=== PATIENT | female | born 1970 | race Caucasian/White ===

== ENCOUNTER 2017-04-24 17:43 | Emergency (ER) | payer OTHER ==
[2017-04-24 17:44] VITALS: BMI 15.3
[2017-04-24 17:51] VITALS: PULSE 88
[2017-04-24] MEDS ORDERED: Sodium Chloride 0.9% 1,000 ML IV ONE (19:17)
--- NOTE | 2017-04-24 19:28 | C.PDOC ---
History Of Present Illness 46 year old female with a Hx of drug abuse who presents to the ER with a complaint of back pain for the last 2 days that has worsened today. Denies dysuria, hematuria, fever, or chills. Chief Complaint (Nursing): Back Pain History Per: Patient History/Exam Limitations: no limitations Onset/Duration Of Symptoms: Days Current Symptoms Are (Timing): Still Present Quality Of Discomfort: Unable To Describe Previous Symptoms: Back Pain, Chronic Pain Associated Symptoms: None Recent travel outside of the [place]: No Past Medical History Reviewed: Historical Data, Nursing Documentation, Vital Signs Vital Signs: Last Vital Signs Temp 99.9 F H 04/24/17 17:50 Pulse 88 04/24/17 17:50 Resp 20 04/24/17 17:50 BP 102/58 L 04/24/17 17:50 Pulse Ox 97 04/24/17 19:34 - Medical History PMH: Asthma, COPD (ASTHMA), HTN - [facility] Procedures CHANGE OTHER DEVICE ON CHEST WALL (02/26/16) CHANGE OTHER DEVICE ON NECK (02/26/16) DRAINAGE OF CHEST WALL WITH DRAINAGE DEVICE, OPEN APPROACH (02/26/16) DRAINAGE OF NECK SKIN WITH DRAINAGE DEVICE, EMERGENCY VEHICLE DRIVER APPROACH (02/26/16) DRAINAGE OF NECK WITH DRAINAGE DEVICE, OPEN APPROACH (02/26/16) DRAINAGE OF RIGHT FINGER PHALANGEAL JOINT, OPEN APPROACH (01/31/16) DRAINAGE OF RIGHT HAND TENDON, OPEN APPROACH (01/31/16) EXCISION OF ANT NECK SUBCU/FASCIA, OPEN APPROACH (02/26/16) EXCISION OF CHEST SUBCU/FASCIA, OPEN APPROACH (02/26/16) INSERTION OF INFUSION DEV INTO SUP VENA CAVA, PERC APPROACH (02/26/16) SKIN & SUBQ INCISION NEC (09/09/14) Family History: States: Unknown Family Hx - Social History Hx Tobacco Use: Yes Hx Alcohol Use: No Hx Substance Use: Yes (Heroin) - Immunization History Hx Tetanus Toxoid Vaccination: Yes Hx Influenza Vaccination: No Hx Pneumococcal Vaccination: No Review Of Systems Constitutional: Negative for: Fever, Chills Genitourinary: Negative for: Dysuria, Incontinence, Hematuria Musculoskeletal: Positive for: Back Pain Neurological: Negative for: Weakness, Numbness Physical Exam - Physical Exam Appears: Non-toxic, Other (Mild Distress) Skin: Normal Color, Warm, Dry Head: Atraumatic, Normacephalic Oral Mucosa: Moist Neck: Normal, Supple Chest: Symmetrical, No Tenderness Cardiovascular: Rhythm Regular, No Murmur Respiratory: Normal Breath Sounds, No Rales, No Rhonchi, No Wheezing Gastrointestinal/Abdominal: Soft, No Tenderness Back: Paraspinal Tenderness (Lumbar) Neurological/Psych: Oriented x3, Normal Speech, Normal Cognition ED Course And Treatment - Laboratory Results Result Diagrams: 04/24/17 19:47 04/24/17 19:47 O2 Sat by Pulse Oximetry: 97 (Room air) Pulse Ox Interpretation: Normal Progress Note: Lumbar spine CT, blood work, and urinalysis ordered. Toradol and IV fluids administered. Disposition Counseled Patient/Family Regarding: Diagnosis - Disposition Referrals: [facility] [Outside] Disposition: HOME/ ROUTINE Disposition Time: 20:59 Condition: STABLE Prescriptions: Ciprofloxacin [Cipro] 1 tab PO BID #14 tab Naproxen [Naprosyn Tab] 375 mg PO TIDPC #20 tab Instructions: Chronic Back Pain (ED), Arthralgia (ED), Urinary Tract Infection in Women (DC) Forms: [employer] ([place]) - POA Present On Arrival: None - Clinical Impression Clinical Impression: Back pain, Arthritis, Urinary tract infection - Scribe Statement The provider has reviewed the documentation as recorded by the Scribeverardo Bonilla All medical record entries made by the Scribe were at my direction and personally dictated by me. I have reviewed the chart and agree that the record accurately reflects my personal performance of the history, physical exam, medical decision making, and the department course for this patient. I have also personally directed, reviewed, and agree with the discharge instructions and disposition.
[2017-04-24 19:56] LABS: BASO % 0.5 % (0.0-2.0); EOS # 0.1 K/uL (0.0-0.7); EOS % 0.9 % (0.0-4.0); LYMPH # 1.3 K/uL (1.0-4.3); LYMPH % 16.7 % (20.0-40.0); MEAN CELL VOLUME 82.4 fL (81.0-99.0); MEAN CORPUSCULAR HEMOGLOBIN 27.9 pg (27.0-31.0); MEAN CORPUSCULAR HGB CONC 33.9 g/dL (33.0-37.0); MEAN PLATELET VOLUME 7.3 fL (7.2-11.7); MONO # 0.9 K/uL (0.0-0.8); MONO % 11.6 % (0.0-10.0); RED CELL DISTRIBUTION WIDTH 14.2 % (11.5-14.5); WHITE BLOOD COUNT 7.6 K/uL (4.8-10.8)
[2017-04-24] MEDS ORDERED: Sodium Chloride 0.9% 1,000 ML ONE (19:58)
[2017-04-24 20:01] LABS: CHLORIDE 97 mmol/L (98-107)
[2017-04-24 20:02] LABS: POTASSIUM 3.7 mmol/L (3.6-5.2); SODIUM 136 mmol/L (132-148)
[2017-04-24 20:04] LABS: AST/SGOT 27 U/L (14-36); BILIRUBIN,TOTAL 0.6 mg/dL (0.2-1.3); CARBON DIOXIDE 26 mmol/L (22-30); GFR AFRICAN-AMERICAN > 60
[2017-04-24 20:05] LABS: ALB/GLOB RATIO 0.8 (1.0-2.1); ALCOHOL SERUM < 10 mg/dl (0-10); ALKALINE PHOSPHATASE 128 U/L (38-126); ALT/SGPT 21 U/L (9-52); BLOOD UREA NITROGEN 17 mg/dL (7-17); CALCIUM 9.3 mg/dl (8.6-10.4); GLUCOSE,RANDOM 116 mg/dL (65-105); RBC URINE 5 /hpf (0-3); TOTAL PROTEIN 7.4 g/dL (6.3-8.3); URINE BACTERIA MANY (<OCC); URINE BILIRUBIN NEGATIVE (NEGATIVE); URINE BLOOD 2+ (NEGATIVE); URINE COLOR Yellow (YELLOW); URINE GLUCOSE (UA) NORMAL (Normal); URINE KETONE NEGATIVE (NEGATIVE); URINE LEUKOCYTE ESTERASE TRACE Leu/uL (Negative); URINE PROTEIN NEGATIVE (NEGATIVE); WBC URINE 4 /hpf (0-5)
--- NOTE | 2017-04-24 20:31 | CT ---
EXAM: CT Lumbar Spine Without Intravenous Contrast EXAM DATE/TIME: Exam ordered 04/24/2017 7:19 PM CLINICAL HISTORY: 46 years old, female; Pain; Low back pain; Additional info: Back pain/ drug abuser TECHNIQUE: Axial computed tomography images of the lumbar spine without intravenous contrast. All CT scans at this facility use one or more dose reduction techniques, viz.: automated exposure control; ma/kV adjustment per patient size (including targeted exams where dose is matched to indication; i.e. head); or iterative reconstruction technique. Coronal and sagittal reformatted images were created and reviewed. COMPARISON: No relevant prior studies available. FINDINGS: Vertebrae: Unremarkable. No acute fracture. Discs/spinal canal/neural foramina: Mild degenerative changes are noted within the facet joints from L4-S1. No acute findings. No spinal canal stenosis. Soft tissues: Unremarkable. IMPRESSION: 1. No acute findings. 2. Very mild degenerative changes of the facet joints of the lower lumbar spine.
[2017-04-24 21:34] VITALS: BP 105/72; RESP 16; TEMP 99.4; O2SAT 95
== END 2017-04-24 21:33 | disposition home or self-care (01) ==
LOC: C.ER 17:43
DX: N39.0 Urinary tract infection, site not specified (principal); B96.89 Other specified bacterial agents as the cause of diseases classified elsewhere; M46.96 Unspecified inflammatory spondylopathy, lumbar region
CPT/HCPCS: 72131; 80053; 81001; 85025; 87086; 96361; 96374; 99283; G0480; J1885; J7040

== ENCOUNTER 2017-10-07 12:03 | Inpatient (IN) | payer OTHER ==
[2017-10-07 12:07] VITALS: BMI 15.3
[2017-10-07] MEDS ORDERED: Sodium Chloride 0.9% 1,000 ML IV ONE ×2 (13:31→15:51)
[2017-10-07] MEDS ORDERED: Sodium Chloride 0.9% 1,000 ML ONE ×2 (13:44→15:56)
--- NOTE | 2017-10-07 13:47 | RAD ---
HISTORY: abd pain COMPARISON: Chest x-ray performed 03/02/16 TECHNIQUE: Chest, one view. FINDINGS: LUNGS: Ill-defined 9 mm right upper lobe opacity and 8 mm lateral left upper lobe nodular density, possibly related to artifact from confluence of shadows; nodules are not excluded. Please note that chest x-ray has limited sensitivity for the detection of pulmonary masses. PLEURA: No significant pleural effusion identified. No definite pneumothorax . CARDIOVASCULAR: Heart size appears within normal limits. OSSEOUS STRUCTURES: Degenerative changes of the spine. VISUALIZED UPPER ABDOMEN: Unremarkable. OTHER FINDINGS: None. IMPRESSION: Ill-defined 9 mm right upper lobe opacity and 8 mm lateral left upper lobe nodular density, possibly related to artifact from confluence of shadows; nodules are not excluded. Suggest follow-up CT of the chest for confirmation.
--- NOTE | 2017-10-07 14:03 | C.PDOC ---
History Of Present Illness 47-year-old female, PMHx includes CVA and Asthma, presents to the emergency department with complaints of Heroin withdrawal. Patient notes abdominal pain, that is associated with nausea/vomiting, diarrhea, and generalized weakness. Patient notes last used was two days ago, she uses three bags daily "for a long time." Patient notes that she uses crack/cocaine and cigarettes (10 daily) but no alcohol use. All other Hx limited because patient is a poor historian. Time Seen by Provider: 10/07/17 13:09 Chief Complaint (Nursing): Abdominal Pain History Per: Patient Onset/Duration Of Symptoms: Days Current Symptoms Are (Timing): Still Present Severity: Moderate Past Medical History Reviewed: Historical Data, Nursing Documentation, Vital Signs Vital Signs: Last Vital Signs Temp 98.7 F 10/07/17 17:43 Pulse 63 10/07/17 17:43 Resp 18 10/07/17 17:43 BP 120/74 10/07/17 17:43 Pulse Ox 97 10/07/17 17:43 - Medical History PMH: Asthma, COPD (ASTHMA), HTN - [facility] Procedures CHANGE OTHER DEVICE ON CHEST WALL (02/26/16) CHANGE OTHER DEVICE ON NECK (02/26/16) DRAINAGE OF CHEST WALL WITH DRAINAGE DEVICE, OPEN APPROACH (02/26/16) DRAINAGE OF NECK SKIN WITH DRAINAGE DEVICE, AERIAL APPLICATOR PILOT APPROACH (02/26/16) DRAINAGE OF NECK WITH DRAINAGE DEVICE, OPEN APPROACH (02/26/16) DRAINAGE OF RIGHT FINGER PHALANGEAL JOINT, OPEN APPROACH (01/31/16) DRAINAGE OF RIGHT HAND TENDON, OPEN APPROACH (01/31/16) EXCISION OF ANT NECK SUBCU/FASCIA, OPEN APPROACH (02/26/16) EXCISION OF CHEST SUBCU/FASCIA, OPEN APPROACH (02/26/16) INSERTION OF INFUSION DEV INTO SUP VENA CAVA, PERC APPROACH (02/26/16) SKIN & SUBQ INCISION NEC (09/09/14) Family History: States: [place] (Father) - Social History Hx Tobacco Use: Yes Hx Alcohol Use: No Hx Substance Use: Yes (Heroin) - Immunization History Hx Tetanus Toxoid Vaccination: Yes Hx Influenza Vaccination: No Hx Pneumococcal Vaccination: No Review Of Systems Constitutional: Negative for: Fever, Chills Cardiovascular: Negative for: Chest Pain Respiratory: Negative for: Shortness of Breath Gastrointestinal: Positive for: Nausea, Vomiting, Abdominal Pain, Diarrhea Musculoskeletal: Negative for: Back Pain Neurological: Positive for: Weakness. Negative for: Headache, Dizziness Physical Exam - Physical Exam Appears: Non-toxic, No Acute Distress, Other (uncomfortable) Skin: Warm, Dry, No Rash Head: Atraumatic, Normacephalic Eye(s): bilateral: Other (dilated) Nose: Normal Oral Mucosa: Moist Lips: Normal Appearing Neck: Normal ROM Gastrointestinal/Abdominal: Bowel Sounds, Soft, Tenderness (diffuse), No Guarding, No Rebound Extremity: Normal ROM Neurological/Psych: Oriented x3, Normal Speech ED Course And Treatment - Laboratory Results Result Diagrams: 10/07/17 14:25 10/07/17 14:25 Lab Interpretation: No Acute Changes (Evidence of moderate dehydration with elevated Hgb and BUN) O2 Sat by Pulse Oximetry: 99 (RA) Pulse Ox Interpretation: Normal - Radiology CXR: Viewed By Mo CXR Interpretation: Yes: Other (Possible upper lobe nodules. No infiltrate) - CT Scan/US CT Chest Other Rad Studies (CT/US): Read By Radiologist, Radiology Report Reviewed CT/US Interpretation: Accession No. : [id number]. Patient Name / ID : LESLIE KUHN / [id number]. Exam Date : 10/07/2017 14:30:32 ( Approved ). Study Comment : Sex / Age : F / 47Y. Creator : Yaima Waters MD. Dictator : Yaima Waters MD. Software Quality Engineer : Log Roller : Yaima Waters MD. Approver2 : Report Date : 10/07/2017 15:05:41. My Comment : . CT chest without IV contrast. Indication: Upper lobe pulmonary nodules. Technique: Contiguous axial images were obtained through the chest without intravenous contrast enhancement. Sagittal and coronal reconstructions were generated and reviewed. This CT exam was performed using 1 or more of the following dose reduction techniques: Automated exposure control, adjustment of the MAA and/or kV according to patient size, and/or use of iterative reconstruction technique. . Radiation dose (DLP): 147.49 MGy-cm. Comparison : Chest x-ray performed 10/07/17. Findings: Visualized portions of the inferior thyroid gland demonstrates 7 mm hypodense left lower pole nodule. The unenhanced mediastinal and hilar vascular structures appear grossly unremarkable. The heart appears within normal limits of size. No focal consolidation. No pleural effusion. No pneumothorax. No suspicious pulmonary nodules measuring greater than 5 mm. Limited visualization of the noncontrast upper abdomen appears grossly unremarkable. Osseous structures appear somewhat diffusely sclerotic; correlate for underlying metabolic disorder. Impression: No discrete pulmonary nodule or mass identified. Findings on chest x-ray performed the same day presumably due to confluence of shadows. 7 mm hypodense left lower pole thyroid nodule. This may be assessed with outpatient thyroid ultrasound if indicated. Osseous structures appear somewhat diffusely sclerotic ; correlate for underlying metabolic disorder. Findings discussed with Dr. Matt on 10/07/17 at 3:02 p.m. Progress Note: CT Chest, Bloodwork, chest X-Ray, HCG/UA ordered and reviewed. Patient treated with Catapres, IVFs, Tylenol and Zofran. Patient was seen by crisis and accepted for a detox bed. Disposition - Disposition Disposition: HOSPITALIZED Disposition Time: 19:23 Condition: FAIR - POA Present On Arrival: None - Clinical Impression Clinical Impression: Opiate dependence - Scribe Statement The provider has reviewed the documentation as recorded by the Scribe (Hayes Haddad) All medical record entries made by the Scribe were at my direction and personally dictated by me. I have reviewed the chart and agree that the record accurately reflects my personal performance of the history, physical exam, medical decision making, and the department course for this patient. I have also personally directed, reviewed, and agree with the discharge instructions and disposition.
[2017-10-07 14:31] LABS: BASO % 0.2 % (0.0-2.0); EOS % 0.1 % (0.0-4.0); LYMPH # 1.3 K/uL (1.0-4.3); LYMPH % 12.7 % (20.0-40.0); MEAN CELL VOLUME 82.2 fL (81.0-99.0); MEAN CORPUSCULAR HEMOGLOBIN 29.3 pg (27.0-31.0); MEAN CORPUSCULAR HGB CONC 35.6 g/dL (33.0-37.0); MEAN PLATELET VOLUME 7.8 fL (7.2-11.7); MONO # 0.7 K/uL (0.0-0.8); MONO % 6.5 % (0.0-10.0); NEUT # 8.3 K/uL (1.8-7.0); NEUT % 80.5 % (50.0-75.0); NRBC % 0.2 % (0.0-2.0); RBC 6.02 Mil/uL (3.80-5.20); RED CELL DISTRIBUTION WIDTH 14.8 % (11.5-14.5); WHITE BLOOD COUNT 10.3 K/uL (4.8-10.8)
[2017-10-07 14:40] LABS: HEMOGLOBIN 17.6 g/dL (11.0-16.0)
[2017-10-07 14:45] LABS: ALBUMIN 4.6 g/dL (3.5-5.0); ALT/SGPT 31 U/L (9-52); AST/SGOT 24 U/L (14-36); BLOOD UREA NITROGEN 24 mg/dL (7-17); CALCIUM 9.8 mg/dl (8.6-10.4); GFR AFRICAN-AMERICAN > 60; GFR NON-AFRICAN AMERICAN > 60; LIPASE 50 U/L (23-300)
--- NOTE | 2017-10-07 15:07 | CT ---
CT chest without IV contrast Indication: Upper lobe pulmonary nodules Technique: Contiguous axial images were obtained through the chest without intravenous contrast enhancement. Sagittal and coronal reconstructions were generated and reviewed. This CT exam was performed using 1 or more of the following dose reduction techniques: Automated exposure control, adjustment of the MAA and/or kV according to patient size, and/or use of iterative reconstruction technique. Radiation dose (DLP): 147.49 MGy-cm. Comparison: Chest x-ray performed 10/07/17 Findings: Visualized portions of the inferior thyroid gland demonstrates 7 mm hypodense left lower pole nodule. The unenhanced mediastinal and hilar vascular structures appear grossly unremarkable. The heart appears within normal limits of size. No focal consolidation. No pleural effusion. No pneumothorax. No suspicious pulmonary nodules measuring greater than 5 mm. Limited visualization of the noncontrast upper abdomen appears grossly unremarkable. Osseous structures appear somewhat diffusely sclerotic; correlate for underlying metabolic disorder. Impression: No discrete pulmonary nodule or mass identified. Findings on chest x-ray performed the same day presumably due to confluence of shadows. 7 mm hypodense left lower pole thyroid nodule. This may be assessed with outpatient thyroid ultrasound if indicated. Osseous structures appear somewhat diffusely sclerotic; correlate for underlying metabolic disorder. Findings discussed with Dr. Matt on 10/07/17 at 3:02 p.m.
[2017-10-07 16:17] LABS: HCG,QUALITATIVE URINE NEGATIVE (NEGATIVE)
[2017-10-07 16:23] LABS: SQUAMOUS EPITHIAL 4 /hpf (0-5)
[2017-10-07 16:27] LABS: URINE BILIRUBIN NEGATIVE (NEGATIVE); URINE BLOOD NEGATIVE (NEGATIVE); URINE CLARITY CLEAR (Clear); URINE COLOR YELLOW (YELLOW); URINE GLUCOSE (UA) NEGATIVE (Normal); URINE LEUKOCYTE ESTERASE NEGATIVE Leu/uL (Negative); URINE NITRATE NEGATIVE (NEGATIVE); URINE PROTEIN 30 mg/dL (NEGATIVE); URINE UROBILINOGEN 0.2 mg/dL (0.2-1.0)
[2017-10-07 16:28] LABS: BARBITURATES, UR NEGATIVE (NEGATIVE); BENZODIAZEPINES, UR NEGATIVE (NEGATIVE); PHENCYCLIDINE, UR NEGATIVE (NEGATIVE)
[2017-10-07 16:57] LABS: OPIATES, UR POSITIVE (NEGATIVE)
[2017-10-07] MEDS ORDERED: Albuterol-Ipratrop 3 mg / 0.5 (3 ml) UD ONE (18:39)
[2017-10-07] MEDS ORDERED: Aluminum Hydroxide/Magnesium Hydroxide Susp (30 mL) PO PRN (18:46)
[2017-10-07] MEDS ORDERED: Acetaminophen 160 mg/5 ml elixir (120 ml) ONE (19:32)
--- NOTE | 2017-10-07 20:06 | PCM.BM ---
<Loreto Vargas - Last Filed: 10/07/17 20:04> Treatment Plan Problems - Problems identified on initial assessmt Opiates dependence Date Initiated: 10/07/17 Time Initiated: 20:30 Assessment reference: NA Status: Active Treatment assets and liabiliti Patient Assests: cooperative, ADL independent, negotiates basic needs - Milieu Protocol Maintain good personal hygiene: daily Encourage regular showers, daily Remind patient to perform daily oral care, daily Assist patient to perform ADL's Maintain personal safety: every shift Educate patient to report safety concerns to staff, every shift Monitor environment for contraband/sharps Medication safety: Monitor for expected outcome, potential side effects: every shift, Assess barriers to learning: every shift, Assess readiness for medication education: every shift <Mayur Blanchard - Last Filed: 10/10/17 11:15> - Diagnosis (1) Opiate dependence Status: Acute Interventions: 10/10/17 11:15 * Assess 7x/week regarding severity of withdrawal * Educate regarding risks, benefits, side effects and alternatives of medications * Use Motivational Interviewing for abstinence * Use CBT for relapse prevention * Medication management for withdrawal symptoms * Encourage medication assisted treatment *
[2017-10-08] MEDS ORDERED: guaiFENesin 100 mg/5 ml Syrup UD PO ONE (03:59)
[2017-10-08] MEDS: Albuterol HFA 90 mcg/actuation (8 g) INH PRN (05:17)
[2017-10-08] MEDS: Albuterol-Ipratrop 3 mg / 0.5 (3 ml) UD INH PRN ×3 (06:33→21:14)
--- NOTE | 2017-10-08 14:23 | PCM.PSYCH ---
Initial Psychiatric Evaluation - Initial Psychiatric Evaluation Type of Admission: Voluntary Legal Status: Capacity Chief Complaint (in patient's own words): "I'm withdrawing from heroin." History of Present Illness and Precipitating Events: The pt is seen, chart reviewed and case discussed. Pt is a 47 y.o. 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 Pt states she shoots 6 bags of heroin per day. She has used heroin for approximately 22 years, started at 25 yo. Last use was 2 days ago. Her longest period of sobriety was 5 years, achieved via suboxone. Pt smokes 1 ppd cigarettes. Pt states she shoots cocaine every day and smokes marijuana every day. Denies use of xanax, PCP or alcohol. Pt states she has not had alcohol in 11 years. Pt states she has attended rehab twice before. Pt has never attended detox before, stating she Jaelyn always done it by myself. Past psych history: Denies. Pt denies suicidal ideation, denies hearing voices, denies feeling depressed. Family psych history: Denies PMHx: Hep C, asthma, CVA- left leg weakness, mild Current Medications: Active Medications Generic Name Dose Route Start Last Admin Trade Name Freq PRN Reason Stop Dose Admin Al Hydrox/Mg Hydrox/Simethicone 30 ml 10/07/17 18:46 Maalox 30 Ml PO TID PRN Indigestion / Heartburn Albuterol 1 puff 10/08/17 04:24 10/08/17 05:17 Ventolin Hfa 90 Mcg/Actuation (8 G) INH 1 puff RQ4 PRN Administration Shortness of Breath Albuterol/Ipratropium 3 ml 10/08/17 06:15 10/08/17 13:34 Duoneb 3 Mg/0.5 Mg (3 Ml) Ud INH 3 ml RQ6 PRN Administration Shortness of Breath Clonidine HCl 0.1 mg 10/07/17 18:46 Catapres PO Q8 PRN COWS Score More or Equal to 5 Hydroxyzine HCl 25 mg 10/07/17 18:47 Atarax PO Q6 PRN Agitation Loperamide HCl 2 mg 10/07/17 18:46 Imodium PO Q8 PRN Diarrhea Methadone HCl 15 mg 10/08/17 10:00 10/08/17 10:17 Methadone PO 10/13/17 09:59 15 mg Q24H SELENA Administration Taper Ondansetron HCl 4 mg 10/07/17 18:46 10/07/17 23:27 Zofran Tab PO 4 mg Q8 PRN Administration Nausea/Vomiting Pneumococcal Polyvalent Vaccine 0.5 ml 10/10/17 10:00 Pneumovax 23 Vaccine IM 10/10/17 10:01 .ONCE ONE Pseudoephedrine HCl 60 mg 10/07/17 18:46 Sudafed Tab PO QID PRN Nasal/Sinus Congestion Trazodone HCl 50 mg 10/07/17 22:00 10/07/17 21:55 Desyrel PO 50 mg HS SELENA Administration Past Psychiatric History - Past Psychiatric History Previous Treatment History: None Pertinent Medical Hx (Current Medical&Sleep Prob, Allergies): Allergies Allergy/AdvReac Type Severity Reaction Status Date / Time No Known Allergies Allergy Verified 10/07/17 12:20 No Known Home Med 10/07/17 Review of Systems - Neurological Neurological: Focal Weakness (Left leg weakness 2/2 hx of CVA) - Psychiatric Psychiatric: Abnormal Sleep Pattern, Anxiety. absent: Homicidal Ideation, Suicidal Ideation Mental Status Examination - Personal Presentation Personal Presentation: Looks older than stated age - Affect Affect: Constricted - Motor Activity Motor Activity: Calm - Reliability in Providing Information Reliability in Providing Information: Fair - Speech Speech: Organized - Mood Mood: Anxious - Cognitive Functions Orientation: Person, Place, Situation, Time Sensorium: Drowsy Judgement: Intact, as evidence by: Insight regarding need for hospitalization Memory: Recent intact, as evidence by: Ability to recall events of the day - Limitations Limitations: Other (Homeless, unemployed) DSM 5 DX - DSM 5 DSM 5 Diagnosis: Opioid withdrawal Opioid use d/o- severe Cocaine use d/o- moderate Cannabis use d/o - mild Tobacco use d/o - mild - Recommended/Plan of Treatment Treatment Recommendations and Plan of Treatment: Opioid detox Gabapentin for augmentation As needed medications All risks, benefits and alternatives of the meds discussed, and the pt agreed and understood. Attend groups and activities Supportive therapy and psychoeducation [place] for abstinence CBT for relapse prevention Encourage MAT Refer to rehab or IOP, and self-help groups. She also plans to go to [place] Smoking cessation with [place] Nicotine patch 34 min Projected ELOS: 4-5 days - Smoking Cessation Smoking Cessation Initiated: Yes
[2017-10-08] MEDS: guaiFENesin 100 mg/5 ml Syrup UD PO PRN (20:12)
[2017-10-08] MEDS ORDERED: Albuterol 0.083% Inhal Sol (2.5 mg/3 mL) UD ONE (21:16)
[2017-10-09] MEDS: guaiFENesin 100 mg/5 ml Syrup UD PO PRN ×3 (05:56→21:38)
[2017-10-09] MEDS: Albuterol HFA 90 mcg/actuation (8 g) INH PRN ×2 (12:24→19:07)
--- NOTE | 2017-10-09 14:57 | PCM.PYCHPN ---
Psychiatric Progress Note - Psychiatric Progress Note Patient seen today, length of contact: 17 min Patient Chief Complaint: "I'm not well" Problems Identified/Issues Discussed: The pt is seen, chart reviewed, case discussed with staff. The pt is compliant with medications and reports no side-effects. Symptoms are improving but needs more time to stabilize. Still has wdw sxs. Looks disorganized. After care discussed, support and psychoeducation given. Medication Change: Yes (detox changes daily) Medical Record Reviewed: Yes Mental Status Examination - Cognitive Function Orientation: Person, Place, Situation, Time Memory: Impaired Attention: Poor Concentration: Poor Association: WNL Fund of Knowledge: Poor - Mood Mood: Anxious - Affect Affect: Constricted - Speech Speech: Appropriate - Formal Thought Process Formal Thought Process: No Impairment - Suicidal Ideation Suicidal Ideation: No - Homicidal Ideation Homicidal Ideation: No Goal/Treatment Plan - Goal/Treatment Plan Need for Continued Stay: Discharge may exacerbated symptoms, Severe functional impairment Progress Toward Problem(s) and Goals/Treatment Plan: Opioid detox Gabapentin for augmentation As needed medications All risks, benefits and alternatives of the meds discussed, and the pt agreed and understood. Attend groups and activities Supportive therapy and psychoeducation [place] for abstinence CBT for relapse prevention Encourage MAT Refer to rehab or IOP, and self-help groups. She also plans to go to [place] Smoking cessation with [place] Nicotine patch
[2017-10-10] MEDS: Albuterol HFA 90 mcg/actuation (8 g) INH PRN (02:43)
[2017-10-10] MEDS: guaiFENesin 100 mg/5 ml Syrup UD PO PRN ×3 (03:18→15:58)
--- NOTE | 2017-10-10 09:26 | PCM.PYCHPN ---
Psychiatric Progress Note - Psychiatric Progress Note Patient seen today, length of contact: 15 min Medication Change: Yes Medical Record Reviewed: Yes Mental Status Examination - Cognitive Function Orientation: Person, Place, Situation, Time Memory: Intact Attention: WNL Concentration: Poor Association: WNL Fund of Knowledge: Poor - Mood Mood: Anxious - Affect Affect: Constricted - Speech Speech: Soft - Formal Thought Process Formal Thought Process: No Impairment - Suicidal Ideation Suicidal Ideation: No - Homicidal Ideation Homicidal Ideation: No Goal/Treatment Plan - Goal/Treatment Plan Need for Continued Stay: Discharge may exacerbated symptoms Progress Toward Problem(s) and Goals/Treatment Plan: Opioid withdrawal Opioid use d/o- severe Cocaine use d/o- moderate Cannabis use d/o - mild Tobacco use d/o - mild Opioid detox Gabapentin for augmentation As needed medications All risks, benefits and alternatives of the meds discussed, and the pt agreed and understood. Attend groups and activities Supportive therapy and psychoeducation [place] for abstinence CBT for relapse prevention Encourage MAT Refer to rehab or IOP, and self-help groups. She also plans to go to [place] Smoking cessation with [place] Nicotine patch - Smoking Cessation Smoking Cessation Initiated: No
[2017-10-10] MEDS ORDERED: Influenza Vaccine 60 mcg/0.5 mL SYR (4YR UP) IM ONE (10:00)
[2017-10-10] MEDS ORDERED: Pneumococcal 23-Valent Vaccine IM ONE (10:00)
[2017-10-11] MEDS: guaiFENesin 100 mg/5 ml Syrup UD PO PRN ×2 (01:46→09:34)
[2017-10-11 06:15] VITALS: RESP 18
[2017-10-11 10:25] VITALS: BP 130/80; PULSE 71; TEMP 97.7; O2SAT 97
--- NOTE | 2017-10-11 12:39 | PCM.PYCHDC ---
Mental Status Examination - Mental Status Examination Orientation: Person, Place, Situation, Time Memory: Intact Mood: Neutral Affect: Constricted Speech: Soft Attention: WNL Concentration: WNL Association: WNL Fund of Knowledge: WNL Formal Thought Process: No Impairment Description of patient's judgement and insight: good, fair Psychotic Thoughts and Behaviors: denies any AVH Suicidal Ideation: No Current Homicidal Ideation?: No Discharge Summary - Discharge Note Reason for Hospitalization: Pt is a 47 y.o. 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 Pt states she shoots 6 bags of heroin per day. She has used heroin for approximately 22 years, started at 25 yo. Last use was 2 days ago. Her longest period of sobriety was 5 years, achieved via suboxone. Pt smokes 1 ppd cigarettes. Pt states she shoots cocaine every day and smokes marijuana every day. Denies use of xanax, PCP or alcohol. Pt states she has not had alcohol in 11 years. Pt states she has attended rehab twice before. Pt has never attended detox before, stating she Jaelyn always done it by myself. Past psych history: Denies. Pt denies suicidal ideation, denies hearing voices, denies feeling depressed. Consultations:: List each consultation separately and include: 1. Reason for request. 2. Findings. 3. Follow-up Summary of Hospital Course include:: 1. Description of specific treatment plan utilized for patients during their course of treatmen. 2. Summarize the time- course for resolution of acute symptoms and/or regressed behaviors. 3. Describe issues identified and worked on during hospitalization. 4. Describe medication utilized. 5. Describe medical problems identified and treated. 6. Reassessment of suicide risk - Final Diagnosis (DSM 5) Condition upon Discharge: FAIR DSM 5: Opioid withdrawal Opioid use d/o- severe Cocaine use d/o- moderate Cannabis use d/o - mild Tobacco use d/o - mild Disposition: HOME/ ROUTINE Follow-up Treatment Plan: Opioid withdrawal Opioid use d/o- severe Cocaine use d/o- moderate Cannabis use d/o - mild Tobacco use d/o - mild Opioid detox Gabapentin for augmentation As needed medications All risks, benefits and alternatives of the meds discussed, and the pt agreed and understood. Attend groups and activities Supportive therapy and psychoeducation [place] for abstinence CBT for relapse prevention Encourage MAT Refer to rehab or IOP, and self-help groups. [facility] Smoking cessation with [place] Nicotine patch Prescriptions/Medication Reconciliation: Albuterol HFA [Ventolin HFA 90 mcg/actuation (8 g)] 1 puff INH RQ4 PRN #1 inhaler PRN Reason: Shortness Of Breath traZODone [Desyrel] 50 mg PO HS #30 tab - Smoking Cessation Smoking Cessation Medication prescribed: No - Antipsychotic Medications Pt discharged on 2 or more routine antipsychotic medications: No
== END 2017-10-11 13:06 | disposition home or self-care (01) | DRG 744 ==
LOC: C.ER 12:03 → C.7D 19:21
PROVIDERS: ADMIT Psychiatry & Neurology Psychiatry; ATTEND Psychiatry & Neurology Psychiatry
PROC: HZ2ZZZZ Detoxification Services for Substance Abuse Treatment (ICD-10-PCS; principal; 2017-10-07)
PROC: HZ59ZZZ Individual Psychotherapy for Substance Abuse Treatment, Supportive (ICD-10-PCS; 2017-10-07)
PROC: HZ46ZZZ Group Counseling for Substance Abuse Treatment, Psychoeducation (ICD-10-PCS; 2017-10-07)
DX: F11.23 Opioid dependence with withdrawal (principal); F14.90 Cocaine use, unspecified, uncomplicated; F12.90 Cannabis use, unspecified, uncomplicated; F17.210 Nicotine dependence, cigarettes, uncomplicated; J44.9 Chronic obstructive pulmonary disease, unspecified; B18.2 Chronic viral hepatitis C; I10 Essential (primary) hypertension; J45.909 Unspecified asthma, uncomplicated; Z86.73 Personal history of transient ischemic attack (TIA), and cerebral infarction without residual deficits

== ENCOUNTER 2018-11-04 13:55 | Inpatient (IN) | payer MEDICAID, OTHER ==
[2018-11-04 13:58] VITALS: BMI 18.6
[2018-11-04 15:36] LABS: BASO % 0.4 % (0.0-2.0); EOS % 0.2 % (0.0-4.0); HEMOGLOBIN 8.1 g/dL (11.0-16.0); LYMPH # 0.8 K/uL (1.0-4.3); LYMPH % 18.3 % (20.0-40.0); MEAN CORPUSCULAR HEMOGLOBIN 24.9 pg (27.0-31.0); MEAN CORPUSCULAR HGB CONC 32.7 g/dL (33.0-37.0); MONO # 0.3 K/uL (0.0-0.8); MONO % 6.6 % (0.0-10.0); NEUT # 3.3 K/uL (1.8-7.0); NEUT % 74.5 % (50.0-75.0); NRBC % 0.1 % (0.0-2.0); RBC 3.24 Mil/uL (3.80-5.20); RED CELL DISTRIBUTION WIDTH 18.9 % (11.5-14.5); WHITE BLOOD COUNT 4.4 K/uL (4.8-10.8)
[2018-11-04 15:38] LABS: MEAN CELL VOLUME 76.1 fL (81.0-99.0)
[2018-11-04 15:49] LABS: BLOOD UREA NITROGEN 13 mg/dL (7-17); CALCIUM 8.6 mg/dl (8.6-10.4); GFR NON-AFRICAN AMERICAN > 60
--- NOTE | 2018-11-04 15:54 | C.PDOC ---
History Of Present Illness 48 year old female with history of IVDA presents to ED with complaint of pain and swelling to the distal left lateral calf for one week. Patient denies any injuries to the area and states she has not injected herself with anything to that area. denies fever. Time Seen by Provider: 11/04/18 15:09 Chief Complaint (Nursing): Lower Extremity Problem/Injury History Per: Patient History/Exam Limitations: no limitations Onset/Duration Of Symptoms: Days (7) Current Symptoms Are (Timing): Still Present Additional History Per: Patient Past Medical History Reviewed: Historical Data, Nursing Documentation, Vital Signs Vital Signs: Last Vital Signs Temp 98.4 F 11/04/18 13:58 Pulse 78 11/04/18 13:58 Resp 18 11/04/18 13:58 BP 122/78 11/04/18 13:58 Pulse Ox 95 11/04/18 13:58 - Medical History PMH: Asthma, COPD (ASTHMA), HTN Denies: Diabetes, Hepatitis, HIV, Chronic Kidney Disease, Seizures, Sexually Transmitted Disease Surgical History: No Surg Hx - [facility] Procedures CHANGE OTHER DEVICE ON CHEST WALL (02/26/16) CHANGE OTHER DEVICE ON NECK (02/26/16) DETOXIFICATION SERVICES FOR SUBSTANCE ABUSE TREATMENT (10/07/17) DRAINAGE OF CHEST WALL WITH DRAINAGE DEVICE, OPEN APPROACH (02/26/16) DRAINAGE OF NECK SKIN WITH DRAINAGE DEVICE, BRANCH OR DEPARTMENT CHIEF LIBRARIAN APPROACH (02/26/16) DRAINAGE OF NECK WITH DRAINAGE DEVICE, OPEN APPROACH (02/26/16) DRAINAGE OF RIGHT FINGER PHALANGEAL JOINT, OPEN APPROACH (01/31/16) DRAINAGE OF RIGHT HAND TENDON, OPEN APPROACH (01/31/16) EXCISION OF ANT NECK SUBCU/FASCIA, OPEN APPROACH (02/26/16) EXCISION OF CHEST SUBCU/FASCIA, OPEN APPROACH (02/26/16) GROUP INVENTORY CHECKER FOR SUBSTANCE ABUSE TREATMENT, PSYCHOEDUCATION (10/07/17) INDIV PSYCHOTHERAPY FOR SUBSTANCE ABUSE TREATMENT, SUPPORT (10/07/17) INSERTION OF INFUSION DEV INTO SUP VENA CAVA, PERC APPROACH (02/26/16) INSPECTION OF LOWER MUSCLE, PERCUTANEOUS APPROACH (06/28/18) RESECTION OF APPENDIX, PERCUTANEOUS ENDOSCOPIC APPROACH (06/28/18) SKIN & SUBQ INCISION NEC (09/09/14) ULTRASONOGRAPHY OF HEART WITH AORTA, TRANSESOPHAGEAL (06/28/18) Family History: States: Unknown Family Hx, [place] (Father) - Social History Hx Tobacco Use: Yes Hx Alcohol Use: No (pt denies) Hx Substance Use: Yes - Immunization History Hx Tetanus Toxoid Vaccination: No Hx Influenza Vaccination: No Hx Pneumococcal Vaccination: Yes Review Of Systems Constitutional: Negative for: Fever, Chills, Weakness Musculoskeletal: Positive for: Leg Pain (pain and swelling to the distal left lateral calf) Neurological: Negative for: Weakness, Numbness, Dizziness Physical Exam - Physical Exam Appears: Well, No Acute Distress, Other (uncomfortable) Skin: Warm, Dry, Other (area of erythema left lateral calf) Head: Atraumatic, Normacephalic Neck: Normal ROM, Supple Chest: Symmetrical, No Deformity Cardiovascular: Rhythm Regular Respiratory: No Accessory Muscle Use Gastrointestinal/Abdominal: Soft, No Tenderness Extremity: Tenderness (distal left lateral calf), Swelling (swelling to lower extremity on the distal left lateral calf, 6-7cm by 3 cm area that is erythematous and firm. ) Neurological/Psych: Oriented x3, Normal Speech, Normal Cognition ED Course And Treatment - Laboratory Results Result Diagrams: 11/08/18 06:47 11/08/18 06:47 Lab Results: Total Bilirubin 0.6 mg/dL (0.2-1.3) 11/04/18 15:33 O2 Sat by Pulse Oximetry: 95 (RA) Medical Decision Making Medical Decision Making: Impression: redness and swelling to the distal left lateral calf Plan: Labs ordered with UA and drug screen. Left Tibia fibula X-ray. Disposition Discussed With Dr.: George Sloan Doctor Will See Patient In The: Hospital - Disposition Disposition: HOSPITALIZED Disposition Time: 16:41 Condition: GOOD - Clinical Impression Clinical Impression: Cellulitis of left lower leg, Anemia - PA / KINDERGARTEN ASSISTANT / Resident Statement MD/DO has reviewed & agrees with the documentation as recorded. (Steph Jones) - Scribe Statement The provider has reviewed the documentation as recorded by the Scribe (Steph Jones) All medical record entries made by the Scribe were at my direction and personal ly dictated by me. I have reviewed the chart and agree that the record accurately reflects my personal performance of the history, physical exam, medical decision making, and the department course for this patient. I have also personally directed, reviewed, and agree with the discharge instructions and disposition.
[2018-11-04 15:58] LABS: ALB/GLOB RATIO 0.7 (1.0-2.1); ALBUMIN 3.6 g/dL (3.5-5.0); ALT/SGPT < 6 U/L (9-52); AST/SGOT 26 U/L (14-36)
[2018-11-04 16:09] LABS: SQUAMOUS EPITHIAL 1 /hpf (0-5); URINE BACTERIA RARE (<OCC); URINE BILIRUBIN NEGATIVE (NEGATIVE); URINE BLOOD 3+ (NEGATIVE); URINE CLARITY Clear (Clear); URINE COLOR Yellow (YELLOW); URINE GLUCOSE (UA) NORMAL (Normal); URINE LEUKOCYTE ESTERASE NEG Leu/uL (Negative); URINE PROTEIN 1+ mg/dL (NEGATIVE); URINE UROBILINOGEN NORMAL mg/dL (0.2-1.0)
[2018-11-04 16:32] LABS: BARBITURATES, UR NEGATIVE (NEGATIVE); BENZODIAZEPINES, UR NEGATIVE (NEGATIVE); PHENCYCLIDINE, UR NEGATIVE (NEGATIVE)
[2018-11-04] MEDS ORDERED: Clindamycin 600mg/50ml D5W 600 MG/50 ML VIAL IVPB STA (16:45)
[2018-11-04] MEDS ORDERED: Clindamycin 600mg/50ml D5W 600 MG/50 ML VIAL IVPB SCH ×2 (16:45)
[2018-11-04 16:46] LABS: OPIATES, UR POSITIVE (NEGATIVE)
[2018-11-04] MEDS ORDERED: Clindamycin 600mg/50ml NS 600 MG/50 ML BAG IVPB ONE (16:50)
--- NOTE | 2018-11-04 17:41 | CP.PCM.HP ---
<Larry Chavez - Last Filed: 11/04/18 19:52> History of Present Illness - History of Present Illness History of Present Illness: PGY1 Medicine H and P for Dr. De Paz Patient is a 48 year old homeless female with past medical history of asthma, stroke, IV heroin abuse, coming to the ED for worsening left lower extremity pain, swelling and redness. Pt had tactile fever with chill yesterday. Pt admits to scratching the area, but denies injecting in the leg. Pt also endorses chest pain with sob that has worsened for the past few days. She states that she can only walk a few blocks before she gets short of breath. She endorses lying on the ground for extended periods of time, as well as injecting heroin into the right hand only (last used yesterday). Denies abdominal pain, n/v/d, hem atochezia, melena, hemoptysis, any bruising or bleeding, falls, head trauma, syncope. Endorses chronic fatigue. Pt has had multiple abscesses and bouts of cellulitis in the past. Medical records reviewed: PMH: Asthma, CVA, IV drug abuse, previously treated for withdrawal, MSSA bacteremia, iopsoas abscess on 06/2018 PSH: unspecified surgery in right leg, chest wall abscess exploration and debridement, appendectomy 06/2018 Medications: ibuprofen, asthma pump FHx: [place] (father) SHx: Smoking history, heroin (6 bags every day), marijuana daily use. Patient is homeless. D allergies: NKDA Present on Admission - Present on Admission Any Indicators Present on Admission: No Review of Systems - Review of Systems All systems: reviewed and no additional remarkable complaints except (as per HPI) Past Patient History - Infectious Disease Hx of Infectious Diseases: None - Past Medical History & Family History Past Medical History?: Yes - Past Social History Smoking Status: Former Smoker - CARDIAC Hx Hypertension: Yes - PULMONARY Hx Asthma: Yes Hx Chronic Obstructive Pulmonary Disease (COPD): Yes (ASTHMA) - NEUROLOGICAL Hx Seizures: No - HEENT Hx HEENT Problems: No - RENAL Hx Chronic Kidney Disease: No - ENDOCRINE/METABOLIC Hx Endocrine Disorders: No - HEMATOLOGICAL/ONCOLOGICAL Hx Human Immunodeficiency Virus (HIV): No - INTEGUMENTARY Hx Dermatological Problems: No - MUSCULOSKELETAL/RHEUMATOLOGICAL Hx Musculoskeletal Disorders: Yes Hx Back Pain: Yes Hx Falls: Yes - GASTROINTESTINAL Hx Gastrointestinal Disorders: No - GENITOURINARY/GYNECOLOGICAL Hx Sexually Transmitted Disorders: No - PSYCHIATRIC Hx Substance Use: Yes - SURGICAL HISTORY Hx Surgeries: Yes Other/Comment: LEFT CHEST I&D - ANESTHESIA Hx Anesthesia: Yes Hx Anesthesia Reactions: No Hx Malignant Hyperthermia: No Meds Allergies/Adverse Reactions: Allergies Allergy/AdvReac Type Severity Reaction Status Date / Time No Known Allergies Allergy Verified 11/04/18 13:58 Physical Exam - Constitutional Appears: Non-toxic, No Acute Distress, Older Than Stated Age, Cachectic, Chronically Ill - Head Exam Head Exam: ATRAUMATIC, NORMAL INSPECTION - Eye Exam Eye Exam: EOMI, Normal appearance, PERRL - ENT Exam ENT Exam: Mucous Membranes Dry - Respiratory Exam Respiratory Exam: Rhonchi, Wheezes. absent: Rales, Respiratory Distress, Stridor - Cardiovascular Exam Cardiovascular Exam: REGULAR RHYTHM, +S1, +S2. absent: Tachycardia Additional comments: (+) s3 - GI/Abdominal Exam GI & Abdominal Exam: Normal Bowel Sounds, Soft. absent: Distended, Firm, Guarding, Rigid, Tenderness - Extremities Exam Extremities exam: Positive for: pedal edema (2+ pitting from the mid hui down to the foot), pedal pulses present (2+ bilateral DP/PT, radials). Negative for: calf tenderness, normal inspection (4 cm by 4 cm area of erythema, swelling, warmth and tenderness to the left lateral lower hui) - Neurological Exam Neurological exam: Alert, Oriented x3 - Psychiatric Exam Psychiatric exam: Normal Affect, Normal Mood - Skin Skin Exam: Dry, Normal Color, Warm Results - Vital Signs Recent Vital Signs: Last Vital Signs Temp 98.9 F 11/04/18 16:55 Pulse 71 11/04/18 16:55 Resp 16 11/04/18 16:55 BP 162/78 H 11/04/18 16:55 Pulse Ox 100 11/04/18 16:55 - Labs Result Diagrams: 11/04/18 15:33 11/04/18 15:33 Labs: Laboratory Results - last 24 hr 11/04/18 11/04/18 11/04/18 15:33 15:33 15:54 WBC 4.4 L RBC 3.24 L Hgb 8.1 L Hct 24.7 L MCV 76.1 L D MCH 24.9 L MCHC 32.7 L RDW 18.9 H Plt Count 302 MPV 8.0 Neut % (Auto) 74.5 Lymph % (Auto) 18.3 L [place] % (Auto) 6.6 Eos % (Auto) 0.2 Baso % (Auto) 0.4 Neut # (Auto) 3.3 Lymph # (Auto) 0.8 L [place] # (Auto) 0.3 Eos # (Auto) 0.0 Baso # (Auto) 0.0 Sodium 136 Potassium 5.2 Chloride 104 Carbon Dioxide 25 Anion Gap 12 BUN 13 Creatinine 0.5 L Est GFR ( Amer) > 60 Est GFR (Non-Af Amer) > 60 Random Glucose 107 H Calcium 8.6 Total Bilirubin 0.6 AST 26 ALT < 6 L D Alkaline Phosphatase 77 Total Protein 8.8 H Albumin 3.6 Globulin 5.2 H Albumin/Globulin Ratio 0.7 L Urine Color Urine Clarity Urine pH Ur Specific [place] Urine Protein Urine Glucose (UA) Urine Ketones Urine Blood Urine Nitrate Urine Bilirubin Urine Urobilinogen Ur Leukocyte Esterase Urine WBC (Auto) Urine RBC (Auto) Ur Squamous Epith Cells Urine Bacteria Urine Opiates Screen Positive H Urine Methadone Screen Negative Ur Barbiturates Screen Negative Ur Phencyclidine Scrn Negative Ur Amphetamines Screen Negative U Benzodiazepines Scrn Negative U Oth Cocaine Metabols Positive H U Cannabinoids Screen Positive H 11/04/18 15:54 WBC RBC Hgb Hct MCV MCH MCHC RDW Plt Count MPV Neut % (Auto) Lymph % (Auto) [place] % (Auto) Eos % (Auto) Baso % (Auto) Neut # (Auto) Lymph # (Auto) [place] # (Auto) Eos # (Auto) Baso # (Auto) Sodium Potassium Chloride Carbon Dioxide Anion Gap BUN Creatinine Est GFR ( Amer) Est GFR (Non-Af Amer) Random Glucose Calcium Total Bilirubin AST ALT Alkaline Phosphatase Total Protein Albumin Globulin Albumin/Globulin Ratio Urine Color Yellow Urine Clarity Clear Urine pH 7.0 Ur Specific [place] 1.009 Urine Protein 1+ H Urine Glucose (UA) Normal Urine Ketones Negative Urine Blood 3+ H Urine Nitrate Negative Urine Bilirubin Negative Urine Urobilinogen Normal Ur Leukocyte Esterase Neg Urine WBC (Auto) 5 Urine RBC (Auto) 27 H Ur Squamous Epith Cells 1 Urine Bacteria Rare Urine Opiates Screen Urine Methadone Screen Ur Barbiturates Screen Ur Phencyclidine Scrn Ur Amphetamines Screen U Benzodiazepines Scrn U Oth Cocaine Metabols U Cannabinoids Screen Assessment & Plan - Assessment and Plan (Free Text) Assessment: Patient is a 48 year old homeless female with past medical history of asthma, stroke, IV heroin abuse, untreated hepatitis c, coming to the ED for worsening left lower extremity pain, swelling and redness. Endorses chest pain and sob as well. Plan: Chest pain UDS positive for cocaine AVOID betablockers Troponin x1 is negative, will trend q6h with EKG DDimer is over 5250 Chest CTA ordered STAT will f/u with results F/u echocardiogram Dyspnea Hx of asthma R/o PE as above O2 via NC PRN CXR shows no evidence of pneumothorax, effusion, pulmonary vascular congestion or infiltrate; f/u official reading Duonebs q6h Mucinex 600 mg PO BID In light of lung auscultation and tactile fevers, pt will be started on Zosyn 2.25 g IVPB q8h as well for now Blood cultures Sputum cultures Left lower extremity cellulitis Left tib/fib xr does not show gross fracture or periosteal elevation; f/u official reading Received Clindamycin 600 mg IVP x1 in the ED Will start Vancomycin 1g IVPB q12 F/u venous doppler study Polysubstance abuse Hx of IVDA Detox, Dr. Art, consulted. Recs appreciated UDS is positive for opiates, cocaine, cannabinoid AVOID betablockers Hx of Untreated Hepatitis C F/u HIV, hepatic panel Hx of microcytic anemia H/H is 8.1/24.7 on admission Hgb normal ranges from 8-10 F/u Iron, TIBC, Ferritin, reticulocyte count No indication for transfusion at this time PPX: GI: No indication at this time VTE: Heparin 5000u q12h HHD PT/OT Dispo: admit to telemetry for chest pain, dyspnea, cocaine use <Lynda De Paz V - Last Filed: 11/08/18 13:51> Results - Vital Signs Recent Vital Signs: Last Vital Signs Temp 97.8 F 11/08/18 09:03 Pulse 441 H 11/08/18 09:03 Resp 20 11/08/18 09:03 BP 132/69 11/08/18 09:03 Pulse Ox 99 11/08/18 09:03 - Labs Result Diagrams: 11/08/18 06:47 11/08/18 06:47 Labs: Laboratory Results - last 24 hr 11/07/18 11/07/18 11/08/18 08:12 13:56 06:47 WBC 4.1 L RBC 3.27 L Hgb 8.1 L Hct 25.1 L MCV 77.0 L MCH 24.8 L MCHC 32.3 L RDW 18.7 H Plt Count 369 MPV 6.5 L Neut % (Auto) 54.0 Lymph % (Auto) 34.9 [place] % (Auto) 10.2 H Eos % (Auto) 0.5 Baso % (Auto) 0.4 Neut # (Auto) 2.2 Lymph # (Auto) 1.4 [place] # (Auto) 0.4 Eos # (Auto) 0.0 Baso # (Auto) 0.0 PT INR APTT Sodium Potassium Chloride Carbon Dioxide Anion Gap BUN Creatinine Est GFR ( Amer) Est GFR (Non-Af Amer) Random Glucose Calcium Phosphorus Magnesium Total Bilirubin AST ALT Alkaline Phosphatase Total Protein Albumin Globulin Albumin/Globulin Ratio Procalcitonin 0.67 H Random Vancomycin Blood Type A NEGATIVE Antibody Screen Negative 11/08/18 11/08/18 11/08/18 06:47 06:47 11:21 WBC RBC Hgb Hct MCV MCH MCHC RDW Plt Count MPV Neut % (Auto) Lymph % (Auto) [place] % (Auto) Eos % (Auto) Baso % (Auto) Neut # (Auto) Lymph # (Auto) [place] # (Auto) Eos # (Auto) Baso # (Auto) PT 12.0 INR 1.1 APTT 31 D Sodium 136 Potassium 3.8 Chloride 106 Carbon Dioxide 24 Anion Gap 9 L BUN 20 H Creatinine 0.7 Est GFR ( Amer) > 60 Est GFR (Non-Af Amer) > 60 Random Glucose 100 Calcium 9.0 Phosphorus 3.9 Magnesium 1.8 Total Bilirubin 0.2 AST 20 ALT < 6 L D Alkaline Phosphatase 78 Total Protein 7.6 Albumin 3.2 L Globulin 4.4 H Albumin/Globulin Ratio 0.7 L Procalcitonin Random Vancomycin 21.7 Blood Type Antibody Screen Attending/Attestation - Attestation I have personally seen and examined this patient.: Yes I have fully participated in the care of the patient.: Yes I have reviewed all pertinent clinical information: Yes Notes (Text): This is a late computer entry. Patient seen and examined case discussed with medical records specialist This is a 48-year-old female history of hepatitis C heroin on dependence and heroin withdrawal comes in for left lower extremity/cellulitis possible abscess. Patient reports chest pain with coinciding cocaine use we have put in a change in order to telemetry. Admitting orders discussed with resident at time of admission.
[2018-11-04 19:26] LABS: INR 1.1; PROTHROMBIN TIME 11.8 SECONDS (9.7-12.2)
[2018-11-04 19:33] LABS: D DIMER > 5250 ng/mlDDU (0-243)
[2018-11-04 19:37] LABS: CK-MB 0.58 ng/mL (0.0-3.38)
[2018-11-04] MEDS: guaiFENesin 600 mg ER Tab PO SCH (20:18)
[2018-11-04] MEDS: Piperacill/Tazo 2.25gm in Dex 2.25 GM/50 ML BAG IVPB SCH (20:46)
[2018-11-04] MEDS ORDERED: Heparin25000 units/250ml 1/2NS 25,000 UNITS/250 ML BAG IV PRN ×2 (21:05→23:15)
[2018-11-04] MEDS: Albuterol-Ipratrop 3 mg / 0.5 (3 ml) UD INH SCH (21:14)
[2018-11-05] MEDS: Albuterol-Ipratrop 3 mg / 0.5 (3 ml) UD INH SCH ×3 (02:00→19:38)
[2018-11-05] MEDS: Piperacill/Tazo 2.25gm in Dex 2.25 GM/50 ML BAG IVPB SCH ×3 (03:55→20:47)
--- NOTE | 2018-11-05 08:06 | RAD ---
Date of service: 11/04/2018 HISTORY: shortness of breathe, pleuritic chest pain COMPARISON: 07/01/2018. FINDINGS: LUNGS: The lungs are well inflated and clear. PLEURA: No pleural effusions or pneumothorax. CARDIOVASCULAR: The heart is normal in size. No aortic atherosclerotic calcifications present. OSSEOUS STRUCTURES: Within normal limits for the patient's age. VISUALIZED UPPER ABDOMEN: Normal. OTHER FINDINGS: None. IMPRESSION: No active pulmonary disease.
--- NOTE | 2018-11-05 08:18 | CP.PCM.PN ---
<Zaki Downey - Last Filed: 11/05/18 19:31> Subjective - Date & Time of Evaluation Date of Evaluation: 11/05/18 Time of Evaluation: 08:18 - Subjective Subjective: PGY-1 Medicine Progress Note for Dr. De Paz Patient seen and examined at bedside this AM, in acute distress from apparent substance withdrawal. Patient complains of nausea,headaches, states she had 6 episodes of NBNB vomiting. Also has tenderness to LLE at site of swelling. No fevers/chills, chest pain, palpitations, acute sob. 12 pt ROS reviewed and otherwise negative. Objective - Vital Signs/Intake and Output Vital Signs (last 24 hours): Temp Pulse Resp BP Pulse Ox 98 F 71 20 195/91 H 99 11/04/18 22:08 11/05/18 06:00 11/04/18 22:08 11/05/18 06:00 11/04/18 22:08 - Medications Medications: Current Medications Acetaminophen (Tylenol 325mg Tab) 650 mg PO Q6 PRN PRN Reason: fever/pain Last Admin: 11/05/18 03:55 Dose: 650 mg Albuterol/Ipratropium (Duoneb 3 Mg/0.5 Mg (3 Ml) Ud) 3 ml INH RQ6 LYNNETTE Last Admin: 11/05/18 07:56 Dose: Not Given Guaifenesin (Mucinex La) 600 mg PO BID LYNNETTE Last Admin: 11/04/18 20:18 Dose: 600 mg Heparin Sodium (Porcine) (Heparin) 5,000 units SC Q12 LYNNETTE Vancomycin HCl 1,000 mg/ (Sodium Chloride) 250 mls @ 166.6 mls/hr IVPB Q12H LYNNETTE; Protocol Last Admin: 11/04/18 22:47 Dose: 166.6 mls/hr Sodium Chloride (Sodium Chloride 0.9%) 1,000 mls @ 75 mls/hr IV .[id number] LYNNETTE Piperacillin Sod/Tazobactam Sod (Zosyn 2.25 Gm Iv Premix) 2.25 gm in 50 mls @ 100 mls/hr IVPB Q8H LYNNETTE; Protocol Last Admin: 11/05/18 03:55 Dose: 100 mls/hr Heparin Sodium/Sodium Chloride (Heparin 88801 Units/250ml 1/2 Normal Saline) 25,000 units in 250 mls @ 9.389 mls/hr IV .Q24H PRN; Protocol PRN Reason: PROTOCOL Last Admin: 11/05/18 00:52 Dose: 18 units/kg/hr, 9.389 mls/hr - Labs Labs: 11/04/18 15:33 11/04/18 15:33 PT 11.8 SECONDS (9.7-12.2) 11/04/18 19:12 INR 1.1 11/04/18 19:12 APTT 33 SECONDS (21-34) 11/04/18 23:45 - Constitutional Appears: Non-toxic, Older Than Stated Age, Cachectic, Chronically Ill - Head Exam Head Exam: ATRAUMATIC, NORMAL INSPECTION, NORMOCEPHALIC - Eye Exam Eye Exam: EOMI, Normal appearance, PERRL Pupil Exam: NORMAL ACCOMODATION - ENT Exam ENT Exam: Mucous Membranes Moist, Normal Exam - Neck Exam Neck Exam: Full ROM, Normal Inspection - Respiratory Exam Respiratory Exam: Clear to Ausculation Bilateral, NORMAL BREATHING PATTERN. absent: Accessory Muscle Use, Rales, Rhonchi, Wheezes, Respiratory Distress, Stridor - Cardiovascular Exam Cardiovascular Exam: REGULAR RHYTHM, +S1, +S2 - GI/Abdominal Exam GI & Abdominal Exam: Soft, Normal Bowel Sounds. absent: Distended, Firm, Guarding, Rigid, Tenderness, Rebound - Extremities Exam Extremities Exam: Full ROM, Normal Capillary Refill, Tenderness Additional comments: Left lateral LE: ~5x5 cm lesion. Warm to touch, erythematous, swollen. Lesion is fluctuant, no active drainage. - Neurological Exam Neurological Exam: Alert, Awake, Oriented x3 - Skin Skin Exam: Dry, Intact, Normal Color, Warm Additional comments: findings as above Assessment and Plan - Assessment and Plan (Free Text) Assessment: 48 year old homeless female with past medical history of asthma, stroke, IV heroin abuse, untreated hepatitis c, coming to the ED for worsening left lower extremity pain, swelling and redness. Endorses chest pain and sob as well. Plan: Chest pain -UDS positive for cocaine -AVOID betablockers -trop negative, serial troponins ordered Dyspnea, r/o PE Hx of asthma -O2 via NC prn -DDimer is over 5250 -pt started on heparin gtt as per protocol -CXR (11/04): no acute pathology -V/Q scan: low probability for PE -duonebs q6h lynnette -mucinex 600 mg PO BID Left lower extremity cellulitis/abscess -L Tib/fib XR: no gross fracture or periosteal elevation -venous dopplers negative for DVT -General surgery (Dr. Capone) recs appreciated -continue warm compresses -will need I&D once abscess matures, likely tomorrow or Thursday -will continue to follow -vancomycin 1 gm q12 -zosyn 2.25 mg q8h Polysubstance abuse Hx of IVDA -UDS: opiates, cocaine, cannabinoid positive -Avoid BB -Detox consulted (Dr. Art), recs appreciated -methadone 20 mg PO daily -sudafed 60 mg PO QID prn -zofran 4 mg PO q8 prn -imodium 2 mg PO q8 prn -Bentyl 10 mg PO q6 prn Hx of Untreated Hepatitis C -HIV negative -HCV reactive Hx of microcytic anemia -Hb/Hct: 11.0/33.9 (11/05), continue to monitor -iron panel wnl PPx, Diet, Disposition -DVT ppx: heparin -GI: not indicated at this time -Diet: HHD -PT on board Case discussed with Dr. Zandra Downey DO, PGY-1 <Lynda De Paz V - Last Filed: 11/08/18 13:56> Objective - Vital Signs/Intake and Output Vital Signs (last 24 hours): Temp Pulse Resp BP Pulse Ox 97.8 F 441 H 20 132/69 99 11/08/18 09:03 11/08/18 09:03 11/08/18 09:03 11/08/18 09:03 11/08/18 09:03 Intake and Output: 11/08/18 11/08/18 06:59 18:59 Intake Total 1962 Output Total 600 Balance 1362 - Medications Medications: Current Medications Acetaminophen (Tylenol 325mg Tab) 650 mg PO Q6 PRN PRN Reason: fever/pain Last Admin: 11/08/18 04:14 Dose: 650 mg Al Hydrox/Mg Hydrox/Simethicone (Maalox 30 Ml) 30 ml PO TID PRN PRN Reason: Indigestion / Heartburn Albuterol/Ipratropium (Duoneb 3 Mg/0.5 Mg (3 Ml) Ud) 3 ml INH RQ6 LYNNETTE Last Admin: 11/08/18 10:08 Dose: 3 ml Dextrose (Dextrose 50% Inj) 0 ml IV STAT PRN; Protocol PRN Reason: Hypoglycemia Protocol Dextrose (Glutose 15) 0 gm PO ONCE PRN; Protocol PRN Reason: Hypoglycemia Protocol Dicyclomine HCl (Bentyl) 10 mg PO Q6 PRN PRN Reason: Muscle spasm Glucagon (Glucagen Diagnostic Kit) 0 mg IM STAT PRN; Protocol PRN Reason: Hypoglycemia Protocol Guaifenesin (Mucinex La) 600 mg PO BID [facility] Last Admin: 11/08/18 09:46 Dose: 600 mg Heparin Sodium (Porcine) (Heparin) 5,000 units SC Q12 LYNNETTE Vancomycin HCl 1,000 mg/ (Sodium Chloride) 250 mls @ 166.6 mls/hr IVPB Q12H [facility]; Protocol Last Admin: 11/08/18 09:49 Dose: 166.6 mls/hr Sodium Chloride (Sodium Chloride 0.9%) 1,000 mls @ 75 mls/hr IV .[id number] [facility] Last Admin: 11/06/18 21:02 Dose: 75 mls/hr Piperacillin Sod/Tazobactam Sod (Zosyn 2.25 Gm Iv Premix) 2.25 gm in 50 mls @ 100 mls/hr IVPB Q8H [facility]; Protocol Last Admin: 11/08/18 11:55 Dose: 100 mls/hr Dextrose (Dextrose 5% In Water 1000 Ml) 1,000 mls @ 0 mls/hr IV .Q0M PRN; Protocol PRN Reason: Hypoglycemia Protocol Influenza Virus Vaccine (Flucelvax Quad [id number] Syr) 60 mcg IM .ONCE ONE Stop: 11/09/18 14:01 Insulin Human Regular (Novolin R) 0 unit SC ACHS [facility]; Protocol Last Admin: 11/08/18 11:55 Dose: Not Given Lisinopril (Zestril) 2.5 mg PO DAILY [facility] Loperamide HCl (Imodium) 2 mg PO Q8 PRN PRN Reason: Diarrhea Methadone HCl (Methadone) 5 mg PO Q24H [facility]; Taper Stop: 11/09/18 13:44 Last Admin: 11/07/18 14:28 Dose: 10 mg Ondansetron HCl (Zofran Inj) 4 mg IVP Q4 PRN PRN Reason: Nausea/Vomiting Last Admin: 11/05/18 11:29 Dose: 4 mg Ondansetron HCl (Zofran Tab) 4 mg PO Q8 PRN PRN Reason: Nausea/Vomiting Pneumococcal Polyvalent Vaccine (Pneumovax 23 Vaccine) 0.5 ml IM .ONCE ONE Stop: 11/09/18 14:01 Pseudoephedrine HCl (Sudafed Tab) 60 mg PO QID PRN PRN Reason: Nasal/Sinus Congestion Saccharomyces Boulardii (Florastor) 250 mg PO BID LYNNETTE Last Admin: 11/08/18 11:54 Dose: 250 mg - Labs Labs: 11/08/18 06:47 11/08/18 06:47 PT 12.0 SECONDS (9.7-12.2) 11/08/18 11:21 INR 1.1 11/08/18 11:21 APTT 31 SECONDS (21-34) D 11/08/18 11:21 Attending/Attestation - Attestation I have personally seen and examined this patient.: Yes I have fully participated in the care of the patient.: Yes I have reviewed all pertinent clinical information, including history, physical exam and plan: Yes Notes (Text): This is a late computer entry for November 05, 2018. Patient seen, examined, case discussed with anesthesiology medical doctor. Noted overnight patient had an elevated d-dimer. Patient waiting for VQ scan. Discontinue heparin drip given patient does have a mild anemia. Order for right upper and lower extremity Dopplers. Peripheral access changed to midline access for IV antibiotics Patient is on empiric antibiotic treatment. Patient's lower extremity cellulitis of the. [place] will consult general surgery for possible I&D of abscess. Patient is clinically in withdrawal for heroin psychiatry on board help appreciated Patient started on clonidine given blood fluctuant fluctuation secondary to withdrawal. Patient has had a prior echo and LEYDI completed in June. If patient starts to have persistent fevers will consider repeat echo.
--- NOTE | 2018-11-05 09:47 | PCM.PSYCH ---
Initial Psychiatric Evaluation - Initial Psychiatric Evaluation Type of Admission: Voluntary Legal Status: Capacity Chief Complaint (in patient's own words): I am withdrawing from heroin.' History of Present Illness and Precipitating Events: Psychiatry consulted for 48yo female with history of IVDA, asthma, and HTN presenting for swelling and tenderness of distal, left lower-extremity. Patient states that she feels unwell and is going through withdrawal. Patient complains of abdominal discomfort, vomiting, diarrhea, diffuse body aches, restlessness. She says she would like to cut down and that she uses heroin when she wakes. Patient denies having hallucinations and paranoia. She admits to difficulty sleeping, but denies any feelings of hopelessness or helplessness. She denies any suicidal ideation or any homicidal ideation. Patient also notes fever, chills, some difficult breathing/chest discomfort. Drugs: Uses 6 bags of heroin daily by IV, and last use was 2 days ago. She used a bag of cocaine two days ago as well, but states she does not use it as regularly. She states she uses marijuana daily and she smokes 15-20 cigarettes a day, with about a 30 pack-year history. Housing: lives at friend's home, and feels safe there PMH: stroke 5 years ago, asthma, HTN, multiple abscesses PSH: incision and drainage Family Hx: father- [place] Current Medications: Active Medications Generic Name Dose Route Start Last Admin Trade Name Freq PRN Reason Stop Dose Admin Acetaminophen 650 mg 11/04/18 19:00 11/05/18 03:55 Tylenol 325mg Tab PO 650 mg Q6 PRN Administration fever/pain Albuterol/Ipratropium 3 ml 11/04/18 20:00 11/05/18 07:56 Duoneb 3 Mg/0.5 Mg (3 Ml) Ud INH Not Given RQ6 SELENA Guaifenesin 600 mg 11/04/18 19:00 11/04/18 20:18 Mucinex La PO 600 mg BID SELENA Administration Heparin Sodium (Porcine) 5,000 units 11/04/18 22:00 Heparin SC Q12 SELENA Vancomycin HCl 1,000 mg/ 250 mls @ 166.6 mls/hr 11/04/18 22:00 11/04/18 22:47 Sodium Chloride IVPB 166.6 mls/hr Q12H [facility]LENA Administration Protocol Sodium Chloride 1,000 mls @ 75 mls/hr 11/04/18 19:00 Sodium Chloride 0.9% IV .[id number] [facility] Piperacillin Sod/Tazobactam Sod 2.25 gm in 50 mls @ 100 mls/hr 11/04/18 20:00 11/05/18 03:55 Zosyn 2.25 Gm Iv Premix IVPB 100 mls/hr Q8H [facility] Administration Protocol Heparin Sodium/Sodium Chloride 25,000 units in 250 mls @ 9.389 mls/hr 11/04/18 23:15 11/05/18 00:52 Heparin 12794 Units/250ml 1/2 Normal Saline IV 18 units/kg/hr .Q24H PRN 9.389 mls/hr PROTOCOL Administration Protocol 18 UNITS/KG/HR Past Psychiatric History - Past Psychiatric History Previous Treatment History: Inpatient Pertinent Medical Hx (Current Medical&Sleep Prob, Allergies): Allergies Allergy/AdvReac Type Severity Reaction Status Date / Time No Known Allergies Allergy Verified 11/04/18 13:58 No Known Home Med 11/04/18 Review of Systems - Review of Systems All systems: reviewed and no additional remarkable complaints except - Neurological Neurological: Vertigo - Psychiatric Psychiatric: Anxiety, Irritability. absent: Suicidal Ideation Mental Status Examination - Personal Presentation Personal Presentation: Looks stated age - Affect Affect: Constricted - Motor Activity Motor Activity: Calm - Reliability in Providing Information Reliability in Providing Information: Good - Speech Speech: Organized - Mood Mood: Anxious - Formal Thought Process Formal Thought Process: No Impairment - Obsessions/Compulsions Obsessions: No Compulsions: No - Cognitive Functions Orientation: Person, Place, Situation, Time Sensorium: Alert Attention/Concentration: Attentive Abstract Thinking: [place] Estimate of Intelligence: Below average Judgement: Imparied, as evidence by: Poor judgement, Intact, as evidence by: Insight regarding need for hospitalization - Risk Risk: Withdrawal, Diminished functioning - Limitations Limitations: Living alone DSM 5 DX - DSM 5 DSM 5 Diagnosis: Opioid use disorder severe Opioid withdrawal Cocaine use disorder severe - Recommended/Plan of Treatment Treatment Recommendations and Plan of Treatment: Opioid use disorder severe Opioid withdrawal Cocaine use disorder severe Supportive therapy Psychoeducation Methadone taper Withdrawal medications Patient psychiatrically stable and cleared
--- NOTE | 2018-11-05 11:30 | CP.PCM.CON ---
<Bright Ziegler D - Last Filed: 11/05/18 12:13> History of Present Illness - History of Present Illness History of Present Illness: SURGERY CONSULT NOTE FOR DR. CAPONE A 48F with a PMHx of drug abuse, presented to the ED with left lower leg pain and swelling. The pain is localized to the left inferiolateral leg and started last week. She rates the pain a 10/10. Nothing makes the pain better or worse. She denies any trauma to the leg. She admits to headaches, dizziness, chest pain, SOB, cough, diarrhea, vomitting, fever, chills. Denies constipation. Patient denies injecting in the leg. Admits last use of cocaine and heroin was two days ago. PMH: Asthma, CVA, IV drug abuse, previously treated for withdrawal, MSSA bacteremia, iopsoas abscess on 06/2018 PSH: unspecified surgery in right leg, chest wall abscess exploration and debridement, appendectomy 06/2018 Medications: ibuprofen, asthma pump FHx: [facility] (father) SHx: Smoking history, heroin (6 bags every day), marijuana daily use. Patient is homeless. Allergies: NKDA Past Patient History - Infectious Disease Hx of Infectious Diseases: None - Past Medical History & Family History Past Medical History?: Yes - Past Social History Smoking Status: Former Smoker - CARDIAC Hx Hypertension: Yes - PULMONARY Hx Asthma: Yes Hx Chronic Obstructive Pulmonary Disease (COPD): Yes (ASTHMA) - NEUROLOGICAL Hx Seizures: No - HEENT Hx HEENT Problems: No - RENAL Hx Chronic Kidney Disease: No - ENDOCRINE/METABOLIC Hx Endocrine Disorders: No - HEMATOLOGICAL/ONCOLOGICAL Hx Human Immunodeficiency Virus (HIV): No - INTEGUMENTARY Hx Dermatological Problems: No - MUSCULOSKELETAL/RHEUMATOLOGICAL Hx Musculoskeletal Disorders: Yes Hx Back Pain: Yes Hx Falls: Yes - GASTROINTESTINAL Hx Gastrointestinal Disorders: No - GENITOURINARY/GYNECOLOGICAL Hx Sexually Transmitted Disorders: No - PSYCHIATRIC Hx Substance Use: Yes - SURGICAL HISTORY Hx Surgeries: Yes Other/Comment: LEFT CHEST I&D - ANESTHESIA Hx Anesthesia: Yes Hx Anesthesia Reactions: No Hx Malignant Hyperthermia: No Meds Allergies/Adverse Reactions: Allergies Allergy/AdvReac Type Severity Reaction Status Date / Time No Known Allergies Allergy Verified 11/04/18 13:58 - Medications Medications: Current Medications Acetaminophen (Tylenol 325mg Tab) 650 mg PO Q6 PRN PRN Reason: fever/pain Last Admin: 11/05/18 03:55 Dose: 650 mg Albuterol/Ipratropium (Duoneb 3 Mg/0.5 Mg (3 Ml) Ud) 3 ml INH RQ6 [facility] Last Admin: 11/05/18 07:56 Dose: Not Given Guaifenesin (Mucinex La) 600 mg PO BID [facility] Last Admin: 11/04/18 20:18 Dose: 600 mg Heparin Sodium (Porcine) (Heparin) 5,000 units SC Q12 [facility] Vancomycin HCl 1,000 mg/ (Sodium Chloride) 250 mls @ 166.6 mls/hr IVPB Q12H [facility]; Protocol Last Admin: 11/04/18 22:47 Dose: 166.6 mls/hr Sodium Chloride (Sodium Chloride 0.9%) 1,000 mls @ 75 mls/hr IV .[id number] [facility] Piperacillin Sod/Tazobactam Sod (Zosyn 2.25 Gm Iv Premix) 2.25 gm in 50 mls @ 100 mls/hr IVPB Q8H [facility]; Protocol Last Admin: 11/05/18 03:55 Dose: 100 mls/hr Heparin Sodium/Sodium Chloride (Heparin 30592 Units/250ml 1/2 Normal Saline) 25,000 units in 250 mls @ 9.389 mls/hr IV .Q24H PRN; Protocol PRN Reason: PROTOCOL Last Admin: 11/05/18 00:52 Dose: 18 units/kg/hr, 9.389 mls/hr Ondansetron HCl (Zofran Inj) 4 mg IVP Q4 PRN PRN Reason: Nausea/Vomiting Physical Exam - Constitutional Appears: Unkempt, Cachectic Additional comments: very comfortably from nausea - ENT Exam ENT Exam: Mucous Membranes Moist - Respiratory Exam Respiratory Exam: Clear to Auscultation Bilateral, NORMAL BREATHING PATTERN. absent: Rales, Rhonchi, Wheezes - Cardiovascular Exam Cardiovascular Exam: REGULAR RHYTHM, RRR, +S1, +S2. absent: +S4 - GI/Abdominal Exam GI & Abdominal Exam: Normal Bowel Sounds, Soft. absent: Distended, Firm, Guarding, Rebound, Rigid, Tenderness - Extremities Exam Extremities exam: Positive for: calf tenderness, tenderness, pedal pulses present Additional comments: Left lower extremity: Lesion is fluctuant, erythematous, 5*5cm size, no active drainage - Neurological Exam Neurological exam: Alert, Oriented x3 - Psychiatric Exam Psychiatric exam: Normal Affect, Normal Mood Results - Vital Signs Recent Vital Signs: Last Vital Signs Temp 97.8 F 11/05/18 09:24 Pulse 63 11/05/18 09:24 Resp 20 11/05/18 09:24 BP 185/87 H 11/05/18 09:24 Pulse Ox 100 11/05/18 09:24 - Labs Result Diagrams: 11/05/18 11:31 11/05/18 11:31 Labs: Laboratory Results - last 24 hr 11/04/18 11/04/18 11/04/18 15:33 15:33 15:54 WBC 4.4 L RBC 3.24 L Hgb 8.1 L Hct 24.7 L MCV 76.1 L D MCH 24.9 L MCHC 32.7 L RDW 18.9 H Plt Count 302 MPV 8.0 Neut % (Auto) 74.5 Lymph % (Auto) 18.3 L [place] % (Auto) 6.6 Eos % (Auto) 0.2 Baso % (Auto) 0.4 Neut # (Auto) 3.3 Lymph # (Auto) 0.8 L [place] # (Auto) 0.3 Eos # (Auto) 0.0 Baso # (Auto) 0.0 PT INR APTT D-Dimer, Quantitative Sodium 136 Potassium 5.2 Chloride 104 Carbon Dioxide 25 Anion Gap 12 BUN 13 Creatinine 0.5 L Est GFR ( Amer) > 60 Est GFR (Non-Af Amer) > 60 Random Glucose 107 H Calcium 8.6 Total Bilirubin 0.6 AST 26 ALT < 6 L D Alkaline Phosphatase 77 Total Creatine Kinase CK-MB (Mass) Troponin I Total Protein 8.8 H Albumin 3.6 Globulin 5.2 H Albumin/Globulin Ratio 0.7 L Urine Color Urine Clarity Urine pH Ur Specific Coral Urine Protein Urine Glucose (UA) Urine Ketones Urine Blood Urine Nitrate Urine Bilirubin Urine Urobilinogen Ur Leukocyte Esterase Urine WBC (Auto) Urine RBC (Auto) Ur Squamous Epith Cells Urine Bacteria Urine Opiates Screen Positive H Urine Methadone Screen Negative Ur Barbiturates Screen Negative Ur Phencyclidine Scrn Negative Ur Amphetamines Screen Negative U Benzodiazepines Scrn Negative U Oth Cocaine Metabols Positive H U Cannabinoids Screen Positive H C. difficile Ag & Toxin 11/04/18 11/04/18 11/04/18 15:54 19:09 19:12 WBC RBC Hgb Hct MCV MCH MCHC RDW Plt Count MPV Neut % (Auto) Lymph % (Auto) [place] % (Auto) Eos % (Auto) Baso % (Auto) Neut # (Auto) Lymph # (Auto) [place] # (Auto) Eos # (Auto) Baso # (Auto) PT 11.8 INR 1.1 APTT D-Dimer, Quantitative > 5250 H Sodium Potassium Chloride Carbon Dioxide Anion Gap BUN Creatinine Est GFR ( Amer) Est GFR (Non-Af Amer) Random Glucose Calcium Total Bilirubin AST ALT Alkaline Phosphatase Total Creatine Kinase < 20 L CK-MB (Mass) 0.58 Troponin I 0.0240 Total Protein Albumin Globulin Albumin/Globulin Ratio Urine Color Yellow Urine Clarity Clear Urine pH 7.0 Ur Specific Coral 1.009 Urine Protein 1+ H Urine Glucose (UA) Normal Urine Ketones Negative Urine Blood 3+ H Urine Nitrate Negative Urine Bilirubin Negative Urine Urobilinogen Normal Ur Leukocyte Esterase Neg Urine WBC (Auto) 5 Urine RBC (Auto) 27 H Ur Squamous Epith Cells 1 Urine Bacteria Rare Urine Opiates Screen Urine Methadone Screen Ur Barbiturates Screen Ur Phencyclidine Scrn Ur Amphetamines Screen U Benzodiazepines Scrn U Oth Cocaine Metabols U Cannabinoids Screen C. difficile Ag & Toxin 11/04/18 11/05/18 23:45 04:31 WBC RBC Hgb Hct MCV MCH MCHC RDW Plt Count MPV Neut % (Auto) Lymph % (Auto) [place] % (Auto) Eos % (Auto) Baso % (Auto) Neut # (Auto) Lymph # (Auto) [place] # (Auto) Eos # (Auto) Baso # (Auto) PT INR APTT 33 D-Dimer, Quantitative Sodium Potassium Chloride Carbon Dioxide Anion Gap BUN Creatinine Est GFR ( Amer) Est GFR (Non-Af Amer) Random Glucose Calcium Total Bilirubin AST ALT Alkaline Phosphatase Total Creatine Kinase CK-MB (Mass) Troponin I Total Protein Albumin Globulin Albumin/Globulin Ratio Urine Color Urine Clarity Urine pH Ur Specific Coral Urine Protein Urine Glucose (UA) Urine Ketones Urine Blood Urine Nitrate Urine Bilirubin Urine Urobilinogen Ur Leukocyte Esterase Urine WBC (Auto) Urine RBC (Auto) Ur Squamous Epith Cells Urine Bacteria Urine Opiates Screen Urine Methadone Screen Ur Barbiturates Screen Ur Phencyclidine Scrn Ur Amphetamines Screen U Benzodiazepines Scrn U Oth Cocaine Metabols U Cannabinoids Screen C. difficile Ag & Toxin Negative Assessment & Plan - Assessment and Plan (Free Text) Assessment: 48F IVDA presents with left lower extremity cellulitis/abscess Plan: - continue warm compresses - continue IV antibiotics - will need Incision and drainage once abscess matures tomorrow/Thursday - will continue to re-evaluate abscess Discussed with Dr. Estelita Ziegler, PGY3 <Washington Capone - Last Filed: 11/05/18 18:16> Meds - Medications Medications: Current Medications Acetaminophen (Tylenol 325mg Tab) 650 mg PO Q6 PRN PRN Reason: fever/pain Last Admin: 11/05/18 03:55 Dose: 650 mg Al Hydrox/Mg Hydrox/Simethicone (Maalox 30 Ml) 30 ml PO TID PRN PRN Reason: Indigestion / Heartburn Albuterol/Ipratropium (Duoneb 3 Mg/0.5 Mg (3 Ml) Ud) 3 ml INH RQ6 [facility] Last Admin: 11/05/18 07:56 Dose: Not Given Dicyclomine HCl (Bentyl) 10 mg PO Q6 PRN PRN Reason: Muscle spasm Guaifenesin (Mucinex La) 600 mg PO BID [facility] Last Admin: 11/05/18 11:37 Dose: 600 mg Heparin Sodium (Porcine) (Heparin) 5,000 units SC Q12 [facility] Vancomycin HCl 1,000 mg/ (Sodium Chloride) 250 mls @ 166.6 mls/hr IVPB Q12H [facility]; Protocol Last Admin: 11/05/18 11:38 Dose: 166.6 mls/hr Sodium Chloride (Sodium Chloride 0.9%) 1,000 mls @ 75 mls/hr IV .[id number] [facility] Last Admin: 11/05/18 11:39 Dose: 75 mls/hr Piperacillin Sod/Tazobactam Sod (Zosyn 2.25 Gm Iv Premix) 2.25 gm in 50 mls @ 100 mls/hr IVPB Q8H [facility]; Protocol Last Admin: 11/05/18 14:38 Dose: 100 mls/hr Heparin Sodium/Sodium Chloride (Heparin 47682 Units/250ml 1/2 Normal Saline) 25,000 units in 250 mls @ 9.389 mls/hr IV .Q24H PRN; Protocol PRN Reason: PROTOCOL Last Admin: 11/05/18 00:52 Dose: 18 units/kg/hr, 9.389 mls/hr Loperamide HCl (Imodium) 2 mg PO Q8 PRN PRN Reason: Diarrhea Methadone HCl (Methadone) 20 mg PO Q24H [facility]; Taper Stop: 11/09/18 13:44 Last Admin: 11/05/18 14:53 Dose: 20 mg Ondansetron HCl (Zofran Inj) 4 mg IVP Q4 PRN PRN Reason: Nausea/Vomiting Last Admin: 11/05/18 11:29 Dose: 4 mg Ondansetron HCl (Zofran Tab) 4 mg PO Q8 PRN PRN Reason: Nausea/Vomiting Pseudoephedrine HCl (Sudafed Tab) 60 mg PO QID PRN PRN Reason: Nasal/Sinus Congestion Results - Vital Signs Recent Vital Signs: Last Vital Signs Temp 97.3 F L 11/05/18 16:30 Pulse 68 11/05/18 16:30 Resp 20 11/05/18 16:30 BP 194/109 H 11/05/18 16:30 Pulse Ox 100 11/05/18 16:30 - Labs Result Diagrams: 11/05/18 11:31 11/05/18 11:31 Labs: Laboratory Results - last 24 hr 11/04/18 11/04/18 11/04/18 19:09 19:12 23:45 WBC RBC Hgb Hct MCV MCH MCHC RDW Plt Count MPV Neut % (Auto) Lymph % (Auto) [place] % (Auto) Eos % (Auto) Baso % (Auto) Neut # (Auto) Lymph # (Auto) [place] # (Auto) Eos # (Auto) Baso # (Auto) Retic Count PT 11.8 INR 1.1 APTT 33 D-Dimer, Quantitative > 5250 H Sodium Potassium Chloride Carbon Dioxide Anion Gap BUN Creatinine Est GFR ( Amer) Est GFR (Non-Af Amer) Random Glucose Hemoglobin A1c Calcium Phosphorus Magnesium Iron TIBC % Saturation Ferritin Total Bilirubin AST ALT Alkaline Phosphatase Total Creatine Kinase < 20 L CK-MB (Mass) 0.58 Troponin I 0.0240 NT-Pro-B Natriuret Pep Total Protein Albumin Globulin Albumin/Globulin Ratio Triglycerides Cholesterol LDL Cholesterol Direct HDL Cholesterol Procalcitonin TSH 3rd Generation Beta HCG, Quant C. difficile Ag & Toxin Hepatitis A IgM Ab Hep Bs Antigen Hep B Core IgM Ab Hepatitis C Antibody HIV 1&2 Antibody Screen 11/05/18 11/05/18 11/05/18 04:31 11:31 11:31 WBC 7.7 D RBC 4.49 Hgb 11.0 D Hct 33.9 L MCV 75.4 L MCH 24.6 L MCHC 32.6 L RDW 18.5 H Plt Count 485 H D MPV 7.9 Neut % (Auto) 84.1 H Lymph % (Auto) 11.3 L [place] % (Auto) 4.4 Eos % (Auto) 0.0 Baso % (Auto) 0.2 Neut # (Auto) 6.5 Lymph # (Auto) 0.9 L [place] # (Auto) 0.3 Eos # (Auto) 0.0 Baso # (Auto) 0.0 Retic Count 0.7 D PT INR APTT D-Dimer, Quantitative Sodium 138 Potassium 3.9 Chloride 104 Carbon Dioxide 21 L Anion Gap 17 BUN 18 H Creatinine 0.6 L Est GFR ( Amer) > 60 Est GFR (Non-Af Amer) > 60 Random Glucose 168 H D Hemoglobin A1c Calcium 9.8 Phosphorus 5.0 H Magnesium 2.0 Iron TIBC % Saturation Ferritin 123.0 Total Bilirubin 0.7 AST 32 ALT < 6 L Alkaline Phosphatase 124 Total Creatine Kinase CK-MB (Mass) Troponin I NT-Pro-B Natriuret Pep 5110 H Total Protein 10.3 H Albumin 4.2 Globulin 6.1 H Albumin/Globulin Ratio 0.7 L Triglycerides 194 H Cholesterol 142 LDL Cholesterol Direct 97 HDL Cholesterol 20 L Procalcitonin TSH 3rd Generation 0.35 L Beta HCG, Quant < 2.39 C. difficile Ag & Toxin Negative Hepatitis A IgM Ab Hep Bs Antigen Hep B Core IgM Ab Hepatitis C Antibody HIV 1&2 Antibody Screen 11/05/18 11/05/18 11/05/18 11:31 11:31 11:31 WBC RBC Hgb Hct MCV MCH MCHC RDW Plt Count MPV Neut % (Auto) Lymph % (Auto) [place] % (Auto) Eos % (Auto) Baso % (Auto) Neut # (Auto) Lymph # (Auto) [place] # (Auto) Eos # (Auto) Baso # (Auto) Retic Count PT 11.4 INR 1.0 APTT 36 H D-Dimer, Quantitative Sodium Potassium Chloride Carbon Dioxide Anion Gap BUN Creatinine Est GFR ( Amer) Est GFR (Non-Af Amer) Random Glucose Hemoglobin A1c 6.6 H Calcium Phosphorus Magnesium Iron TIBC % Saturation Ferritin Total Bilirubin AST ALT Alkaline Phosphatase Total Creatine Kinase CK-MB (Mass) Troponin I NT-Pro-B Natriuret Pep Total Protein Albumin Globulin Albumin/Globulin Ratio Triglycerides Cholesterol LDL Cholesterol Direct HDL Cholesterol Procalcitonin TSH 3rd Generation Beta HCG, Quant C. difficile Ag & Toxin Hepatitis A IgM Ab Negative Hep Bs Antigen Negative Hep B Core IgM Ab Negative Hepatitis C Antibody Reactive HIV 1&2 Antibody Screen 11/05/18 11/05/18 11/05/18 13:41 13:41 13:41 WBC RBC Hgb Hct MCV MCH MCHC RDW Plt Count MPV Neut % (Auto) Lymph % (Auto) [place] % (Auto) Eos % (Auto) Baso % (Auto) Neut # (Auto) Lymph # (Auto) [place] # (Auto) Eos # (Auto) Baso # (Auto) Retic Count PT INR APTT D-Dimer, Quantitative Sodium Potassium Chloride Carbon Dioxide Anion Gap BUN Creatinine Est GFR ( Amer) Est GFR (Non-Af Amer) Random Glucose Hemoglobin A1c Calcium Phosphorus Magnesium Iron 101 TIBC 300 % Saturation 33 Ferritin Total Bilirubin AST ALT Alkaline Phosphatase Total Creatine Kinase CK-MB (Mass) Troponin I NT-Pro-B Natriuret Pep Total Protein Albumin Globulin Albumin/Globulin Ratio Triglycerides Cholesterol LDL Cholesterol Direct HDL Cholesterol Procalcitonin 3.31 H TSH 3rd Generation Beta HCG, Quant C. difficile Ag & Toxin Hepatitis A IgM Ab Hep Bs Antigen Hep B Core IgM Ab Hepatitis C Antibody HIV 1&2 Antibody Screen Negative Attending/Attestation - Attestation I have personally seen and examined this patient.: Yes I have fully participated in the care of the patient.: Yes I have reviewed all pertinent clinical information: Yes Notes (Text): Pt was seen and examined at bedside Agree with above note and assessment Pt with IVDA and left leg pain Abdomen: left leg swollen with redness Labs and Radiology reviewed Ass: Left leg cellulitis with abscess Plan : IV antibiotics Warm compresses c.w current mx Plan d.w pt in detail Risk and benefit explained in detail.
[2018-11-05] MEDS: guaiFENesin 600 mg ER Tab PO SCH ×2 (11:37→22:44)
[2018-11-05] MEDS: Sodium Chloride 0.9% 1,000 ML IV SCH ×2 (11:39→21:40)
[2018-11-05 11:49] LABS: BASO % 0.2 % (0.0-2.0); LYMPH # 0.9 K/uL (1.0-4.3); LYMPH % 11.3 % (20.0-40.0); MEAN CORPUSCULAR HEMOGLOBIN 24.6 pg (27.0-31.0); MEAN CORPUSCULAR HGB CONC 32.6 g/dL (33.0-37.0); MEAN PLATELET VOLUME 7.9 fL (7.2-11.7); MONO # 0.3 K/uL (0.0-0.8); MONO % 4.4 % (0.0-10.0); NEUT # 6.5 K/uL (1.8-7.0); NEUT % 84.1 % (50.0-75.0); NRBC % 0.1 % (0.0-2.0); RBC 4.49 Mil/uL (3.80-5.20); RED CELL DISTRIBUTION WIDTH 18.5 % (11.5-14.5)
[2018-11-05 11:53] LABS: PROTHROMBIN TIME 11.4 SECONDS (9.7-12.2)
[2018-11-05 12:02] LABS: ALB/GLOB RATIO 0.7 (1.0-2.1); ALBUMIN 4.2 g/dL (3.5-5.0); ALT/SGPT < 6 U/L (9-52); AST/SGOT 32 U/L (14-36); BLOOD UREA NITROGEN 18 mg/dL (7-17); CALCIUM 9.8 mg/dl (8.6-10.4); GFR NON-AFRICAN AMERICAN > 60; HDL CHOLESTEROL 20 mg/dL (30-70)
[2018-11-05 12:09] LABS: LDL CHOLESTEROL 97 mg/dL (0-129); MEAN CELL VOLUME 75.4 fL (81.0-99.0); WHITE BLOOD COUNT 7.7 K/uL (4.8-10.8)
--- NOTE | 2018-11-05 12:18 | RAD ---
Date of service: 11/04/2018 PROCEDURE: Radiographs of the left tibia and fibula. HISTORY: swelling and redness left lateral calf COMPARISON: None available. TECHNIQUE: Frontal and lateral views obtained. FINDINGS: BONES: No acute fracture or dislocation identified. JOINT SPACES: Bony articulations appear maintained. OTHER FINDINGS: Focal area of soft tissue swelling noted along the lower leg laterally. Mild soft tissue edema noted within the remainder of the lower leg. IMPRESSION: No fracture or dislocation identified. Focal area of soft tissue swelling noted along the lower leg laterally.
[2018-11-05 12:31] LABS: B-TYPE NATRIURETIC PEPTIDE 5110 pg/mL (0-450)
[2018-11-05 12:33] LABS: HEPATITIS B SURFACE AG Negative (NEGATIVE)
[2018-11-05 12:41] LABS: HEPATITIS A IGM NEGATIVE (NEGATIVE); HEPATITIS B CORE AB NEGATIVE (NEGATIVE)
[2018-11-05] MEDS ORDERED: Aluminum Hydroxide/Magnesium Hydroxide Susp (30 mL) PO PRN (13:34)
[2018-11-05 14:05] LABS: IRON 101 ug/dL (37-170)
[2018-11-05 14:14] LABS: % IRON SATURATION 33 (20-55); TOTAL IRON BINDING CAPACITY 300 ug/dL (250-450)
[2018-11-05 15:06] LABS: HEPATITIS C ANTIBODY REACTIVE (NEGATIVE)
--- NOTE | 2018-11-05 16:45 | NM ---
Date of service: 11/05/2018 COMPARISON: Portable chest 11/04/2018. TECHNIQUE: 18.2 Xe-133 Gas. 3.4 mCI technetium 99-m MAA administered intravenously. FINDINGS: VENTILATION COMPONENT: Normal. PERFUSION COMPONENT: Normal. IMPRESSION: Lowprobability ventilation perfusion scan for pulmonary embolism.
[2018-11-06] MEDS: Albuterol-Ipratrop 3 mg / 0.5 (3 ml) UD INH SCH ×4 (01:41→19:28)
[2018-11-06 01:52] LABS: SQUAMOUS EPITHIAL 7 /hpf (0-5); URINE BILIRUBIN 1+ (NEGATIVE); URINE BLOOD 2+ (NEGATIVE); URINE CLARITY Turbid (Clear); URINE COLOR Amber (YELLOW); URINE GLUCOSE (UA) NORMAL (Normal); URINE LEUKOCYTE ESTERASE NEG Leu/uL (Negative); URINE PROTEIN 3+ mg/dL (NEGATIVE); URINE UROBILINOGEN NORMAL mg/dL (0.2-1.0)
[2018-11-06] MEDS: Piperacill/Tazo 2.25gm in Dex 2.25 GM/50 ML BAG IVPB SCH ×3 (04:38→19:20)
--- NOTE | 2018-11-06 07:57 | CP.PCM.PN ---
<Tara Rodriguez - Last Filed: 11/06/18 22:44> Subjective - Date & Time of Evaluation Date of Evaluation: 11/06/18 Time of Evaluation: 07:53 - Subjective Subjective: Pt seen/examined at bedside Pt resting comfortably in bed. Reports continued LLE pain at abscess site. Denies N, V, F, C, SOB, CP, other complaints. Objective - Vital Signs/Intake and Output Vital Signs (last 24 hours): Temp Pulse Resp BP Pulse Ox 97.8 F 58 L 20 152/76 H 98 11/06/18 07:20 11/06/18 07:20 11/06/18 07:20 11/06/18 07:20 11/06/18 07:20 Intake and Output: 11/06/18 11/06/18 06:59 18:59 Intake Total 1100 Balance 1100 - Medications Medications: Current Medications Acetaminophen (Tylenol 325mg Tab) 650 mg PO Q6 PRN PRN Reason: fever/pain Last Admin: 11/05/18 03:55 Dose: 650 mg Al Hydrox/Mg Hydrox/Simethicone (Maalox 30 Ml) 30 ml PO TID PRN PRN Reason: Indigestion / Heartburn Albuterol/Ipratropium (Duoneb 3 Mg/0.5 Mg (3 Ml) Ud) 3 ml INH RQ6 [facility] Last Admin: 11/06/18 01:41 Dose: Not Given Clonidine HCl (Catapres) 0.1 mg PO TID PRN PRN Reason: symptoms of withdrawal Dicyclomine HCl (Bentyl) 10 mg PO Q6 PRN PRN Reason: Muscle spasm Guaifenesin (Mucinex La) 600 mg PO BID [facility] Last Admin: 11/05/18 22:44 Dose: 600 mg Heparin Sodium (Porcine) (Heparin) 5,000 units SC Q12 [facility] Vancomycin HCl 1,000 mg/ (Sodium Chloride) 250 mls @ 166.6 mls/hr IVPB Q12H [facility]; Protocol Last Admin: 11/05/18 22:44 Dose: 166.6 mls/hr Sodium Chloride (Sodium Chloride 0.9%) 1,000 mls @ 75 mls/hr IV .[id number] [facility] Last Admin: 11/05/18 21:40 Dose: Not Given Piperacillin Sod/Tazobactam Sod (Zosyn 2.25 Gm Iv Premix) 2.25 gm in 50 mls @ 100 mls/hr IVPB Q8H [facility]; Protocol Last Admin: 11/06/18 04:38 Dose: 100 mls/hr Heparin Sodium/Sodium Chloride (Heparin 86345 Units/250ml 1/2 Normal Saline) 25,000 units in 250 mls @ 9.389 mls/hr IV .Q24H PRN; Protocol PRN Reason: PROTOCOL Last Admin: 11/05/18 00:52 Dose: 18 units/kg/hr, 9.389 mls/hr Loperamide HCl (Imodium) 2 mg PO Q8 PRN PRN Reason: Diarrhea Methadone HCl (Methadone) 20 mg PO Q24H [facility]; Taper Stop: 11/09/18 13:44 Last Admin: 11/05/18 14:53 Dose: 20 mg Ondansetron HCl (Zofran Inj) 4 mg IVP Q4 PRN PRN Reason: Nausea/Vomiting Last Admin: 11/05/18 11:29 Dose: 4 mg Ondansetron HCl (Zofran Tab) 4 mg PO Q8 PRN PRN Reason: Nausea/Vomiting Pseudoephedrine HCl (Sudafed Tab) 60 mg PO QID PRN PRN Reason: Nasal/Sinus Congestion - Labs Labs: 11/05/18 11:31 11/05/18 11:31 PT 11.4 SECONDS (9.7-12.2) 11/05/18 11:31 INR 1.0 11/05/18 11:31 APTT 36 SECONDS (21-34) H 11/05/18 11:31 - Constitutional Appears: No Acute Distress - Head Exam Head Exam: ATRAUMATIC, NORMAL INSPECTION, NORMOCEPHALIC - Eye Exam Eye Exam: EOMI, Normal appearance - Neck Exam Neck Exam: Full ROM - Respiratory Exam Respiratory Exam: NORMAL BREATHING PATTERN - Cardiovascular Exam Cardiovascular Exam: REGULAR RHYTHM - GI/Abdominal Exam GI & Abdominal Exam: Soft - Extremities Exam Extremities Exam: Tenderness (Lateral aspect of left lower extremity with erythema, induration, fluctuance approximately 3cm in size). absent: Normal Inspection - Neurological Exam Neurological Exam: Alert, Awake, Oriented x3 - Psychiatric Exam Psychiatric exam: Normal Affect, Normal Mood - Skin Skin Exam: Dry, Warm Additional comments: See extremity exam for skin findings Assessment and Plan - Assessment and Plan (Free Text) Assessment: 48F w/PMH sig for IVDA with LLE abscess Plan: warm compresses IV antibiotics Pain control Plan for I & D at bedside today or tomorrow Further care as per primary team DW Dr. Capone <[place] Capone - Last Filed: 11/07/18 21:42> Objective - Vital Signs/Intake and Output Vital Signs (last 24 hours): Temp Pulse Resp BP Pulse Ox 98 F 56 L 18 126/62 99 11/07/18 21:30 11/07/18 21:30 11/07/18 21:30 11/07/18 21:30 11/07/18 15:46 Intake and Output: 11/07/18 11/08/18 18:59 06:59 Intake Total 0 Balance 0 - Medications Medications: Current Medications Acetaminophen (Tylenol 325mg Tab) 650 mg PO Q6 PRN PRN Reason: fever/pain Last Admin: 11/07/18 08:23 Dose: 650 mg Al Hydrox/Mg Hydrox/Simethicone (Maalox 30 Ml) 30 ml PO TID PRN PRN Reason: Indigestion / Heartburn Albuterol/Ipratropium (Duoneb 3 Mg/0.5 Mg (3 Ml) Ud) 3 ml INH RQ6 [facility] Last Admin: 11/07/18 20:28 Dose: 3 ml Dextrose (Dextrose 50% Inj) 0 ml IV STAT PRN; Protocol PRN Reason: Hypoglycemia Protocol Dextrose (Glutose 15) 0 gm PO ONCE PRN; Protocol PRN Reason: Hypoglycemia Protocol Dicyclomine HCl (Bentyl) 10 mg PO Q6 PRN PRN Reason: Muscle spasm Glucagon (Glucagen Diagnostic Kit) 0 mg IM STAT PRN; Protocol PRN Reason: Hypoglycemia Protocol Guaifenesin (Mucinex La) 600 mg PO BID [facility] Last Admin: 11/07/18 17:04 Dose: 600 mg Heparin Sodium (Porcine) (Heparin) 5,000 units SC Q12 [facility] Vancomycin HCl 1,000 mg/ (Sodium Chloride) 250 mls @ 166.6 mls/hr IVPB Q12H [facility]; Protocol Last Admin: 11/07/18 10:53 Dose: 166.6 mls/hr Sodium Chloride (Sodium Chloride 0.9%) 1,000 mls @ 75 mls/hr IV .[id number] [facility] Last Admin: 11/06/18 21:02 Dose: 75 mls/hr Piperacillin Sod/Tazobactam Sod (Zosyn 2.25 Gm Iv Premix) 2.25 gm in 50 mls @ 100 mls/hr IVPB Q8H [facility]; Protocol Last Admin: 11/07/18 13:34 Dose: 100 mls/hr Dextrose (Dextrose 5% In Water 1000 Ml) 1,000 mls @ 0 mls/hr IV .Q0M PRN; Protocol PRN Reason: Hypoglycemia Protocol Loperamide HCl (Imodium) 2 mg PO Q8 PRN PRN Reason: Diarrhea Methadone HCl (Methadone) 10 mg PO Q24H [facility]; Taper Stop: 11/09/18 13:44 Last Admin: 11/07/18 14:28 Dose: 10 mg Ondansetron HCl (Zofran Inj) 4 mg IVP Q4 PRN PRN Reason: Nausea/Vomiting Last Admin: 11/05/18 11:29 Dose: 4 mg Ondansetron HCl (Zofran Tab) 4 mg PO Q8 PRN PRN Reason: Nausea/Vomiting Pseudoephedrine HCl (Sudafed Tab) 60 mg PO QID PRN PRN Reason: Nasal/Sinus Congestion Saccharomyces Boulardii (Florastor) 250 mg PO BID [facility] Last Admin: 11/07/18 17:06 Dose: 250 mg - Labs Labs: 11/07/18 08:12 11/07/18 08:12 PT 11.4 SECONDS (9.7-12.2) 11/05/18 11:31 INR 1.0 11/05/18 11:31 APTT 36 SECONDS (21-34) H 11/05/18 11:31 Attending/Attestation - Attestation I have personally seen and examined this patient.: Yes I have fully participated in the care of the patient.: Yes I have reviewed all pertinent clinical information, including history, physical exam and plan: Yes Notes (Text): Pt with left leg abscess, IVDA I & D at bedside Consent C.w IV antibiotics Plan d.w pt in detail
[2018-11-06 08:45] LABS: BASO % 0.2 % (0.0-2.0); EOS % 0.3 % (0.0-4.0); HEMOGLOBIN 9.4 g/dL (11.0-16.0); LYMPH # 1.1 K/uL (1.0-4.3); LYMPH % 19.7 % (20.0-40.0); MEAN CELL VOLUME 75.2 fL (81.0-99.0); MEAN CORPUSCULAR HEMOGLOBIN 25.1 pg (27.0-31.0); MEAN CORPUSCULAR HGB CONC 33.4 g/dL (33.0-37.0); MEAN PLATELET VOLUME 6.9 fL (7.2-11.7); MONO # 0.5 K/uL (0.0-0.8); MONO % 8.7 % (0.0-10.0); NEUT # 3.8 K/uL (1.8-7.0); NEUT % 71.1 % (50.0-75.0); RBC 3.73 Mil/uL (3.80-5.20); RED CELL DISTRIBUTION WIDTH 18.3 % (11.5-14.5); WHITE BLOOD COUNT 5.4 K/uL (4.8-10.8)
[2018-11-06 09:01] LABS: ALB/GLOB RATIO 0.7 (1.0-2.1); ALBUMIN 3.6 g/dL (3.5-5.0); ALT/SGPT < 6 U/L (9-52); AST/SGOT 14 U/L (14-36); BLOOD UREA NITROGEN 27 mg/dL (7-17); CALCIUM 8.8 mg/dl (8.6-10.4); GFR NON-AFRICAN AMERICAN > 60
--- NOTE | 2018-11-06 09:17 | CP.PCM.PN ---
<SilvanoMonique MaggieCesia - Last Filed: 11/06/18 15:28> Subjective - Date & Time of Evaluation Date of Evaluation: 11/06/18 Time of Evaluation: 08:00 - Subjective Subjective: Medicine Progress Note: Patient was seen and examined at bedside. Patient states she continues to feel nauseated as she is withdrawing from heroin. She states her last bowel movement was yesterday. She denies chest pain, shortness of breath or fever. Objective - Vital Signs/Intake and Output Vital Signs (last 24 hours): Temp Pulse Resp BP Pulse Ox 97.8 F 57 L 20 152/76 H 98 11/06/18 07:20 11/06/18 08:34 11/06/18 07:20 11/06/18 07:20 11/06/18 08:34 Intake and Output: 11/06/18 11/06/18 06:59 18:59 Intake Total 1100 Balance 1100 - Medications Medications: Current Medications Acetaminophen (Tylenol 325mg Tab) 650 mg PO Q6 PRN PRN Reason: fever/pain Last Admin: 11/05/18 03:55 Dose: 650 mg Al Hydrox/Mg Hydrox/Simethicone (Maalox 30 Ml) 30 ml PO TID PRN PRN Reason: Indigestion / Heartburn Albuterol/Ipratropium (Duoneb 3 Mg/0.5 Mg (3 Ml) Ud) 3 ml INH RQ6 COUNTS INCLUDE 234 BEDS AT THE [facility] Last Admin: 11/06/18 01:41 Dose: Not Given Clonidine HCl (Catapres) 0.1 mg PO TID PRN PRN Reason: symptoms of withdrawal Dicyclomine HCl (Bentyl) 10 mg PO Q6 PRN PRN Reason: Muscle spasm Guaifenesin (Mucinex La) 600 mg PO BID COUNTS INCLUDE 234 BEDS AT THE [facility] Last Admin: 11/05/18 22:44 Dose: 600 mg Heparin Sodium (Porcine) (Heparin) 5,000 units SC Q12 [facility] Vancomycin HCl 1,000 mg/ (Sodium Chloride) 250 mls @ 166.6 mls/hr IVPB Q12H COUNTS INCLUDE 234 BEDS AT THE [facility]; Protocol Last Admin: 11/05/18 22:44 Dose: 166.6 mls/hr Sodium Chloride (Sodium Chloride 0.9%) 1,000 mls @ 75 mls/hr IV .[id number] COUNTS INCLUDE 234 BEDS AT THE [facility] Last Admin: 11/05/18 21:40 Dose: Not Given Piperacillin Sod/Tazobactam Sod (Zosyn 2.25 Gm Iv Premix) 2.25 gm in 50 mls @ 100 mls/hr IVPB Q8H [facility]; Protocol Last Admin: 11/06/18 04:38 Dose: 100 mls/hr Heparin Sodium/Sodium Chloride (Heparin 90010 Units/250ml 1/2 Normal Saline) 25,000 units in 250 mls @ 9.389 mls/hr IV .Q24H PRN; Protocol PRN Reason: PROTOCOL Last Admin: 11/05/18 00:52 Dose: 18 units/kg/hr, 9.389 mls/hr Loperamide HCl (Imodium) 2 mg PO Q8 PRN PRN Reason: Diarrhea Methadone HCl (Methadone) 20 mg PO Q24H [facility]; Taper Stop: 11/09/18 13:44 Last Admin: 11/05/18 14:53 Dose: 20 mg Ondansetron HCl (Zofran Inj) 4 mg IVP Q4 PRN PRN Reason: Nausea/Vomiting Last Admin: 11/05/18 11:29 Dose: 4 mg Ondansetron HCl (Zofran Tab) 4 mg PO Q8 PRN PRN Reason: Nausea/Vomiting Pseudoephedrine HCl (Sudafed Tab) 60 mg PO QID PRN PRN Reason: Nasal/Sinus Congestion - Labs Labs: 11/06/18 08:31 11/06/18 08:31 PT 11.4 SECONDS (9.7-12.2) 11/05/18 11:31 INR 1.0 11/05/18 11:31 APTT 36 SECONDS (21-34) H 11/05/18 11:31 - Constitutional Appears: No Acute Distress, Cachectic - Head Exam Head Exam: ATRAUMATIC, NORMAL INSPECTION - Eye Exam Eye Exam: EOMI, Normal appearance - ENT Exam ENT Exam: Mucous Membranes Moist - Respiratory Exam Respiratory Exam: Clear to Ausculation Bilateral, NORMAL BREATHING PATTERN - Cardiovascular Exam Cardiovascular Exam: REGULAR RHYTHM, +S1, +S2 - GI/Abdominal Exam GI & Abdominal Exam: Soft, Normal Bowel Sounds. absent: Tenderness - Extremities Exam Additional comments: Lateral aspect of left lower extremity with erythema, induration, fluctuance approximately 3cm in size - Neurological Exam Neurological Exam: Alert, Awake, Oriented x3 - Psychiatric Exam Psychiatric exam: Anxious Assessment and Plan - Assessment and Plan (Free Text) Assessment: 48 year old homeless female with past medical history of asthma, stroke, IV heroin abuse, untreated hepatitis c, coming to the ED for worsening left lower extremity pain, swelling and redness. Chest pain - resolved - UDS positive for cocaine - AVOID betablockers - trop negative - Elevated proBNP on admisison 5110; f/u repeat - TSH 0.35; f/u free T4 - LEYDI (07/05/18): EF 60-65%; left ventricular function is normal; mitral regurgitation is trace to mild. No evidence of vegetations on valves. Dyspnea/History of asthma - O2 via NC prn - D-Dimer is >5250 - Blood culture negative - Images: * CXR (11/04): no acute pathology * V/Q scan: low probability for PE * Doppler: negative for DVT - Medications: * pt started on heparin gtt as per protocol * duonebs q6h lynnette * mucinex 600 mg PO BID Left lower extremity cellulitis/abscess - General surgery: Dr. Capone --> help appreciated * I & D possibly 11/06/18 or 11/07/18 - Blood culture negative - Images: * Left Tib/fib XR: no gross fracture or periosteal elevation * venous dopplers negative for DVT - continue warm compresses - Medications: * vancomycin 1 gm q12 * zosyn 2.25 mg q8h New Onset Diabetes Type II - hA1c 6.6 - Heart Healthy/Moderate Carbohydrate Diet - Accuchecks - Dietitian Referral - Hypoglycemia Protocol Polysubstance abuse Hx of IVDA - UDS: opiates, cocaine, cannabinoid positive - Avoid BB - LEYDI (07/05/18): EF 60-65%; left ventricular function is normal; mitral regurgitation is trace to mild. No evidence of vegetations on valves. - Psych consulted Dr. Art --> help appreciated - Medications: * Methadone 20 mg PO daily * Sudafed 60 mg PO QID prn * Zofran 4 mg PO q8 prn * Imodium 2 mg PO q8 prn * Bentyl 10 mg PO q6 prn History of Untreated Hepatitis C - HIV negative - HCV reactive History of microcytic anemia - Hb/Hct: 11.0/33.9 (11/05), continue to monitor - iron panel wnl Prophylaxis - DVT ppx: heparin - GI: not indicated at this time - Glucerna Supplements - PT evaluate and Treat Case discussed with Dr. Zandra Schaefer PGY-2 <Lynda De Paz V - Last Filed: 11/08/18 13:57> Objective - Vital Signs/Intake and Output Vital Signs (last 24 hours): Temp Pulse Resp BP Pulse Ox 97.8 F 441 H 20 132/69 99 11/08/18 09:03 11/08/18 09:03 11/08/18 09:03 11/08/18 09:03 11/08/18 09:03 Intake and Output: 11/08/18 11/08/18 06:59 18:59 Intake Total 1962 Output Total 600 Balance 1362 - Medications Medications: Current Medications Acetaminophen (Tylenol 325mg Tab) 650 mg PO Q6 PRN PRN Reason: fever/pain Last Admin: 11/08/18 04:14 Dose: 650 mg Al Hydrox/Mg Hydrox/Simethicone (Maalox 30 Ml) 30 ml PO TID PRN PRN Reason: Indigestion / Heartburn Albuterol/Ipratropium (Duoneb 3 Mg/0.5 Mg (3 Ml) Ud) 3 ml INH RQ6 [facility] Last Admin: 11/08/18 10:08 Dose: 3 ml Dextrose (Dextrose 50% Inj) 0 ml IV STAT PRN; Protocol PRN Reason: Hypoglycemia Protocol Dextrose (Glutose 15) 0 gm PO ONCE PRN; Protocol PRN Reason: Hypoglycemia Protocol Dicyclomine HCl (Bentyl) 10 mg PO Q6 PRN PRN Reason: Muscle spasm Glucagon (Glucagen Diagnostic Kit) 0 mg IM STAT PRN; Protocol PRN Reason: Hypoglycemia Protocol Guaifenesin (Mucinex La) 600 mg PO BID [facility] Last Admin: 11/08/18 09:46 Dose: 600 mg Heparin Sodium (Porcine) (Heparin) 5,000 units SC Q12 [facility] Vancomycin HCl 1,000 mg/ (Sodium Chloride) 250 mls @ 166.6 mls/hr IVPB Q12H [facility]; Protocol Last Admin: 11/08/18 09:49 Dose: 166.6 mls/hr Sodium Chloride (Sodium Chloride 0.9%) 1,000 mls @ 75 mls/hr IV .[id number] [facility] Last Admin: 11/06/18 21:02 Dose: 75 mls/hr Piperacillin Sod/Tazobactam Sod (Zosyn 2.25 Gm Iv Premix) 2.25 gm in 50 mls @ 100 mls/hr IVPB Q8H COUNTS INCLUDE 234 BEDS AT THE [facility]; Protocol Last Admin: 11/08/18 11:55 Dose: 100 mls/hr Dextrose (Dextrose 5% In Water 1000 Ml) 1,000 mls @ 0 mls/hr IV .Q0M PRN; Protocol PRN Reason: Hypoglycemia Protocol Insulin Human Regular (Novolin R) 0 unit SC ACHS COUNTS INCLUDE 234 BEDS AT THE [facility]; Protocol Last Admin: 11/08/18 11:55 Dose: Not Given Lisinopril (Zestril) 2.5 mg PO DAILY COUNTS INCLUDE 234 BEDS AT THE [facility] Loperamide HCl (Imodium) 2 mg PO Q8 PRN PRN Reason: Diarrhea Methadone HCl (Methadone) 5 mg PO Q24H COUNTS INCLUDE 234 BEDS AT THE [facility]; Taper Stop: 11/09/18 13:44 Last Admin: 11/07/18 14:28 Dose: 10 mg Ondansetron HCl (Zofran Inj) 4 mg IVP Q4 PRN PRN Reason: Nausea/Vomiting Last Admin: 11/05/18 11:29 Dose: 4 mg Ondansetron HCl (Zofran Tab) 4 mg PO Q8 PRN PRN Reason: Nausea/Vomiting Pseudoephedrine HCl (Sudafed Tab) 60 mg PO QID PRN PRN Reason: Nasal/Sinus Congestion Saccharomyces Boulardii (Florastor) 250 mg PO BID COUNTS INCLUDE 234 BEDS AT THE [facility] Last Admin: 11/08/18 11:54 Dose: 250 mg - Labs Labs: 11/08/18 06:47 11/08/18 06:47 PT 12.0 SECONDS (9.7-12.2) 11/08/18 11:21 INR 1.1 11/08/18 11:21 APTT 31 SECONDS (21-34) D 11/08/18 11:21 Attending/Attestation - Attestation I have personally seen and examined this patient.: Yes I have fully participated in the care of the patient.: Yes I have reviewed all pertinent clinical information, including history, physical exam and plan: Yes Notes (Text): This is a late computer entry for November 06, 2018. Patient seen, examined, case discussed with medical underwriter. Patient appears better hydrated hydrated compared to the couple days prior. Patient continued to continue IV antibiotics to cover for left lower extremity cellulitis and abscess. Patient is pending for possible I&D by surgery tentative possibly later today or tomorrow. We will continue to monitor. Patient appears less than withdrawal she is currently on methadone per psych.
[2018-11-06] MEDS: guaiFENesin 600 mg ER Tab PO SCH ×2 (10:40→18:08)
--- NOTE | 2018-11-06 11:10 | VASCLAB ---
Date of service: 11/05/2018 PROCEDURE: Lower Extremity Venous Duplex Exam. HISTORY: leg swelling PRIORS: None. TECHNIQUE: Bilateral common femoral, femoral, popliteal and posterior tibial, peroneal and great saphenous veins were evaluated. Flow was assessed with color Doppler, compressibility, assessment of phasic flow and augmentation response. Report prepared by Bruce Natarajan, ALEXI, RVT FINDINGS: RIGHT: 1. Common Femoral Vein: 1.1. Compressibility - Fully compressible: Thrombus - None : Flow - Phasic: Augmentation -Normal: Reflux - None. 2. Femoral Vein: 2.1. Compressibility - Fully compressible: Thrombus - None : Flow - Phasic: Augmentation -Normal: Reflux - None. 3. Popliteal Vein: 3.1. Compressibility - Fully compressible: Thrombus - None : Flow - Phasic: Augmentation -Normal: Reflux - None. 4. Posterior Tibial Vein: 4.1. Compressibility - Fully compressible: Thrombus - None: Flow - Phasic: Augmentation -Normal: Reflux - None. 5. Peroneal Vein: 5.1. Compressibility - Fully compressible: Thrombus - None: Flow - Phasic: Augmentation -Normal: Reflux - None. 6. Great Saphenous Vein: 6.1. Compressibility - : Thrombus - : Flow - : Augmentation - : Reflux - . LEFT: 1. Common Femoral Vein: 1.1. Compressibility - Fully compressible: Thrombus - None: Flow - Phasic: Augmentation -Normal: Reflux - None. 2. Femoral Vein: 2.1. Compressibility - Fully compressible: Thrombus - None: Flow - Phasic: Augmentation -Normal: Reflux - None. 3. Popliteal Vein: 3.1. Compressibility - Fully compressible: Thrombus - None : Flow - Phasic: Augmentation -Normal: Reflux - None. 4. Posterior Tibial Vein: 4.1. Compressibility - Fully compressible: Thrombus - None: Flow - Phasic: Augmentation -Normal: Reflux - None. 5. Peroneal Vein: 5.1. Compressibility - Fully compressible: Thrombus - None: Flow - Phasic: Augmentation -Normal: Reflux - None. 6. Great Saphenous Vein: 6.1. Compressibility - : Thrombus - : Flow - : Augmentation - : Reflux - . OTHER FINDINGS: Right: None significant. Left: None significant. IMPRESSION: Right: No evidence of deep or superficial vein thrombosis of the right lower extremity. Normal valve function noted of the right side. Left: No evidence of deep or superficial vein thrombosis of the left lower extremity. Normal valve function noted of the left side.
[2018-11-06] MEDS ORDERED: Dextrose 50% SYRINGE Inj (50 ml) IV PRN (15:33)
[2018-11-06] MEDS ORDERED: Glucagon Recombinant 1 mg Inj IM PRN (15:33)
[2018-11-06] MEDS: Saccharomyces Boulardi 250 mg Cap PO SCH (18:08)
[2018-11-06] MEDS: Sodium Chloride 0.9% 1,000 ML IV SCH (21:02)
[2018-11-06] MEDS ORDERED: Lidocaine 2% w Epi 1:100,000 Inj IJ ONE (21:19)
--- NOTE | 2018-11-06 22:46 | PCM.SURG1 ---
Surgeon's Initial Post Op Note - Surgeon's Notes Surgeon: Dr. Washington Capone Master Ocean: Tara Rodriguez, PGY-2 Type of Anesthesia: Local Pre-Operative Diagnosis: Left lower leg abscess Operative Findings: Left lower leg abscess Post-Operative Diagnosis: Left lower leg abscess Operation Performed: Bedside Incision & Drainage of left lower leg abscess Specimen/Specimens Removed: Purulent wound drainage Estimated Blood Loss: EBL {In ML}: 2 Blood Products Given: N/A Drains Used: No Drains Post-Op Condition: Good Date of Surgery/Procedure: 11/06/18 Time of Surgery/Procedure: 22:45
[2018-11-07] MEDS: Albuterol-Ipratrop 3 mg / 0.5 (3 ml) UD INH SCH ×4 (01:37→20:28)
[2018-11-07] MEDS: Piperacill/Tazo 2.25gm in Dex 2.25 GM/50 ML BAG IVPB SCH ×3 (04:30→20:00)
--- NOTE | 2018-11-07 07:21 | CP.PCM.PN ---
<Tara Rodriguez - Last Filed: 11/07/18 07:18> Subjective - Date & Time of Evaluation Date of Evaluation: 11/07/18 Time of Evaluation: 07:18 - Subjective Subjective: General surgery progress note for Dr. Capone-Tara Rodriguez, PGY-2 Pt seen/examined at bedside Pt reports improved pain over left lower extremity, has some purulent drainage that stained her bed. Also reporting N, chills, feels like she is withdrawing. Denies F, SOB,CP, or emesis. Objective - Vital Signs/Intake and Output Vital Signs (last 24 hours): Temp Pulse Resp BP Pulse Ox 98 F 57 L 20 133/76 97 11/07/18 00:25 11/07/18 00:25 11/07/18 00:25 11/07/18 00:25 11/07/18 06:44 - Medications Medications: Current Medications Acetaminophen (Tylenol 325mg Tab) 650 mg PO Q6 PRN PRN Reason: fever/pain Last Admin: 11/07/18 00:38 Dose: 650 mg Al Hydrox/Mg Hydrox/Simethicone (Maalox 30 Ml) 30 ml PO TID PRN PRN Reason: Indigestion / Heartburn Albuterol/Ipratropium (Duoneb 3 Mg/0.5 Mg (3 Ml) Ud) 3 ml INH RQ6 [facility] Last Admin: 11/07/18 01:37 Dose: Not Given Clonidine HCl (Catapres) 0.1 mg PO TID PRN PRN Reason: symptoms of withdrawal Dextrose (Dextrose 50% Inj) 0 ml IV STAT PRN; Protocol PRN Reason: Hypoglycemia Protocol Dextrose (Glutose 15) 0 gm PO ONCE PRN; Protocol PRN Reason: Hypoglycemia Protocol Dicyclomine HCl (Bentyl) 10 mg PO Q6 PRN PRN Reason: Muscle spasm Glucagon (Glucagen Diagnostic Kit) 0 mg IM STAT PRN; Protocol PRN Reason: Hypoglycemia Protocol Guaifenesin (Mucinex La) 600 mg PO BID [facility] Last Admin: 11/06/18 18:08 Dose: 600 mg Heparin Sodium (Porcine) (Heparin) 5,000 units SC Q12 [facility] Vancomycin HCl 1,000 mg/ (Sodium Chloride) 250 mls @ 166.6 mls/hr IVPB Q12H [facility]; Protocol Last Admin: 11/06/18 21:03 Dose: 166.6 mls/hr Sodium Chloride (Sodium Chloride 0.9%) 1,000 mls @ 75 mls/hr IV .[id number] [facility] Last Admin: 11/06/18 21:02 Dose: 75 mls/hr Piperacillin Sod/Tazobactam Sod (Zosyn 2.25 Gm Iv Premix) 2.25 gm in 50 mls @ 100 mls/hr IVPB Q8H [facility]; Protocol Last Admin: 11/07/18 04:30 Dose: 100 mls/hr Dextrose (Dextrose 5% In Water 1000 Ml) 1,000 mls @ 0 mls/hr IV .Q0M PRN; Pr otocol PRN Reason: Hypoglycemia Protocol Loperamide HCl (Imodium) 2 mg PO Q8 PRN PRN Reason: Diarrhea Methadone HCl (Methadone) 15 mg PO Q24H [facility]; Taper Stop: 11/09/18 13:44 Last Admin: 11/06/18 12:51 Dose: 15 mg Ondansetron HCl (Zofran Inj) 4 mg IVP Q4 PRN PRN Reason: Nausea/Vomiting Last Admin: 11/05/18 11:29 Dose: 4 mg Ondansetron HCl (Zofran Tab) 4 mg PO Q8 PRN PRN Reason: Nausea/Vomiting Pseudoephedrine HCl (Sudafed Tab) 60 mg PO QID PRN PRN Reason: Nasal/Sinus Congestion Saccharomyces Boulardii (Florastor) 250 mg PO BID [facility] Last Admin: 11/06/18 18:08 Dose: 250 mg - Labs Labs: 11/06/18 08:31 11/06/18 08:31 PT 11.4 SECONDS (9.7-12.2) 11/05/18 11:31 INR 1.0 11/05/18 11:31 APTT 36 SECONDS (21-34) H 11/05/18 11:31 - Constitutional Appears: Non-toxic, No Acute Distress - Head Exam Head Exam: ATRAUMATIC, NORMAL INSPECTION, NORMOCEPHALIC - Eye Exam Eye Exam: EOMI, Normal appearance - ENT Exam ENT Exam: Mucous Membranes Moist, Normal Exam - Neck Exam Neck Exam: Full ROM - Respiratory Exam Respiratory Exam: NORMAL BREATHING PATTERN - Cardiovascular Exam Cardiovascular Exam: REGULAR RHYTHM - GI/Abdominal Exam GI & Abdominal Exam: Soft. absent: Tenderness - Extremities Exam Additional comments: LLE dressing in place with scant seropurulent strike through, minimally tender to palpation over surgical site - Neurological Exam Neurological Exam: Alert, Awake, CN II-XII Intact, Oriented x3 - Psychiatric Exam Psychiatric exam: Normal Affect, Normal Mood - Skin Skin Exam: Dry, Normal Color, Warm Assessment and Plan - Assessment and Plan (Free Text) Assessment: 48F w/LLE abscess POD#1 s/p bedside I & D Plan: Continue ABx Continue pain control Continue diet Local wound care for LLE abscess site Plan to change wound packing this evening Further care as per primary team Will DW Dr. Capone <Washington Capone - Last Filed: 11/07/18 21:43> Objective - Vital Signs/Intake and Output Vital Signs (last 24 hours): Temp Pulse Resp BP Pulse Ox 98 F 56 L 18 126/62 99 11/07/18 21:30 11/07/18 21:30 11/07/18 21:30 11/07/18 21:30 11/07/18 15:46 Intake and Output: 11/07/18 11/08/18 18:59 06:59 Intake Total 0 Balance 0 - Medications Medications: Current Medications Acetaminophen (Tylenol 325mg Tab) 650 mg PO Q6 PRN PRN Reason: fever/pain Last Admin: 11/07/18 08:23 Dose: 650 mg Al Hydrox/Mg Hydrox/Simethicone (Maalox 30 Ml) 30 ml PO TID PRN PRN Reason: Indigestion / Heartburn Albuterol/Ipratropium (Duoneb 3 Mg/0.5 Mg (3 Ml) Ud) 3 ml INH RQ6 [facility] Last Admin: 11/07/18 20:28 Dose: 3 ml Dextrose (Dextrose 50% Inj) 0 ml IV STAT PRN; Protocol PRN Reason: Hypoglycemia Protocol Dextrose (Glutose 15) 0 gm PO ONCE PRN; Protocol PRN Reason: Hypoglycemia Protocol Dicyclomine HCl (Bentyl) 10 mg PO Q6 PRN PRN Reason: Muscle spasm Glucagon (Glucagen Diagnostic Kit) 0 mg IM STAT PRN; Protocol PRN Reason: Hypoglycemia Protocol Guaifenesin (Mucinex La) 600 mg PO BID [facility] Last Admin: 11/07/18 17:04 Dose: 600 mg Heparin Sodium (Porcine) (Heparin) 5,000 units SC Q12 [facility] Vancomycin HCl 1,000 mg/ (Sodium Chloride) 250 mls @ 166.6 mls/hr IVPB Q12H [facility]; Protocol Last Admin: 11/07/18 10:53 Dose: 166.6 mls/hr Sodium Chloride (Sodium Chloride 0.9%) 1,000 mls @ 75 mls/hr IV .[id number] [facility] Last Admin: 11/06/18 21:02 Dose: 75 mls/hr Piperacillin Sod/Tazobactam Sod (Zosyn 2.25 Gm Iv Premix) 2.25 gm in 50 mls @ 100 mls/hr IVPB Q8H [facility]; Protocol Last Admin: 11/07/18 13:34 Dose: 100 mls/hr Dextrose (Dextrose 5% In Water 1000 Ml) 1,000 mls @ 0 mls/hr IV .Q0M PRN; Protocol PRN Reason: Hypoglycemia Protocol Loperamide HCl (Imodium) 2 mg PO Q8 PRN PRN Reason: Diarrhea Methadone HCl (Methadone) 10 mg PO Q24H [facility]; Taper Stop: 11/09/18 13:44 Last Admin: 11/07/18 14:28 Dose: 10 mg Ondansetron HCl (Zofran Inj) 4 mg IVP Q4 PRN PRN Reason: Nausea/Vomiting Last Admin: 11/05/18 11:29 Dose: 4 mg Ondansetron HCl (Zofran Tab) 4 mg PO Q8 PRN PRN Reason: Nausea/Vomiting Pseudoephedrine HCl (Sudafed Tab) 60 mg PO QID PRN PRN Reason: Nasal/Sinus Congestion Saccharomyces Boulardii (Florastor) 250 mg PO BID [facility] Last Admin: 11/07/18 17:06 Dose: 250 mg - Labs Labs: 11/07/18 08:12 11/07/18 08:12 PT 11.4 SECONDS (9.7-12.2) 11/05/18 11:31 INR 1.0 11/05/18 11:31 APTT 36 SECONDS (21-34) H 11/05/18 11:31 Attending/Attestation - Attestation I have personally seen and examined this patient.: Yes I have fully participated in the care of the patient.: Yes I have reviewed all pertinent clinical information, including history, physical exam and plan: Yes Notes (Text): Pt was seen and examined at bedside Agree with above note and assessment Pt is improving clinically Local wound care C.w IV antibiotics Plan d.w pt in detail
[2018-11-07 08:22] LABS: BASO % 0.2 % (0.0-2.0); EOS % 0.3 % (0.0-4.0); LYMPH # 1.5 K/uL (1.0-4.3); LYMPH % 26.6 % (20.0-40.0); MEAN CELL VOLUME 75.7 fL (81.0-99.0); MEAN CORPUSCULAR HEMOGLOBIN 24.4 pg (27.0-31.0); MEAN CORPUSCULAR HGB CONC 32.2 g/dL (33.0-37.0); MEAN PLATELET VOLUME 6.8 fL (7.2-11.7); MONO # 0.5 K/uL (0.0-0.8); MONO % 8.1 % (0.0-10.0); NEUT # 3.7 K/uL (1.8-7.0); NEUT % 64.8 % (50.0-75.0); RBC 3.07 Mil/uL (3.80-5.20); RED CELL DISTRIBUTION WIDTH 18.2 % (11.5-14.5); WHITE BLOOD COUNT 5.7 K/uL (4.8-10.8)
[2018-11-07 08:44] LABS: HEMOGLOBIN 7.5 g/dL (11.0-16.0)
[2018-11-07 08:46] LABS: B-TYPE NATRIURETIC PEPTIDE 465 pg/mL (0-450)
[2018-11-07 08:54] LABS: ALB/GLOB RATIO 0.7 (1.0-2.1); ALBUMIN 3.2 g/dL (3.5-5.0); ALT/SGPT 9 U/L (9-52); AST/SGOT 17 U/L (14-36); BLOOD UREA NITROGEN 24 mg/dL (7-17); CALCIUM 8.7 mg/dl (8.6-10.4); GFR NON-AFRICAN AMERICAN > 60
--- NOTE | 2018-11-07 09:56 | CP.PCM.PN ---
<SilvanoMonique MaggieCesia - Last Filed: 11/07/18 17:24> Subjective - Date & Time of Evaluation Date of Evaluation: 11/07/18 Time of Evaluation: 08:00 - Subjective Subjective: Medicine Progress Note: Patient was seen and examined at bedside. Patient states she continues to feel nauseated but has only vomited once this morning. Patient also states she had one loose bowel movement this morning which was dark in color but denies bright red blood in her stool. She denies chest pain, shortness of breath or fever. Objective - Vital Signs/Intake and Output Vital Signs (last 24 hours): Temp Pulse Resp BP Pulse Ox 98.1 F 58 L 20 133/62 99 11/07/18 07:25 11/07/18 07:25 11/07/18 07:25 11/07/18 07:25 11/07/18 09:12 - Medications Medications: Current Medications Acetaminophen (Tylenol 325mg Tab) 650 mg PO Q6 PRN PRN Reason: fever/pain Last Admin: 11/07/18 08:23 Dose: 650 mg Al Hydrox/Mg Hydrox/Simethicone (Maalox 30 Ml) 30 ml PO TID PRN PRN Reason: Indigestion / Heartburn Albuterol/Ipratropium (Duoneb 3 Mg/0.5 Mg (3 Ml) Ud) 3 ml INH RQ6 [facility]TE Last Admin: 11/07/18 01:37 Dose: Not Given Clonidine HCl (Catapres) 0.1 mg PO TID PRN PRN Reason: symptoms of withdrawal Dextrose (Dextrose 50% Inj) 0 ml IV STAT PRN; Protocol PRN Reason: Hypoglycemia Protocol Dextrose (Glutose 15) 0 gm PO ONCE PRN; Protocol PRN Reason: Hypoglycemia Protocol Dicyclomine HCl (Bentyl) 10 mg PO Q6 PRN PRN Reason: Muscle spasm Glucagon (Glucagen Diagnostic Kit) 0 mg IM STAT PRN; Protocol PRN Reason: Hypoglycemia Protocol Guaifenesin (Mucinex La) 600 mg PO BID [facility] Last Admin: 11/06/18 18:08 Dose: 600 mg Heparin Sodium (Porcine) (Heparin) 5,000 units SC Q12 [facility]ETTE Vancomycin HCl 1,000 mg/ (Sodium Chloride) 250 mls @ 166.6 mls/hr IVPB Q12H [facility]; Protocol Last Admin: 11/06/18 21:03 Dose: 166.6 mls/hr Sodium Chloride (Sodium Chloride 0.9%) 1,000 mls @ 75 mls/hr IV .[id number] [facility] Last Admin: 11/06/18 21:02 Dose: 75 mls/hr Piperacillin Sod/Tazobactam Sod (Zosyn 2.25 Gm Iv Premix) 2.25 gm in 50 mls @ 100 mls/hr IVPB Q8H [facility]; Protocol Last Admin: 11/07/18 04:30 Dose: 100 mls/hr Dextrose (Dextrose 5% In Water 1000 Ml) 1,000 mls @ 0 mls/hr IV .Q0M PRN; Protocol PRN Reason: Hypoglycemia Protocol Loperamide HCl (Imodium) 2 mg PO Q8 PRN PRN Reason: Diarrhea Methadone HCl (Methadone) 15 mg PO Q24H [facility]; Taper Stop: 11/09/18 13:44 Last Admin: 11/06/18 12:51 Dose: 15 mg Ondansetron HCl (Zofran Inj) 4 mg IVP Q4 PRN PRN Reason: Nausea/Vomiting Last Admin: 11/05/18 11:29 Dose: 4 mg Ondansetron HCl (Zofran Tab) 4 mg PO Q8 PRN PRN Reason: Nausea/Vomiting Pseudoephedrine HCl (Sudafed Tab) 60 mg PO QID PRN PRN Reason: Nasal/Sinus Congestion Saccharomyces Boulardii (Florastor) 250 mg PO BID [facility] Last Admin: 11/06/18 18:08 Dose: 250 mg - Labs Labs: 11/07/18 08:12 11/07/18 08:12 PT 11.4 SECONDS (9.7-12.2) 11/05/18 11:31 INR 1.0 11/05/18 11:31 APTT 36 SECONDS (21-34) H 11/05/18 11:31 - Constitutional Appears: No Acute Distress, Cachectic - Head Exam Head Exam: ATRAUMATIC, NORMAL INSPECTION - Eye Exam Eye Exam: EOMI, Normal appearance - ENT Exam ENT Exam: Mucous Membranes Moist - Respiratory Exam Respiratory Exam: Clear to Ausculation Bilateral, NORMAL BREATHING PATTERN - Cardiovascular Exam Cardiovascular Exam: REGULAR RHYTHM, +S1, +S2 - GI/Abdominal Exam GI & Abdominal Exam: Soft, Normal Bowel Sounds. absent: Tenderness - Extremities Exam Additional comments: Lateral aspect of left lower extremity with erythema, induration, fluctuance approximately 3cm in size dressing c/d/i - Neurological Exam Neurological Exam: Alert, Awake, Oriented x3 - Psychiatric Exam Psychiatric exam: Normal Affect - Skin Skin Exam: Normal Color Assessment and Plan - Assessment and Plan (Free Text) Assessment: 48 year old homeless female with past medical history of asthma, stroke, IV heroin abuse, untreated hepatitis c, coming to the ED for worsening left lower extremity pain, swelling and redness. Left lower extremity cellulitis/abscess - General surgery: Dr. Capone --> help appreciated * s/p I & D 11/06/18 - Blood culture negative - f/u wound culture - Images: * Left Tib/fib XR: no gross fracture or periosteal elevation * venous dopplers negative for DVT - continue warm compresses - Medications: * vancomycin 1 gm q12 * zosyn 2.25 mg q8h History of microcytic anemia - Hb/Hct: 11.0/33.9 (11/05) * H/H 7.5/23.3 - iron panel wnl - Hem/Onc: Dr. Quevedo --> help appreciated - Type and Cross; Type and Screen - Continue to monitor Chest pain - resolved - UDS positive for cocaine - AVOID betablockers - trop negative - Elevated proBNP on admisison 5110 --> 465 - TSH 0.35; free T4 1.46 - LEYDI (07/05/18): EF 60-65%; left ventricular function is normal; mitral regurgitation is trace to mild. No evidence of vegetations on valves. Dyspnea/History of asthma - O2 via NC prn - D-Dimer is >5250 - Blood culture negative - Images: * CXR (11/04): no acute pathology * V/Q scan: low probability for PE * Doppler: negative for DVT - Medications: * duonebs q6h lynnette * mucinex 600 mg PO BID New Onset Diabetes Type II - hA1c 6.6 - Heart Healthy/Moderate Carbohydrate Diet - Accuchecks - Dietitian Referral - Hypoglycemia Protocol Polysubstance abuse Hx of IVDA - UDS: opiates, cocaine, cannabinoid positive - Avoid BB - LEYDI (07/05/18): EF 60-65%; left ventricular function is normal; mitral regurgitation is trace to mild. No evidence of vegetations on valves. - Psych consulted Dr. Art --> help appreciated - Medications: * Methadone 20 mg PO daily * Sudafed 60 mg PO QID prn * Zofran 4 mg PO q8 prn * Imodium 2 mg PO q8 prn * Bentyl 10 mg PO q6 prn History of Untreated Hepatitis C - HIV negative - HCV reactive Prophylaxis - DVT ppx: heparin - GI: not indicated at this time - Glucerna Supplements - PT evaluate and Treat Case discussed with Dr. Zandra Schaefer PGY-2 <Lynda De Paz V - Last Filed: 11/07/18 20:55> Objective - Vital Signs/Intake and Output Vital Signs (last 24 hours): Temp Pulse Resp BP Pulse Ox 98.2 F 56 L 18 124/65 99 11/07/18 20:29 11/07/18 20:29 11/07/18 20:29 11/07/18 20:29 11/07/18 15:46 Intake and Output: 11/07/18 11/08/18 18:59 06:59 Intake Total 0 Balance 0 - Medications Medications: Current Medications Acetaminophen (Tylenol 325mg Tab) 650 mg PO Q6 PRN PRN Reason: fever/pain Last Admin: 11/07/18 08:23 Dose: 650 mg Al Hydrox/Mg Hydrox/Simethicone (Maalox 30 Ml) 30 ml PO TID PRN PRN Reason: Indigestion / Heartburn Albuterol/Ipratropium (Duoneb 3 Mg/0.5 Mg (3 Ml) Ud) 3 ml INH RQ6 [facility]TE Last Admin: 11/07/18 20:28 Dose: 3 ml Dextrose (Dextrose 50% Inj) 0 ml IV STAT PRN; Protocol PRN Reason: Hypoglycemia Protocol Dextrose (Glutose 15) 0 gm PO ONCE PRN; Protocol PRN Reason: Hypoglycemia Protocol Dicyclomine HCl (Bentyl) 10 mg PO Q6 PRN PRN Reason: Muscle spasm Glucagon (Glucagen Diagnostic Kit) 0 mg IM STAT PRN; Protocol PRN Reason: Hypoglycemia Protocol Guaifenesin (Mucinex La) 600 mg PO BID [facility] Last Admin: 11/07/18 17:04 Dose: 600 mg Heparin Sodium (Porcine) (Heparin) 5,000 units SC Q12 [facility] Vancomycin HCl 1,000 mg/ (Sodium Chloride) 250 mls @ 166.6 mls/hr IVPB Q12H [facility]; Protocol Last Admin: 11/07/18 10:53 Dose: 166.6 mls/hr Sodium Chloride (Sodium Chloride 0.9%) 1,000 mls @ 75 mls/hr IV .[id number] [facility] Last Admin: 11/06/18 21:02 Dose: 75 mls/hr Piperacillin Sod/Tazobactam Sod (Zosyn 2.25 Gm Iv Premix) 2.25 gm in 50 mls @ 100 mls/hr IVPB Q8H [facility]; Protocol Last Admin: 11/07/18 13:34 Dose: 100 mls/hr Dextrose (Dextrose 5% In Water 1000 Ml) 1,000 mls @ 0 mls/hr IV .Q0M PRN; Protocol PRN Reason: Hypoglycemia Protocol Loperamide HCl (Imodium) 2 mg PO Q8 PRN PRN Reason: Diarrhea Methadone HCl (Methadone) 10 mg PO Q24H [facility]; Taper Stop: 11/09/18 13:44 Last Admin: 11/07/18 14:28 Dose: 10 mg Ondansetron HCl (Zofran Inj) 4 mg IVP Q4 PRN PRN Reason: Nausea/Vomiting Last Admin: 11/05/18 11:29 Dose: 4 mg Ondansetron HCl (Zofran Tab) 4 mg PO Q8 PRN PRN Reason: Nausea/Vomiting Pseudoephedrine HCl (Sudafed Tab) 60 mg PO QID PRN PRN Reason: Nasal/Sinus Congestion Saccharomyces Boulardii (Florastor) 250 mg PO BID [facility] Last Admin: 11/07/18 17:06 Dose: 250 mg - Labs Labs: 11/07/18 08:12 11/07/18 08:12 PT 11.4 SECONDS (9.7-12.2) 11/05/18 11:31 INR 1.0 11/05/18 11:31 APTT 36 SECONDS (21-34) H 11/05/18 11:31 Attending/Attestation - Attestation I have personally seen and examined this patient.: Yes I have fully participated in the care of the patient.: Yes I have reviewed all pertinent clinical information, including history, physical exam and plan: Yes Notes (Text): Patient seen, examined and case discussed with day-time resident. Patient underwent bedside ID with surgery today over the abscess over the left lateral leg (ankle). Wound culture was sent by surgery. Hemoglobin mildly dropped from 9.3 to 7.5. I am not suspecting a gi bleed. Occult blood was ordered. Patient with a known hx of anemia, ferritin and iron studies were normal prior to blood transfusion, her reticulocyte count was low. Heme oncology consulted; resident has called and left message for oncall. Patient was type and cross 1 unit of PRBC; resident has obtained consent and discussed risk and benefits with the patient. Patient's procalcitonin has improved from 3.3 to 0.67 while on IV abx. there is a random vancomycin level for tomorrow. Patient's clondine d/c secondary to bradycardia. Patient noted she had diarrhea today but I am suspecting it is secondary to her heroin withdrawal. Patient appears better hydrated and nourished than on admission.
[2018-11-07] MEDS: guaiFENesin 600 mg ER Tab PO SCH ×2 (10:49→17:04)
[2018-11-07] MEDS: Saccharomyces Boulardi 250 mg Cap PO SCH ×2 (10:53→17:06)
[2018-11-08] MEDS: Albuterol-Ipratrop 3 mg / 0.5 (3 ml) UD INH SCH ×4 (01:06→20:07)
[2018-11-08] MEDS: Piperacill/Tazo 2.25gm in Dex 2.25 GM/50 ML BAG IVPB SCH ×2 (04:10→11:55)
[2018-11-08 06:55] LABS: BASO % 0.4 % (0.0-2.0); EOS % 0.5 % (0.0-4.0); HEMOGLOBIN 8.1 g/dL (11.0-16.0); LYMPH # 1.4 K/uL (1.0-4.3); LYMPH % 34.9 % (20.0-40.0); MEAN CORPUSCULAR HEMOGLOBIN 24.8 pg (27.0-31.0); MEAN CORPUSCULAR HGB CONC 32.3 g/dL (33.0-37.0); MEAN PLATELET VOLUME 6.5 fL (7.2-11.7); MONO # 0.4 K/uL (0.0-0.8); MONO % 10.2 % (0.0-10.0); NEUT # 2.2 K/uL (1.8-7.0); NRBC % 0.1 % (0.0-2.0); RBC 3.27 Mil/uL (3.80-5.20); RED CELL DISTRIBUTION WIDTH 18.7 % (11.5-14.5); WHITE BLOOD COUNT 4.1 K/uL (4.8-10.8)
--- NOTE | 2018-11-08 07:16 | CP.PCM.PN ---
<Zaki Downey - Last Filed: 11/08/18 15:41> Subjective - Date & Time of Evaluation Date of Evaluation: 11/08/18 Time of Evaluation: 07:16 - Subjective Subjective: PGY-1 Medicine Progress Note for Dr. Figueroa Patient seen and examined at bedside this AM s/p bedside I&D (11/06) of LLE abscess, in no acute distress. No overnight events reported. Erythema and swelling significantly improved, continues to be tender to palpation. Continues to endorse some nausea, no vomiting/diarrhea/constipation. Denies fevers/chills, chest pain, palpitations, sob, cough, abdominal pain. 12 pt ROS reviewed and otherwise negative. Objective - Vital Signs/Intake and Output Vital Signs (last 24 hours): Temp Pulse Resp BP Pulse Ox 98.1 F 52 L 20 131/67 99 11/07/18 23:40 11/07/18 23:40 11/07/18 23:40 11/07/18 23:40 11/07/18 23:40 Intake and Output: 11/08/18 11/08/18 06:59 18:59 Intake Total 1312 Output Total 600 Balance 712 - Medications Medications: Current Medications Acetaminophen (Tylenol 325mg Tab) 650 mg PO Q6 PRN PRN Reason: fever/pain Last Admin: 11/08/18 04:14 Dose: 650 mg Al Hydrox/Mg Hydrox/Simethicone (Maalox 30 Ml) 30 ml PO TID PRN PRN Reason: Indigestion / Heartburn Albuterol/Ipratropium (Duoneb 3 Mg/0.5 Mg (3 Ml) Ud) 3 ml INH RQ6 [facility] Last Admin: 11/08/18 01:06 Dose: Not Given Dextrose (Dextrose 50% Inj) 0 ml IV STAT PRN; Protocol PRN Reason: Hypoglycemia Protocol Dextrose (Glutose 15) 0 gm PO ONCE PRN; Protocol PRN Reason: Hypoglycemia Protocol Dicyclomine HCl (Bentyl) 10 mg PO Q6 PRN PRN Reason: Muscle spasm Glucagon (Glucagen Diagnostic Kit) 0 mg IM STAT PRN; Protocol PRN Reason: Hypoglycemia Protocol Guaifenesin (Mucinex La) 600 mg PO BID [facility] Last Admin: 11/07/18 17:04 Dose: 600 mg Heparin Sodium (Porcine) (Heparin) 5,000 units SC Q12 [facility] Vancomycin HCl 1,000 mg/ (Sodium Chloride) 250 mls @ 166.6 mls/hr IVPB Q12H [facility]; Protocol Last Admin: 11/07/18 22:59 Dose: 166.6 mls/hr Sodium Chloride (Sodium Chloride 0.9%) 1,000 mls @ 75 mls/hr IV .[id number] [facility] Last Admin: 11/06/18 21:02 Dose: 75 mls/hr Piperacillin Sod/Tazobactam Sod (Zosyn 2.25 Gm Iv Premix) 2.25 gm in 50 mls @ 100 mls/hr IVPB Q8H [facility]; Protocol Last Admin: 11/08/18 04:10 Dose: 100 mls/hr Dextrose (Dextrose 5% In Water 1000 Ml) 1,000 mls @ 0 mls/hr IV .Q0M PRN; Protocol PRN Reason: Hypoglycemia Protocol Loperamide HCl (Imodium) 2 mg PO Q8 PRN PRN Reason: Diarrhea Methadone HCl (Methadone) 10 mg PO Q24H [facility]; Taper Stop: 11/09/18 13:44 Last Admin: 11/07/18 14:28 Dose: 10 mg Ondansetron HCl (Zofran Inj) 4 mg IVP Q4 PRN PRN Reason: Nausea/Vomiting Last Admin: 11/05/18 11:29 Dose: 4 mg Ondansetron HCl (Zofran Tab) 4 mg PO Q8 PRN PRN Reason: Nausea/Vomiting Pseudoephedrine HCl (Sudafed Tab) 60 mg PO QID PRN PRN Reason: Nasal/Sinus Congestion Saccharomyces Boulardii (Florastor) 250 mg PO BID [facility] Last Admin: 11/07/18 17:06 Dose: 250 mg - Labs Labs: 11/08/18 06:47 11/07/18 08:12 PT 11.4 SECONDS (9.7-12.2) 11/05/18 11:31 INR 1.0 11/05/18 11:31 APTT 36 SECONDS (21-34) H 11/05/18 11:31 - Constitutional Appears: No Acute Distress, Cachectic - Head Exam Head Exam: ATRAUMATIC, NORMAL INSPECTION, NORMOCEPHALIC - Eye Exam Eye Exam: EOMI, Normal appearance Pupil Exam: NORMAL ACCOMODATION - ENT Exam ENT Exam: Mucous Membranes Moist, Normal Exam Additional comments: poor dentition, multiple teeth missing - Neck Exam Neck Exam: Full ROM, Normal Inspection - Respiratory Exam Respiratory Exam: Clear to Ausculation Bilateral, NORMAL BREATHING PATTERN. absent: Accessory Muscle Use, Respiratory Distress - Cardiovascular Exam Cardiovascular Exam: Bradycardia, +S1, +S2 - GI/Abdominal Exam GI & Abdominal Exam: Soft, Normal Bowel Sounds. absent: Distended, Firm, Guarding, Rigid, Tenderness - Extremities Exam Extremities Exam: Normal Capillary Refill. absent: Calf Tenderness, Pedal Edema Additional comments: Left lateral abscess dressing c/d/i, no packing, continued drainage. Erythema circumference approximately half of area originally demarcated. Swelling diminished s/p I&D, continue to be TTP. - Back Exam Back Exam: NORMAL INSPECTION - Neurological Exam Neurological Exam: Alert, Awake, Oriented x3 - Skin Skin Exam: Dry, Intact, Normal Color, Warm Additional comments: findings as per above Assessment and Plan - Assessment and Plan (Free Text) Assessment: 48 year old homeless female with past medical history of asthma, stroke, IV heroin abuse, untreated hepatitis c, coming to the ED for worsening left lower extremity pain, swelling and redness, s/p bedisde I&D of LLE abscess POD#2. Plan: Left lower extremity cellulitis/abscess -s/p bedside I&D, POD 2 -Left Tib/fib XR: no gross fracture or periosteal elevation -venous dopplers negative for DVT - General surgery (Dr. Capone) recs appreciated - Blood cultures negative - Wound cultures: Gram negative rods -f/u final read and sensitivities -to be d/c'd on PO abx for 14 total days coverage -Vancomycin 1 gm q12 -Zosyn 2.25 mg q8h Chest pain - resolved -UDS positive for cocaine -AVOID betablockers -trop negative -Elevated proBNP on admisison 5110 --> 465 -TSH significantly low: 0.35 -free T4 wnl: 1.46 -recommend outpatient repeat of thyroid panel within 2-4 weeks -LEYDI (07/05/18): EF 60-65%; left ventricular function is normal; mitral regurgitation is trace to mild. No evidence of vegetations on valves. Polysubstance abuse Hx of IVDA -UDS: opiates, cocaine, cannabinoid positive -Avoid BB -LEYDI (07/05/18): EF 60-65%; left ventricular function is normal; mitral regurgitation is trace to mild. No evidence of vegetations on valves. -Psych recs (Dr. Art) appreciated -counseled on risks of continued substance abuse, including but not limited to thromembolic events, stroke, NM, kidney failure, paralysis and -to provide phone number for [employer] for heroin abuse, Narcotics Anonymous in [place] upon discharge -Methadone 20 mg PO daily -Sudafed 60 mg PO QID prn -Zofran 4 mg PO q8 prn -Imodium 2 mg PO q8 prn -Bentyl 10 mg PO q6 prn New Onset DM Type II -A1C: 6.6 -started on Lisinopril 5 mg PO daily for renoprotective benefits -HHD/modified carb diet -accuchecks achs -hypoglycemic protocol -to be discharged on PO metformin 500 mg daily with outpatient followup in clinic Hx of Untreated Hepatitis C -HIV negative -HCV reactive -f/u outpatient clinic for viral load workup Hypertrigyceridemia -TG 194 -statin held due to untreated HCV, f/u outpatient clinic for viral load workup and treatment as well as possible initiation of statin therapy Microcytic anemia with abnormal RBC indices -Hb/Hct: 8.1/25.1 (11/08), continue to monitor -iron panel wnl -pt advised to schedule outpatient colonoscopy in hospital clinic Dyspnea Hx of asthma -O2 via NC prn -D-Dimer is >5250 -Blood cultures negative -CXR (11/04): no acute pathology -V/Q scan: low probability for PE -Doppler: negative for DVT -Duonebs q6h lynnette -Mucinex 600 mg PO BID PPx, Diet, Disposition - DVT ppx: heparin - GI ppx: not indicated at this time - Glucerna Supplements - PT on board Case discussed with Dr. Henry Downey DO, PGY-1 <Bruno Figueroa - Last Filed: 11/12/18 16:38> Objective - Vital Signs/Intake and Output Vital Signs (last 24 hours): Temp Pulse Resp BP Pulse Ox 98.4 F 51 L 18 163/78 H 97 11/08/18 15:00 11/08/18 15:00 11/08/18 15:00 11/08/18 15:00 11/08/18 15:00 - Labs Labs: 11/08/18 06:47 11/08/18 06:47 PT 12.0 SECONDS (9.7-12.2) 11/08/18 11:21 INR 1.1 11/08/18 11:21 APTT 31 SECONDS (21-34) D 11/08/18 11:21 Attending/Attestation - Attestation I have personally seen and examined this patient.: Yes I have fully participated in the care of the patient.: Yes I have reviewed all pertinent clinical information, including history, physical exam and plan: Yes Notes (Text): 11/12/18 16:33 This is a late entry. Care of this patient was gone was gone over in detail with resident Dr. Main. Bruno Figueroa D.O.
[2018-11-08 07:31] LABS: ALB/GLOB RATIO 0.7 (1.0-2.1); ALBUMIN 3.2 g/dL (3.5-5.0); ALT/SGPT < 6 U/L (9-52); AST/SGOT 20 U/L (14-36); BLOOD UREA NITROGEN 20 mg/dL (7-17); GFR NON-AFRICAN AMERICAN > 60
--- NOTE | 2018-11-08 07:58 | OP ---
PROCEDURE DATE: 11/06/2018 SURGEON: Washington Hidalgo M.D. CUTTING MACHINE TENDER: Tara Rodriguez D.O. ANESTHESIOLOGIST: None. ANESTHESIA: Lidocaine. PREOPERATIVE DIAGNOSIS: Left lower extremity abscess. POSTOPERATIVE DIAGNOSIS: Left lower extremity abscess. FINDINGS: Purulent drainage from left lower extremity abscess cavity. SPECIMEN: Wound culture. BLOOD LOSS: 2 mL. DRAINS: None. COMPLICATIONS: None. DESCRIPTION OF PROCEDURE: The patient is a 48-year-old female with past medical history significant for drug abuse who presented to the hospital with left lower extremity pain and swelling localized to the left inferolateral leg for approximately one week. The patient was evaluated. It was determined that she would benefit from incision and drainage of the left lower extremity abscess. The patient was consented for the same. All risks and benefits were explained. Procedure was performed at bedside and time-out was performed identifying the patient and procedure. The patient's left lower extremity was cleaned. Local anesthetic was infiltrated. The patient's left lower extremity was draped. A linear incision was made over the fluctuant part of the left lower extremity mass with immediate return of purulent material, which was sent for culture. The cavity was irrigated thoroughly. All the loculations were broken up. The cavity was then packed for hemostasis. Dressing was applied. The patient tolerated the procedure well. No complications. Tara Rodriguez DO Washington Capone MD ADELINE
[2018-11-08] MEDS ORDERED: Pneumococcal 23-Valent Vaccine IM ONE (08:00)
--- NOTE | 2018-11-08 09:29 | CP.PCM.PN ---
<Ramiro Limon - Last Filed: 11/08/18 09:25> Subjective - Date & Time of Evaluation Date of Evaluation: 11/08/18 Time of Evaluation: 09:25 - Subjective Subjective: Surgery Progress note- Dr. Capone Patient seen and examined at bedside. s/p I&D at [facility] on 11/06/18. pain and swelling improving. some drainage from the lower extremity. Able to move digits, sensation intact. denies fevers, chills, chest pain, shortness of breath, nausea, vomiting, diarrhea Objective - Vital Signs/Intake and Output Vital Signs (last 24 hours): Temp Pulse Resp BP Pulse Ox 97.8 F 441 H 20 132/69 99 11/08/18 09:03 11/08/18 09:03 11/08/18 09:03 11/08/18 09:03 11/08/18 09:03 Intake and Output: 11/08/18 11/08/18 06:59 18:59 Intake Total 1962 Output Total 600 Balance 1362 - Medications Medications: Current Medications Acetaminophen (Tylenol 325mg Tab) 650 mg PO Q6 PRN PRN Reason: fever/pain Last Admin: 11/08/18 04:14 Dose: 650 mg Al Hydrox/Mg Hydrox/Simethicone (Maalox 30 Ml) 30 ml PO TID PRN PRN Reason: Indigestion / Heartburn Albuterol/Ipratropium (Duoneb 3 Mg/0.5 Mg (3 Ml) Ud) 3 ml INH RQ6 SELENA Last Admin: 11/08/18 01:06 Dose: Not Given Dextrose (Dextrose 50% Inj) 0 ml IV STAT PRN; Protocol PRN Reason: Hypoglycemia Protocol Dextrose (Glutose 15) 0 gm PO ONCE PRN; Protocol PRN Reason: Hypoglycemia Protocol Dicyclomine HCl (Bentyl) 10 mg PO Q6 PRN PRN Reason: Muscle spasm Glucagon (Glucagen Diagnostic Kit) 0 mg IM STAT PRN; Protocol PRN Reason: Hypoglycemia Protocol Guaifenesin (Mucinex La) 600 mg PO BID SELENA Last Admin: 11/07/18 17:04 Dose: 600 mg Heparin Sodium (Porcine) (Heparin) 5,000 units SC Q12 SELENA Vancomycin HCl 1,000 mg/ (Sodium Chloride) 250 mls @ 166.6 mls/hr IVPB Q12H SELENA; Protocol Last Admin: 11/07/18 22:59 Dose: 166.6 mls/hr Sodium Chloride (Sodium Chloride 0.9%) 1,000 mls @ 75 mls/hr IV [id number] [facility] Last Admin: 11/06/18 21:02 Dose: 75 mls/hr Piperacillin Sod/Tazobactam Sod (Zosyn 2.25 Gm Iv Premix) 2.25 gm in 50 mls @ 100 mls/hr IVPB Q8H [facility]; Protocol Last Admin: 11/08/18 04:10 Dose: 100 mls/hr Dextrose (Dextrose 5% In Water 1000 Ml) 1,000 mls @ 0 mls/hr IV .Q0M PRN; Protocol PRN Reason: Hypoglycemia Protocol Loperamide HCl (Imodium) 2 mg PO Q8 PRN PRN Reason: Diarrhea Methadone HCl (Methadone) 10 mg PO Q24H [facility]; Taper Stop: 11/09/18 13:44 Last Admin: 11/07/18 14:28 Dose: 10 mg Ondansetron HCl (Zofran Inj) 4 mg IVP Q4 PRN PRN Reason: Nausea/Vomiting Last Admin: 11/05/18 11:29 Dose: 4 mg Ondansetron HCl (Zofran Tab) 4 mg PO Q8 PRN PRN Reason: Nausea/Vomiting Pseudoephedrine HCl (Sudafed Tab) 60 mg PO QID PRN PRN Reason: Nasal/Sinus Congestion Saccharomyces Boulardii (Florastor) 250 mg PO BID [facility] Last Admin: 11/07/18 17:06 Dose: 250 mg - Labs Labs: 11/08/18 06:47 11/08/18 06:47 PT 11.4 SECONDS (9.7-12.2) 11/05/18 11:31 INR 1.0 11/05/18 11:31 APTT 36 SECONDS (21-34) H 11/05/18 11:31 - Constitutional Appears: Non-toxic, No Acute Distress - Head Exam Head Exam: ATRAUMATIC - Eye Exam Eye Exam: EOMI. absent: Scleral icterus - ENT Exam ENT Exam: Mucous Membranes Moist - Respiratory Exam Respiratory Exam: NORMAL BREATHING PATTERN. absent: Accessory Muscle Use, Chest Wall Tenderness - Cardiovascular Exam Cardiovascular Exam: REGULAR RHYTHM, +S1, +S2. absent: Bradycardia, Tachycardia - GI/Abdominal Exam GI & Abdominal Exam: Soft. absent: Distended, Firm, Tenderness - Extremities Exam Additional comments: LLE dressing C/D/I, no packing. continued drainage distal pulses intact - Neurological Exam Neurological Exam: Alert, Awake, Oriented x3 - Psychiatric Exam Psychiatric exam: Normal Affect - Skin Skin Exam: Intact, Warm Assessment and Plan - Assessment and Plan (Free Text) Assessment: 48F s/p bedisde I&D of LLE abscess POD#2 Plan: - local wound care - c/w po abx - cleared for discharge from a surgical standpoint - further recs per Dr. Capone surgical attending PGY2 <[place] Capone - Last Filed: 11/14/18 20:21> Objective - Vital Signs/Intake and Output Vital Signs (last 24 hours): Temp Pulse Resp BP Pulse Ox 98.4 F 51 L 18 163/78 H 95 11/08/18 15:00 11/08/18 15:00 11/08/18 15:00 11/08/18 15:00 11/14/18 16:17 - Labs Labs: 11/08/18 06:47 11/08/18 06:47 PT 12.0 SECONDS (9.7-12.2) 11/08/18 11:21 INR 1.1 11/08/18 11:21 APTT 31 SECONDS (21-34) D 11/08/18 11:21 Attending/Attestation - Attestation I have personally seen and examined this patient.: Yes I have fully participated in the care of the patient.: Yes I have reviewed all pertinent clinical information, including history, physical exam and plan: Yes Notes (Text): Pt was seen and examine at bedside Agree with above note and assessment Pt is improving clinically IV antibiotics Local wound care DC Plan with PO antibiotics Plan d.w pt in detail
[2018-11-08] MEDS: guaiFENesin 600 mg ER Tab PO SCH (09:46)
[2018-11-08 11:37] LABS: INR 1.1
[2018-11-08] MEDS: Saccharomyces Boulardi 250 mg Cap PO SCH ×2 (11:54→18:33)
[2018-11-08] MEDS: (Novolin R) Insulin Human Regular 100 units/ml vial SC SCH ×2 (11:55→17:23)
--- NOTE | 2018-11-08 12:54 | CARD ---
APPROVED REPORT Date of service: 11/05/2018 EKG Measurement Heart [id number] <Conclusion> Unusual P axis and short WI, probable junctional rhythm with premature atrial complexes Voltage criteria for left ventricular hypertrophy Prolonged QT Abnormal ECG
[2018-11-08 17:39] VITALS: BP 163/78; PULSE 51; RESP 18; TEMP 98.4
--- NOTE | 2018-11-08 22:25 | CARD ---
APPROVED REPORT Date of service: 11/04/2018 EKG Measurement Heart [id number] <Conclusion> Normal sinus rhythm with sinus arrhythmia Moderate voltage criteria for LVH, may be normal variant Borderline ECG
--- NOTE | 2018-11-09 02:43 | CON ---
DATE: 11/08/2018 INFECTIOUS DISEASE CONSULT REQUESTED BY: Bruno Figueroa DO HISTORY OF PRESENT ILLNESS: This patient is a 48-year-old homeless female with history of asthma, stroke, IV drug abuse. She says she received blood, so she must be anemic, came in with left lower leg pain and swelling and she was also having fever and chills. She admits to scratching in that area and she says she just learned that she is diabetic. She says her father is diabetic and uses diabetic pills. She was admitted on 11/04/2018 and she gets very short of breath, was not able to walk, she was homeless, and now she has had I and D. I am asked to evaluate her. She is on two antibiotics and will need her medication to go out of hospital, p.o. antibiotic. She denies any nausea, vomiting, no bleeding in the urine or in the stool, but she is anemic. She has had multiple bouts of cellulitis and multiple abscesses, so I told her to watch out was she ever told that she is diabetic in the past. PAST MEDICAL HISTORY: Significant for asthma, CVA. She also has a history of IV drug abuse and was treated previously, was treated for withdrawal and had Staph aureus bacteremia in the past. Iliopsoas abscess in 06/2018. PAST SURGICAL HISTORY: She also has had a left chest wall abscess exploration and debridement, appendicectomy and surgery on the right leg. FAMILY HISTORY: Father having MT and also diabetes, surgical history. SOCIAL HISTORY: Significant for smoking and heroin six bags per day, marijuana daily use. The patient is homeless. ALLERGIES: SHE IS NOT ALLERGIC TO ANY MEDICINE. MEDICATIONS: She was on [place] and ibuprofen. She is on medications. Her medications are Tylenol, Maalox, DuoNeb, dextrose, glucose, Bentyl, glucagon that is for holding Mucinex LA, heparin, Novolin R, , Imodium methadone, Zofran and Zosyn and she is also on Sudafed, Florastor, and vancomycin 1 g every 12 hours. REVIEW OF SYSTEMS: She denies any headaches. He does say she received blood. She denies any blood loss as such and she denies any nausea at this time. She had an I and D and her culture is growing gram-negative rods. She denies any fever, chills, shortness of breath. PHYSICAL EXAMINATION: VITAL SIGNS: Stable. T-max is 97.8, pulse is 52, blood pressure 132/69, respirations are 20. HEAD: Atraumatic, normocephalic. NECK: Supple. LUNGS: Clear. No crackles or rales present. HEART: S1, S2. Regular. ABDOMEN: Soft, nontender. No guarding, no rigidity present. EXTREMITIES: Left leg has a dressing on the left lateral aspect of the leg and with mild swelling. Otherwise, pulses are palpable on both feet. LABORATORY DATA: Labs are noted. Labs show white count is 4.1, hemoglobin 8.1, hematocrit 25.1, platelet count is 369, BUN is 20, creatinine 0.7 and vancomycin random today was 21.7 and she is on vancomycin and Zosyn. PLAN: So since vancomycin level is high today, we will hold the vancomycin today and get a random level in a.m. and wound culture has gram-negative rods. We will follow for the final cultures. For now, she does need IV antibiotics. She is status post I and D. She was saying sugar is 100, so I am not sure if she is diabetic. They also did a procalcitonin level on her which was 3.31 when she came in and yesterday was 0.67, so certainly it is getting better. They did a V/Q scan which is low probability. She had a venous Doppler which is negative for DVT. So, at this time, we will continue with the treatment as ordered and we will hold the vancomycin as the level is high and we will follow. Rosa Rhodes MD
--- NOTE | 2018-11-09 05:43 | CP.PCM.DIS ---
<Thierry Mercedes - Last Filed: 11/09/18 05:38> Provider - Provider Date of Admission: 11/07/18 19:00 Attending physician: Bruno Figueroa MD Consults: 11/04/18 19:00 Physician Consult Routine Comment: Consulting Provider: Cortney Art Consulting Physician: Cortney Art Reason for Consult: polysubstance abuse, heroin IVDA 11/05/18 08:00 Nursing Referral for Wound Care Routine Comment: Physician Instructions: Reason For Exam: REDNESS AND SWELLING ON LEFT LEG Nursing Referral for Wound Care Routine Comment: Physician Instructions: Reason For Exam: redness and swelling left leg 11/05/18 10:17 General Surgery Consult Routine Comment: Consulting Provider: Washington Capone Consulting Physician: Washington Capone Reason for Consult: LLE abscess, i&D eval 11/07/18 10:29 Hematology Oncology Consult Routine Comment: Consulting Provider: Heike Quevedo Consulting Physician: Heike Quevedo Reason for Consult: anemia; history of hepatitis C 11/08/18 11:39 Infectious Disease Consult Routine Comment: Consulting Provider: Rosa Rhodes Consulting Physician: Rosa Rhodes Reason for Consult: Left Lower Leg S/P I&D, Gram Neg. Need recs for PO Abx Time Spent in preparation of Discharge (in minutes): 45 Hospital Course - Lab Results Lab Results: Micro Results 11/04/18 14:20 Blood Blood Culture - Preliminary NO GROWTH AFTER 4 DAYS 11/04/18 15:00 Blood Blood Culture - Preliminary NO GROWTH AFTER 4 DAYS 11/06/18 22:43 Abscess - Calf-Left Gram Stain - Final 11/06/18 22:43 Abscess - Calf-Left Wound Culture - Preliminary Gram Negative Rik 11/06/18 05:15 Urine,Clean Catch Urine Culture - Final No Growth (<1,000 CFU/ML) Most Recent Lab Values WBC 4.1 K/uL (4.8-10.8) L 11/08/18 06:47 RBC 3.27 Mil/uL (3.80-5.20) L 11/08/18 06:47 Hgb 8.1 g/dL (11.0-16.0) L 11/08/18 06:47 Hct 25.1 % (34.0-47.0) L 11/08/18 06:47 MCV 77.0 fL (81.0-99.0) L 11/08/18 06:47 MCH 24.8 pg (27.0-31.0) L 11/08/18 06:47 MCHC 32.3 g/dL (33.0-37.0) L 11/08/18 06:47 RDW 18.7 % (11.5-14.5) H 11/08/18 06:47 Plt Count 369 K/uL (130-400) 11/08/18 06:47 MPV 6.5 fL (7.2-11.7) L 11/08/18 06:47 Neut % (Auto) 54.0 % (50.0-75.0) 11/08/18 06:47 Lymph % (Auto) 34.9 % (20.0-40.0) 11/08/18 06:47 [place] % (Auto) 10.2 % (0.0-10.0) H 11/08/18 06:47 Eos % (Auto) 0.5 % (0.0-4.0) 11/08/18 06:47 Baso % (Auto) 0.4 % (0.0-2.0) 11/08/18 06:47 Neut # (Auto) 2.2 K/uL (1.8-7.0) 11/08/18 06:47 Lymph # (Auto) 1.4 K/uL (1.0-4.3) 11/08/18 06:47 [place] # (Auto) 0.4 K/uL (0.0-0.8) 11/08/18 06:47 Eos # (Auto) 0.0 K/uL (0.0-0.7) 11/08/18 06:47 Baso # (Auto) 0.0 K/uL (0.0-0.2) 11/08/18 06:47 Retic Count 0.7 % (0.5-1.5) D 11/05/18 11:31 PT 12.0 SECONDS (9.7-12.2) 11/08/18 11:21 INR 1.1 11/08/18 11:21 APTT 31 SECONDS (21-34) D 11/08/18 11:21 D-Dimer, Quantitative > 5250 ng/mlDDU (0-243) H 11/04/18 19:12 Sodium 136 mmol/L (132-148) 11/08/18 06:47 Potassium 3.8 mmol/L (3.6-5.2) 11/08/18 06:47 Chloride 106 mmol/L (98-107) 11/08/18 06:47 Carbon Dioxide 24 mmol/L (22-30) 11/08/18 06:47 Anion Gap 9 (10-20) L 11/08/18 06:47 BUN 20 mg/dL (7-17) H 11/08/18 06:47 Creatinine 0.7 mg/dL (0.7-1.2) 11/08/18 06:47 Est GFR ( Amer) > 60 11/08/18 06:47 Est GFR (Non-Af Amer) > 60 11/08/18 06:47 POC Glucose (mg/dL) 91 mg/dL (65-110) 11/08/18 16:42 Random Glucose 100 mg/dL (65-105) 11/08/18 06:47 Hemoglobin A1c 6.6 % (4.2-6.5) H 11/05/18 11:31 Calcium 9.0 mg/dl (8.6-10.4) 11/08/18 06:47 Phosphorus 3.9 mg/dL (2.5-4.5) 11/08/18 06:47 Magnesium 1.8 mg/dL (1.6-2.3) 11/08/18 06:47 Iron 101 ug/dL (37-170) 11/05/18 13:41 TIBC 300 ug/dL (250-450) 11/05/18 13:41 % Saturation 33 (20-55) 11/05/18 13:41 Ferritin 123.0 ng/mL 11/05/18 11:31 Total Bilirubin 0.2 mg/dL (0.2-1.3) 11/08/18 06:47 AST 20 U/L (14-36) 11/08/18 06:47 ALT < 6 U/L (9-52) L D 11/08/18 06:47 Alkaline Phosphatase 78 U/L (38-126) 11/08/18 06:47 Total Creatine Kinase < 20 U/L (30-135) L 11/04/18 19:09 CK-MB (Mass) 0.58 ng/mL (0.0-3.38) 11/04/18 19:09 Troponin I 0.0240 ng/mL (0.00-0.120) 11/04/18 19:09 NT-Pro-B Natriuret Pep 465 pg/mL (0-450) H 11/07/18 08:12 Total Protein 7.6 g/dL (6.3-8.3) 11/08/18 06:47 Albumin 3.2 g/dL (3.5-5.0) L 11/08/18 06:47 Globulin 4.4 gm/dL (2.2-3.9) H 11/08/18 06:47 Albumin/Globulin Ratio 0.7 (1.0-2.1) L 11/08/18 06:47 Triglycerides 194 mg/dL (0-149) H 11/05/18 11:31 Cholesterol 142 mg/dL (0-199) 11/05/18 11:31 LDL Cholesterol Direct 97 mg/dL (0-129) 11/05/18 11:31 HDL Cholesterol 20 mg/dL (30-70) L 11/05/18 11:31 Procalcitonin 0.67 NG/ML (0.19-0.49) H 11/07/18 08:12 Free T4 1.46 ng/dL (0.78-2.19) 11/07/18 08:12 TSH 3rd Generation 0.35 mIU/L (0.46-4.68) L 11/05/18 11:31 Beta HCG, Quant < 2.39 mIU/ML 11/05/18 11:31 Urine Color [place] (YELLOW) 11/06/18 01:34 Urine Clarity Turbid (Clear) 11/06/18 01:34 Urine pH 5.0 (5.0-8.0) 11/06/18 01:34 Ur Specific [place] 1.032 (1.003-1.030) H 11/06/18 01:34 Urine Protein 3+ mg/dL (NEGATIVE) H 11/06/18 01:34 Urine Glucose (UA) Normal mg/dL (Normal) 11/06/18 01:34 Urine Ketones Negative mg/dL (NEGATIVE) 11/06/18 01:34 Urine Blood 2+ (NEGATIVE) H 11/06/18 01:34 Urine Nitrate Negative (NEGATIVE) 11/06/18 01:34 Urine Bilirubin 1+ (NEGATIVE) H 11/06/18 01:34 Urine Urobilinogen Normal mg/dL (0.2-1.0) 11/06/18 01:34 Ur Leukocyte Esterase Neg Celine/uL (Negative) 11/06/18 01:34 Urine WBC (Auto) 10 /hpf (0-5) H 11/06/18 01:34 Urine RBC (Auto) 16 /hpf (0-3) H 11/06/18 01:34 Ur Squamous Epith Cells 7 /hpf (0-5) H 11/06/18 01:34 Urine Bacteria Rare (<OCC) 11/04/18 15:54 Random Vancomycin 21.7 ug/mL 11/08/18 06:47 Urine Opiates Screen Positive (NEGATIVE) H 11/04/18 15:54 Urine Methadone Screen Negative (NEGATIVE) 11/04/18 15:54 Ur Barbiturates Screen Negative (NEGATIVE) 11/04/18 15:54 Ur Phencyclidine Scrn Negative (NEGATIVE) 11/04/18 15:54 Ur Amphetamines Screen Negative (NEGATIVE) 11/04/18 15:54 U Benzodiazepines Scrn Negative (NEGATIVE) 11/04/18 15:54 U Oth Cocaine Metabols Positive (NEGATIVE) H 11/04/18 15:54 U Cannabinoids Screen Positive (NEGATIVE) H 11/04/18 15:54 C. difficile Ag & Toxin Negative (NEGATIVE) 11/05/18 04:31 Hepatitis A IgM Ab Negative (NEGATIVE) 11/05/18 11:31 Hep Bs Antigen Negative (NEGATIVE) 11/05/18 11:31 Hep B Core IgM Ab Negative (NEGATIVE) 11/05/18 11:31 Hepatitis C Antibody Reactive (NEGATIVE) 11/05/18 11:31 HIV 1&2 Antibody Screen Negative (NEGATIVE) 11/05/18 13:41 Blood Type A NEGATIVE 11/07/18 13:56 Antibody Screen Negative 11/07/18 13:56 - Hospital Course Hospital Course: Initial HPI Patient is a 48 year old homeless female with past medical history of asthma, stroke, IV heroin abuse, coming to the ED for worsening left lower extremity pain, swelling and redness. Pt had tactile fever with chill yesterday. Pt admits to scratching the area, but denies injecting in the leg. Pt also endorses chest pain with sob that has worsened for the past few days. She states that she can only walk a few blocks before she gets short of breath. She endorses lying on the ground for extended periods of time, as well as injecting heroin into the right hand only (last used yesterday). Denies abdominal pain, n/v/d, hematochezia, melena, hemoptysis, any bruising or bleeding, falls, head trauma, syncope. Endorses chronic fatigue. Pt has had multiple abscesses and bouts of cellulitis in the past. Hospital Course Patient with history IVDU hospitalized for chest pain, cocaine positive on UDS. EKG/ROMIs did not show evidence of IL. Patient also had lower extremity abscess/cellulitis. Surgery was consulted as well for abscess, Dr. Capone. Patient started and maintained on IV Vancomycin 1gm IV Q12 (given Clinda in ED), Zosyn was added (2.25 mg IV Q8). Patient had bedside I and D of LLE abscess on 11/06. Final cultures and sensitivities still pending result when patient left AMA. Patient left AMA overnight. Patient stated she wanted a cigarette and refused nicotine patch. Patient urged not to leave hospital, warned of various risks and dangers, chose to leave regardless. Imaging -[facility]DI (07/05/18): EF 60-65%; left ventricular function is normal; mitral regurgitation is trace to mild. No evidence of vegetations on valves. -CXR (11/04): no acute pathology -V/Q scan 11/04: low probability for PE -Doppler 11/04: negative for DVT Discharge Exam - Head Exam Head Exam: ATRAUMATIC, NORMAL INSPECTION, NORMOCEPHALIC - Eye Exam Eye Exam: EOMI Pupil Exam: PERRL - Respiratory Exam Respiratory Exam: Clear to PA & Lateral, UNREMARKABLE. absent: Rhonchi, Wheezes - Cardiovascular Exam Cardiovascular Exam: REGULAR RHYTHM, +S1, +S2 - GI/Abdominal Exam GI & Abdominal Exam: Soft. absent: Tenderness - Extremities Exam Additional comments: LLE dressings c/d/i - Neurological Exam Neurological exam: Alert, CN II-XII Intact, Oriented x3 - Psychiatric Exam Psychiatric exam: Agitated, Anxious - Skin Skin Exam: Dry, Intact Discharge Plan - Follow Up Plan Condition: GOOD Disposition: AGAINST MEDICAL ADVICE Additional Instructions: Patient left AMA overnight. Patient stated she wanted a cigarette and refused nicotine patch. Patient urged not to leave hospital, warned of various risks and dangers, chose to leave regardless. <Bruno Figueroa - Last Filed: 11/12/18 16:40> Provider - Provider Date of Admission: 11/07/18 19:00 Attending physician: Bruno Figueroa MD Consults: 11/04/18 19:00 Physician Consult Routine Comment: Consulting Provider: Cortney Art Consulting Physician: Cortney Art Reason for Consult: polysubstance abuse, heroin IVDA 11/05/18 08:00 Nursing Referral for Wound Care Routine Comment: Physician Instructions: Reason For Exam: REDNESS AND SWELLING ON LEFT LEG Nursing Referral for Wound Care Routine Comment: Physician Instructions: Reason For Exam: redness and swelling left leg 11/05/18 10:17 General Surgery Consult Routine Comment: Consulting Provider: Washington Capone Consulting Physician: Washington Capone Reason for Consult: LLE abscess, i&D eval 11/07/18 10:29 Hematology Oncology Consult Routine Comment: Consulting Provider: Heike Quevedo Consulting Physician: Heike Quevedo Reason for Consult: anemia; history of hepatitis C 11/08/18 11:39 Infectious Disease Consult Routine Comment: Consulting Provider: Rosa Rhodes Consulting Physician: Rosa Rhodes Reason for Consult: Left Lower Leg S/P I&D, Gram Neg. Need recs for PO Abx Hospital Course - Lab Results Lab Results: Micro Results 11/04/18 14:20 Blood Blood Culture - Final NO GROWTH AFTER 5 DAYS 11/04/18 14:20 Blood Gram Stain - Final TEST NOT PERFORMED 11/04/18 15:00 Blood Blood Culture - Final NO GROWTH AFTER 5 DAYS 11/04/18 15:00 Blood Gram Stain - Final TEST NOT PERFORMED 11/06/18 22:43 Abscess - Calf-Left Gram Stain - Final 11/06/18 22:43 Abscess - Calf-Left Wound Culture - Final Serratia Marcescens 11/06/18 05:15 Urine,Clean Catch Urine Culture - Final No Growth (<1,000 CFU/ML) Most Recent Lab Values WBC 4.1 K/uL (4.8-10.8) L 11/08/18 06:47 RBC 3.27 Mil/uL (3.80-5.20) L 11/08/18 06:47 Hgb 8.1 g/dL (11.0-16.0) L 11/08/18 06:47 Hct 25.1 % (34.0-47.0) L 11/08/18 06:47 MCV 77.0 fL (81.0-99.0) L 11/08/18 06:47 MCH 24.8 pg (27.0-31.0) L 11/08/18 06:47 MCHC 32.3 g/dL (33.0-37.0) L 11/08/18 06:47 RDW 18.7 % (11.5-14.5) H 11/08/18 06:47 Plt Count 369 K/uL (130-400) 11/08/18 06:47 MPV 6.5 fL (7.2-11.7) L 11/08/18 06:47 Neut % (Auto) 54.0 % (50.0-75.0) 11/08/18 06:47 Lymph % (Auto) 34.9 % (20.0-40.0) 11/08/18 06:47 [place] % (Auto) 10.2 % (0.0-10.0) H 11/08/18 06:47 Eos % (Auto) 0.5 % (0.0-4.0) 11/08/18 06:47 Baso % (Auto) 0.4 % (0.0-2.0) 11/08/18 06:47 Neut # (Auto) 2.2 K/uL (1.8-7.0) 11/08/18 06:47 Lymph # (Auto) 1.4 K/uL (1.0-4.3) 11/08/18 06:47 [place] # (Auto) 0.4 K/uL (0.0-0.8) 11/08/18 06:47 Eos # (Auto) 0.0 K/uL (0.0-0.7) 11/08/18 06:47 Baso # (Auto) 0.0 K/uL (0.0-0.2) 11/08/18 06:47 Retic Count 0.7 % (0.5-1.5) D 11/05/18 11:31 PT 12.0 SECONDS (9.7-12.2) 11/08/18 11:21 INR 1.1 11/08/18 11:21 APTT 31 SECONDS (21-34) D 11/08/18 11:21 D-Dimer, Quantitative > 5250 ng/mlDDU (0-243) H 11/04/18 19:12 Sodium 136 mmol/L (132-148) 11/08/18 06:47 Potassium 3.8 mmol/L (3.6-5.2) 11/08/18 06:47 Chloride 106 mmol/L (98-107) 11/08/18 06:47 Carbon Dioxide 24 mmol/L (22-30) 11/08/18 06:47 Anion Gap 9 (10-20) L 11/08/18 06:47 BUN 20 mg/dL (7-17) H 11/08/18 06:47 Creatinine 0.7 mg/dL (0.7-1.2) 11/08/18 06:47 Est GFR ( Amer) > 60 11/08/18 06:47 Est GFR (Non-Af Amer) > 60 11/08/18 06:47 POC Glucose (mg/dL) 91 mg/dL (65-110) 11/08/18 16:42 Random Glucose 100 mg/dL (65-105) 11/08/18 06:47 Hemoglobin A1c 6.6 % (4.2-6.5) H 11/05/18 11:31 Calcium 9.0 mg/dl (8.6-10.4) 11/08/18 06:47 Phosphorus 3.9 mg/dL (2.5-4.5) 11/08/18 06:47 Magnesium 1.8 mg/dL (1.6-2.3) 11/08/18 06:47 Iron 101 ug/dL (37-170) 11/05/18 13:41 TIBC 300 ug/dL (250-450) 11/05/18 13:41 % Saturation 33 (20-55) 11/05/18 13:41 Ferritin 123.0 ng/mL 11/05/18 11:31 Total Bilirubin 0.2 mg/dL (0.2-1.3) 11/08/18 06:47 AST 20 U/L (14-36) 11/08/18 06:47 ALT < 6 U/L (9-52) L D 11/08/18 06:47 Alkaline Phosphatase 78 U/L (38-126) 11/08/18 06:47 Total Creatine Kinase < 20 U/L (30-135) L 11/04/18 19:09 CK-MB (Mass) 0.58 ng/mL (0.0-3.38) 11/04/18 19:09 Troponin I 0.0240 ng/mL (0.00-0.120) 11/04/18 19:09 NT-Pro-B Natriuret Pep 465 pg/mL (0-450) H 11/07/18 08:12 Total Protein 7.6 g/dL (6.3-8.3) 11/08/18 06:47 Albumin 3.2 g/dL (3.5-5.0) L 11/08/18 06:47 Globulin 4.4 gm/dL (2.2-3.9) H 11/08/18 06:47 Albumin/Globulin Ratio 0.7 (1.0-2.1) L 11/08/18 06:47 Triglycerides 194 mg/dL (0-149) H 11/05/18 11:31 Cholesterol 142 mg/dL (0-199) 11/05/18 11:31 LDL Cholesterol Direct 97 mg/dL (0-129) 11/05/18 11:31 HDL Cholesterol 20 mg/dL (30-70) L 11/05/18 11:31 Procalcitonin 0.67 NG/ML (0.19-0.49) H 11/07/18 08:12 Free T4 1.46 ng/dL (0.78-2.19) 11/07/18 08:12 TSH 3rd Generation 0.35 mIU/L (0.46-4.68) L 11/05/18 11:31 Beta HCG, Quant < 2.39 mIU/ML 11/05/18 11:31 Urine Color [place] (YELLOW) 11/06/18 01:34 Urine Clarity Turbid (Clear) 11/06/18 01:34 Urine pH 5.0 (5.0-8.0) 11/06/18 01:34 Ur Specific [place] 1.032 (1.003-1.030) H 11/06/18 01:34 Urine Protein 3+ mg/dL (NEGATIVE) H 11/06/18 01:34 Urine Glucose (UA) Normal mg/dL (Normal) 11/06/18 01:34 Urine Ketones Negative mg/dL (NEGATIVE) 11/06/18 01:34 Urine Blood 2+ (NEGATIVE) H 11/06/18 01:34 Urine Nitrate Negative (NEGATIVE) 11/06/18 01:34 Urine Bilirubin 1+ (NEGATIVE) H 11/06/18 01:34 Urine Urobilinogen Normal mg/dL (0.2-1.0) 11/06/18 01:34 Ur Leukocyte Esterase Neg Celine/uL (Negative) 11/06/18 01:34 Urine WBC (Auto) 10 /hpf (0-5) H 11/06/18 01:34 Urine RBC (Auto) 16 /hpf (0-3) H 11/06/18 01:34 Ur Squamous Epith Cells 7 /hpf (0-5) H 11/06/18 01:34 Urine Bacteria Rare (<OCC) 11/04/18 15:54 Random Vancomycin 21.7 ug/mL 11/08/18 06:47 Urine Opiates Screen Positive (NEGATIVE) H 11/04/18 15:54 Urine Methadone Screen Negative (NEGATIVE) 11/04/18 15:54 Ur Barbiturates Screen Negative (NEGATIVE) 11/04/18 15:54 Ur Phencyclidine Scrn Negative (NEGATIVE) 11/04/18 15:54 Ur Amphetamines Screen Negative (NEGATIVE) 11/04/18 15:54 U Benzodiazepines Scrn Negative (NEGATIVE) 11/04/18 15:54 U Oth Cocaine Metabols Positive (NEGATIVE) H 11/04/18 15:54 U Cannabinoids Screen Positive (NEGATIVE) H 11/04/18 15:54 C. difficile Ag & Toxin Negative (NEGATIVE) 11/05/18 04:31 Hepatitis A IgM Ab Negative (NEGATIVE) 11/05/18 11:31 Hep Bs Antigen Negative (NEGATIVE) 11/05/18 11:31 Hep B Core IgM Ab Negative (NEGATIVE) 11/05/18 11:31 Hepatitis C Antibody Reactive (NEGATIVE) 11/05/18 11:31 HIV 1&2 Antibody Screen Negative (NEGATIVE) 11/05/18 13:41 Blood Type A NEGATIVE 11/07/18 13:56 Antibody Screen Negative 11/07/18 13:56 Attending/Attestation - Attestation I have personally seen and examined this patient.: No I have fully participated in the care of the patient.: Yes I have reviewed all pertinent clinical information, including history, physical exam and plan: Yes Notes (Text): 11/12/18 16:39 This is a late entry. 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 Bruno Figueroa D.O.
[2018-11-09] MEDS ORDERED: Influenza Vaccine 60 mcg/0.5 mL SYR (4YR UP) IM ONE (14:00)
[2018-11-09] MEDS ORDERED: Pneumococcal 23-Valent Vaccine IM ONE (14:00)
[2018-11-14 16:15] VITALS: O2SAT 95
== END 2018-11-08 20:40 | disposition left against medical advice (07) | DRG 269 ==
LOC: C.ER 13:55 → C.3T 16:39 → C.6T 21:14 → OBSVTOIN 11-07 19:00 → C.6T 11-08 17:14
PROVIDERS: ADMIT Family Medicine; ATTEND Family Medicine
PROC: 0J9P0ZZ Drainage of Left Lower Leg Subcutaneous Tissue and Fascia, Open Approach (ICD-10-PCS; principal; 2018-11-07)
DX: L02.416 Cutaneous abscess of left lower limb (principal); J44.9 Chronic obstructive pulmonary disease, unspecified; F11.23 Opioid dependence with withdrawal; F14.10 Cocaine abuse, uncomplicated; L03.116 Cellulitis of left lower limb; R53.82 Chronic fatigue, unspecified; Z59.0 Homelessness; I10 Essential (primary) hypertension; F17.210 Nicotine dependence, cigarettes, uncomplicated; F12.90 Cannabis use, unspecified, uncomplicated; E11.9 Type 2 diabetes mellitus without complications; D64.9 Anemia, unspecified; R79.1 Abnormal coagulation profile; Z86.73 Personal history of transient ischemic attack (TIA), and cerebral infarction without residual deficits; K21.9 Gastro-esophageal reflux disease without esophagitis; I34.0 Nonrheumatic mitral (valve) insufficiency

== ENCOUNTER 2018-11-18 15:15 | Inpatient (IN) | payer MEDICAID ==
[2018-11-18 15:16] VITALS: BMI 18.6
[2018-11-18] MEDS ORDERED: Piperacillin/Tazobact 3.375 gm 100 ML IV STA (16:15)
--- NOTE | 2018-11-18 16:17 | C.PDOC ---
History Of Present Illness 48 year old female presents to the ED for evaluation of redness and swelling to her left lower leg. Patient underwent inpatient admission from November 04-November 09 for an abscess to her left lower leg. She underwent incision and drainage of the area by Dr. Capone (General Surgery), and was started and maintained on Vancomycin and Zosyn. She chose to leave the hospital overnight against medical advice because she wanted to use heroin. Patient denies fever, chills. Time Seen by Provider: 11/18/18 16:06 Chief Complaint (Nursing): Lower Extremity Problem/Injury History Per: Patient History/Exam Limitations: no limitations Onset/Duration Of Symptoms: Days Current Symptoms Are (Timing): Still Present Additional History Per: Patient Past Medical History Reviewed: Historical Data, Nursing Documentation, Vital Signs Vital Signs: Last Vital Signs Temp 99.5 F 11/18/18 15:37 Pulse 99 H 11/18/18 15:37 Resp 20 11/18/18 15:37 BP 109/68 11/18/18 15:37 Pulse Ox 100 11/18/18 15:37 - Medical History PMH: Asthma, COPD (ASTHMA), Deep Vein Thrombosis, HTN Denies: Diabetes, Hepatitis, HIV, Chronic Kidney Disease, Seizures, Sexually Transmitted Disease Surgical History: No Surg Hx Denies: Pacemaker - [facility] Procedures CHANGE OTHER DEVICE ON CHEST WALL (02/26/16) CHANGE OTHER DEVICE ON NECK (02/26/16) DETOXIFICATION SERVICES FOR SUBSTANCE ABUSE TREATMENT (10/07/17) DRAINAGE OF CHEST WALL WITH DRAINAGE DEVICE, OPEN APPROACH (02/26/16) DRAINAGE OF L LOW LEG SUBCU/FASCIA, OPEN APPROACH (11/07/18) DRAINAGE OF NECK SKIN WITH DRAINAGE DEVICE, ORTHOPAEDIC PHYSICIAN ASSISTANT APPROACH (02/26/16) DRAINAGE OF NECK WITH DRAINAGE DEVICE, OPEN APPROACH (02/26/16) DRAINAGE OF RIGHT FINGER PHALANGEAL JOINT, OPEN APPROACH (01/31/16) DRAINAGE OF RIGHT HAND TENDON, OPEN APPROACH (01/31/16) EXCISION OF ANT NECK SUBCU/FASCIA, OPEN APPROACH (02/26/16) EXCISION OF CHEST SUBCU/FASCIA, OPEN APPROACH (02/26/16) 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 FOR SUBSTANCE ABUSE TREATMENT, PSYCHOEDUCATION (10/07/17) INDIV PSYCHOTHERAPY FOR SUBSTANCE ABUSE TREATMENT, SUPPORT (10/07/17) INSERTION OF INFUSION DEV INTO SUP VENA CAVA, PERC APPROACH (02/26/16) INSPECTION OF LOWER MUSCLE, PERCUTANEOUS APPROACH (06/28/18) RESECTION OF APPENDIX, PERCUTANEOUS ENDOSCOPIC APPROACH (06/28/18) SKIN & SUBQ INCISION NEC (09/09/14) ULTRASONOGRAPHY OF HEART WITH AORTA, TRANSESOPHAGEAL (06/28/18) Family History: States: Unknown Family Hx, [place] (Father) - Social History Hx Tobacco Use: Yes Hx Alcohol Use: Yes (pt denies) Hx Substance Use: Yes - Immunization History Hx Tetanus Toxoid Vaccination: No Hx Influenza Vaccination: No Hx Pneumococcal Vaccination: Yes Review Of Systems Constitutional: Negative for: Fever, Chills Skin: Positive for: Other (swelling and redness to left lower leg ) Physical Exam - Physical Exam Appears: Non-toxic, No Acute Distress, Other (appears older than stated age ) Skin: Warm, Dry Head: Atraumatic, Normacephalic Eye(s): bilateral: Normal Inspection Oral Mucosa: Moist Teeth: Edentulous Neck: Supple Chest: Symmetrical, No Deformity, No Tenderness Cardiovascular: Rhythm Regular, No Murmur Extremity: Capillary Refill (less than 2 seconds ), Other (track villasenor to left arm and left wrist. Erythema and swelling to left lower leg. 3cm healing surgical wound to lateral aspect of left lower leg. ) Pulses: Left Dorsalis Pedis: Normal, Right Dorsalis Pedis: Normal Neurological/Psych: Normal Speech, Normal Cognition, Normal Sensation ED Course And Treatment - Laboratory Results Result Diagrams: 11/18/18 17:27 11/18/18 16:42 Lab Interpretation: Abnormal (tox + cocaine, thc, opiates) Urine POC: Negative ECG: Interpreted By Me ECG Rhythm: Sinus Tachycardia ECG Interpretation: Abnormal Rate From EC O2 Sat by Pulse Oximetry: 100 (on RA) Pulse Ox Interpretation: Normal - Radiology CXR: Interpreted by Ks CXR Interpretation: Yes: No Acute Disease Progress Note: Bloodwork, urinalysis, EKG, CXR ordered and reviewed. Zosyn IV administered. Reevaluation Time: 17:55 Reassessment Condition: Improved - Physician Consult Information Outcome Of Conversation: 1800: d/w Dr. De Paz- Hospitalist, ok to re-admit. Disposition Doctor Will See Patient In The: Hospital Counseled Patient/Family Regarding: Studies Performed, Diagnosis - Disposition Disposition: HOSPITALIZED Disposition Time: 17:56 Condition: GOOD Forms: Conjure ([place]awk) - Clinical Impression Clinical Impression: Heroin dependence, Cellulitis of left lower leg, Polysubstance (including opioids) dependence with physiol dependence - Scribe Statement The provider has reviewed the documentation as recorded by the Scribe (Vivien Figueroa) Provider Attestation: All medical record entries made by the Scribe were at my direction and personally dictated by me. I have reviewed the chart and agree that the record accurately reflects my personal performance of the history, physical exam, medical decision making, and the department course for this patient. I have also personally directed, reviewed, and agree with the discharge instructions and disposition. Procedures - EJ/Peripheral Line Consent Obtained: verbal consent Time Out Performed: Yes (15:32) Skin Cleansed in Sterile Fashion: Yes Size: 18 IV Secured and Dressing Applied: Yes Patient Tolerated Procedure: No complications Additional comments: performed by me on right-side.
[2018-11-18 17:06] LABS: SQUAMOUS EPITHIAL 1 /hpf (0-5); URINE BACTERIA FEW (<OCC); URINE BILIRUBIN NEGATIVE (NEGATIVE); URINE BLOOD 3+ (NEGATIVE); URINE CLARITY Hazy (Clear); URINE COLOR Yellow (YELLOW); URINE GLUCOSE (UA) NORMAL (Normal); URINE LEUKOCYTE ESTERASE TRACE Leu/uL (Negative); URINE PROTEIN 2+ mg/dL (NEGATIVE)
[2018-11-18 17:07] LABS: HCG,QUALITATIVE URINE NEGATIVE (NEGATIVE)
[2018-11-18 17:09] LABS: ALB/GLOB RATIO 0.8 (1.0-2.1); ALBUMIN 4.6 g/dL (3.5-5.0); ALT/SGPT < 6 U/L (9-52); AST/SGOT 34 U/L (14-36); BLOOD UREA NITROGEN 12 mg/dL (7-17); CALCIUM 9.9 mg/dl (8.6-10.4); GFR NON-AFRICAN AMERICAN > 60
[2018-11-18 17:16] LABS: BARBITURATES, UR NEGATIVE (NEGATIVE); BENZODIAZEPINES, UR NEGATIVE (NEGATIVE); PHENCYCLIDINE, UR NEGATIVE (NEGATIVE)
[2018-11-18 17:17] LABS: B-TYPE NATRIURETIC PEPTIDE 344 pg/mL (0-450)
[2018-11-18 17:32] LABS: BASO % 0.4 % (0.0-2.0); EOS % 0.4 % (0.0-4.0); HEMOGLOBIN 8.6 g/dL (11.0-16.0); LYMPH # 0.7 K/uL (1.0-4.3); LYMPH % 13.4 % (20.0-40.0); MEAN CELL VOLUME 78.3 fL (81.0-99.0); MEAN CORPUSCULAR HGB CONC 31.9 g/dL (33.0-37.0); MONO # 0.3 K/uL (0.0-0.8); MONO % 5.7 % (0.0-10.0); NEUT # 3.9 K/uL (1.8-7.0); NEUT % 80.1 % (50.0-75.0); NRBC % 0.1 % (0.0-2.0); RBC 3.46 Mil/uL (3.80-5.20); RED CELL DISTRIBUTION WIDTH 20.4 % (11.5-14.5); WHITE BLOOD COUNT 4.9 K/uL (4.8-10.8)
[2018-11-18] MEDS ORDERED: Piperacillin/Tazobact 3.375 gm 100 ML IVPB ONE (17:33)
[2018-11-18 17:44] LABS: OPIATES, UR POSITIVE (NEGATIVE)
--- NOTE | 2018-11-18 18:13 | CP.PCM.HP ---
<Lorene Ramos - Last Filed: 11/18/18 20:14> History of Present Illness - History of Present Illness History of Present Illness: CC: B/L leg pain/swelling Patient is a 48 year old female with pmhx of asthma, CVA, IV heroin abuse who presents to ED for evaluation and treatment of worsening left LE pain, swelling and open lesion, and new right LE swelling, pain over the past week. Patient reports she left AMA from [place] on 11/09 after I&D of LLE abscess and did not complete her course of antibiotics as prescribed. Patient denies any trauma or injecting into lower extremities. Patient reports pain has been worsening, she has been unable to wear shoes 2/2 edema and pain, and has not been able to bear weight or ambulate. Pt reports recent fatigue, chills; denies chest pain, nausea, diarrhea. PMH: Asthma, CVA, IV drug abuse, MSSA bacteremia, multiple abscesses PSH: abscess I&Ds, appy Medications: ibuprofen, asthma pump FHx: [place] (father) SHx: Tobacco use, IV heroin/cocaine/cannabis, homeless Allergies: NKDA Present on Admission - Present on Admission Any Indicators Present on Admission: No Review of Systems - Constitutional Constitutional: Chills, Fatigue - Cardiovascular Cardiovascular: absent: Chest Pain - Respiratory Respiratory: absent: Cough - Gastrointestinal Gastrointestinal: absent: Abdominal Pain, Diarrhea, Nausea, Vomiting - Genitourinary Genitourinary: absent: Dysuria - Musculoskeletal Musculoskeletal: Abnormal Gait, Joint Swelling, Limited Range of Motion - Integumentary Integumentary: Change in Pigmentation, Dry Skin, Erythema, Skin Ulcer Past Patient History - Infectious Disease Hx of Infectious Diseases: None - Past Medical History & Family History Past Medical History?: Yes - Past Social History Smoking Status: Heavy Smoker > 10 Cigarettes Daily - CARDIAC Hx Hypertension: Yes Hx Pacemaker: No - PULMONARY Hx Asthma: Yes Hx Chronic Obstructive Pulmonary Disease (COPD): Yes (ASTHMA) - NEUROLOGICAL Hx Seizures: No - HEENT Hx HEENT Problems: No - RENAL Hx Chronic Kidney Disease: No - ENDOCRINE/METABOLIC Hx Endocrine Disorders: No - HEMATOLOGICAL/ONCOLOGICAL Hx Human Immunodeficiency Virus (HIV): No - INTEGUMENTARY Hx Dermatological Problems: No - MUSCULOSKELETAL/RHEUMATOLOGICAL Hx Musculoskeletal Disorders: Yes Hx Back Pain: Yes Hx Falls: Yes - GASTROINTESTINAL Hx Gastrointestinal Disorders: No - GENITOURINARY/GYNECOLOGICAL Hx Sexually Transmitted Disorders: No - PSYCHIATRIC Hx Substance Use: Yes - SURGICAL HISTORY Hx Mastectomy: No - ANESTHESIA Hx Anesthesia: Yes Hx Anesthesia Reactions: No Hx Malignant Hyperthermia: No Meds Allergies/Adverse Reactions: Allergies Allergy/AdvReac Type Severity Reaction Status Date / Time No Known Allergies Allergy Verified 11/18/18 15:37 Physical Exam - Constitutional Appears: Non-toxic, Unkempt, Confused - Head Exam Head Exam: ATRAUMATIC, NORMAL INSPECTION, NORMOCEPHALIC - Eye Exam Eye Exam: EOMI, Normal appearance - ENT Exam ENT Exam: Mucous Membranes Moist Additional comments: poor dentition - Neck Exam Neck exam: Positive for: Normal Inspection - Respiratory Exam Respiratory Exam: Rhonchi, Wheezes, NORMAL BREATHING PATTERN. absent: Respiratory Distress - Cardiovascular Exam Cardiovascular Exam: Tachycardia, REGULAR RHYTHM - GI/Abdominal Exam GI & Abdominal Exam: Soft. absent: Distended - Extremities Exam Extremities exam: Positive for: pedal edema, tenderness. Negative for: normal inspection Additional comments: LE: RLE: edema from knee-toes, erythema, onychomycosis LLE: edema from knee-toes, erythema, onychomycosis, left ankle lateral lesion 2cm, open, no drainage; medial ankle edema greatest - Neurological Exam Neurological exam: Alert - Skin Skin Exam: Dry, Warm Results - Vital Signs Recent Vital Signs: Last Vital Signs Temp 99.5 F 11/18/18 15:37 Pulse 97 H 11/18/18 18:06 Resp 20 11/18/18 18:06 BP 132/73 11/18/18 18:06 Pulse Ox 99 11/18/18 18:06 - Labs Result Diagrams: 11/18/18 17:27 11/18/18 16:42 Labs: Laboratory Results - last 24 hr 11/18/18 11/18/18 11/18/18 16:42 16:57 16:57 WBC RBC Hgb Hct MCV MCH MCHC RDW Plt Count MPV Neut % (Auto) Lymph % (Auto) [place] % (Auto) Eos % (Auto) Baso % (Auto) Neut # (Auto) Lymph # (Auto) [place] # (Auto) Eos # (Auto) Baso # (Auto) Sodium 137 Potassium 4.0 Chloride 98 Carbon Dioxide 26 Anion Gap 16 BUN 12 Creatinine 0.7 Est GFR ( Amer) > 60 Est GFR (Non-Af Amer) > 60 Random Glucose 108 H Calcium 9.9 Total Bilirubin 0.8 AST 34 ALT < 6 L Alkaline Phosphatase 120 Troponin I 0.0210 NT-Pro-B Natriuret Pep 344 Total Protein 10.7 H Albumin 4.6 Globulin 6.1 H Albumin/Globulin Ratio 0.8 L Urine Color Yellow Urine Clarity Hazy Urine pH 6.0 Ur Specific [place] 1.019 Urine Protein 2+ H Urine Glucose (UA) Normal Urine Ketones Negative Urine Blood 3+ H Urine Nitrate Negative Urine Bilirubin Negative Urine Urobilinogen 2.0 H Ur Leukocyte Esterase Trace Urine WBC (Auto) 22 H Urine RBC (Auto) 293 H Ur Squamous Epith Cells 1 Urine Bacteria Few H Urine HCG, Qual Negative Urine Opiates Screen Positive H Urine Methadone Screen Negative Ur Barbiturates Screen Negative Ur Phencyclidine Scrn Negative Ur Amphetamines Screen Negative U Benzodiazepines Scrn Negative U Oth Cocaine Metabols Positive H U Cannabinoids Screen Positive H Alcohol, Quantitative < 10 11/18/18 17:27 WBC 4.9 RBC 3.46 L Hgb 8.6 L Hct 27.1 L MCV 78.3 L MCH 25.0 L MCHC 31.9 L RDW 20.4 H Plt Count 305 MPV 7.0 L Neut % (Auto) 80.1 H Lymph % (Auto) 13.4 L [place] % (Auto) 5.7 Eos % (Auto) 0.4 Baso % (Auto) 0.4 Neut # (Auto) 3.9 Lymph # (Auto) 0.7 L [place] # (Auto) 0.3 Eos # (Auto) 0.0 Baso # (Auto) 0.0 Sodium Potassium Chloride Carbon Dioxide Anion Gap BUN Creatinine Est GFR ( Amer) Est GFR (Non-Af Amer) Random Glucose Calcium Total Bilirubin AST ALT Alkaline Phosphatase Troponin I NT-Pro-B Natriuret Pep Total Protein Albumin Globulin Albumin/Globulin Ratio Urine Color Urine Clarity Urine pH Ur Specific [place] Urine Protein Urine Glucose (UA) Urine Ketones Urine Blood Urine Nitrate Urine Bilirubin Urine Urobilinogen Ur Leukocyte Esterase Urine WBC (Auto) Urine RBC (Auto) Ur Squamous Epith Cells Urine Bacteria Urine HCG, Qual Urine Opiates Screen Urine Methadone Screen Ur Barbiturates Screen Ur Phencyclidine Scrn Ur Amphetamines Screen U Benzodiazepines Scrn U Oth Cocaine Metabols U Cannabinoids Screen Alcohol, Quantitative Assessment & Plan (1) Bilateral lower leg cellulitis Assessment and Plan: f/u CT LE IVF, NS @75 Pain medication, Tylenol prn Fevers, Tylenol IV Abx, vanc/zosyn f/u vanc trough 11/20 6:30am f/u blood cx f/u wound culture f/u procalcitonin ID consult, Dr. Rhodes Surgery consult, Dr. Capone Status: Acute (2) Urinary tract infection Assessment and Plan: UA: WBC 22, RBC 293 f/u urine cx IV Abx, zosyn Status: Acute (3) Anemia Assessment and Plan: baseline anemia continue to monitor Status: Chronic (4) Opiate dependence Assessment and Plan: UDS positive for opiates, cocaine, cannabis Clonidine 0.1mg q6 prn withdrawal symptoms Zofran 4mg prn Status: Chronic (5) Asthma Assessment and Plan: Duonebs q6 prn Status: Chronic - Assessment and Plan (Free Text) Assessment: ppx VTE: lovenox 40mg qd GI: pepcid 20mg po qd Discussed with Dr. De Paz -Lorene Ramos, PGY-1 <Lynda De Paz V - Last Filed: 11/20/18 14:51> Results - Vital Signs Recent Vital Signs: Last Vital Signs Temp 98.2 F 11/20/18 07:29 Pulse 74 11/20/18 07:29 Resp 20 11/20/18 07:29 BP 152/86 H 11/20/18 07:29 Pulse Ox 97 11/20/18 07:29 - Labs Result Diagrams: 11/20/18 07:10 11/20/18 04:06 Labs: Laboratory Results - last 24 hr 11/20/18 11/20/18 11/20/18 02:15 04:06 07:10 WBC 3.4 L RBC 3.02 L Hgb 7.7 L Hct 23.2 L MCV 76.8 L MCH 25.5 L MCHC 33.2 RDW 19.6 H Plt Count 251 MPV 6.7 L Neut % (Auto) 60.1 Lymph % (Auto) 27.7 [place] % (Auto) 10.1 H Eos % (Auto) 1.6 Baso % (Auto) 0.5 Neut # (Auto) 2.0 Lymph # (Auto) 0.9 L [place] # (Auto) 0.3 Eos # (Auto) 0.1 Baso # (Auto) 0.0 Sodium 139 Potassium 3.7 Chloride 107 Carbon Dioxide 27 Anion Gap 8 L BUN 12 Creatinine 0.8 Est GFR ( Amer) > 60 Est GFR (Non-Af Amer) > 60 Random Glucose 88 D Calcium 8.9 Phosphorus 3.1 Magnesium 2.1 Total Bilirubin 0.5 AST 17 ALT 10 Alkaline Phosphatase 90 Total Protein 7.3 Albumin 3.1 L Globulin 4.2 H Albumin/Globulin Ratio 0.7 L Vancomycin Trough 10.5 H Attending/Attestation - Attestation I have personally seen and examined this patient.: Yes I have fully participated in the care of the patient.: Yes I have reviewed all pertinent clinical information: Yes Notes (Text): this is late computer entry for 11/18/18. Patient seen, examined and case discussed with medical educator. Admitting orders discussed with resident at time of admission. Assessment/Plan (1) Bilateral lower leg cellulitis Assessment and Plan: f/u CT LE IVF, NS @75 Pain medication, Tylenol prn Fevers, Tylenol IV Abx, vanc/zosyn f/u vanc trough 11/20 6:30am f/u blood cx f/u wound culture f/u procalcitonin ID consult, Dr. Rhodes Surgery consult, Dr. Capone Status: Acute (2) Urinary tract infection Assessment and Plan: UA: WBC 22, RBC 293 f/u urine cx IV Abx, zosyn Status: Acute (3) Anemia Assessment and Plan: baseline anemia continue to monitor Status: Chronic (4) Opiate dependence Assessment and Plan: UDS positive for opiates, cocaine, cannabis Clonidine 0.1mg q6 prn withdrawal symptoms Zofran 4mg prn Status: Chronic (5) Asthma Assessment and Plan: Duonebs q6 prn Status: Chronic (6) Prophylactic measure VTE: lovenox 40mg qd GI: pepcid 20mg po qd
--- NOTE | 2018-11-18 18:54 | RAD ---
Date of service: 11/18/2018 HISTORY: Admission for left leg COMPARISON: None available. Comparison chest dated 11/04/2018 FINDINGS: LUNGS: Minor bibasilar atelectasis and or scarring PLEURA: No significant pleural effusion identified, no pneumothorax apparent. CARDIOVASCULAR: No aortic atherosclerotic calcification present. Normal cardiac size. No pulmonary vascular congestion. OSSEOUS STRUCTURES: No significant abnormalities. VISUALIZED UPPER ABDOMEN: Normal. OTHER FINDINGS: None. IMPRESSION: Minor bibasilar atelectasis and or scarring
[2018-11-18] MEDS ORDERED: Enoxaparin 40 mg Syringe SC ONE ×2 (18:58→19:30)
[2018-11-18] MEDS: Piperacill/Tazo 3.375gm in Dex 3.375 GM/50 ML BAG IVPB SCH (19:12)
[2018-11-18] MEDS: Sodium Chloride 0.9% 1,000 ML IV SCH (19:42)
--- NOTE | 2018-11-18 19:46 | CP.PCM.CON ---
History of Present Illness - History of Present Illness History of Present Illness: General Surgery - Dr. Bo (covering for Dr. Capone) 48F w/ hx of IVDU presents to ED today with B/L lower extremity pain and sw elling. Pt was admitted to the hospital on 11/06 with LLE abscess which underwent bedside I&D. Patient left the hospital AMA the following day. Currently patient complains of swelling and pain to the b/l lower extremities which she stats began a few days ago. She describes the pain as mostly concentrated along the dorsum of the feet, and increased pain on the Left compared to the Right. She states that the I&D site has drained some serous fluid occasionally but she has not seen any purulent drainage. Pt denies injecting in either lower extremity. She admits to fevers and is currently febrile to 102.7. She denies any nausea/vomiting/shortness of breath/chest pain/diarrhea/constipation. PMH: Asthma, CVA, IVDA, MSSA bacteremia, psoas abscess 06/2018, Left lower leg abscess 11/2018 PSH: chest wall abscess debridement, appendectomy 06/2018, I&d of LLE abscess 11/2018 SHx: Smoking history, Heroin daily use, marijuana daily use, Cocaine use, Patient is homeless. Allergies: NKDA Review of Systems - Review of Systems All systems: reviewed and no additional remarkable complaints except (as per HPI) Past Patient History - Infectious Disease Hx of Infectious Diseases: None - Past Medical History & Family History Past Medical History?: Yes - Past Social History Smoking Status: Heavy Smoker > 10 Cigarettes Daily - CARDIAC Hx Hypertension: Yes Hx Pacemaker: No - PULMONARY Hx Asthma: Yes Hx Chronic Obstructive Pulmonary Disease (COPD): Yes (ASTHMA) - NEUROLOGICAL Hx Seizures: No - HEENT Hx HEENT Problems: No - RENAL Hx Chronic Kidney Disease: No - ENDOCRINE/METABOLIC Hx Endocrine Disorders: No - HEMATOLOGICAL/ONCOLOGICAL Hx Human Immunodeficiency Virus (HIV): No - INTEGUMENTARY Hx Dermatological Problems: No - MUSCULOSKELETAL/RHEUMATOLOGICAL Hx Musculoskeletal Disorders: Yes Hx Back Pain: Yes Hx Falls: Yes - GASTROINTESTINAL Hx Gastrointestinal Disorders: No - GENITOURINARY/GYNECOLOGICAL Hx Sexually Transmitted Disorders: No - PSYCHIATRIC Hx Substance Use: Yes - SURGICAL HISTORY Hx Mastectomy: No - ANESTHESIA Hx Anesthesia: Yes Hx Anesthesia Reactions: No Hx Malignant Hyperthermia: No Meds Allergies/Adverse Reactions: Allergies Allergy/AdvReac Type Severity Reaction Status Date / Time No Known Allergies Allergy Verified 11/18/18 15:37 - Medications Medications: Current Medications Acetaminophen (Tylenol 325mg Tab) 650 mg PO Q6 PRN PRN Reason: Pain, severe (8-10) Clonidine HCl (Catapres) 0.1 mg PO Q6H PRN PRN Reason: Symptoms of alcohol withdrawl Enoxaparin Sodium (Lovenox) 40 mg SC DAILY [facility] Famotidine (Pepcid) 20 mg PO BID [facility] Sodium Chloride (Sodium Chloride 0.9%) 1,000 mls @ 75 mls/hr IV .[id number] [facility] Piperacillin Sod/Tazobactam Sod (Zosyn 3.375 Gm Iv Premix) 3.375 gm in 50 mls @ 100 mls/hr IVPB Q6H [facility]; Protocol Last Admin: 11/18/18 19:12 Dose: Not Given Vancomycin HCl 1 gm/ Sodium (Chloride) 250 mls @ 166.7 mls/hr IVPB Q24H [facility]; Protocol Nicotine (Nicoderm Cq) 1 patch TD DAILY [facility] Ondansetron HCl (Zofran Inj) 4 mg IVP Q6 PRN PRN Reason: Nausea/Vomiting Physical Exam - Constitutional Appears: No Acute Distress, Older Than Stated Age, Other (lethargic, falling asleep during interview) - Head Exam Head Exam: ATRAUMATIC, NORMAL INSPECTION, NORMOCEPHALIC - Eye Exam Eye Exam: Normal appearance - Respiratory Exam Respiratory Exam: NORMAL BREATHING PATTERN. absent: Respiratory Distress - Cardiovascular Exam Cardiovascular Exam: REGULAR RHYTHM - Extremities Exam Extremities exam: Positive for: pedal edema, tenderness, pedal pulses present. Negative for: calf tenderness Additional comments: B/L lower extremity edema extending from feet mid calf b/l with patchy areas of erythema. Tender to palpation on dorsum of feet. Site of prior I&D on LLE appears to be healing with no drainage and no underlying fluctuance or induration appreciated. Distal Pulses intact B/L - Neurological Exam Neurological exam: Alert, Oriented x3 - Psychiatric Exam Psychiatric exam: Flat Affect - Skin Skin Exam: Dry, Intact, Warm Results - Vital Signs Recent Vital Signs: Last Vital Signs Temp 102.7 F H 11/18/18 18:51 Pulse 104 H 11/18/18 18:51 Resp 20 11/18/18 18:51 BP 126/66 11/18/18 18:51 Pulse Ox 95 11/18/18 18:51 - Labs Result Diagrams: 11/18/18 17:27 11/18/18 16:42 Labs: Laboratory Results - last 24 hr 11/18/18 11/18/18 11/18/18 16:42 16:57 16:57 WBC RBC Hgb Hct MCV MCH MCHC RDW Plt Count MPV Neut % (Auto) Lymph % (Auto) [place] % (Auto) Eos % (Auto) Baso % (Auto) Neut # (Auto) Lymph # (Auto) [place] # (Auto) Eos # (Auto) Baso # (Auto) Sodium 137 Potassium 4.0 Chloride 98 Carbon Dioxide 26 Anion Gap 16 BUN 12 Creatinine 0.7 Est GFR ( Amer) > 60 Est GFR (Non-Af Amer) > 60 Random Glucose 108 H Calcium 9.9 Total Bilirubin 0.8 AST 34 ALT < 6 L Alkaline Phosphatase 120 Troponin I 0.0210 NT-Pro-B Natriuret Pep 344 Total Protein 10.7 H Albumin 4.6 Globulin 6.1 H Albumin/Globulin Ratio 0.8 L Urine Color Yellow Urine Clarity Hazy Urine pH 6.0 Ur Specific [place] 1.019 Urine Protein 2+ H Urine Glucose (UA) Normal Urine Ketones Negative Urine Blood 3+ H Urine Nitrate Negative Urine Bilirubin Negative Urine Urobilinogen 2.0 H Ur Leukocyte Esterase Trace Urine WBC (Auto) 22 H Urine RBC (Auto) 293 H Ur Squamous Epith Cells 1 Urine Bacteria Few H Urine HCG, Qual Negative Urine Opiates Screen Positive H Urine Methadone Screen Negative Ur Barbiturates Screen Negative Ur Phencyclidine Scrn Negative Ur Amphetamines Screen Negative U Benzodiazepines Scrn Negative U Oth Cocaine Metabols Positive H U Cannabinoids Screen Positive H Alcohol, Quantitative < 10 11/18/18 17:27 WBC 4.9 RBC 3.46 L Hgb 8.6 L Hct 27.1 L MCV 78.3 L MCH 25.0 L MCHC 31.9 L RDW 20.4 H Plt Count 305 MPV 7.0 L Neut % (Auto) 80.1 H Lymph % (Auto) 13.4 L [place] % (Auto) 5.7 Eos % (Auto) 0.4 Baso % (Auto) 0.4 Neut # (Auto) 3.9 Lymph # (Auto) 0.7 L [place] # (Auto) 0.3 Eos # (Auto) 0.0 Baso # (Auto) 0.0 Sodium Potassium Chloride Carbon Dioxide Anion Gap BUN Creatinine Est GFR ( Amer) Est GFR (Non-Af Amer) Random Glucose Calcium Total Bilirubin AST ALT Alkaline Phosphatase Troponin I NT-Pro-B Natriuret Pep Total Protein Albumin Globulin Albumin/Globulin Ratio Urine Color Urine Clarity Urine pH Ur Specific [place] Urine Protein Urine Glucose (UA) Urine Ketones Urine Blood Urine Nitrate Urine Bilirubin Urine Urobilinogen Ur Leukocyte Esterase Urine WBC (Auto) Urine RBC (Auto) Ur Squamous Epith Cells Urine Bacteria Urine HCG, Qual Urine Opiates Screen Urine Methadone Screen Ur Barbiturates Screen Ur Phencyclidine Scrn Ur Amphetamines Screen U Benzodiazepines Scrn U Oth Cocaine Metabols U Cannabinoids Screen Alcohol, Quantitative Assessment & Plan - Assessment and Plan (Free Text) Assessment: 48 yo F IVDU w/ B/L lower extremity cellulitis -Continue IV Abx -F/U blood cx -Leg elevation -F/U CT lower extremities -No abscess or drainable collection appreciated at this time -No surgery planned at this time. Will F/U CT results Dw Dr. Anupam Prado PGY4
[2018-11-18] MEDS ORDERED: Albuterol-Ipratrop 3 mg / 0.5 (3 ml) UD INH PRN (19:58)
[2018-11-18 20:34] LABS: INR 1.2; PROTHROMBIN TIME 12.7 SECONDS (9.7-12.2)
[2018-11-18] MEDS ORDERED: Iodixanol 320 MG/ML 100 ML BOTTLE IV ONE (20:53)
[2018-11-19] MEDS: Piperacill/Tazo 3.375gm in Dex 3.375 GM/50 ML BAG IVPB SCH ×4 (01:55→19:35)
--- NOTE | 2018-11-19 07:41 | CP.PCM.PN ---
<Alisha Stone - Last Filed: 11/19/18 15:00> Subjective - Date & Time of Evaluation Date of Evaluation: 11/19/18 Time of Evaluation: 07:41 - Subjective Subjective: PGY-1 Alisha Stone D.O. Medicine progress note for Dr. De Paz's service: Patient was seen and examined this morning. She is sitting in a chair next to her bed. She says that she feels like she is going through withdrawals as she uses 10 bags of heroin a day. She also says that he leg swelling is bothering her. She is eating and drinking. Denies nausea and vomiting. She was able to walk with assistance with PT. She is also complaining of fevers and chills. She says that she will not leave AMA this admission as in the past. Objective - Vital Signs/Intake and Output Vital Signs (last 24 hours): Temp Pulse Resp BP Pulse Ox 98 F 71 20 127/68 98 11/19/18 00:00 11/19/18 00:00 11/19/18 00:00 11/19/18 00:00 11/19/18 00:00 Intake and Output: 11/19/18 11/19/18 06:59 18:59 Intake Total 850 Output Total 600 Balance 250 - Medications Medications: Current Medications Acetaminophen (Tylenol 325mg Tab) 650 mg PO Q6 PRN PRN Reason: Other Albuterol/Ipratropium (Duoneb 3 Mg/0.5 Mg (3 Ml) Ud) 3 ml INH RQ6 PRN PRN Reason: Shortness of Breath Clonidine HCl (Catapres) 0.1 mg PO Q6H PRN PRN Reason: Symptoms of alcohol withdrawl Enoxaparin Sodium (Lovenox) 40 mg SC DAILY [facility] Famotidine (Pepcid) 20 mg PO BID [facility] Last Admin: 11/18/18 19:40 Dose: 20 mg Sodium Chloride (Sodium Chloride 0.9%) 1,000 mls @ 75 mls/hr IV .[id number] [facility] Last Admin: 11/18/18 19:42 Dose: 75 mls/hr Piperacillin Sod/Tazobactam Sod (Zosyn 3.375 Gm Iv Premix) 3.375 gm in 50 mls @ 100 mls/hr IVPB Q6H [facility]; Protocol Last Admin: 11/19/18 06:08 Dose: 100 mls/hr Vancomycin HCl 1 gm/ Sodium (Chloride) 250 mls @ 166.7 mls/hr IVPB Q24H [facility]; Protocol Last Admin: 11/18/18 20:27 Dose: 166.7 mls/hr Nicotine (Nicoderm Cq) 1 patch TD DAILY [facility] Ondansetron HCl (Zofran Inj) 4 mg IVP Q6 PRN PRN Reason: Nausea/Vomiting - Labs Labs: 11/18/18 17:27 11/18/18 16:42 PT 12.7 SECONDS (9.7-12.2) H 11/18/18 20:15 INR 1.2 11/18/18 20:15 APTT 28 SECONDS (21-34) 11/18/18 20:15 - Constitutional Appears: No Acute Distress, Unkempt, Older Than Stated Age, Chronically Ill - Head Exam Head Exam: ATRAUMATIC, NORMAL INSPECTION - Eye Exam Eye Exam: EOMI, Normal appearance - ENT Exam ENT Exam: Mucous Membranes Moist - Neck Exam Neck Exam: Normal Inspection - Respiratory Exam Respiratory Exam: Clear to Ausculation Bilateral, NORMAL BREATHING PATTERN - Cardiovascular Exam Cardiovascular Exam: REGULAR RHYTHM, +S1, +S2 - GI/Abdominal Exam GI & Abdominal Exam: Soft. absent: Tenderness - Extremities Exam Extremities Exam: Pedal Edema (1+ edema R, 2+ edema L, chronic skin changes) - Neurological Exam Neurological Exam: Alert, Awake, Oriented x3 - Psychiatric Exam Psychiatric exam: Depressed, Flat Affect - Skin Skin Exam: Diaphoretic, Normal Color Assessment and Plan - Assessment and Plan (Free Text) Assessment: Patient is a 48 yo homeless female with history of asthma, CVA, and polysubstance use disorder (heroin, marijuana, cocaine) who presented with left LE pain and edema. She left AMA 2 weeks ago after I&D of left leg abscess and did not finish antibiotics. Plan: Bilateral lower extremity cellulitis (L>R) - CT lower extremity: b/l subcutaneous edema, left cellulitis, no abscess - Tmax 102.7 - Procal 0.42 - History of MSSA - Wound Cx: no growth >24 hrs - NS @ 75 cc/hr - Cooling packs PRN - Tylenol 650 mg PO Q6H PRN - Motrin 600 mg PO TID PRN - Vancomycin 1 g IV Q12H- started 11/18 - f/u Vanc trough on 11/20 at 6:30 AM - Zosyn 3.375 mg IV Q6H- started 11/18 - ID consulted (Meagan) - Surgery consulted (Estelita)- no intervention at this time - Wound care consulted - PT/OT- rec YUKO Urinary tract infection, acute - UA: 2+ protein, 3+ blood, 22 WBC, few darren, trace LE, negative nitrate - Urine Cx pending - Zosyn 3.375 mg IV Q6H- started 11/18 Anemia, chronic - Baseline Hgb 8-10, stable - Continue to monitor Polysubstance use disorder, chronic- IV heroin, cocaine, marijuana, tobacco - UDS positive for opiates, cocaine, cannabinoids - Strongly advised cessation - Maalox 30 mL PO TID PRN - Bentyl 10 mg PO Q6H PRN - Imodium 2 mg PO Q8H PRN - Zofran 4 mg IV or PO Q6H PRN - Clonidine 0.1 mg PO Q6H PRN - Methadone 20 mg PO daily - Nicoderm daily - Psychiatry consulted (Rubens)- added methadone Asthma, chronic - Duobneb Q6H PRN Ppx: VTE: Lovenox 40 mg SC daily GI: Pepcid 20 mg PO BID Dispo: Continue IV antibiotics. Case discussed with attending, Dr. De Paz. <Lynda De Paz V - Last Filed: 11/20/18 14:58> Objective - Vital Signs/Intake and Output Vital Signs (last 24 hours): Temp Pulse Resp BP Pulse Ox 98.2 F 74 20 152/86 H 97 11/20/18 07:29 11/20/18 07:29 11/20/18 07:29 11/20/18 07:29 11/20/18 07:29 Intake and Output: 11/20/18 11/20/18 06:59 18:59 Intake Total 2050 Output Total 800 Balance 1250 - Medications Medications: Current Medications Acetaminophen (Tylenol 325mg Tab) 650 mg PO Q6 PRN PRN Reason: Other Last Admin: 11/19/18 17:39 Dose: 650 mg Al Hydrox/Mg Hydrox/Simethicone (Maalox 30 Ml) 30 ml PO TID PRN PRN Reason: Indigestion / Heartburn Albuterol/Ipratropium (Duoneb 3 Mg/0.5 Mg (3 Ml) Ud) 3 ml INH RQ6 PRN PRN Reason: Shortness of Breath Clonidine HCl (Catapres) 0.1 mg PO Q6H PRN PRN Reason: Symptoms of alcohol withdrawl Dicyclomine HCl (Bentyl) 10 mg PO Q6 PRN PRN Reason: Muscle spasm Enoxaparin Sodium (Lovenox) 40 mg SC DAILY [facility] Last Admin: 11/20/18 10:43 Dose: 40 mg Famotidine (Pepcid) 20 mg PO BID [facility] Last Admin: 11/20/18 10:43 Dose: 20 mg Sodium Chloride (Sodium Chloride 0.9%) 1,000 mls @ 75 mls/hr IV .[id number] [facility] Last Admin: 11/20/18 11:06 Dose: 75 mls/hr Piperacillin Sod/Tazobactam Sod (Zosyn 3.375 Gm Iv Premix) 3.375 gm in 50 mls @ 100 mls/hr IVPB Q6H [facility]; Protocol Last Admin: 11/20/18 12:42 Dose: 100 mls/hr Vancomycin HCl 1 gm/ Sodium (Chloride) 250 mls @ 166.7 mls/hr IVPB Q12H [facility]; Protocol Last Admin: 11/20/18 12:43 Dose: 166.7 mls/hr Ibuprofen (Motrin Tab) 600 mg PO TID PRN PRN Reason: Other Loperamide HCl (Imodium) 2 mg PO Q8 PRN PRN Reason: Diarrhea Methadone HCl (Methadone) 15 mg PO Q24H [facility]; Taper Stop: 11/23/18 11:44 Last Admin: 11/20/18 10:45 Dose: 15 mg Nicotine (Nicoderm Cq) 1 patch TD DAILY [facility] Last Admin: 11/20/18 10:43 Dose: 1 patch Ondansetron HCl (Zofran Inj) 4 mg IVP Q6 PRN PRN Reason: Nausea/Vomiting Ondansetron HCl (Zofran Tab) 4 mg PO Q8 PRN PRN Reason: Nausea/Vomiting - Labs Labs: 11/20/18 07:10 11/20/18 04:06 PT 12.7 SECONDS (9.7-12.2) H 11/18/18 20:15 INR 1.2 11/18/18 20:15 APTT 28 SECONDS (21-34) 11/18/18 20:15 Attending/Attestation - Attestation I have personally seen and examined this patient.: Yes I have fully participated in the care of the patient.: Yes I have reviewed all pertinent clinical information, including history, physical exam and plan: Yes Notes (Text): This is late computer entry for 11/19/18. Patient seen, examined and case discussed with bacteriologist medical. Agree with the assessment and plan as written by the resident. Noted improvement in the swelling in the swells; noted cellulitic changes and lymphagnitis reduced, procalcitonin improved, patient was febrile in the morning. will continue to monitor for recurrent fever and cultures; ID on board; no surgery intervention, and psych consult for patient known heroin/opoid withdrawal.
--- NOTE | 2018-11-19 08:00 | CP.PCM.PN ---
Subjective - Date & Time of Evaluation Date of Evaluation: 11/19/18 Time of Evaluation: 07:58 - Subjective Subjective: SURGERY NOTE FOR DR. GALE covering for DR. GOETZ 48F seen and examined at bedside. Patient Resting comfortably. Continues to com plain of bilateral lower extremity pain. Denies any drainage. Objective - Vital Signs/Intake and Output Vital Signs (last 24 hours): Temp Pulse Resp BP Pulse Ox 98 F 71 20 127/68 98 11/19/18 00:00 11/19/18 00:00 11/19/18 00:00 11/19/18 00:00 11/19/18 00:00 Intake and Output: 11/19/18 11/19/18 06:59 18:59 Intake Total 850 Output Total 600 Balance 250 - Medications Medications: Current Medications Acetaminophen (Tylenol 325mg Tab) 650 mg PO Q6 PRN PRN Reason: Other Albuterol/Ipratropium (Duoneb 3 Mg/0.5 Mg (3 Ml) Ud) 3 ml INH RQ6 PRN PRN Reason: Shortness of Breath Clonidine HCl (Catapres) 0.1 mg PO Q6H PRN PRN Reason: Symptoms of alcohol withdrawl Enoxaparin Sodium (Lovenox) 40 mg SC DAILY [facility] Famotidine (Pepcid) 20 mg PO BID [facility] Last Admin: 11/18/18 19:40 Dose: 20 mg Sodium Chloride (Sodium Chloride 0.9%) 1,000 mls @ 75 mls/hr IV .[id number] [facility] Last Admin: 11/18/18 19:42 Dose: 75 mls/hr Piperacillin Sod/Tazobactam Sod (Zosyn 3.375 Gm Iv Premix) 3.375 gm in 50 mls @ 100 mls/hr IVPB Q6H [facility]; Protocol Last Admin: 11/19/18 06:08 Dose: 100 mls/hr Vancomycin HCl 1 gm/ Sodium (Chloride) 250 mls @ 166.7 mls/hr IVPB Q24H [facility]; Protocol Last Admin: 11/18/18 20:27 Dose: 166.7 mls/hr Nicotine (Nicoderm Cq) 1 patch TD DAILY [facility] Ondansetron HCl (Zofran Inj) 4 mg IVP Q6 PRN PRN Reason: Nausea/Vomiting - Labs Labs: 11/18/18 17:27 11/18/18 16:42 PT 12.7 SECONDS (9.7-12.2) H 11/18/18 20:15 INR 1.2 11/18/18 20:15 APTT 28 SECONDS (21-34) 11/18/18 20:15 - Constitutional Appears: Non-toxic, No Acute Distress - Respiratory Exam Respiratory Exam: Clear to Ausculation Bilateral, NORMAL BREATHING PATTERN - Cardiovascular Exam Cardiovascular Exam: REGULAR RHYTHM, +S1, +S2 - GI/Abdominal Exam GI & Abdominal Exam: Soft. absent: Distended, Firm, Guarding, Rigid, Tenderness, Rebound - Extremities Exam Extremities Exam: Pedal Edema, Tenderness Additional comments: no fluid collection palpable, no erythema, b/l feet are mildly swollen - Neurological Exam Neurological Exam: Alert, Awake Assessment and Plan - Assessment and Plan (Free Text) Assessment: 48F with b/l lower extremity edema. hx of left lower leg abscess draining Plan: - elevate leg - continues IV antibiotics - No surgical intervention at this time Further recs discuss with Dr. Anupam Ziegler, PGY3
[2018-11-19] MEDS: Sodium Chloride 0.9% 1,000 ML IV SCH ×3 (08:15→21:25)
[2018-11-19 08:17] LABS: BASO % 0.5 % (0.0-2.0); EOS % 0.2 % (0.0-4.0); HEMOGLOBIN 8.1 g/dL (11.0-16.0); LYMPH # 0.4 K/uL (1.0-4.3); LYMPH % 7.6 % (20.0-40.0); MEAN CELL VOLUME 77.2 fL (81.0-99.0); MEAN CORPUSCULAR HEMOGLOBIN 25.1 pg (27.0-31.0); MEAN CORPUSCULAR HGB CONC 32.6 g/dL (33.0-37.0); MEAN PLATELET VOLUME 6.7 fL (7.2-11.7); MONO # 0.3 K/uL (0.0-0.8); MONO % 4.7 % (0.0-10.0); NEUT # 5.1 K/uL (1.8-7.0); PLATELET COUNT 278 K/uL (130-400); RBC 3.23 Mil/uL (3.80-5.20); WHITE BLOOD COUNT 5.9 K/uL (4.8-10.8)
[2018-11-19 08:30] LABS: ALB/GLOB RATIO 0.8 (1.0-2.1); ALBUMIN 3.3 g/dL (3.5-5.0); ALT/SGPT < 6 U/L (9-52); AST/SGOT 21 U/L (14-36); BLOOD UREA NITROGEN 9 mg/dL (7-17); CALCIUM 8.9 mg/dl (8.6-10.4); GFR NON-AFRICAN AMERICAN > 60
[2018-11-19 09:37] LABS: LYMPHOCYTE 3 % (20-40); MONOCYTE 4 % (0-10); NEUTROPHIL 93 % (50-75); TOTAL CELLS COUNTED 100
[2018-11-19 09:38] LABS: ANISOCYTOSIS SLIGHT; PLATELET ESTIMATE NORMAL (NORMAL)
[2018-11-19 09:39] LABS: HYPOCHROMIC MODERATE; MICROCYTOSIS SLIGHT; POLYCHROMIC SLIGHT
[2018-11-19] MEDS: Enoxaparin 40 mg Syringe SC SCH (10:18)
--- NOTE | 2018-11-19 10:21 | CT ---
Date of service: 11/18/2018 PROCEDURE: CT of the lower extremities with contrast HISTORY: LE cellulitis/abscess COMPARISON: No prior similar study available for comparison TECHNIQUE: Axial and reformatted coronal and sagittal CT images of the lower extremities was obtained from the mid thigh to the feet after IV contrast administration. Contrast volume: 100 mL of Visipaque 320 intravenously. Total exam DLP: 404.16 FINDINGS: There is diffuse subcutaneous edema in the bilateral lower extremities slightly more prominent in the left side and more prominent in the distal portion. There associated mild skin thickening. Findings consistent with the patient's history of cellulitis. There is no evidence of discrete abscess formation. There is no evidence of filling defect in the visualized veins to suggest deep vein thrombosis. The visualized arteries are patent. No evidence of cellulitis or destructive bony lesion. IMPRESSION: Subcutaneous edema associated with mild wall thickening more prominent distally in both legs slightly more prominent on the left suggestive of cellulitis. No evidence of discrete abscess formation. Preliminary report contains concordant findings was submitted by [facility] Radiology.
[2018-11-19] MEDS ORDERED: Potassium Chloride 20 mEq ER Tab PO ONE (10:45)
[2018-11-19] MEDS ORDERED: Aluminum Hydroxide/Magnesium Hydroxide Susp (30 mL) PO PRN (11:37)
--- NOTE | 2018-11-19 11:37 | PCM.PSYCH ---
Initial Psychiatric Evaluation - Initial Psychiatric Evaluation Type of Admission: Voluntary Legal Status: Capacity Current Medications: Active Medications Generic Name Dose Route Start Last Admin Trade Name Freq PRN Reason Stop Dose Admin Acetaminophen 650 mg 11/18/18 20:05 11/19/18 08:28 Tylenol 325mg Tab PO 650 mg Q6 PRN Administration Other Albuterol/Ipratropium 3 ml 11/18/18 19:58 Duoneb 3 Mg/0.5 Mg (3 Ml) Ud INH RQ6 PRN Shortness of Breath Clonidine HCl 0.1 mg 11/18/18 18:51 Catapres PO Q6H PRN Symptoms of alcohol withdrawl Enoxaparin Sodium 40 mg 11/19/18 10:00 11/19/18 10:18 Lovenox SC 40 mg DAILY [facility] Administration Famotidine 20 mg 11/18/18 18:45 11/19/18 10:18 Pepcid PO 20 mg BID [facility] Administration Sodium Chloride 1,000 mls @ 75 mls/hr 11/18/18 18:45 11/19/18 08:15 Sodium Chloride 0.9% IV Not Given .[id number] [facility] Piperacillin Sod/Tazobactam Sod 3.375 gm in 50 mls @ 100 mls/hr 11/18/18 19:00 11/19/18 06:08 Zosyn 3.375 Gm Iv Premix IVPB 100 mls/hr Q6H [facility] Administration Protocol Vancomycin HCl 1 gm/ Sodium 250 mls @ 166.7 mls/hr 11/18/18 19:30 11/18/18 20:27 Chloride IVPB 166.7 mls/hr Q24H [facility] Administration Protocol Nicotine 1 patch 11/19/18 10:00 11/19/18 11:00 Nicoderm Cq TD 1 patch DAILY [facility] Administration Ondansetron HCl 4 mg 11/18/18 18:38 Zofran Inj IVP Q6 PRN Nausea/Vomiting Past Psychiatric History - Past Psychiatric History Previous Treatment History: None Pertinent Medical Hx (Current Medical&Sleep Prob, Allergies): Allergies Allergy/AdvReac Type Severity Reaction Status Date / Time No Known Allergies Allergy Verified 11/18/18 15:37 No Known Home Med 11/04/18 Review of Systems - Review of Systems All systems: reviewed and no additional remarkable complaints except - Psychiatric Psychiatric: Anxiety, Irritability. absent: Suicidal Ideation Mental Status Examination - Personal Presentation Personal Presentation: Looks stated age - Affect Affect: Constricted - Motor Activity Motor Activity: Calm - Reliability in Providing Information Reliability in Providing Information: Good - Speech Speech: Organized - Mood Mood: Anxious - Formal Thought Process Formal Thought Process: No Impairment - Obsessions/Compulsions Obsessions: No Compulsions: No - Cognitive Functions Orientation: Person, Place, Situation, Time Sensorium: Alert Attention/Concentration: Attentive Abstract Thinking: [place] Estimate of Intelligence: Below average Judgement: Imparied, as evidence by: Poor judgement, Intact, as evidence by: Insight regarding need for hospitalization - Risk Risk: Withdrawal, Diminished functioning - Limitations Limitations: Living alone
--- NOTE | 2018-11-19 12:41 | CP.PCM.CON ---
Past Patient History - Infectious Disease Hx of Infectious Diseases: None - Past Medical History & Family History Past Medical History?: Yes - Past Social History Smoking Status: Current Some Days Smoker - CARDIAC Hx Hypertension: Yes Hx Pacemaker: No - PULMONARY Hx Asthma: Yes Hx Chronic Obstructive Pulmonary Disease (COPD): Yes (ASTHMA) - NEUROLOGICAL Hx Seizures: No - HEENT Hx HEENT Problems: No - RENAL Hx Chronic Kidney Disease: No - ENDOCRINE/METABOLIC Hx Endocrine Disorders: No - HEMATOLOGICAL/ONCOLOGICAL Hx Human Immunodeficiency Virus (HIV): No - INTEGUMENTARY Hx Dermatological Problems: No - MUSCULOSKELETAL/RHEUMATOLOGICAL Hx Falls: Yes - GASTROINTESTINAL Hx Gastrointestinal Disorders: No - GENITOURINARY/GYNECOLOGICAL Hx Sexually Transmitted Disorders: No - PSYCHIATRIC Hx Substance Use: Yes - SURGICAL HISTORY Hx Mastectomy: No - ANESTHESIA Hx Anesthesia: Yes Hx Anesthesia Reactions: No Hx Malignant Hyperthermia: No Meds Allergies/Adverse Reactions: Allergies Allergy/AdvReac Type Severity Reaction Status Date / Time No Known Allergies Allergy Verified 11/18/18 15:37 - Medications Medications: Current Medications Acetaminophen (Tylenol 325mg Tab) 650 mg PO Q6 PRN PRN Reason: Other Last Admin: 11/19/18 08:28 Dose: 650 mg Al Hydrox/Mg Hydrox/Simethicone (Maalox 30 Ml) 30 ml PO TID PRN PRN Reason: Indigestion / Heartburn Albuterol/Ipratropium (Duoneb 3 Mg/0.5 Mg (3 Ml) Ud) 3 ml INH RQ6 PRN PRN Reason: Shortness of Breath Clonidine HCl (Catapres) 0.1 mg PO Q6H PRN PRN Reason: Symptoms of alcohol withdrawl Dicyclomine HCl (Bentyl) 10 mg PO Q6 PRN PRN Reason: Muscle spasm Enoxaparin Sodium (Lovenox) 40 mg SC DAILY [facility] Last Admin: 11/19/18 10:18 Dose: 40 mg Famotidine (Pepcid) 20 mg PO BID [facility] Last Admin: 11/19/18 10:18 Dose: 20 mg Sodium Chloride (Sodium Chloride 0.9%) 1,000 mls @ 75 mls/hr IV .[id number] [facility] Last Admin: 11/19/18 08:15 Dose: Not Given Piperacillin Sod/Tazobactam Sod (Zosyn 3.375 Gm Iv Premix) 3.375 gm in 50 mls @ 100 mls/hr IVPB Q6H [facility]; Protocol Last Admin: 11/19/18 12:21 Dose: 100 mls/hr Vancomycin HCl 1 gm/ Sodium (Chloride) 250 mls @ 166.7 mls/hr IVPB Q24H [facility]; Protocol Last Admin: 11/18/18 20:27 Dose: 166.7 mls/hr Loperamide HCl (Imodium) 2 mg PO Q8 PRN PRN Reason: Diarrhea Methadone HCl (Methadone) 20 mg PO Q24H [facility]; Taper Stop: 11/23/18 11:44 Last Admin: 11/19/18 12:21 Dose: 20 mg Nicotine (Nicoderm Cq) 1 patch TD DAILY [facility] Last Admin: 11/19/18 11:00 Dose: 1 patch Ondansetron HCl (Zofran Inj) 4 mg IVP Q6 PRN PRN Reason: Nausea/Vomiting Ondansetron HCl (Zofran Tab) 4 mg PO Q8 PRN PRN Reason: Nausea/Vomiting Results - Vital Signs Recent Vital Signs: Last Vital Signs Temp 98 F 11/19/18 09:28 Pulse 98 H 11/19/18 08:00 Resp 18 11/19/18 08:00 BP 157/58 H 11/19/18 08:00 Pulse Ox 96 11/19/18 08:00 - Labs Result Diagrams: 11/19/18 08:07 11/19/18 08:07 Labs: Laboratory Results - last 24 hr 11/18/18 11/18/18 11/18/18 16:42 16:57 16:57 WBC RBC Hgb Hct MCV MCH MCHC RDW Plt Count MPV Neut % (Auto) Lymph % (Auto) [place] % (Auto) Eos % (Auto) Baso % (Auto) Neut # (Auto) Lymph # (Auto) [place] # (Auto) Eos # (Auto) Baso # (Auto) Neutrophils % (Manual) Lymphocytes % (Manual) Monocytes % (Manual) Platelet Estimate Polychromasia Hypochromasia (manual) Anisocytosis (manual) Microcytosis (manual) PT INR APTT Sodium 137 Potassium 4.0 Chloride 98 Carbon Dioxide 26 Anion Gap 16 BUN 12 Creatinine 0.7 Est GFR ( Amer) > 60 Est GFR (Non-Af Amer) > 60 Random Glucose 108 H Calcium 9.9 Phosphorus Magnesium Total Bilirubin 0.8 AST 34 ALT < 6 L Alkaline Phosphatase 120 Troponin I 0.0210 NT-Pro-B Natriuret Pep 344 Total Protein 10.7 H Albumin 4.6 Globulin 6.1 H Albumin/Globulin Ratio 0.8 L Procalcitonin Urine Color Yellow Urine Clarity Hazy Urine pH 6.0 Ur Specific [place] 1.019 Urine Protein 2+ H Urine Glucose (UA) Normal Urine Ketones Negative Urine Blood 3+ H Urine Nitrate Negative Urine Bilirubin Negative Urine Urobilinogen 2.0 H Ur Leukocyte Esterase Trace Urine WBC (Auto) 22 H Urine RBC (Auto) 293 H Ur Squamous Epith Cells 1 Urine Bacteria Few H Urine HCG, Qual Negative Urine Opiates Screen Positive H Urine Methadone Screen Negative Ur Barbiturates Screen Negative Ur Phencyclidine Scrn Negative Ur Amphetamines Screen Negative U Benzodiazepines Scrn Negative U Oth Cocaine Metabols Positive H U Cannabinoids Screen Positive H Alcohol, Quantitative < 10 11/18/18 11/18/18 11/18/18 17:27 20:15 20:15 WBC 4.9 RBC 3.46 L Hgb 8.6 L Hct 27.1 L MCV 78.3 L MCH 25.0 L MCHC 31.9 L RDW 20.4 H Plt Count 305 MPV 7.0 L Neut % (Auto) 80.1 H Lymph % (Auto) 13.4 L [place] % (Auto) 5.7 Eos % (Auto) 0.4 Baso % (Auto) 0.4 Neut # (Auto) 3.9 Lymph # (Auto) 0.7 L [place] # (Auto) 0.3 Eos # (Auto) 0.0 Baso # (Auto) 0.0 Neutrophils % (Manual) Lymphocytes % (Manual) Monocytes % (Manual) Platelet Estimate Polychromasia Hypochromasia (manual) Anisocytosis (manual) Microcytosis (manual) PT 12.7 H INR 1.2 APTT 28 Sodium Potassium Chloride Carbon Dioxide Anion Gap BUN Creatinine Est GFR ( Amer) Est GFR (Non-Af Amer) Random Glucose Calcium Phosphorus Magnesium Total Bilirubin AST ALT Alkaline Phosphatase Troponin I NT-Pro-B Natriuret Pep Total Protein Albumin Globulin Albumin/Globulin Ratio Procalcitonin 0.42 Urine Color Urine Clarity Urine pH Ur Specific [place] Urine Protein Urine Glucose (UA) Urine Ketones Urine Blood Urine Nitrate Urine Bilirubin Urine Urobilinogen Ur Leukocyte Esterase Urine WBC (Auto) Urine RBC (Auto) Ur Squamous Epith Cells Urine Bacteria Urine HCG, Qual Urine Opiates Screen Urine Methadone Screen Ur Barbiturates Screen Ur Phencyclidine Scrn Ur Amphetamines Screen U Benzodiazepines Scrn U Oth Cocaine Metabols U Cannabinoids Screen Alcohol, Quantitative 11/18/18 11/19/18 11/19/18 20:15 08:07 08:07 WBC 5.9 RBC 3.23 L Hgb 8.1 L Hct 24.9 L MCV 77.2 L MCH 25.1 L MCHC 32.6 L RDW 20.0 H Plt Count 278 MPV 6.7 L Neut % (Auto) 87.0 H Lymph % (Auto) 7.6 L [place] % (Auto) 4.7 Eos % (Auto) 0.2 Baso % (Auto) 0.5 Neut # (Auto) 5.1 Lymph # (Auto) 0.4 L [place] # (Auto) 0.3 Eos # (Auto) 0.0 Baso # (Auto) 0.0 Neutrophils % (Manual) 93 H Lymphocytes % (Manual) 3 L Monocytes % (Manual) 4 Platelet Estimate Normal Polychromasia Slight Hypochromasia (manual) Moderate Anisocytosis (manual) Slight Microcytosis (manual) Slight PT INR APTT Sodium 136 Potassium 3.4 L Chloride 102 Carbon Dioxide 25 Anion Gap 12 BUN 9 Creatinine 0.6 L Est GFR ( Amer) > 60 Est GFR (Non-Af Amer) > 60 Random Glucose 128 H Calcium 8.9 Phosphorus 2.8 3.1 Magnesium 1.8 1.8 Total Bilirubin 0.5 AST 21 ALT < 6 L Alkaline Phosphatase 102 Troponin I NT-Pro-B Natriuret Pep Total Protein 7.7 Albumin 3.3 L D Globulin 4.4 H Albumin/Globulin Ratio 0.8 L Procalcitonin Urine Color Urine Clarity Urine pH Ur Specific [place] Urine Protein Urine Glucose (UA) Urine Ketones Urine Blood Urine Nitrate Urine Bilirubin Urine Urobilinogen Ur Leukocyte Esterase Urine WBC (Auto) Urine RBC (Auto) Ur Squamous Epith Cells Urine Bacteria Urine HCG, Qual Urine Opiates Screen Urine Methadone Screen Ur Barbiturates Screen Ur Phencyclidine Scrn Ur Amphetamines Screen U Benzodiazepines Scrn U Oth Cocaine Metabols U Cannabinoids Screen Alcohol, Quantitative
--- NOTE | 2018-11-19 13:33 | CARD ---
APPROVED REPORT Date of service: 11/18/2018 EKG Measurement Heart [id number] <Conclusion> Sinus tachycardia Rightward axis Moderate voltage criteria for LVH, may be normal variant Borderline ECG
[2018-11-19 16:22] VITALS: RESP 20
--- NOTE | 2018-11-19 20:43 | CON ---
DATE: 11/19/2018 HISTORY OF PRESENT ILLNESS: The patient is a 48-year-old. She has history of asthma, CVA. She has IV heroin abuse. She was here with leg pain last time and she signed out. She had an I and D on 11/09/2018 and now returns with with a lot of pain and worsening. Now, she is not able to wear a shoe because of edema and pain; cannot bear weight and she is in bed and she was started on broad-spectrum antibiotics. I am asked to evaluate her. Her wound culture is pending. She has a dressing on the left leg which was just placed by Cain, the wound care nurse. PAST MEDICAL HISTORY: Significant for asthma, CVA, drug abuse, MSSA, multiple abscesses. MEDICATIONS: She was on ibuprofen, for asthma she has a inhaler. She is on Tylenol, Maalox, Duoneb, Catapres, Benadryl, Lovenox, Pepcid, loperamide, and Nicoderm patch. She is on Zosyn and she is on vancomycin; she is getting 1 g every 24 hours at this time. FAMILY HISTORY: Father had OR. SOCIAL HISTORY: Significant for tobacco abuse, heroin, cocaine, cannabis. She is homeless. ALLERGIES: SHE IS NOT ALLERGIC TO ANY MEDICINE. PHYSICAL EXAMINATION: VITAL SIGNS: Her temperature 102.6, pulse of 98, blood pressure 157/58, respirations are 18. HEAD: Atraumatic, normocephalic. NECK: Supple. LUNGS: Clear. No crackles or rales present. HEART: S1, S2, is regular. ABDOMEN: Soft, nontender. No guarding, no rigidity present. EXTREMITIES: Have track villasenor. Left leg has edema. Left foot also has some edema. On the left lateral lower extremity just above the ankle joint, she has a dressing at this time which was just placed. LABORATORY DATA: BUN is 9, creatinine 0.6. They have not taken any blood culture, urine culture is not collected yet. The wound culture result shows no growth so far. She had a lower extremity CT done yesterday and the CT shows subcutaneous edema associated with mild wall thickening, more prominent distally both legs; slightly prominent on left, suggestive of cellulitis. No discrete abscess and clinically it looks like cellulitis. PLAN: We will increase the dose of vancomycin and continue Zosyn and once the culture comes, it can be more specific antibiotics. We will continue the medications as well as increase the vancomycin dose to every 12 hours as she has normal kidney function and Zosyn every 6 hours can be continued as such. I will be away and if ID help is needed please call Dr. Vides who would be covering me till 12/05/2018. Rosa Rhodes MD
--- NOTE | 2018-11-20 00:28 | CP.PCM.PN ---
<Lorene Ramos - Last Filed: 11/20/18 06:41> Subjective - Date & Time of Evaluation Date of Evaluation: 11/20/18 Time of Evaluation: 06:25 - Subjective Subjective: Patient examined at bedside. No acute overnight events. Patient reports her LE pain is greatly improved and the swelling has decreased. Patient reports she has been up walking with PT yesterday, and gets up regularly to use the restroom. She reports pain is most severe on dorsal feet. Pt reports she has had fevers, and continues to feel sweaty and have chills. Discussion had with pt regarding the importance of completing treatment this time to ensure symptoms don't recur. Pt understood and agreed. Denies further complaint. Objective - Vital Signs/Intake and Output Vital Signs (last 24 hours): Temp Pulse Resp BP Pulse Ox 98.0 F 77 20 140/80 99 11/19/18 23:58 11/19/18 23:58 11/19/18 23:58 11/19/18 23:58 11/19/18 23:58 Intake and Output: 11/19/18 11/20/18 18:59 06:59 Intake Total 1230 1200 Balance 1230 1200 - Medications Medications: Current Medications Acetaminophen (Tylenol 325mg Tab) 650 mg PO Q6 PRN PRN Reason: Other Last Admin: 11/19/18 17:39 Dose: 650 mg Al Hydrox/Mg Hydrox/Simethicone (Maalox 30 Ml) 30 ml PO TID PRN PRN Reason: Indigestion / Heartburn Albuterol/Ipratropium (Duoneb 3 Mg/0.5 Mg (3 Ml) Ud) 3 ml INH RQ6 PRN PRN Reason: Shortness of Breath Clonidine HCl (Catapres) 0.1 mg PO Q6H PRN PRN Reason: Symptoms of alcohol withdrawl Dicyclomine HCl (Bentyl) 10 mg PO Q6 PRN PRN Reason: Muscle spasm Enoxaparin Sodium (Lovenox) 40 mg SC DAILY [facility] Last Admin: 11/19/18 10:18 Dose: 40 mg Famotidine (Pepcid) 20 mg PO BID [facility] Last Admin: 11/19/18 17:37 Dose: 20 mg Sodium Chloride (Sodium Chloride 0.9%) 1,000 mls @ 75 mls/hr IV .[id number] [facility] Last Admin: 11/19/18 21:25 Dose: Not Given Piperacillin Sod/Tazobactam Sod (Zosyn 3.375 Gm Iv Premix) 3.375 gm in 50 mls @ 100 mls/hr IVPB Q6H [facility]; Protocol Last Admin: 11/19/18 19:35 Dose: 100 mls/hr Vancomycin HCl 1 gm/ Sodium (Chloride) 250 mls @ 166.7 mls/hr IVPB Q12H [facility]; Protocol Last Admin: 11/19/18 14:23 Dose: 166.7 mls/hr Ibuprofen (Motrin Tab) 600 mg PO TID PRN PRN Reason: Other Loperamide HCl (Imodium) 2 mg PO Q8 PRN PRN Reason: Diarrhea Methadone HCl (Methadone) 20 mg PO Q24H [facility]; Taper Stop: 11/23/18 11:44 Last Admin: 11/19/18 12:21 Dose: 20 mg Nicotine (Nicoderm Cq) 1 patch TD DAILY [facility] Last Admin: 11/19/18 11:00 Dose: 1 patch Ondansetron HCl (Zofran Inj) 4 mg IVP Q6 PRN PRN Reason: Nausea/Vomiting Ondansetron HCl (Zofran Tab) 4 mg PO Q8 PRN PRN Reason: Nausea/Vomiting - Labs Labs: 11/19/18 08:07 11/19/18 08:07 PT 12.7 SECONDS (9.7-12.2) H 11/18/18 20:15 INR 1.2 11/18/18 20:15 APTT 28 SECONDS (21-34) 11/18/18 20:15 - Constitutional Appears: Non-toxic, No Acute Distress, Cachectic - Head Exam Head Exam: ATRAUMATIC, NORMAL INSPECTION, NORMOCEPHALIC - Eye Exam Eye Exam: EOMI, Normal appearance - ENT Exam ENT Exam: Mucous Membranes Moist, Normal Exam - Neck Exam Neck Exam: Normal Inspection - Respiratory Exam Respiratory Exam: NORMAL BREATHING PATTERN - Cardiovascular Exam Cardiovascular Exam: REGULAR RHYTHM, +S1, +S2. absent: Tachycardia - GI/Abdominal Exam GI & Abdominal Exam: Soft, Normal Bowel Sounds. absent: Distended, Tenderness - Extremities Exam Additional comments: LLE: minimal edema to dorsum of foot. Lateral ankle bandaged, clean/dry/intact RLE/LLE: Erythema improved Non tender to palpation - Neurological Exam Neurological Exam: Alert, Awake, Oriented x3 - Psychiatric Exam Psychiatric exam: Normal Affect, Normal Mood - Skin Skin Exam: Dry, Normal Color, Warm Assessment and Plan (1) Bilateral lower leg cellulitis Assessment & Plan: CT LE: IVF, NS @75 Pain medication, Tylenol prn Fevers/pain, Tylenol/Motrin prn IV Abx, vanc changed to 1g q12/zosyn vanc trough(11/20) 10.5 blood cx prelim no growth wound culture prelim no growth wound care ID consult, Dr. Rhodes Surgery consult, Dr. Bo Status: Acute (2) Urinary tract infection Assessment & Plan: UA: WBC 22, RBC 293 f/u urine cx IV Abx, zosyn Status: Acute (3) Anemia Assessment & Plan: baseline anemia continue to monitor Status: Chronic (4) Opiate dependence Assessment & Plan: UDS positive for opiates, cocaine, cannabis Clonidine 0.1mg q6 prn withdrawal symptoms Zofran 4mg prn Imodium 2mg prn methadone 20mg qd Bentyl 10mg q6 Maalox 30ml TID prn Psych consult, Dr. Art Status: Chronic (5) Asthma Assessment & Plan: Duonebs q6 prn Status: Chronic - Assessment and Plan (Free Text) Assessment: ppx VTE: lovenox 40mg qd GI: pepcid 20mg po qd -Lorene Ramos, PGY-1 <Lynda De Paz V - Last Filed: 11/20/18 15:18> Objective - Vital Signs/Intake and Output Vital Signs (last 24 hours): Temp Pulse Resp BP Pulse Ox 98.2 F 74 20 152/86 H 97 11/20/18 07:29 11/20/18 07:29 11/20/18 07:29 11/20/18 07:29 11/20/18 07:29 Intake and Output: 11/20/18 11/20/18 06:59 18:59 Intake Total 2050 Output Total 800 Balance 1250 - Medications Medications: Current Medications Acetaminophen (Tylenol 325mg Tab) 650 mg PO Q6 PRN PRN Reason: Other Last Admin: 11/19/18 17:39 Dose: 650 mg Al Hydrox/Mg Hydrox/Simethicone (Maalox 30 Ml) 30 ml PO TID PRN PRN Reason: Indigestion / Heartburn Albuterol/Ipratropium (Duoneb 3 Mg/0.5 Mg (3 Ml) Ud) 3 ml INH RQ6 PRN PRN Reason: Shortness of Breath Clonidine HCl (Catapres) 0.1 mg PO Q6H PRN PRN Reason: Symptoms of alcohol withdrawl Dicyclomine HCl (Bentyl) 10 mg PO Q6 PRN PRN Reason: Muscle spasm Enoxaparin Sodium (Lovenox) 40 mg SC DAILY [facility] Last Admin: 11/20/18 10:43 Dose: 40 mg Famotidine (Pepcid) 20 mg PO BID [facility] Last Admin: 11/20/18 10:43 Dose: 20 mg Sodium Chloride (Sodium Chloride 0.9%) 1,000 mls @ 75 mls/hr IV .[id number] [facility] Last Admin: 11/20/18 11:06 Dose: 75 mls/hr Piperacillin Sod/Tazobactam Sod (Zosyn 3.375 Gm Iv Premix) 3.375 gm in 50 mls @ 100 mls/hr IVPB Q6H [facility]; Protocol Last Admin: 11/20/18 12:42 Dose: 100 mls/hr Vancomycin HCl 1 gm/ Sodium (Chloride) 250 mls @ 166.7 mls/hr IVPB Q12H [facility]; Protocol Last Admin: 11/20/18 12:43 Dose: 166.7 mls/hr Ibuprofen (Motrin Tab) 600 mg PO TID PRN PRN Reason: Other Loperamide HCl (Imodium) 2 mg PO Q8 PRN PRN Reason: Diarrhea Methadone HCl (Methadone) 15 mg PO Q24H [facility]; Taper Stop: 11/23/18 11:44 Last Admin: 11/20/18 10:45 Dose: 15 mg Nicotine (Nicoderm Cq) 1 patch TD DAILY [facility] Last Admin: 11/20/18 10:43 Dose: 1 patch Ondansetron HCl (Zofran Inj) 4 mg IVP Q6 PRN PRN Reason: Nausea/Vomiting Ondansetron HCl (Zofran Tab) 4 mg PO Q8 PRN PRN Reason: Nausea/Vomiting - Labs Labs: 11/20/18 07:10 11/20/18 04:06 PT 12.7 SECONDS (9.7-12.2) H 11/18/18 20:15 INR 1.2 11/18/18 20:15 APTT 28 SECONDS (21-34) 11/18/18 20:15 Attending/Attestation - Attestation I have personally seen and examined this patient.: Yes I have fully participated in the care of the patient.: Yes I have reviewed all pertinent clinical information, including history, physical exam and plan: Yes Notes (Text): Patient seen, examined, and case discussed with day-time resident. Patient seen at bedside. Patient noted concerns for withdrawal from opioids. Patient is on a methadone per the psychiatrist. Patient's noted swelling in the legs has reduced significantly and associated lymphagnitis/cellulitis has reduced as well. Dressing over the left lateral aspe ct of lower ankle clean dry. Reviewed blood work. Patient without fever since yesterday morning. Urine culture has not resulted. Unclear etiology to anemia; patient has left AMA from prior hospitalizations noted as well. Assessment/Plan 1.Bilateral lower extremity cellulitis (L>R) Assessment/Plan * Tmax: 102.6F (11/19/18) 8:28AM * Zosyn 3.375g IV Q6h (active since 11/18/18) * Vancomycin 1 gram IVPB Q12H (active since 11/19/18) * Vancomycin trough 10.9 (11/20/18) * CT Lower extremity (11/19/18): subcutaneous edema associated with mild wall thickening more prominent distally in both legs slightly more prominent on the left suggestive of cellulitis. No evidence of discrete abscess formation. * Procalcitonin: 0.42 (improved from 0.67) * Wound culture (11/18/18): no growth * Blood culture (11/18/18): no growth after 24 hours X2 * Tylenol 650mg PO Q6H PRN severe pain or fever 100.4F * NS 75cc/hr 2. Urinary tract infection Assessment/Plan * UA: 2+ protein, 3+ blood, 22 WBC, few darren, trace LE, negative nitrate * Urine Cx (11/19/18): pending * Zosyn 3.375 mg IV Q6H- started 11/18 3. Anemia, chronic Assessment/Plan * Abdominal US (06/20/18): hepatomegaly, splenomegaly, two punctate right hepatic lobe calculi. trace fluid adjacent to the liver. * unclear etiology * will order for reticulocyte count, iron studies, ferritin, occult blood 4. Hepatitis C, Reactive Assessment/Plan * Patient has not sought treatment; is actively using drugs with no intention of stopping though advised * Abdominal US (06/20/18): hepatomegaly, splenomegaly, two punctate right hepatic lobe calculi. trace fluid adjacent to the liver. 6. Polysubstance use disorder, chronic- IV heroin, cocaine, marijuana, tobacco Assessment/Plan * UDS positive for opiates, cocaine, cannabinoids * Strongly advised cessation * Maalox 30 mL PO TID PRN * Bentyl 10 mg PO Q6H PRN * Imodium 2 mg PO Q8H PRN * Zofran 4 mg IV or PO Q6H PRN * Clonidine 0.1 mg PO Q6H PRN * Methadone taper * Nicoderm daily * Psychiatry consulted (Rubens)- added methadone 7. History of Asthma, chronic Assessment/Plan * Duobneb Q6H PRN 8. Patient has noted multiple hospitalizations wherein she lives against medical advice 9. Ppx: * VTE: Lovenox 40 mg SC daily * GI: Pepcid 20 mg PO BID
[2018-11-20] MEDS: Piperacill/Tazo 3.375gm in Dex 3.375 GM/50 ML BAG IVPB SCH ×4 (00:36→18:17)
[2018-11-20 04:22] LABS: ALB/GLOB RATIO 0.7 (1.0-2.1); ALBUMIN 3.1 g/dL (3.5-5.0); ALT/SGPT 10 U/L (9-52); AST/SGOT 17 U/L (14-36); BLOOD UREA NITROGEN 12 mg/dL (7-17); CALCIUM 8.9 mg/dl (8.6-10.4); GFR NON-AFRICAN AMERICAN > 60
[2018-11-20 07:26] LABS: BASO % 0.5 % (0.0-2.0); EOS # 0.1 K/uL (0.0-0.7); EOS % 1.6 % (0.0-4.0); HEMOGLOBIN 7.7 g/dL (11.0-16.0); LYMPH # 0.9 K/uL (1.0-4.3); LYMPH % 27.7 % (20.0-40.0); MEAN CELL VOLUME 76.8 fL (81.0-99.0); MEAN CORPUSCULAR HEMOGLOBIN 25.5 pg (27.0-31.0); MEAN CORPUSCULAR HGB CONC 33.2 g/dL (33.0-37.0); MEAN PLATELET VOLUME 6.7 fL (7.2-11.7); MONO # 0.3 K/uL (0.0-0.8); MONO % 10.1 % (0.0-10.0); NEUT % 60.1 % (50.0-75.0); RBC 3.02 Mil/uL (3.80-5.20); RED CELL DISTRIBUTION WIDTH 19.6 % (11.5-14.5); WHITE BLOOD COUNT 3.4 K/uL (4.8-10.8)
[2018-11-20] MEDS ORDERED: Pneumococcal 23-Valent Vaccine IM ONE (10:00)
[2018-11-20] MEDS: Enoxaparin 40 mg Syringe SC SCH (10:43)
[2018-11-20] MEDS: Sodium Chloride 0.9% 1,000 ML IV SCH (11:06)
[2018-11-21] MEDS: Piperacill/Tazo 3.375gm in Dex 3.375 GM/50 ML BAG IVPB SCH ×4 (00:30→18:09)
[2018-11-21] MEDS: Sodium Chloride 0.9% 1,000 ML IV SCH ×2 (05:10→05:12)
[2018-11-21 08:51] LABS: BASO % 0.8 % (0.0-2.0); EOS # 0.1 K/uL (0.0-0.7); EOS % 2.1 % (0.0-4.0); HEMOGLOBIN 8.4 g/dL (11.0-16.0); LYMPH # 1.2 K/uL (1.0-4.3); LYMPH % 30.9 % (20.0-40.0); MEAN CELL VOLUME 77.3 fL (81.0-99.0); MEAN CORPUSCULAR HEMOGLOBIN 25.6 pg (27.0-31.0); MEAN CORPUSCULAR HGB CONC 33.2 g/dL (33.0-37.0); MEAN PLATELET VOLUME 6.7 fL (7.2-11.7); MONO # 0.3 K/uL (0.0-0.8); MONO % 7.9 % (0.0-10.0); NEUT # 2.3 K/uL (1.8-7.0); NEUT % 58.3 % (50.0-75.0); NRBC % 0.1 % (0.0-2.0); RBC 3.29 Mil/uL (3.80-5.20); RED CELL DISTRIBUTION WIDTH 19.6 % (11.5-14.5); WHITE BLOOD COUNT 3.9 K/uL (4.8-10.8)
[2018-11-21 09:11] LABS: ALBUMIN 3.6 g/dL (3.5-5.0); BLOOD UREA NITROGEN 10 mg/dL (7-17); CALCIUM 9.4 mg/dl (8.6-10.4); GFR NON-AFRICAN AMERICAN > 60
[2018-11-21 09:12] LABS: ALB/GLOB RATIO 0.8 (1.0-2.1); ALT/SGPT < 6 U/L (9-52); AST/SGOT 29 U/L (14-36)
[2018-11-21 09:33] LABS: HEPATITIS B SURFACE AG Negative (NEGATIVE)
[2018-11-21 09:39] LABS: HEPATITIS A IGM NEGATIVE (NEGATIVE); HEPATITIS B CORE AB NEGATIVE (NEGATIVE)
[2018-11-21] MEDS: Enoxaparin 40 mg Syringe SC SCH (09:43)
--- NOTE | 2018-11-21 11:07 | CP.PCM.PN ---
<Lorene Ramos - Last Filed: 11/21/18 11:19> Subjective - Date & Time of Evaluation Date of Evaluation: 11/21/18 Time of Evaluation: 08:00 - Subjective Subjective: Patient examined at bedside. No acute overnight events. Patient denies fever like symptoms including sweats/chills. Pt reports pain is improving daily, and she has been able to ambulate with greater ease. Discussion held with pt regarding the importance of drug abstinence as well as completing treatment. Denies further complaints at this time Objective - Vital Signs/Intake and Output Vital Signs (last 24 hours): Temp Pulse Resp BP Pulse Ox 97.9 F 71 20 153/86 H 99 11/21/18 07:51 11/21/18 07:51 11/21/18 07:51 11/21/18 07:51 11/21/18 07:51 Intake and Output: 11/21/18 11/21/18 06:59 18:59 Intake Total 1100 780 Balance 1100 780 - Medications Medications: Current Medications Acetaminophen (Tylenol 325mg Tab) 650 mg PO Q6 PRN PRN Reason: Other Last Admin: 11/19/18 17:39 Dose: 650 mg Al Hydrox/Mg Hydrox/Simethicone (Maalox 30 Ml) 30 ml PO TID PRN PRN Reason: Indigestion / Heartburn Albuterol/Ipratropium (Duoneb 3 Mg/0.5 Mg (3 Ml) Ud) 3 ml INH RQ6 PRN PRN Reason: Shortness of Breath Clonidine HCl (Catapres) 0.1 mg PO Q6H PRN PRN Reason: Symptoms of alcohol withdrawl Dicyclomine HCl (Bentyl) 10 mg PO Q6 PRN PRN Reason: Muscle spasm Enoxaparin Sodium (Lovenox) 40 mg SC DAILY [facility] Last Admin: 11/21/18 09:43 Dose: 40 mg Famotidine (Pepcid) 20 mg PO BID [facility] Last Admin: 11/21/18 09:43 Dose: 20 mg Sodium Chloride (Sodium Chloride 0.9%) 1,000 mls @ 75 mls/hr IV .[id number] [facility] Last Admin: 11/21/18 05:12 Dose: Not Given Piperacillin Sod/Tazobactam Sod (Zosyn 3.375 Gm Iv Premix) 3.375 gm in 50 mls @ 100 mls/hr IVPB Q6H [facility]; Protocol Last Admin: 11/21/18 06:31 Dose: 100 mls/hr Vancomycin HCl 1 gm/ Sodium (Chloride) 250 mls @ 166.7 mls/hr IVPB Q12H [facility]; Protocol Last Admin: 11/21/18 01:10 Dose: 166.7 mls/hr Ibuprofen (Motrin Tab) 600 mg PO TID PRN PRN Reason: Other Loperamide HCl (Imodium) 2 mg PO Q8 PRN PRN Reason: Diarrhea Methadone HCl (Methadone) 15 mg PO Q24H [facility]; Taper Stop: 11/23/18 11:44 Last Admin: 11/20/18 10:45 Dose: 15 mg Nicotine (Nicoderm Cq) 1 patch TD DAILY [facility] Last Admin: 11/21/18 09:44 Dose: 1 patch Ondansetron HCl (Zofran Inj) 4 mg IVP Q6 PRN PRN Reason: Nausea/Vomiting Ondansetron HCl (Zofran Tab) 4 mg PO Q8 PRN PRN Reason: Nausea/Vomiting - Labs Labs: 11/21/18 08:25 11/21/18 08:25 PT 12.7 SECONDS (9.7-12.2) H 11/18/18 20:15 INR 1.2 11/18/18 20:15 APTT 28 SECONDS (21-34) 11/18/18 20:15 - Additional Findings Additional findings: - Constitutional Appears: Non-toxic, No Acute Distress, Cachectic - Head Exam Head Exam: ATRAUMATIC, NORMAL INSPECTION, NORMOCEPHALIC - Eye Exam Eye Exam: EOMI, Normal appearance - ENT Exam ENT Exam: Mucous Membranes Moist, Normal Exam - Neck Exam Neck Exam: Normal Inspection - Respiratory Exam Respiratory Exam: NORMAL BREATHING PATTERN - Cardiovascular Exam Cardiovascular Exam: REGULAR RHYTHM, +S1, +S2. absent: Tachycardia - GI/Abdominal Exam GI & Abdominal Exam: Soft, Normal Bowel Sounds. absent: Distended, Tenderness - Extremities Exam Additional comments: LLE: minimal edema to dorsum of foot. Lateral ankle bandaged, clean/dry/intact RLE/LLE: Erythema improved Non tender to palpation - Neurological Exam Neurological Exam: Alert, Awake, Oriented x3 - Psychiatric Exam Psychiatric exam: Normal Affect, Normal Mood - Skin Skin Exam: Dry, Normal Color, Warm Assessment and Plan (1) Bilateral lower leg cellulitis Assessment & Plan: * Tmax: 102.6F (11/19/18) 8:28AM * Zosyn 3.375g IV Q6h (active since 11/18/18) * Vancomycin 1 gram IVPB Q12H (active since 11/19/18) * Vancomycin trough 10.9 (11/20/18) * f/u 1pm vanc trough today * CT Lower extremity (11/19/18): subcutaneous edema associated with mild wall thickening more prominent distally in both legs slightly more prominent on the left suggestive of cellulitis. No evidence of discrete abscess formation. * Procalcitonin: 0.42 (improved from 0.67) * Wound culture, left leg (11/18/18): gram negative rods, awaiting sensitivity * Blood culture (11/18/18): no growth after 24 hours X2 * Tylenol 650mg PO Q6H PRN severe pain or fever 100.4F * NS 75cc/hr, d/c-ed as pt's BP has been elevated Status: Acute (2) Urinary tract infection Assessment & Plan: * UA: 2+ protein, 3+ blood, 22 WBC, few darren, trace LE, negative nitrate * Urine Cx (11/19/18): pending * Zosyn 3.375 mg IV Q6H- started 11/18 Status: Acute (3) Anemia Assessment & Plan: * Abdominal US (06/20/18): hepatomegaly, splenomegaly, two punctate right hepatic lobe calculi. trace fluid adjacent to the liver. * unclear etiology * will order for reticulocyte count, iron studies, ferritin, occult blood * Hepatitis A/B/HIV negative * Reactive Hep C; Patient has not sought treatment; is actively using drugs with no intention of stopping though advised Status: Chronic (4) Opiate dependence Assessment & Plan: * UDS positive for opiates, cocaine, cannabinoids * Strongly advised cessation * Maalox 30 mL PO TID PRN * Bentyl 10 mg PO Q6H PRN * Imodium 2 mg PO Q8H PRN * Zofran 4 mg IV or PO Q6H PRN * Clonidine 0.1 mg PO Q6H PRN * Methadone taper * Nicoderm daily * Psychiatry consulted (Rubens)- added methadone Status: Chronic (5) Asthma Assessment & Plan: * Duobneb Q6H PRN Status: Chronic (6) Prophylactic measure Assessment & Plan: * VTE: Lovenox 40 mg SC daily * GI: Pepcid 20 mg PO BID Status: Acute - Assessment and Plan (Free Text) Assessment: Lorene Ramos, PGY-1 <Lynda De Paz V - Last Filed: 11/21/18 12:00> Objective - Vital Signs/Intake and Output Vital Signs (last 24 hours): Temp Pulse Resp BP Pulse Ox 97.9 F 71 20 153/86 H 99 11/21/18 07:51 11/21/18 07:51 11/21/18 07:51 11/21/18 07:51 11/21/18 07:51 Intake and Output: 11/21/18 11/21/18 06:59 18:59 Intake Total 1100 780 Balance 1100 780 - Medications Medications: Current Medications Acetaminophen (Tylenol 325mg Tab) 650 mg PO Q6 PRN PRN Reason: Other Last Admin: 11/19/18 17:39 Dose: 650 mg Al Hydrox/Mg Hydrox/Simethicone (Maalox 30 Ml) 30 ml PO TID PRN PRN Reason: Indigestion / Heartburn Albuterol/Ipratropium (Duoneb 3 Mg/0.5 Mg (3 Ml) Ud) 3 ml INH RQ6 PRN PRN Reason: Shortness of Breath Clonidine HCl (Catapres) 0.1 mg PO Q6H PRN PRN Reason: Symptoms of alcohol withdrawl Dicyclomine HCl (Bentyl) 10 mg PO Q6 PRN PRN Reason: Muscle spasm Enoxaparin Sodium (Lovenox) 40 mg SC DAILY [facility] Last Admin: 11/21/18 09:43 Dose: 40 mg Famotidine (Pepcid) 20 mg PO BID [facility] Last Admin: 11/21/18 09:43 Dose: 20 mg Piperacillin Sod/Tazobactam Sod (Zosyn 3.375 Gm Iv Premix) 3.375 gm in 50 mls @ 100 mls/hr IVPB Q6H [facility]; Protocol Last Admin: 11/21/18 06:31 Dose: 100 mls/hr Vancomycin HCl 1 gm/ Sodium (Chloride) 250 mls @ 166.7 mls/hr IVPB Q12H [facility]; Protocol Last Admin: 11/21/18 01:10 Dose: 166.7 mls/hr Ibuprofen (Motrin Tab) 600 mg PO TID PRN PRN Reason: Other Loperamide HCl (Imodium) 2 mg PO Q8 PRN PRN Reason: Diarrhea Methadone HCl (Methadone) 10 mg PO Q24H [facility]; Taper Stop: 11/23/18 11:44 Last Admin: 11/20/18 10:45 Dose: 15 mg Nicotine (Nicoderm Cq) 1 patch TD DAILY [facility] Last Admin: 11/21/18 09:44 Dose: 1 patch Ondansetron HCl (Zofran Inj) 4 mg IVP Q6 PRN PRN Reason: Nausea/Vomiting Ondansetron HCl (Zofran Tab) 4 mg PO Q8 PRN PRN Reason: Nausea/Vomiting - Labs Labs: 11/21/18 08:25 11/21/18 08:25 PT 12.7 SECONDS (9.7-12.2) H 11/18/18 20:15 INR 1.2 11/18/18 20:15 APTT 28 SECONDS (21-34) 11/18/18 20:15 Attending/Attestation - Attestation I have personally seen and examined this patient.: Yes I have fully participated in the care of the patient.: Yes I have reviewed all pertinent clinical information, including history, physical exam and plan: Yes Notes (Text): Patient seen, examined, and case discussed with day-time resident. Patient seen at bedside. Patient noted concerns for withdrawal from opioids is better compared to yesterday when I last saw her. Patient is on a methadone per the psychiatrist to complete on 11/23/18. Patient's noted swelling in the legs has reduced significantly and associated lymphagnitis/cellulitis has reduced as well. there is not more swelling not cellulitis.. Dressing over the left lateral aspect of lower ankle clean dry. hemoglobin stable in the 8s. Unclear etiology to anemia; patient has left AMA from prior hospitalizations noted as well while trying to workup. pending heme-onc evaluation Assessment/Plan 1.Bilateral lower extremity cellulitis (L>R) Assessment/Plan * Tmax: 102.6F (11/19/18) 8:28AM * Zosyn 3.375g IV Q6h (active since 11/18/18) * Vancomycin 1 gram IVPB Q12H (active since 11/19/18) * Vancomycin trough 10.9 (11/20/18) * CT Lower extremity (11/19/18): subcutaneous edema associated with mild wall thickening more prominent distally in both legs slightly more prominent on the left suggestive of cellulitis. No evidence of discrete abscess formation. * Procalcitonin: 0.42 (improved from 0.67) * Wound culture (11/18/18): no growth * Blood culture (11/18/18): no growth after 48 hours X2 * Tylenol 650mg PO Q6H PRN severe pain or fever 100.4F * NS 75cc/hr * Leg leg culture: gram negative lopez (11/18/18) 2. Urinary tract infection Assessment/Plan * UA: 2+ protein, 3+ blood, 22 WBC, few darren, trace LE, negative nitrate * Urine Cx (11/19/18): pending * Zosyn 3.375 mg IV Q6H- started 11/18 3. Anemia, chronic Assessment/Plan * Abdominal US (06/20/18): hepatomegaly, splenomegaly, two punctate right hepat ic lobe calculi. trace fluid adjacent to the liver. * unclear etiology * will order for reticulocyte count, iron studies, ferritin, occult blood 4. Hepatitis C, Reactive Assessment/Plan * Patient has not sought treatment; is actively using drugs with no intention of stopping though advised * Abdominal US (06/20/18): hepatomegaly, splenomegaly, two punctate right hepatic lobe calculi. trace fluid adjacent to the liver. 6. Polysubstance use disorder, chronic- IV heroin, cocaine, marijuana, tobacco Assessment/Plan * UDS positive for opiates, cocaine, cannabinoids * Strongly advised cessation * Maalox 30 mL PO TID PRN * Bentyl 10 mg PO Q6H PRN * Imodium 2 mg PO Q8H PRN * Zofran 4 mg IV or PO Q6H PRN * Clonidine 0.1 mg PO Q6H PRN * Methadone taper * Nicoderm daily * Psychiatry consulted (Rubens)- added methadone 7. History of Asthma, chronic Assessment/Plan * Duobneb Q6H PRN 8. Patient has noted multiple hospitalizations wherein she lives against medical advice 9. Ppx: * VTE: Lovenox 40 mg SC daily * GI: Pepcid 20 mg PO BID Disposition: pending leg culture and undergoing methadone detox from heroin withdrawal. Will benefit from continue Iv abx for cellulitis.
[2018-11-21 12:21] LABS: HEPATITIS C ANTIBODY REACTIVE (NEGATIVE)
--- NOTE | 2018-11-21 16:23 | CP.PCM.CON ---
History of Present Illness - History of Present Illness History of Present Illness: 48F w/ hx of IVDU presents to ED today with B/L lower extremity pain and swelling. Pt was admitted to the hospital on 11/06 with LLE abscess which underwent bedside I&D. Patient left the hospital AMA the following day. Readmitted with fever and IV antibiotics started empirically PMH: Asthma, CVA, IVDA, MSSA bacteremia, psoas abscess 06/2018, Left lower leg abscess 11/2018 PSH: chest wall abscess debridement, appendectomy 06/2018, I&d of LLE abscess 11/2018 SHx: Smoking history, Heroin daily use, marijuana daily use, Cocaine use, Patient is homeless. Allergies: NKDA Review of Systems - Constitutional Constitutional: As Per HPI, Fever - EENT Eyes: absent: As Per HPI, Blind Spots, Blurred Vision, Change in Vision, Decr eased Night Vision, Diplopia, Discharge, Dry Eye, Exophthalmos, Floaters, Irritation, Itchy Eyes, Loss of Peripheral Vision, Pain, Photophobia, Requires Corrective Lenses, Sees Flashes, Spots in Vision, Tunnel Vision, Other Visual Disturbances, Loss of Vision, Other Ears: absent: As Per HPI, Decreased Hearing, Ear Discharge, Ear Pain, Tinnitus, Abnormal Hearing, Disequilibrium, Dizziness, Other Nose/Mouth/Throat: absent: As Per HPI, Epistaxis, Nasal Congestion, Nasal Discharge, Nasal Obstruction, Nasal Trauma, Nose Pain, Post Nasal Drip, Sinus Pain, Sinus Pressure, Bleeding Gums, Change in Voice, Dental Pain, Dry Mouth, Dysphagia, Halitosis, Hoarsness, Lip Swelling, Mouth Lesions, Mouth Pain, Odynophagia, Sore Throat, Throat Swelling, Tongue Swelling, Facial Pain, Neck Pain, Neck Mass, Other - Breasts Breasts: absent: As Per HPI, Change in Shape, Mass, Pain, Nipple Discharge, Nipple Inversion, Skin Changes, Swelling, Other - Cardiovascular Cardiovascular: absent: As Per HPI, Acrocyanosis, Chest Pain, Chest Pain at Rest, Chest Pain with Activity, Claudication, Diaphoresis, Dyspnea, Dyspnea on Exertion, Edema, Irregular Heart Rhythm, Pain Radiating to Arm/Neck/Jaw, Leg Edema, Leg Ulcers, Lightheadedness, Orthopnea, Palpitations, Paroxysmal Nocturnal Dyspnea, Pedal Edema, Radiating Pain, Rapid Heart Rate, Slow Heart Rate, Syncope, Other - Respiratory Respiratory: absent: As Per HPI, Cough, Dyspnea, Hemoptysis, Dyspnea on Exertion, Wheezing, Snoring, Stridor, Pain on Inspiration, Chest Congestion, Excessive Mucous Production, Change in Mucous Color, Pain with Coughing, Other - Gastrointestinal Gastrointestinal: absent: As Per HPI, Abdominal Pain, Belching, Bloating, Change in Bowel Habits, Change in Stool Character, Coffee Ground Emesis, Constipation, Cramping, Diarrhea, Dyspepsia, Dysphagia, Early Satiety, Excessive Flatus, Fecal Incontinence, Heartburn, Hematemesis, Hematochezia, Loose Stools, Melena, Nausea, Odynophagia, Temesmus, Vomiting, Other - Genitourinary Genitourinary: absent: As Per HPI, Change in Urinary Stream, Difficulty Urinating, Dysuria, Flank Pain, Hematuria, Pyuria, Nocturia, Urinary Incontinence, Urinary Frequency, Urinary Hesitance, Urinary Urgency, Voiding Freq/Small Amts, Freq UTI, Hx Renal/Bladder Calculi, Hx /Renal Surgery, Bladder Distension, Other - Reproductive: Female Reproductive:Female: absent: As Per HPI, Amenorrhea, Amenorrhea/ Control, Currently Menstual, Cycle <21 Days, Cycle >35 Days, Cycle Variable, Menses 1-7 Days, Menses >/= 8 Days, Menses Variable, Cycle > 4 Weeks Between, No Menses for 6 Months, Heavy Menses, Light Menses, Normal Menses, Spotting Between Cycles, S/P Hysterectomy, Menopausal, Post Menopausal, Premenarche, Abnormal Vaginal Bleeding, Dysmenorrhea, Dyspareunia, Genital Lesions, Genital Pruritis, Pelvic Pain, Prolapse Symptoms, Sexual Dysfunction, Vaginal Discharge, Vaginal Dryness, Vaginal Odor, Vaginal Pruritis, Other - Menstruation Menstruation: absent: As Per HPI, Amenorrhea, Amenorrhea/ Control, Currently Menstual, Cycle <21 Days, Cycle >35 Days, Cycle Variable, Menses 1-7 Days, Menses >/= 8 Days, Menses Variable, Cycle > 4 Weeks Between, No Menses for 6 Months, Heavy Menses, Light Menses, Normal Menses, Spotting Between Cycles, S/P Hysterectomy, Menopausal, Post Menopausal, Premenarche, Abnormal Vaginal Bleeding, Dysmenorrhea, Other - Musculoskeletal Musculoskeletal: As Per HPI - Integumentary Integumentary: As Per HPI, Skin Pain, Wounds - Neurological Neurological: absent: As Per HPI, Abnormal Gait, Abnormal Hearing, Abnormal M ovements, Abnormal Speech, Behavioral Changes, Burning Sensations, Confusion, Convulsions, Disequilibrium, Dizziness, Numbness, Focal Weakness, Frequent Falls, Headaches, Lack of Coordination, Loss of Vision, Memory Loss, Paresthesias, Radicular Pain, Restless Legs, Sensory Deficit, Syncope, Tingling, Tremor, Vertigo, Weakness, Other Visual Disturbances, Other - Psychiatric Psychiatric: absent: As Per HPI, Abnormal Sleep Pattern, Anhedonia, Anxiety, Auditory Hallucinations, Behavioral Changes, Change in Appetite, Change in Libido, Confusion, Depression, Difficulty Concentrating, Hallucinations, Homicidal Ideation, Hopelessness, Irritability, Memory Loss, Mood Swings, Panic Attacks, Paranoia, Suicidal Ideation, Visual Hallucinations, Tactile Hallucinat ions, Other - Endocrine Endocrine: absent: As Per HPI, Change in Body Appearance, Change in Libido, Cold Intolorance, Deepening of Voice, Excessive Sweating, Fatigue, Flushing, Heat Intolorance, Increase in Ring/Shoe/Hat Size, Palpitations, Polydipsia, Polyphag ia, Polyuria, Other - Hematologic/Lymphatic Hematologic: absent: As Per HPI, Easy Bleeding, Easy Bruising, Lymphadenopathy, Other Past Patient History - Infectious Disease Hx of Infectious Diseases: None - Past Medical History & Family History Past Medical History?: Yes - Past Social History Smoking Status: Current Some Days Smoker - CARDIAC Hx Hypertension: Yes - PULMONARY Hx Chronic Obstructive Pulmonary Disease (COPD): Yes (ASTHMA) - NEUROLOGICAL Hx Seizures: No - HEENT Hx HEENT Problems: No - RENAL Hx Chronic Kidney Disease: No - ENDOCRINE/METABOLIC Hx Endocrine Disorders: No - HEMATOLOGICAL/ONCOLOGICAL Hx Human Immunodeficiency Virus (HIV): No - INTEGUMENTARY Hx Dermatological Problems: No - MUSCULOSKELETAL/RHEUMATOLOGICAL Hx Falls: Yes - GASTROINTESTINAL Hx Gastrointestinal Disorders: No - GENITOURINARY/GYNECOLOGICAL Hx Sexually Transmitted Disorders: No - PSYCHIATRIC Hx Substance Use: Yes - SURGICAL HISTORY Hx Mastectomy: No - ANESTHESIA Hx Anesthesia: Yes Hx Anesthesia Reactions: No Hx Malignant Hyperthermia: No Meds Allergies/Adverse Reactions: Allergies Allergy/AdvReac Type Severity Reaction Status Date / Time No Known Allergies Allergy Verified 11/18/18 15:37 - Medications Medications: Current Medications Acetaminophen (Tylenol 325mg Tab) 650 mg PO Q6 PRN PRN Reason: Other Last Admin: 11/19/18 17:39 Dose: 650 mg Al Hydrox/Mg Hydrox/Simethicone (Maalox 30 Ml) 30 ml PO TID PRN PRN Reason: Indigestion / Heartburn Albuterol/Ipratropium (Duoneb 3 Mg/0.5 Mg (3 Ml) Ud) 3 ml INH RQ6 PRN PRN Reason: Shortness of Breath Clonidine HCl (Catapres) 0.1 mg PO Q6H PRN PRN Reason: Symptoms of alcohol withdrawl Dicyclomine HCl (Bentyl) 10 mg PO Q6 PRN PRN Reason: Muscle spasm Enoxaparin Sodium (Lovenox) 40 mg SC DAILY [facility] Last Admin: 11/21/18 09:43 Dose: 40 mg Famotidine (Pepcid) 20 mg PO BID [facility] Last Admin: 11/21/18 09:43 Dose: 20 mg Piperacillin Sod/Tazobactam Sod (Zosyn 3.375 Gm Iv Premix) 3.375 gm in 50 mls @ 100 mls/hr IVPB Q6H [facility]; Protocol Last Admin: 11/21/18 13:19 Dose: 100 mls/hr Vancomycin HCl 1 gm/ Sodium (Chloride) 250 mls @ 166.7 mls/hr IVPB Q12H [facility]; Protocol Last Admin: 11/21/18 15:03 Dose: Not Given Ibuprofen (Motrin Tab) 600 mg PO TID PRN PRN Reason: Other Loperamide HCl (Imodium) 2 mg PO Q8 PRN PRN Reason: Diarrhea Methadone HCl (Methadone) 10 mg PO Q24H [facility]; Taper Stop: 11/23/18 11:44 Last Admin: 11/21/18 11:55 Dose: 10 mg Nicotine (Nicoderm Cq) 1 patch TD DAILY [facility] Last Admin: 11/21/18 09:44 Dose: 1 patch Ondansetron HCl (Zofran Inj) 4 mg IVP Q6 PRN PRN Reason: Nausea/Vomiting Ondansetron HCl (Zofran Tab) 4 mg PO Q8 PRN PRN Reason: Nausea/Vomiting Physical Exam - Constitutional Appears: Non-toxic, No Acute Distress, Chronically Ill - Head Exam Head Exam: ATRAUMATIC, NORMAL INSPECTION, NORMOCEPHALIC - Eye Exam Eye Exam: absent: Scleral icterus Pupil Exam: NORMAL ACCOMODATION - ENT Exam ENT Exam: Mucous Membranes Dry, Normal External Ear Exam, Normal Oropharynx - Respiratory Exam Respiratory Exam: Decreased Breath Sounds, Clear to Auscultation Bilateral - Cardiovascular Exam Cardiovascular Exam: REGULAR RHYTHM, +S1, +S2 - GI/Abdominal Exam GI & Abdominal Exam: Diminished Bowel Sounds, Soft. absent: Tenderness - Rectal Exam Rectal Exam: Deferred - Exam Exam: NORMAL INSPECTION - Extremities Exam Extremities exam: Positive for: pedal edema, tenderness, pedal pulses present. Negative for: calf tenderness - Back Exam Back exam: absent: CVA tenderness (L), CVA tenderness (R), paraspinal tenderness - Neurological Exam Neurological exam: Alert, CN II-XII Intact, Oriented x3, Reflexes Normal - Psychiatric Exam Psychiatric exam: Depressed - Skin Skin Exam: Dry Results - Vital Signs Recent Vital Signs: Last Vital Signs Temp 97.9 F 11/21/18 15:00 Pulse 73 11/21/18 15:00 Resp 20 11/21/18 15:00 BP 144/87 11/21/18 15:00 Pulse Ox 98 11/21/18 15:00 - Labs Result Diagrams: 11/21/18 08:25 11/21/18 08:25 Labs: Laboratory Results - last 24 hr 11/21/18 11/21/18 11/21/18 08:25 08:25 08:25 WBC 3.9 L RBC 3.29 L Hgb 8.4 L Hct 25.4 L MCV 77.3 L MCH 25.6 L MCHC 33.2 RDW 19.6 H Plt Count 303 MPV 6.7 L Neut % (Auto) 58.3 Lymph % (Auto) 30.9 Grimes % (Auto) 7.9 Eos % (Auto) 2.1 Baso % (Auto) 0.8 Neut # (Auto) 2.3 Lymph # (Auto) 1.2 Grimes # (Auto) 0.3 Eos # (Auto) 0.1 Baso # (Auto) 0.0 Sodium Potassium Chloride Carbon Dioxide Anion Gap BUN Creatinine Est GFR ( Amer) Est GFR (Non-Af Amer) Random Glucose Calcium Phosphorus Magnesium Total Bilirubin AST ALT Alkaline Phosphatase Total Protein Albumin Globulin Albumin/Globulin Ratio Vancomycin Trough Hepatitis A IgM Ab Negative Hep Bs Antigen Negative Hep B Core IgM Ab Negative Hepatitis C Antibody Reactive HIV 1&2 Antibody Screen Negative 11/21/18 11/21/18 08:25 14:07 WBC RBC Hgb Hct MCV MCH MCHC RDW Plt Count MPV Neut % (Auto) Lymph % (Auto) Grimes % (Auto) Eos % (Auto) Baso % (Auto) Neut # (Auto) Lymph # (Auto) Grimes # (Auto) Eos # (Auto) Baso # (Auto) Sodium 138 Potassium 3.9 Chloride 104 Carbon Dioxide 27 Anion Gap 10 BUN 10 Creatinine 0.7 Est GFR ( Amer) > 60 Est GFR (Non-Af Amer) > 60 Random Glucose 140 H D Calcium 9.4 Phosphorus 3.8 Magnesium 1.8 Total Bilirubin 0.4 AST 29 ALT < 6 L D Alkaline Phosphatase 91 Total Protein 8.0 Albumin 3.6 Globulin 4.4 H Albumin/Globulin Ratio 0.8 L Vancomycin Trough 16.2 H Hepatitis A IgM Ab Hep Bs Antigen Hep B Core IgM Ab Hepatitis C Antibody HIV 1&2 Antibody Screen Assessment & Plan (1) Bilateral lower leg cellulitis Status: Acute (2) Cellulitis of left lower leg Status: Acute (3) Heroin dependence Status: Acute (4) Polysubstance (including opioids) dependence with physiol dependence Status: Acute - Assessment and Plan (Free Text) Assessment: improving s/p I and D cont IV then PO antibiotics as well as woundcare consider tetanus toxoid, surgical e=eboni and wound care follow up
[2018-11-22] MEDS: Piperacill/Tazo 3.375gm in Dex 3.375 GM/50 ML BAG IVPB SCH ×3 (00:29→12:29)
[2018-11-22 06:56] LABS: BASO % 0.5 % (0.0-2.0); EOS # 0.1 K/uL (0.0-0.7); EOS % 1.8 % (0.0-4.0); LYMPH # 1.3 K/uL (1.0-4.3); LYMPH % 34.8 % (20.0-40.0); MEAN CORPUSCULAR HEMOGLOBIN 25.1 pg (27.0-31.0); MEAN CORPUSCULAR HGB CONC 32.6 g/dL (33.0-37.0); MEAN PLATELET VOLUME 6.3 fL (7.2-11.7); MONO # 0.4 K/uL (0.0-0.8); NEUT % 52.9 % (50.0-75.0); NRBC % 0.1 % (0.0-2.0); RBC 3.57 Mil/uL (3.80-5.20); RED CELL DISTRIBUTION WIDTH 19.7 % (11.5-14.5); WHITE BLOOD COUNT 3.7 K/uL (4.8-10.8)
--- NOTE | 2018-11-22 08:07 | CP.PCM.PN ---
<Larry Chavez - Last Filed: 11/22/18 17:36> Subjective - Date & Time of Evaluation Date of Evaluation: 11/22/18 Time of Evaluation: 09:00 - Subjective Subjective: Medicine progress note for Dr. De Paz Patient examined at bedside. No acute overnight events. Endorses some chills still. Complaining of left abdominal pain. Denies fevers, chest pain, sob, n/v, hematochezia, melena. Advised to to ambulate as much as possible. Objective - Vital Signs/Intake and Output Vital Signs (last 24 hours): Temp Pulse Resp BP Pulse Ox 98.2 F 60 20 129/73 99 11/22/18 07:32 11/22/18 07:32 11/22/18 07:32 11/22/18 07:32 11/22/18 07:32 Intake and Output: 11/22/18 11/22/18 06:59 18:59 Intake Total 390 Balance 390 - Medications Medications: Current Medications Acetaminophen (Tylenol 325mg Tab) 650 mg PO Q6 PRN PRN Reason: Other Last Admin: 11/19/18 17:39 Dose: 650 mg Al Hydrox/Mg Hydrox/Simethicone (Maalox 30 Ml) 30 ml PO TID PRN PRN Reason: Indigestion / Heartburn Albuterol/Ipratropium (Duoneb 3 Mg/0.5 Mg (3 Ml) Ud) 3 ml INH RQ6 PRN PRN Reason: Shortness of Breath Clonidine HCl (Catapres) 0.1 mg PO Q6H PRN PRN Reason: Symptoms of alcohol withdrawl Dicyclomine HCl (Bentyl) 10 mg PO Q6 PRN PRN Reason: Muscle spasm Enoxaparin Sodium (Lovenox) 40 mg SC DAILY [facility] Last Admin: 11/21/18 09:43 Dose: 40 mg Famotidine (Pepcid) 20 mg PO BID [facility] Last Admin: 11/21/18 17:38 Dose: 20 mg Piperacillin Sod/Tazobactam Sod (Zosyn 3.375 Gm Iv Premix) 3.375 gm in 50 mls @ 100 mls/hr IVPB Q6H [facility]; Protocol Last Admin: 11/22/18 06:27 Dose: 100 mls/hr Vancomycin HCl 1 gm/ Sodium (Chloride) 250 mls @ 166.7 mls/hr IVPB Q12H [facility]; Protocol Last Admin: 11/21/18 15:03 Dose: Not Given Ibuprofen (Motrin Tab) 600 mg PO TID PRN PRN Reason: Other Loperamide HCl (Imodium) 2 mg PO Q8 PRN PRN Reason: Diarrhea Methadone HCl (Methadone) 10 mg PO Q24H [facility]; Taper Stop: 11/23/18 11:44 Last Admin: 11/21/18 11:55 Dose: 10 mg Nicotine (Nicoderm Cq) 1 patch TD DAILY [facility] Last Admin: 11/21/18 09:44 Dose: 1 patch Ondansetron HCl (Zofran Inj) 4 mg IVP Q6 PRN PRN Reason: Nausea/Vomiting Ondansetron HCl (Zofran Tab) 4 mg PO Q8 PRN PRN Reason: Nausea/Vomiting - Labs Labs: 11/22/18 06:51 11/21/18 08:25 PT 12.7 SECONDS (9.7-12.2) H 11/18/18 20:15 INR 1.2 11/18/18 20:15 APTT 28 SECONDS (21-34) 11/18/18 20:15 - Constitutional Appears: Non-toxic, No Acute Distress, Unkempt, Older Than Stated Age, Cachectic - Head Exam Head Exam: ATRAUMATIC, NORMAL INSPECTION - Eye Exam Eye Exam: EOMI, Normal appearance - ENT Exam ENT Exam: Mucous Membranes Moist - Neck Exam Neck Exam: Full ROM - Respiratory Exam Respiratory Exam: Clear to Ausculation Bilateral. absent: Rales, Rhonchi, Wheezes - Cardiovascular Exam Cardiovascular Exam: REGULAR RHYTHM, +S1, +S2. absent: Tachycardia Additional comments: (+) 2+ pulses in distal extremities bilaterally - GI/Abdominal Exam GI & Abdominal Exam: Soft, Tenderness (point tenderness to abdominal muscle, with area of hypertonicity), Normal Bowel Sounds. absent: Distended, Firm, Guarding - Extremities Exam Extremities Exam: Normal Capillary Refill. absent: Calf Tenderness - Back Exam Back Exam: NORMAL INSPECTION - Neurological Exam Neurological Exam: Alert, Awake - Psychiatric Exam Psychiatric exam: Normal Affect, Normal Mood - Skin Skin Exam: Dry, Normal Color, Warm Additional comments: purulent drainage to left lower extremity; minimally tender, minimal erythema, minimal swelling Assessment and Plan (1) Bilateral lower leg cellulitis Assessment & Plan: * Tmax: 102.6F (11/19/18) 8:28AM * Zosyn 3.375g IV Q6h discontinued * Vancomycin 1 gram IVPB Q12H discontinued * CT Lower extremity (11/19/18): subcutaneous edema associated with mild wall thickening more prominent distally in both legs slightly more prominent on the left suggestive of cellulitis. No evidence of discrete abscess formation. * Procalcitonin: 0.42 (improved from 0.67) * Wound culture (11/18/18): S. marcescens with ELEUTERIO<= 0.25 to ciprofloxacin * Case discussed with Dr. Vides, who recommends switching pt to ciprofloxacin. * Ciprofloxacin 400 mg IVPB q12h (11/22) * Can be discharged on Ciprofloxacin 500 mg PO BID * Blood culture (11/18/18): no growth for 4 days * Tylenol 650mg PO Q6H PRN severe pain or fever 100.4F * Afebrile for >48 hours Status: Acute (2) Urinary tract infection Assessment & Plan: * UA: 2+ protein, 3+ blood, 22 WBC, few darren, trace LE, negative nitrate * Urine Cx (11/19/18): no growth * Zosyn 3.375 mg IV Q6H discontinued * Ciprofloxacin as above Status: Acute (3) Anemia Assessment & Plan: * Hgb stable * Abdominal US (06/20/18): hepatomegaly, splenomegaly, two punctate right hepatic lobe calculi. trace fluid adjacent to the liver. * Abdominal US (11/22/18): Echogenic liver may be sen in setting of hepatic parenchymal disease or fatty infiltration. Puncatate hepatic foci possibly calcifications. Splenomegaly. * unclear etiology * F/u reticulocyte count, iron studies, ferritin, occult blood Status: Acute (4) Hepatitis C Assessment & Plan: * Patient has not sought treatment; is actively using drugs with no intention of stopping though advised * Abdominal US (06/20/18): hepatomegaly, splenomegaly, two punctate right hepatic lobe calculi. trace fluid adjacent to the liver. * Abdominal US (11/22/18): Echogenic liver may be sen in setting of hepatic parenchymal disease or fatty infiltration. Puncatate hepatic foci possibly calcifications. Splenomegaly. Status: Acute (5) Polysubstance (including opioids) dependence with physiol dependence Assessment & Plan: * UDS positive for opiates, cocaine, cannabinoids * Strongly advised cessation on multiple occasions * Maalox 30 mL PO TID PRN * Bentyl 10 mg PO Q6H PRN * Imodium 2 mg PO Q8H PRN * Zofran 4 mg IV or PO Q6H PRN * Clonidine 0.1 mg PO Q6H PRN * Psychiatry consulted (Rub[facility]) * Methadone taper to complete 11/23/18, as per Psychiatry * Nicoderm daily Status: Acute (6) Asthma Assessment & Plan: Duobneb Q6H PRN Status: Chronic (7) Abdominal muscle strain Assessment & Plan: Left abdominal muscle strain Tylenol PRN as above Ice pack/warm compresses as needed Status: Acute (8) Prophylactic measure Assessment & Plan: * VTE: Lovenox 40 mg SC daily * GI: Pepcid 20 mg PO BID Status: Acute - Assessment and Plan (Free Text) Plan: Dispo: Wound culture positive for S. marscecens, antibiotics adjusted. Potential discharge in am with po antibiotics. Continue wound care. <Lynda De Paz V - Last Filed: 11/22/18 19:39> Objective - Vital Signs/Intake and Output Vital Signs (last 24 hours): Temp Pulse Resp BP Pulse Ox 97.8 F 68 20 146/78 100 11/22/18 15:57 11/22/18 15:57 11/22/18 15:57 11/22/18 15:57 11/22/18 15:57 Intake and Output: 11/22/18 11/23/18 18:59 06:59 Intake Total 400 Balance 400 - Medications Medications: Current Medications Acetaminophen (Tylenol 325mg Tab) 650 mg PO Q6 PRN PRN Reason: Other Last Admin: 11/19/18 17:39 Dose: 650 mg Al Hydrox/Mg Hydrox/Simethicone (Maalox 30 Ml) 30 ml PO TID PRN PRN Reason: Indigestion / Heartburn Albuterol/Ipratropium (Duoneb 3 Mg/0.5 Mg (3 Ml) Ud) 3 ml INH RQ6 PRN PRN Reason: Shortness of Breath Clonidine HCl (Catapres) 0.1 mg PO Q6H PRN PRN Reason: Symptoms of alcohol withdrawl Dicyclomine HCl (Bentyl) 10 mg PO Q6 PRN PRN Reason: Muscle spasm Enoxaparin Sodium (Lovenox) 40 mg SC DAILY [facility] Last Admin: 11/22/18 09:02 Dose: 40 mg Famotidine (Pepcid) 20 mg PO BID [facility] Last Admin: 11/22/18 17:40 Dose: 20 mg Ciprofloxacin (Cipro 400mg/200ml Dsw) 400 mg in 200 mls @ 133 mls/hr IVPB Q12H [facility]; Protocol Last Admin: 11/22/18 19:21 Dose: 133 mls/hr Ibuprofen (Motrin Tab) 600 mg PO TID PRN PRN Reason: Other Loperamide HCl (Imodium) 2 mg PO Q8 PRN PRN Reason: Diarrhea Methadone HCl (Methadone) 5 mg PO Q24H [facility]; Taper Stop: 11/23/18 11:44 Last Admin: 11/22/18 11:33 Dose: 5 mg Nicotine (Nicoderm Cq) 1 patch TD DAILY [facility] Last Admin: 11/22/18 09:02 Dose: 1 patch Ondansetron HCl (Zofran Inj) 4 mg IVP Q6 PRN PRN Reason: Nausea/Vomiting Ondansetron HCl (Zofran Tab) 4 mg PO Q8 PRN PRN Reason: Nausea/Vomiting - Labs Labs: 11/22/18 06:51 11/22/18 06:51 PT 12.7 SECONDS (9.7-12.2) H 11/18/18 20:15 INR 1.2 11/18/18 20:15 APTT 28 SECONDS (21-34) 11/18/18 20:15 Attending/Attestation - Attestation I have personally seen and examined this patient.: Yes I have fully participated in the care of the patient.: Yes I have reviewed all pertinent clinical information, including history, physical exam and plan: Yes Notes (Text): Patient seen, examined and case discussed with medical coding instructor. Agree with the assessment and plan as documented by the resident. Patient counselled to followup and establish care for treatment hepatitis C given risk factor for cirrhosis and liver cancer. Patient's h/h stable in 9's. pending heme-oncology initially placed on 11/20; will cancel this consult since he has not seen the patient 11/22. Will place second hematology consult to Dr. Maggie Goodman. Patient has completed abdominal US today since she had complained of abdominal pain; reviewed US. Patient to be switch from IV to PO antibiotics starting tomorrow. Patient to complete last dose of methadone tomorrow. Note; patient prior hospitalization with me she did get the tetanus shot which i believe was in the past 6 months. Plan for possible discharge tomorrow following completion of metadone tape for patient's heroin withdrawal and pending hem-oncology eval for patient's anemia.
[2018-11-22 08:17] LABS: ALB/GLOB RATIO 0.8 (1.0-2.1); ALBUMIN 3.7 g/dL (3.5-5.0); ALT/SGPT < 6 U/L (9-52); AST/SGOT 21 U/L (14-36); BLOOD UREA NITROGEN 17 mg/dL (7-17); CALCIUM 9.5 mg/dl (8.6-10.4); GFR NON-AFRICAN AMERICAN > 60
[2018-11-22] MEDS: Enoxaparin 40 mg Syringe SC SCH (09:02)
--- NOTE | 2018-11-22 13:25 | US ---
HISTORY: hx hep c, abd pain COMPARISON: CT abdomen and pelvis without contrast performed 07/01/18 TECHNIQUE: Sonographic evaluation of the abdomen. FINDINGS: LIVER: Measures 17.8 cm in sagittal dimension. Echogenic liver may be seen in setting of hepatic parenchymal disease or fatty infiltration. Punctate hepatic foci, possibly calcifications. The main portal vein appears patent with normal directional flow. No intrahepatic bile duct dilatation. GALLBLADDER: No gallstones. No gallbladder wall thickening. Negative sonographic Zuluaga's sign as assessed by the shale planer operator helper. COMMON BILE DUCT: Measures 3 mm. PANCREAS: Not well visualized. RIGHT KIDNEY: Measures 12.6 x 4.2 x 5.0 cm. No obstructing calculus or hydronephrosis identified. LEFT KIDNEY: Measures 12.7 x 4.2 x 5.1 cm. No obstructing calculus or hydronephrosis identified. SPLEEN: Measures approximately 16.2 cm. AORTA: Limited views appear unremarkable. IVC: Limited views appear unremarkable. OTHER FINDINGS: None. IMPRESSION: Echogenic liver may be seen in setting of hepatic parenchymal disease or fatty infiltration. Punctate hepatic foci possibly calcifications. Splenomegaly. Echogenic renal parenchyma may be seen in the setting of medical renal disease.
[2018-11-22] MEDS: Ciprofloxacin 400mg/200ml D5W 400 MG/200 ML BAG IVPB SCH (19:21)
[2018-11-22 20:25] LABS: IRON 98 ug/dL (37-170)
[2018-11-22 20:34] LABS: % IRON SATURATION 33 (20-55); TOTAL IRON BINDING CAPACITY 300 ug/dL (250-450)
--- NOTE | 2018-11-22 22:43 | CP.PCM.PN ---
Subjective - Date & Time of Evaluation Date of Evaluation: 11/22/18 Time of Evaluation: 09:00 - Subjective Subjective: discussed on rounds Objective - Vital Signs/Intake and Output Vital Signs (last 24 hours): Temp Pulse Resp BP Pulse Ox 97.8 F 68 20 146/78 100 11/22/18 15:57 11/22/18 15:57 11/22/18 15:57 11/22/18 15:57 11/22/18 15:57 Intake and Output: 11/22/18 11/23/18 18:59 06:59 Intake Total 400 600 Balance 400 600 - Medications Medications: Current Medications Acetaminophen (Tylenol 325mg Tab) 650 mg PO Q6 PRN PRN Reason: Other Last Admin: 11/19/18 17:39 Dose: 650 mg Al Hydrox/Mg Hydrox/Simethicone (Maalox 30 Ml) 30 ml PO TID PRN PRN Reason: Indigestion / Heartburn Albuterol/Ipratropium (Duoneb 3 Mg/0.5 Mg (3 Ml) Ud) 3 ml INH RQ6 PRN PRN Reason: Shortness of Breath Clonidine HCl (Catapres) 0.1 mg PO Q6H PRN PRN Reason: Symptoms of alcohol withdrawl Dicyclomine HCl (Bentyl) 10 mg PO Q6 PRN PRN Reason: Muscle spasm Enoxaparin Sodium (Lovenox) 40 mg SC DAILY [facility] Last Admin: 11/22/18 09:02 Dose: 40 mg Famotidine (Pepcid) 20 mg PO BID [facility] Last Admin: 11/22/18 17:40 Dose: 20 mg Ciprofloxacin (Cipro 400mg/200ml Dsw) 400 mg in 200 mls @ 133 mls/hr IVPB Q12H [facility]; Protocol Last Admin: 11/22/18 19:21 Dose: 133 mls/hr Ibuprofen (Motrin Tab) 600 mg PO TID PRN PRN Reason: Other Loperamide HCl (Imodium) 2 mg PO Q8 PRN PRN Reason: Diarrhea Methadone HCl (Methadone) 5 mg PO Q24H [facility]; Taper Stop: 11/23/18 11:44 Last Admin: 11/22/18 11:33 Dose: 5 mg Nicotine (Nicoderm Cq) 1 patch TD DAILY [facility] Last Admin: 11/22/18 09:02 Dose: 1 patch Ondansetron HCl (Zofran Inj) 4 mg IVP Q6 PRN PRN Reason: Nausea/Vomiting Ondansetron HCl (Zofran Tab) 4 mg PO Q8 PRN PRN Reason: Nausea/Vomiting - Labs Labs: 11/22/18 06:51 11/22/18 06:51 PT 12.7 SECONDS (9.7-12.2) H 11/18/18 20:15 INR 1.2 11/18/18 20:15 APTT 28 SECONDS (21-34) 11/18/18 20:15 - Constitutional Appears: Well - Head Exam Head Exam: ATRAUMATIC, NORMAL INSPECTION, NORMOCEPHALIC - Eye Exam Eye Exam: EOMI, Normal appearance, PERRL Pupil Exam: NORMAL ACCOMODATION, PERRL - ENT Exam ENT Exam: Mucous Membranes Moist, Normal Exam - Neck Exam Neck Exam: Full ROM, Normal Inspection. absent: Lymphadenopathy - Respiratory Exam Respiratory Exam: Clear to Ausculation Bilateral, NORMAL BREATHING PATTERN - Cardiovascular Exam Cardiovascular Exam: REGULAR RHYTHM, +S1, +S2. absent: Murmur - GI/Abdominal Exam GI & Abdominal Exam: Soft, Normal Bowel Sounds. absent: Tenderness - Rectal Exam Rectal Exam: Deferred - Exam Exam: NORMAL INSPECTION - Extremities Exam Extremities Exam: Full ROM, Normal Capillary Refill, Normal Inspection. absent: Joint Swelling, Pedal Edema - Back Exam Back Exam: NORMAL INSPECTION - Neurological Exam Neurological Exam: Alert, Awake, CN II-XII Intact, Normal Gait, Oriented x3 - Psychiatric Exam Psychiatric exam: Normal Affect, Normal Mood - Skin Skin Exam: Dry, Intact, Normal Color, Warm Assessment and Plan (1) Bilateral lower leg cellulitis Status: Acute (2) Cellulitis of left lower leg Status: Acute (3) Heroin dependence Status: Acute (4) Polysubstance (including opioids) dependence with physiol dependence Status: Acute - Assessment and Plan (Free Text) Assessment: cont rx as ordered
[2018-11-23] MEDS: Ciprofloxacin 400mg/200ml D5W 400 MG/200 ML BAG IVPB SCH (05:16)
[2018-11-23 07:46] LABS: BASO % 0.6 % (0.0-2.0); EOS # 0.1 K/uL (0.0-0.7); EOS % 1.7 % (0.0-4.0); HEMOGLOBIN 9.4 g/dL (11.0-16.0); LYMPH # 1.6 K/uL (1.0-4.3); LYMPH % 36.7 % (20.0-40.0); MEAN CELL VOLUME 77.6 fL (81.0-99.0); MEAN CORPUSCULAR HEMOGLOBIN 25.6 pg (27.0-31.0); MEAN PLATELET VOLUME 6.6 fL (7.2-11.7); MONO # 0.4 K/uL (0.0-0.8); MONO % 9.5 % (0.0-10.0); NEUT # 2.2 K/uL (1.8-7.0); NEUT % 51.5 % (50.0-75.0); NRBC % 0.1 % (0.0-2.0); RBC 3.69 Mil/uL (3.80-5.20); RED CELL DISTRIBUTION WIDTH 19.9 % (11.5-14.5); WHITE BLOOD COUNT 4.3 K/uL (4.8-10.8)
[2018-11-23 07:47] VITALS: BP 134/66; PULSE 70; TEMP 98.4; O2SAT 96
[2018-11-23 08:15] LABS: ALB/GLOB RATIO 0.8 (1.0-2.1); ALT/SGPT < 6 U/L (9-52); AST/SGOT 31 U/L (14-36); BLOOD UREA NITROGEN 22 mg/dL (7-17); GFR NON-AFRICAN AMERICAN > 60
[2018-11-23 09:14] LABS: FOLATE 7.4 ng/mL
--- NOTE | 2018-11-23 10:15 | CP.PCM.DIS ---
<Drake Chavezy - Last Filed: 11/23/18 10:15> Provider - Provider Date of Admission: 11/18/18 17:54 Attending physician: Lynda De Paz DO Consults: 11/18/18 18:49 General Surgery Consult Routine Comment: Consulting Provider: Washington Capone Consulting Physician: Washington Capone Reason for Consult: b/l LE cellulitis/LLE abscess s/p I&D 11/18/18 19:41 Infectious Disease Consult Routine Comment: Consulting Provider: Rosa Rhodes Consulting Physician: Rosa Rhodes Reason for Consult: LE cellulitis/abscess 11/18/18 21:42 Nursing Referral for Palliative Care Routine Comment: Physician Instructions: Reason For Exam: palliative screening score 4 11/18/18 22:11 Wound Care [Nursing Referral for Wound Care] Routine Comment: Physician Instructions: Reason For Exam: L lateral leg wound,bilateral leg redness 11/18/18 23:06 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 Rhodes until 12/05 Consulting Provider: Bruce Vides Consulting Physician: Bruce Vides Reason for Consult: b/l leg cellulitis 11/20/18 15:18 Hematology Oncology Consult Routine Comment: Consulting Provider: Heike Quevedo Consulting Physician: Heike Quevedo Reason for Consult: anemia 11/22/18 19:31 Hematology Oncology Consult Routine Comment: Consulting Provider: Bulmaro Goodman Consulting Physician: Bulmaro Goodman Reason for Consult: anemia Diagnosis - Discharge Diagnosis (1) Bilateral lower leg cellulitis Status: Acute (2) Urinary tract infection Status: Acute (3) Anemia Status: Acute (4) Hepatitis C Status: Acute (5) Polysubstance (including opioids) dependence with physiol dependence Status: Acute (6) Asthma Status: Chronic (7) Abdominal muscle strain Status: Acute (8) Prophylactic measure Status: Acute Hospital Course - Lab Results Lab Results: Micro Results 11/18/18 17:16 Blood Blood Culture - Preliminary NO GROWTH AFTER 4 DAYS 11/18/18 16:42 Blood Blood Culture - Preliminary NO GROWTH AFTER 4 DAYS 11/18/18 20:54 Leg - Left Gram Stain - Final 11/18/18 20:54 Leg - Left Wound Culture - Final Serratia Marcescens 11/19/18 20:38 Urine Random Urine Culture - Final No Growth (<1,000 CFU/ML) Most Recent Lab Values WBC 4.3 K/uL (4.8-10.8) L 11/23/18 07:34 RBC 3.69 Mil/uL (3.80-5.20) L 11/23/18 07:34 Hgb 9.4 g/dL (11.0-16.0) L 11/23/18 07:34 Hct 28.6 % (34.0-47.0) L 11/23/18 07:34 MCV 77.6 fL (81.0-99.0) L 11/23/18 07:34 MCH 25.6 pg (27.0-31.0) L 11/23/18 07:34 MCHC 33.0 g/dL (33.0-37.0) 11/23/18 07:34 RDW 19.9 % (11.5-14.5) H 11/23/18 07:34 Plt Count 390 K/uL (130-400) 11/23/18 07:34 MPV 6.6 fL (7.2-11.7) L 11/23/18 07:34 Neut % (Auto) 51.5 % (50.0-75.0) 11/23/18 07:34 Lymph % (Auto) 36.7 % (20.0-40.0) 11/23/18 07:34 Stokes % (Auto) 9.5 % (0.0-10.0) 11/23/18 07:34 Eos % (Auto) 1.7 % (0.0-4.0) 11/23/18 07:34 Baso % (Auto) 0.6 % (0.0-2.0) 11/23/18 07:34 Neut # (Auto) 2.2 K/uL (1.8-7.0) 11/23/18 07:34 Lymph # (Auto) 1.6 K/uL (1.0-4.3) 11/23/18 07:34 Stokes # (Auto) 0.4 K/uL (0.0-0.8) 11/23/18 07:34 Eos # (Auto) 0.1 K/uL (0.0-0.7) 11/23/18 07:34 Baso # (Auto) 0.0 K/uL (0.0-0.2) 11/23/18 07:34 Neutrophils % (Manual) 93 % (50-75) H 11/19/18 08:07 Lymphocytes % (Manual) 3 % (20-40) L 11/19/18 08:07 Monocytes % (Manual) 4 % (0-10) 11/19/18 08:07 Platelet Estimate Normal (NORMAL) 11/19/18 08:07 Polychromasia Slight 11/19/18 08:07 Hypochromasia (manual) Moderate 11/19/18 08:07 Anisocytosis (manual) Slight 11/19/18 08:07 Microcytosis (manual) Slight 11/19/18 08:07 Retic Count 1.8 % (0.5-1.5) H D 11/23/18 07:34 PT 12.7 SECONDS (9.7-12.2) H 11/18/18 20:15 INR 1.2 11/18/18 20:15 APTT 28 SECONDS (21-34) 11/18/18 20:15 Sodium 135 mmol/L (132-148) 11/23/18 07:34 Potassium 4.2 mmol/L (3.6-5.2) 11/23/18 07:34 Chloride 98 mmol/L (98-107) 11/23/18 07:34 Carbon Dioxide 30 mmol/L (22-30) 11/23/18 07:34 Anion Gap 11 (10-20) 11/23/18 07:34 BUN 22 mg/dL (7-17) H 11/23/18 07:34 Creatinine 0.8 mg/dL (0.7-1.2) 11/23/18 07:34 Est GFR ( Amer) > 60 11/23/18 07:34 Est GFR (Non-Af Amer) > 60 11/23/18 07:34 Random Glucose 97 mg/dL (65-105) 11/23/18 07:34 Calcium 10.0 mg/dl (8.6-10.4) 11/23/18 07:34 Phosphorus 5.0 mg/dL (2.5-4.5) H 11/23/18 07:34 Magnesium 2.1 mg/dL (1.6-2.3) 11/23/18 07:34 Iron 98 ug/dL (37-170) 11/22/18 19:58 TIBC 300 ug/dL (250-450) 11/22/18 19:58 % Saturation 27 (20-55) 11/23/18 07:34 Ferritin 72.0 ng/mL 11/23/18 07:34 Total Bilirubin 0.3 mg/dL (0.2-1.3) 11/23/18 07:34 AST 31 U/L (14-36) 11/23/18 07:34 ALT < 6 U/L (9-52) L 11/23/18 07:34 Alkaline Phosphatase 90 U/L (38-126) 11/23/18 07:34 Troponin I 0.0210 ng/mL (0.00-0.120) 11/18/18 16:42 NT-Pro-B Natriuret Pep 344 pg/mL (0-450) 11/18/18 16:42 Total Protein 8.9 g/dL (6.3-8.3) H 11/23/18 07:34 Albumin 4.0 g/dL (3.5-5.0) 11/23/18 07:34 Globulin 4.9 gm/dL (2.2-3.9) H 11/23/18 07:34 Albumin/Globulin Ratio 0.8 (1.0-2.1) L 11/23/18 07:34 Vitamin B12 369 pg/mL (239-931) 11/23/18 07:34 Folate 7.4 ng/mL 11/23/18 07:34 Procalcitonin 0.42 NG/ML (0.19-0.49) 11/18/18 20:15 Urine Color Yellow (YELLOW) 11/18/18 16:57 Urine Clarity Hazy (Clear) 11/18/18 16:57 Urine pH 6.0 (5.0-8.0) 11/18/18 16:57 Ur Specific [place] 1.019 (1.003-1.030) 11/18/18 16:57 Urine Protein 2+ mg/dL (NEGATIVE) H 11/18/18 16:57 Urine Glucose (UA) Normal mg/dL (Normal) 11/18/18 16:57 Urine Ketones Negative mg/dL (NEGATIVE) 11/18/18 16:57 Urine Blood 3+ (NEGATIVE) H 11/18/18 16:57 Urine Nitrate Negative (NEGATIVE) 11/18/18 16:57 Urine Bilirubin Negative (NEGATIVE) 11/18/18 16:57 Urine Urobilinogen 2.0 mg/dL (0.2-1.0) H 11/18/18 16:57 Ur Leukocyte Esterase Trace Celine/uL (Negative) 11/18/18 16:57 Urine WBC (Auto) 22 /hpf (0-5) H 11/18/18 16:57 Urine RBC (Auto) 293 /hpf (0-3) H 11/18/18 16:57 Ur Squamous Epith Cells 1 /hpf (0-5) 11/18/18 16:57 Urine Bacteria Few (<OCC) H 11/18/18 16:57 Urine HCG, Qual Negative (NEGATIVE) 11/18/18 16:57 Vancomycin Trough 6.0 ug/mL (5.0-10.0) 11/22/18 14:18 Random Vancomycin 7.0 ug/mL 11/22/18 06:51 Urine Opiates Screen Positive (NEGATIVE) H 11/18/18 16:57 Urine Methadone Screen Negative (NEGATIVE) 11/18/18 16:57 Ur Barbiturates Screen Negative (NEGATIVE) 11/18/18 16:57 Ur Phencyclidine Scrn Negative (NEGATIVE) 11/18/18 16:57 Ur Amphetamines Screen Negative (NEGATIVE) 11/18/18 16:57 U Benzodiazepines Scrn Negative (NEGATIVE) 11/18/18 16:57 U Oth Cocaine Metabols Positive (NEGATIVE) H 11/18/18 16:57 U Cannabinoids Screen Positive (NEGATIVE) H 11/18/18 16:57 Alcohol, Quantitative < 10 mg/dl (0-10) 11/18/18 16:42 Hepatitis A IgM Ab Negative (NEGATIVE) 11/21/18 08:25 Hep Bs Antigen Negative (NEGATIVE) 11/21/18 08:25 Hep B Core IgM Ab Negative (NEGATIVE) 11/21/18 08:25 Hepatitis C Antibody Reactive (NEGATIVE) 11/21/18 08:25 HIV 1&2 Antibody Screen Negative (NEGATIVE) 11/21/18 08:25 Discharge Exam - Head Exam Head Exam: ATRAUMATIC, NORMAL INSPECTION, NORMOCEPHALIC Discharge Plan - Discharge Medications Prescriptions: Ciprofloxacin [Cipro] 500 mg PO BID #14 tab RX: Folic Acid 1 mg PO DAILY #30 tab Lactobacillus Acidophilus [Lactobacillus] 1 cap PO BID #60 cap - Follow Up Plan Condition: GOOD Disposition: HOME/ ROUTINE Instructions: Ciprofloxacin (Systemic), Cellulitis (Skin Infection), Adult (DC), Folic Acid, Lactobacillus, Polysubstance Abuse (DC) Additional Instructions: Pt is medically stable for discharge home as per Dr. De Paz. Prescriptions needed: Folic acid 1 mg PO once daily, 8 am. #30 Lactobacillus 1 tab by mouth twice daily, 11 am and 5 pm. #60 Ciprofloxacin 500 mg one tab twice daily, 8 am and 8 pm. #14 Pt can take Tylenol OTC as needed for pain and fever. Pt should follow up with [facility] for follow up within 1 week of discharge. Please call for appointment. Pt should call [facility] for treatment of opioid dependance. Call . Should symptoms worsen, please head to the Emergency Department for further evaluation. Instructions explained to pt, who understands and agrees with discharge plan. Referrals: [facility] [Outside] <Lynda De Paz V - Last Filed: 11/24/18 03:36> Provider - Provider Date of Admission: 11/18/18 17:54 Attending physician: Lynda De Paz DO Consults: 11/18/18 18:49 General Surgery Consult Routine Comment: Consulting Provider: Washington Capone Consulting Physician: Washington Capone Reason for Consult: b/l LE cellulitis/LLE abscess s/p I&D 11/18/18 19:41 Infectious Disease Consult Routine Comment: Consulting Provider: Rosa Rhodes Consulting Physician: Rosa Rhodes Reason for Consult: LE cellulitis/abscess 11/18/18 21:42 Nursing Referral for Palliative Care Routine Comment: Physician Instructions: Reason For Exam: palliative screening score 4 11/18/18 22:11 Wound Care [Nursing Referral for Wound Care] Routine Comment: Physician Instructions: Reason For Exam: L lateral leg wound,bilateral leg redness 11/18/18 23:06 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 Rhodes until 12/05 Consulting Provider: Bruce Vides Consulting Physician: Bruce Vides Reason for Consult: b/l leg cellulitis 11/20/18 15:18 Hematology Oncology Consult Routine Comment: Consulting Provider: Heike Quevedo Consulting Physician: Heike Quevedo Reason for Consult: anemia 11/22/18 19:31 Hematology Oncology Consult Routine Comment: Consulting Provider: Bulmaro Goodman Consulting Physician: Bulmaro Goodman Reason for Consult: anemia Time Spent in preparation of Discharge (in minutes): 31 Hospital Course - Lab Results Lab Results: Micro Results 11/18/18 17:16 Blood Blood Culture - Final NO GROWTH AFTER 5 DAYS 11/18/18 17:16 Blood Gram Stain - Final TEST NOT PERFORMED 11/18/18 16:42 Blood Blood Culture - Final NO GROWTH AFTER 5 DAYS 11/18/18 16:42 Blood Gram Stain - Final TEST NOT PERFORMED 11/18/18 20:54 Leg - Left Gram Stain - Final 11/18/18 20:54 Leg - Left Wound Culture - Final Serratia Marcescens 11/19/18 20:38 Urine Random Urine Culture - Final No Growth (<1,000 CFU/ML) Most Recent Lab Values WBC 4.3 K/uL (4.8-10.8) L 11/23/18 07:34 RBC 3.69 Mil/uL (3.80-5.20) L 11/23/18 07:34 Hgb 9.4 g/dL (11.0-16.0) L 11/23/18 07:34 Hct 28.6 % (34.0-47.0) L 11/23/18 07:34 MCV 77.6 fL (81.0-99.0) L 11/23/18 07:34 MCH 25.6 pg (27.0-31.0) L 11/23/18 07:34 MCHC 33.0 g/dL (33.0-37.0) 11/23/18 07:34 RDW 19.9 % (11.5-14.5) H 11/23/18 07:34 Plt Count 390 K/uL (130-400) 11/23/18 07:34 MPV 6.6 fL (7.2-11.7) L 11/23/18 07:34 Neut % (Auto) 51.5 % (50.0-75.0) 11/23/18 07:34 Lymph % (Auto) 36.7 % (20.0-40.0) 11/23/18 07:34 Stokes % (Auto) 9.5 % (0.0-10.0) 11/23/18 07:34 Eos % (Auto) 1.7 % (0.0-4.0) 11/23/18 07:34 Baso % (Auto) 0.6 % (0.0-2.0) 11/23/18 07:34 Neut # (Auto) 2.2 K/uL (1.8-7.0) 11/23/18 07:34 Lymph # (Auto) 1.6 K/uL (1.0-4.3) 11/23/18 07:34 Stokes # (Auto) 0.4 K/uL (0.0-0.8) 11/23/18 07:34 Eos # (Auto) 0.1 K/uL (0.0-0.7) 11/23/18 07:34 Baso # (Auto) 0.0 K/uL (0.0-0.2) 11/23/18 07:34 Neutrophils % (Manual) 93 % (50-75) H 11/19/18 08:07 Lymphocytes % (Manual) 3 % (20-40) L 11/19/18 08:07 Monocytes % (Manual) 4 % (0-10) 11/19/18 08:07 Platelet Estimate Normal (NORMAL) 11/19/18 08:07 Polychromasia Slight 11/19/18 08:07 Hypochromasia (manual) Moderate 11/19/18 08:07 Anisocytosis (manual) Slight 11/19/18 08:07 Microcytosis (manual) Slight 11/19/18 08:07 Retic Count 1.8 % (0.5-1.5) H D 11/23/18 07:34 PT 12.7 SECONDS (9.7-12.2) H 11/18/18 20:15 INR 1.2 11/18/18 20:15 APTT 28 SECONDS (21-34) 11/18/18 20:15 Sodium 135 mmol/L (132-148) 11/23/18 07:34 Potassium 4.2 mmol/L (3.6-5.2) 11/23/18 07:34 Chloride 98 mmol/L (98-107) 11/23/18 07:34 Carbon Dioxide 30 mmol/L (22-30) 11/23/18 07:34 Anion Gap 11 (10-20) 11/23/18 07:34 BUN 22 mg/dL (7-17) H 11/23/18 07:34 Creatinine 0.8 mg/dL (0.7-1.2) 11/23/18 07:34 Est GFR ( Amer) > 60 11/23/18 07:34 Est GFR (Non-Af Amer) > 60 11/23/18 07:34 Random Glucose 97 mg/dL (65-105) 11/23/18 07:34 Calcium 10.0 mg/dl (8.6-10.4) 11/23/18 07:34 Phosphorus 5.0 mg/dL (2.5-4.5) H 11/23/18 07:34 Magnesium 2.1 mg/dL (1.6-2.3) 11/23/18 07:34 Iron 98 ug/dL (37-170) 11/22/18 19:58 TIBC 300 ug/dL (250-450) 11/22/18 19:58 % Saturation 27 (20-55) 11/23/18 07:34 Ferritin 72.0 ng/mL 11/23/18 07:34 Total Bilirubin 0.3 mg/dL (0.2-1.3) 11/23/18 07:34 AST 31 U/L (14-36) 11/23/18 07:34 ALT < 6 U/L (9-52) L 11/23/18 07:34 Alkaline Phosphatase 90 U/L (38-126) 11/23/18 07:34 Troponin I 0.0210 ng/mL (0.00-0.120) 11/18/18 16:42 NT-Pro-B Natriuret Pep 344 pg/mL (0-450) 11/18/18 16:42 Total Protein 8.9 g/dL (6.3-8.3) H 11/23/18 07:34 Albumin 4.0 g/dL (3.5-5.0) 11/23/18 07:34 Globulin 4.9 gm/dL (2.2-3.9) H 11/23/18 07:34 Albumin/Globulin Ratio 0.8 (1.0-2.1) L 11/23/18 07:34 Vitamin B12 369 pg/mL (239-931) 11/23/18 07:34 Folate 7.4 ng/mL 11/23/18 07:34 Procalcitonin 0.42 NG/ML (0.19-0.49) 11/18/18 20:15 Urine Color Yellow (YELLOW) 11/18/18 16:57 Urine Clarity Hazy (Clear) 11/18/18 16:57 Urine pH 6.0 (5.0-8.0) 11/18/18 16:57 Ur Specific [place] 1.019 (1.003-1.030) 11/18/18 16:57 Urine Protein 2+ mg/dL (NEGATIVE) H 11/18/18 16:57 Urine Glucose (UA) Normal mg/dL (Normal) 11/18/18 16:57 Urine Ketones Negative mg/dL (NEGATIVE) 11/18/18 16:57 Urine Blood 3+ (NEGATIVE) H 11/18/18 16:57 Urine Nitrate Negative (NEGATIVE) 11/18/18 16:57 Urine Bilirubin Negative (NEGATIVE) 11/18/18 16:57 Urine Urobilinogen 2.0 mg/dL (0.2-1.0) H 11/18/18 16:57 Ur Leukocyte Esterase Trace Celnie/uL (Negative) 11/18/18 16:57 Urine WBC (Auto) 22 /hpf (0-5) H 11/18/18 16:57 Urine RBC (Auto) 293 /hpf (0-3) H 11/18/18 16:57 Ur Squamous Epith Cells 1 /hpf (0-5) 11/18/18 16:57 Urine Bacteria Few (<OCC) H 11/18/18 16:57 Urine HCG, Qual Negative (NEGATIVE) 11/18/18 16:57 Vancomycin Trough 6.0 ug/mL (5.0-10.0) 11/22/18 14:18 Random Vancomycin 7.0 ug/mL 11/22/18 06:51 Urine Opiates Screen Positive (NEGATIVE) H 11/18/18 16:57 Urine Methadone Screen Negative (NEGATIVE) 11/18/18 16:57 Ur Barbiturates Screen Negative (NEGATIVE) 11/18/18 16:57 Ur Phencyclidine Scrn Negative (NEGATIVE) 11/18/18 16:57 Ur Amphetamines Screen Negative (NEGATIVE) 11/18/18 16:57 U Benzodiazepines Scrn Negative (NEGATIVE) 11/18/18 16:57 U Oth Cocaine Metabols Positive (NEGATIVE) H 11/18/18 16:57 U Cannabinoids Screen Positive (NEGATIVE) H 11/18/18 16:57 Alcohol, Quantitative < 10 mg/dl (0-10) 11/18/18 16:42 Hepatitis A IgM Ab Negative (NEGATIVE) 11/21/18 08:25 Hep Bs Antigen Negative (NEGATIVE) 11/21/18 08:25 Hep B Core IgM Ab Negative (NEGATIVE) 11/21/18 08:25 Hepatitis C Antibody Reactive (NEGATIVE) 11/21/18 08:25 HIV 1&2 Antibody Screen Negative (NEGATIVE) 11/21/18 08:25 Attending/Attestation - Attestation I have personally seen and examined this patient.: Yes I have fully participated in the care of the patient.: Yes I have reviewed all pertinent clinical information, including history, physical exam and plan: Yes Notes (Text): Patient seen, examined, case discussed with medical officer psychiatry. Patient is doing well. Tolerating diet. Patient finished his last dose of methadone taper today for heroin withdrawal. Patient recommended to establish care with [facility] to maintain sobriety from heroin. She has been strongly cautious to stop her heroin use when she is discharged given that she knows the implications of heroin use including respiratory depression, and ultimately . Patient is edema and associated lymphangitis has remarkably improved since beginning of admission. Patient recommended to start antibiotic by mouth tomorrow for 7-day course with probiotic given as well. Patient was also counseled that she does need to follow-up with the clinic for hepatitis C treatment given there is a risk factor for potential fibrosis and/or liver cancer. Patient does have anemia which does not appear acute recommended to obtain a hematology referral when she has [facility]. 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 Recommended for folic acid at least daily as well as to eat. Discharge were discharged and to instruct instructions discussed with both resident patient at bedside. This is a summary of patient's hospitalization please refer to EMR for full details record. Medications: Ciprofloxacin 500 mg p.o. twice daily for 7 days Lactobacillus 1 tab p.o. twice daily for 30 days. Folic acid 1 mg daily for at least 30 days Discharge diagnoses (1) Bilateral lower leg cellulitis resolved Assessment & Plan: * Patient needed to the benefit of IV antibiotics during hospitalization. Infectious disease consulted on the case. Patient switched over to p.o. ciprofloxacin upon discharge. Blood cultures were negative. Surgery was consulted no surgery intervention needed. Wound care on board as needed wound care treatment dressing changes. (2) Urinary tract infection resolved Assessment & Plan: * UA: 2+ protein, 3+ blood, 22 WBC, few darren, trace LE, negative nitrate * Urine Cx (11/19/18): no growth * Patient discharged on ciprofloxacin on discharge. (3) Anemia, chronic Assessment & Plan: * Hgb stable * Abdominal US (06/20/18): hepatomegaly, splenomegaly, two punctate right hepatic lobe calculi. trace fluid adjacent to the liver. * Abdominal US (11/22/18): Echogenic liver may be sen in setting of hepatic parenchymal disease or fatty infiltration. Puncatate hepatic foci possibly calcifications. Splenomegaly. * Will need further workup with hematology as an outpatient Status: Acute (4) Hepatitis C, chronic untreated Assessment & Plan: * Patient has not sought treatment; is actively using drugs with no intention of stopping though advised * Abdominal US (06/20/18): hepatomegaly, splenomegaly, two punctate right hepatic lobe calculi. trace fluid adjacent to the liver. * Abdominal US (11/22/18): Echogenic liver may be sen in setting of hepatic parenchymal disease or fatty infiltration. Puncatate hepatic foci possibly calcifications. Splenomegaly. * Will need [facility] to seek treatment for hepatitis C. She is aware of the risk in terms of transference through IV drug use intercourse and exchange fluids as well as a risk factor for her liver cancer. (5) Polysubstance (including opioids) dependence Assessment & Plan: * UDS positive for opiates, cocaine, cannabinoids * Strongly advised cessation on multiple occasions * Psychiatry was consulted during the case. Recommended a methadone taper which she has completed last day today. As well as as needed as necessary to help her through withdrawal symptoms. During the course of hospitalization * Nicoderm daily (6) Asthma Assessment & Plan: * Patient not in any acute asthma exacerbation during hospitalization. Duobneb Q6H PRN Status: Chronic (7) Abdominal muscle strain resolved Assessment & Plan: (8) Prophylactic measure Assessment & Plan:
[2018-11-23] MEDS: Enoxaparin 40 mg Syringe SC SCH (10:55)
== END 2018-11-23 14:36 | disposition home or self-care (01) | DRG 277 ==
LOC: C.ER 15:15 → C.3T 17:54
PROVIDERS: ADMIT Hospitalist; ATTEND Hospitalist
DX: L03.116 Cellulitis of left lower limb (principal); L03.115 Cellulitis of right lower limb; F11.23 Opioid dependence with withdrawal; N39.0 Urinary tract infection, site not specified; B18.2 Chronic viral hepatitis C; L02.416 Cutaneous abscess of left lower limb; J44.9 Chronic obstructive pulmonary disease, unspecified; F14.10 Cocaine abuse, uncomplicated; D64.9 Anemia, unspecified; I10 Essential (primary) hypertension; I89.1 Lymphangitis; F12.10 Cannabis abuse, uncomplicated; F10.10 Alcohol abuse, uncomplicated; Y90.0 Blood alcohol level of less than 20 mg/100 ml; Z86.718 Personal history of other venous thrombosis and embolism; Z86.73 Personal history of transient ischemic attack (TIA), and cerebral infarction without residual deficits; Z59.0 Homelessness; Z90.49 Acquired absence of other specified parts of digestive tract; Z82.49 Family history of ischemic heart disease and other diseases of the circulatory system

== ENCOUNTER 2018-12-10 03:22 | Inpatient (IN) | payer MEDICAID ==
[2018-12-10 03:23] VITALS: BMI 18.6
[2018-12-10 04:07] LABS: HCG,QUALITATIVE URINE NEGATIVE (NEGATIVE)
[2018-12-10 04:10] LABS: SQUAMOUS EPITHIAL 1 /hpf (0-5); URINE BACTERIA RARE (<OCC); URINE BILIRUBIN NEGATIVE (NEGATIVE); URINE BLOOD 3+ (NEGATIVE); URINE CLARITY Hazy (Clear); URINE COLOR Yellow (YELLOW); URINE GLUCOSE (UA) NORMAL (Normal); URINE LEUKOCYTE ESTERASE TRACE Leu/uL (Negative); URINE PROTEIN 2+ mg/dL (NEGATIVE); URINE UROBILINOGEN NORMAL mg/dL (0.2-1.0)
[2018-12-10] MEDS ORDERED: Vancomycin 1 GM 1 GM/250 ML BAG IVPB STA (04:18)
[2018-12-10] MEDS ORDERED: Sodium Chloride 0.9% 1,000 ML IV STA (04:18)
[2018-12-10 04:42] LABS: BASO % 0.4 % (0.0-2.0); EOS % 0.2 % (0.0-4.0); HEMOGLOBIN 7.3 g/dL (11.0-16.0); LYMPH # 0.4 K/uL (1.0-4.3); LYMPH % 6.3 % (20.0-40.0); MEAN CELL VOLUME 78.4 fL (81.0-99.0); MEAN CORPUSCULAR HEMOGLOBIN 25.9 pg (27.0-31.0); MEAN CORPUSCULAR HGB CONC 33.1 g/dL (33.0-37.0); MEAN PLATELET VOLUME 7.1 fL (7.2-11.7); MONO # 0.1 K/uL (0.0-0.8); MONO % 2.4 % (0.0-10.0); NEUT # 5.1 K/uL (1.8-7.0); NEUT % 90.7 % (50.0-75.0); PLATELET COUNT 226 K/uL (130-400); RBC 2.81 Mil/uL (3.80-5.20); RED CELL DISTRIBUTION WIDTH 20.7 % (11.5-14.5); WHITE BLOOD COUNT 5.6 K/uL (4.8-10.8)
--- NOTE | 2018-12-10 04:51 | C.PDOC ---
History Of Present Illness 48 y/o F p/w back pain and leg erythema. Patient states she had the urge to urinate tonight and went to bathroom and felt a sharp pain in the lower back. She also has noticed her lower leg with increasing erythema and pain. Subjective fever. Denies chills, vomiting, chest pain, dyspnea. Time Seen by Provider: 12/10/18 03:35 Chief Complaint (Nursing): Back Pain Past Medical History Vital Signs: Last Vital Signs Temp 99.8 F H 12/10/18 03:30 Pulse 109 H 12/10/18 03:30 Resp 20 12/10/18 03:30 BP 158/81 H 12/10/18 03:30 Pulse Ox 95 12/10/18 03:30 - Medical History PMH: Asthma, COPD (ASTHMA), Deep Vein Thrombosis, HTN Denies: Diabetes, Hepatitis, HIV, Chronic Kidney Disease, Seizures, Sexually Transmitted Disease Surgical History: Appendectomy Denies: Pacemaker - [facility] Procedures CHANGE OTHER DEVICE ON CHEST WALL (02/26/16) CHANGE OTHER DEVICE ON NECK (02/26/16) DETOXIFICATION SERVICES FOR SUBSTANCE ABUSE TREATMENT (10/07/17) DRAINAGE OF CHEST WALL WITH DRAINAGE DEVICE, OPEN APPROACH (02/26/16) DRAINAGE OF L LOW LEG SUBCU/FASCIA, OPEN APPROACH (11/07/18) DRAINAGE OF NECK SKIN WITH DRAINAGE DEVICE, SPECIAL EDUCATION INCLUSION TEACHER APPROACH (02/26/16) DRAINAGE OF NECK WITH DRAINAGE DEVICE, OPEN APPROACH (02/26/16) DRAINAGE OF RIGHT FINGER PHALANGEAL JOINT, OPEN APPROACH (01/31/16) DRAINAGE OF RIGHT HAND TENDON, OPEN APPROACH (01/31/16) EXCISION OF ANT NECK SUBCU/FASCIA, OPEN APPROACH (02/26/16) EXCISION OF CHEST SUBCU/FASCIA, OPEN APPROACH (02/26/16) GROUP RELOCATION DIRECTOR FOR SUBSTANCE ABUSE TREATMENT, PSYCHOEDUCATION (10/07/17) INDIV PSYCHOTHERAPY FOR SUBSTANCE ABUSE TREATMENT, SUPPORT (10/07/17) INSERTION OF INFUSION DEV INTO SUP VENA CAVA, PERC APPROACH (02/26/16) INSPECTION OF LOWER MUSCLE, PERCUTANEOUS APPROACH (06/28/18) RESECTION OF APPENDIX, PERCUTANEOUS ENDOSCOPIC APPROACH (06/28/18) SKIN & SUBQ INCISION NEC (09/09/14) ULTRASONOGRAPHY OF HEART WITH AORTA, TRANSESOPHAGEAL (06/28/18) Family History: States: Unknown Family Hx, [place] (Father) - Social History Hx Tobacco Use: Yes Hx Alcohol Use: Yes Hx Substance Use: Yes - Immunization History Hx Tetanus Toxoid Vaccination: No Hx Influenza Vaccination: No Hx Pneumococcal Vaccination: No Review Of Systems Except As Marked, All Systems Reviewed And Found Negative. Cardiovascular: Negative for: Chest Pain Respiratory: Negative for: Shortness of Breath Physical Exam - Physical Exam Additional Physical Exam Comments: Appears: Non-toxic, No Acute Distress, Other (appears older than stated age ) Skin: Warm, Dry Head: Atraumatic, Normacephalic Eye(s): bilateral: Normal Inspection Oral Mucosa: Moist Teeth: Edentulous Neck: Supple Chest: Symmetrical, No Deformity, No Tenderness Cardiovascular: Rhythm Regular, No Murmur Extremity: Capillary Refill (less than 2 seconds ), track villasenor to left arm and left wrist. Erythema to left lower leg. Equal swelling bilaterally. Pulses: Left Dorsalis Pedis: Normal, Right Dorsalis Pedis: Normal Neurological/Psych: Normal Speech, Normal Cognition, Normal Sensation ED Course And Treatment - Laboratory Results Result Diagrams: 12/10/18 04:39 12/10/18 04:39 Lab Results: Urine Color Yellow (YELLOW) 12/10/18 03:59 Urine Clarity Hazy (Clear) 12/10/18 03:59 Urine pH 6.0 (5.0-8.0) 12/10/18 03:59 Ur Specific [place] 1.011 (1.003-1.030) 12/10/18 03:59 Urine Protein 2+ mg/dL (NEGATIVE) H 12/10/18 03:59 Urine Glucose (UA) Normal mg/dL (Normal) 12/10/18 03:59 Urine Ketones Negative mg/dL (NEGATIVE) 12/10/18 03:59 Urine Blood 3+ (NEGATIVE) H 12/10/18 03:59 Urine Nitrate Negative (NEGATIVE) 12/10/18 03:59 Urine Bilirubin Negative (NEGATIVE) 12/10/18 03:59 Urine Urobilinogen Normal mg/dL (0.2-1.0) 12/10/18 03:59 Ur Leukocyte Esterase Trace Celine/uL (Negative) 12/10/18 03:59 Urine WBC (Auto) 28 /hpf (0-5) H 12/10/18 03:59 Urine RBC (Auto) 628 /hpf (0-3) H 12/10/18 03:59 Ur Squamous Epith Cells 1 /hpf (0-5) 12/10/18 03:59 Urine Bacteria Rare (<OCC) 12/10/18 03:59 Hyaline Casts 3-5 /lpf (0-2) H 12/10/18 03:59 Urine Yeast (Budding) Mod /hpf (NEGATIVE) H 12/10/18 03:59 Urine HCG, Qual Negative (NEGATIVE) 12/10/18 03:59 Urine HCG, Qual Negative (NEGATIVE) 12/10/18 03:59 O2 Sat by Pulse Oximetry: 95 Medical Decision Making Medical Decision Making: CXR no pneumonia. Febrile, acetaminophen administered. Lactate negative. Cultures drawn. Vanco/Cefepime ordered. Dr. Figueroa accepts patient to medical service. Disposition - Disposition Disposition: HOSPITALIZED Disposition Time: 05:50 Condition: GUARDED Forms: [employer] (Yi) - Clinical Impression Clinical Impression: Cellulitis of left lower leg, Urinary tract infection, Sepsis
[2018-12-10 04:54] LABS: VENOUS BLOOD GAS BASE EXCESS -0.8 mmol/L (0.0-2.0); VENOUS BLOOD GAS PCO2 37 mmHg (40-60); VENOUS BLOOD GAS PO2 52 mm/Hg (30-55); VENOUS BLOOD PH 7.41 (7.32-7.43)
[2018-12-10] MEDS ORDERED: Vancomycin 1 GM 1 GM/250 ML BAG IVPB ONE (04:56)
[2018-12-10 05:07] LABS: ANISOCYTOSIS SLIGHT; LARGE PLATELETS PRESENT; LYMPHOCYTE 6 % (20-40); MONOCYTE 3 % (0-10); NEUTROPHIL 91 % (50-75); PLATELET ESTIMATE NORMAL (NORMAL); POIKILOCYTOSIS SLIGHT; ROULEAUX FORMATION SLIGHT; TOTAL CELLS COUNTED 100
[2018-12-10 05:13] LABS: ALB/GLOB RATIO 0.9 (1.0-2.1); ALBUMIN 3.5 g/dL (3.5-5.0); ALT/SGPT < 6 U/L (9-52); AST/SGOT 20 U/L (14-36); BLOOD UREA NITROGEN 16 mg/dL (7-17); CALCIUM 8.7 mg/dl (8.6-10.4); GFR NON-AFRICAN AMERICAN 53
[2018-12-10] MEDS ORDERED: Cefepime IV 1 gm in Dextrose 1 GM/50 ML BAG IVPB STA (05:48)
--- NOTE | 2018-12-10 11:08 | RAD ---
Date of service: 12/10/2018 HISTORY: cellulitis COMPARISON: 11/18/2018. FINDINGS: LUNGS: The lungs are well inflated. There is moderate pulmonary venous congestion with redistribution. There is subsegmental atelectasis in the lower lobes. PLEURA: No pleural effusions or pneumothorax. CARDIOVASCULAR: The heart is normal in size. No aortic atherosclerotic calcifications present. OSSEOUS STRUCTURES: Within normal limits for the patient's age. VISUALIZED UPPER ABDOMEN: Normal. OTHER FINDINGS: None. IMPRESSION: Moderate pulmonary venous congestion with redistribution. Subsegmental atelectasis in the lower lobes.
[2018-12-10] MEDS ORDERED: Potassium Chloride 20 mEq ER Tab PO ONE (13:45)
[2018-12-10] MEDS: Cefepime IV 1 gm in Dextrose 1 GM/50 ML BAG IVPB SCH (14:32)
--- NOTE | 2018-12-10 16:09 | CP.PCM.CON ---
History of Present Illness - History of Present Illness History of Present Illness: 48 y/o F p/w back pain and leg erythema. admitted with infected wounf LLE Cutures pending IV antibiotics ordered - Medical History PMH: Asthma, COPD (ASTHMA), Deep Vein Thrombosis, HTN Hep C + ( treated ?) Denies: Diabetes, Hepatitis, HIV, Chronic Kidney Disease, Seizures, Sexually Transmitted Disease Surgical History: Appendectomy Denies: Pacemaker - [facility] Procedures CHANGE OTHER DEVICE ON CHEST WALL (02/26/16) CHANGE OTHER DEVICE ON NECK (02/26/16) DETOXIFICATION SERVICES FOR SUBSTANCE ABUSE TREATMENT (10/07/17) DRAINAGE OF CHEST WALL WITH DRAINAGE DEVICE, OPEN APPROACH (02/26/16) DRAINAGE OF L LOW LEG SUBCU/FASCIA, OPEN APPROACH (11/07/18) DRAINAGE OF NECK SKIN WITH DRAINAGE DEVICE, FIXED CAPITAL CLERK APPROACH (02/26/16) DRAINAGE OF NECK WITH DRAINAGE DEVICE, OPEN APPROACH (02/26/16) DRAINAGE OF RIGHT FINGER PHALANGEAL JOINT, OPEN APPROACH (01/31/16) DRAINAGE OF RIGHT HAND TENDON, OPEN APPROACH (01/31/16) EXCISION OF ANT NECK SUBCU/FASCIA, OPEN APPROACH (02/26/16) EXCISION OF CHEST SUBCU/FASCIA, OPEN APPROACH (02/26/16) GROUP THERMIT WELDING MACHINE OPERATOR FOR SUBSTANCE ABUSE TREATMENT, PSYCHOEDUCATION (10/07/17) INDIV PSYCHOTHERAPY FOR SUBSTANCE ABUSE TREATMENT, SUPPORT (10/07/17) INSERTION OF INFUSION DEV INTO SUP VENA CAVA, PERC APPROACH (02/26/16) INSPECTION OF LOWER MUSCLE, PERCUTANEOUS APPROACH (06/28/18) RESECTION OF APPENDIX, PERCUTANEOUS ENDOSCOPIC APPROACH (06/28/18) SKIN & SUBQ INCISION NEC (09/09/14) ULTRASONOGRAPHY OF HEART WITH AORTA, TRANSESOPHAGEAL (06/28/18) Family History: States: Unknown Family Hx, [place] (Father) Review of Systems - Review of Systems All systems: reviewed and no additional remarkable complaints except - Constitutional Constitutional: As Per HPI - EENT Eyes: absent: As Per HPI, Blind Spots, Blurred Vision, Change in Vision, De creased Night Vision, Diplopia, Discharge, Dry Eye, Exophthalmos, Floaters, Irritation, Itchy Eyes, Loss of Peripheral Vision, Pain, Photophobia, Requires Corrective Lenses, Sees Flashes, Spots in Vision, Tunnel Vision, Other Visual Disturbances, Loss of Vision, Other Ears: absent: As Per HPI, Decreased Hearing, Ear Discharge, Ear Pain, Tinnitus, Abnormal Hearing, Disequilibrium, Dizziness, Other Nose/Mouth/Throat: absent: As Per HPI, Epistaxis, Nasal Congestion, Nasal Discharge, Nasal Obstruction, Nasal Trauma, Nose Pain, Post Nasal Drip, Sinus Pain, Sinus Pressure, Bleeding Gums, Change in Voice, Dental Pain, Dry Mouth, Dysphagia, Halitosis, Hoarsness, Lip Swelling, Mouth Lesions, Mouth Pain, Odynophagia, Sore Throat, Throat Swelling, Tongue Swelling, Facial Pain, Neck Pain, Neck Mass, Other - Breasts Breasts: absent: As Per HPI, Change in Shape, Mass, Pain, Nipple Discharge, Nipple Inversion, Skin Changes, Swelling, Other - Cardiovascular Cardiovascular: As Per HPI. absent: Acrocyanosis, Chest Pain, Chest Pain at Rest, Chest Pain with Activity, Claudication, Diaphoresis, Dyspnea, Dyspnea on Exertion, Edema, Irregular Heart Rhythm, Pain Radiating to Arm/Neck/Jaw, Leg Edema, Leg Ulcers, Lightheadedness, Orthopnea, Palpitations, Paroxysmal Nocturnal Dyspnea, Pedal Edema, Radiating Pain, Rapid Heart Rate, Slow Heart Rate, Syncope, Other - Respiratory Respiratory: absent: As Per HPI, Cough, Dyspnea, Hemoptysis, Dyspnea on Exertion, Wheezing, Snoring, Stridor, Pain on Inspiration, Chest Congestion, Excessive Mucous Production, Change in Mucous Color, Pain with Coughing, Other - Gastrointestinal Gastrointestinal: absent: As Per HPI, Abdominal Pain, Belching, Bloating, Change in Bowel Habits, Change in Stool Character, Coffee Ground Emesis, Constipation, Cramping, Diarrhea, Dyspepsia, Dysphagia, Early Satiety, Excessive Flatus, Fecal Incontinence, Heartburn, Hematemesis, Hematochezia, Loose Stools, Melena, Nausea, Odynophagia, Temesmus, Vomiting, Other - Genitourinary Genitourinary: absent: As Per HPI, Change in Urinary Stream, Difficulty Urinating, Dysuria, Flank Pain, Hematuria, Pyuria, Nocturia, Urinary Incontinence, Urinary Frequency, Urinary Hesitance, Urinary Urgency, Voiding Freq/Small Amts, Freq UTI, Hx Renal/Bladder Calculi, Hx /Renal Surgery, Bladder Distension, Other - Reproductive: Female Reproductive:Female: absent: As Per HPI, Amenorrhea, Amenorrhea/ Control, Currently Menstual, Cycle <21 Days, Cycle >35 Days, Cycle Variable, Menses 1-7 Days, Menses >/= 8 Days, Menses Variable, Cycle > 4 Weeks Between, No Menses for 6 Months, Heavy Menses, Light Menses, Normal Menses, Spotting Between Cycles, S/P Hysterectomy, Menopausal, Post Menopausal, Premenarche, Abnormal Vaginal Bleeding, Dysmenorrhea, Dyspareunia, Genital Lesions, Genital Pruritis, Pelvic Pain, Prolapse Symptoms, Sexual Dysfunction, Vaginal Discharge, Vaginal Dryness, Vaginal Odor, Vaginal Pruritis, Other - Menstruation Menstruation: absent: As Per HPI, Amenorrhea, Amenorrhea/ Control, Currently Menstual, Cycle <21 Days, Cycle >35 Days, Cycle Variable, Menses 1-7 Days, Menses >/= 8 Days, Menses Variable, Cycle > 4 Weeks Between, No Menses for 6 Months, Heavy Menses, Light Menses, Normal Menses, Spotting Between Cycles, S/P Hysterectomy, Menopausal, Post Menopausal, Premenarche, Abnormal Vaginal Bleeding, Dysmenorrhea, Other - Musculoskeletal Musculoskeletal: As Per HPI - Integumentary Integumentary: As Per HPI, Skin Pain, Wounds - Neurological Neurological: absent: As Per HPI, Abnormal Gait, Abnormal Hearing, Abnormal Movements, Abnormal Speech, Behavioral Changes, Burning Sensations, Confusion, Convulsions, Disequilibrium, Dizziness, Numbness, Focal Weakness, Frequent Falls, Headaches, Lack of Coordination, Loss of Vision, Memory Loss, Paresthesias, Radicular Pain, Restless Legs, Sensory Deficit, Syncope, Tingling, Tremor, Vertigo, Weakness, Other Visual Disturbances, Other - Psychiatric Psychiatric: absent: As Per HPI, Abnormal Sleep Pattern, Anhedonia, Anxiety, Auditory Hallucinations, Behavioral Changes, Change in Appetite, Change in Libido, Confusion, Depression, Difficulty Concentrating, Hallucinations, Homicidal Ideation, Hopelessness, Irritability, Memory Loss, Mood Swings, Panic Attacks, Paranoia, Suicidal Ideation, Visual Hallucinations, Tactile Halluci nations, Other - Endocrine Endocrine: absent: As Per HPI, Change in Body Appearance, Change in Libido, Cold Intolorance, Deepening of Voice, Excessive Sweating, Fatigue, Flushing, Heat Intolorance, Increase in Ring/Shoe/Hat Size, Palpitations, Polydipsia, Polyp hagia, Polyuria, Other Past Patient History - Infectious Disease Hx of Infectious Diseases: None - Past Medical History & Family History Past Medical History?: Yes - Past Social History Smoking Status: Current Some Days Smoker - CARDIAC Hx Hypertension: Yes Hx Pacemaker: No - PULMONARY Hx Asthma: Yes Hx Chronic Obstructive Pulmonary Disease (COPD): Yes (ASTHMA) - NEUROLOGICAL Hx Seizures: No - HEENT Hx HEENT Problems: No - RENAL Hx Chronic Kidney Disease: No - ENDOCRINE/METABOLIC Hx Endocrine Disorders: Yes Hx Diabetes Mellitus Type 2: Yes - HEMATOLOGICAL/ONCOLOGICAL Hx Human Immunodeficiency Virus (HIV): No - INTEGUMENTARY Hx Dermatological Problems: No - MUSCULOSKELETAL/RHEUMATOLOGICAL Hx Falls: Yes - GASTROINTESTINAL Hx Gastrointestinal Disorders: No - GENITOURINARY/GYNECOLOGICAL Hx Sexually Transmitted Disorders: No - PSYCHIATRIC Hx Substance Use: Yes - SURGICAL HISTORY Hx Appendectomy: Yes - ANESTHESIA Hx Anesthesia: Yes Hx Anesthesia Reactions: No Hx Malignant Hyperthermia: No Meds Allergies/Adverse Reactions: Allergies Allergy/AdvReac Type Severity Reaction Status Date / Time No Known Allergies Allergy Verified 12/10/18 03:34 - Medications Medications: Current Medications Acetaminophen (Tylenol 325mg Tab) 650 mg PO Q6 PRN PRN Reason: Pain, moderate (4-7) Cefepime HCl (Maxipime Iv 1 Gm Premix) 1 gm in 50 mls @ 100 mls/hr IVPB Q12H [facility]; Protocol Last Admin: 12/10/18 14:32 Dose: 100 mls/hr Physical Exam - Constitutional Appears: No Acute Distress, Cachectic, Chronically Ill - Head Exam Head Exam: ATRAUMATIC, NORMAL INSPECTION, NORMOCEPHALIC - Eye Exam Eye Exam: PERRL. absent: Scleral icterus Pupil Exam: NORMAL ACCOMODATION - ENT Exam ENT Exam: Mucous Membranes Dry, Normal External Ear Exam, Normal Oropharynx - Neck Exam Neck exam: Negative for: Lymphadenopathy, Thyromegaly - Respiratory Exam Respiratory Exam: Decreased Breath Sounds, Prolonged Expiratory Phase, Rhonchi - Cardiovascular Exam Cardiovascular Exam: REGULAR RHYTHM, +S1, +S2 - GI/Abdominal Exam GI & Abdominal Exam: Diminished Bowel Sounds, Soft. absent: Tenderness - Rectal Exam Rectal Exam: Deferred - Exam Exam: NORMAL INSPECTION - Extremities Exam Extremities exam: Positive for: pedal edema. Negative for: calf tenderness, normal inspection, tenderness, pedal pulses present Additional comments: left leg wound / cellulitis - Back Exam Back exam: absent: CVA tenderness (L), CVA tenderness (R), paraspinal tenderness - Neurological Exam Neurological exam: Alert, CN II-XII Intact, Oriented x3, Reflexes Normal - Psychiatric Exam Psychiatric exam: Normal Mood - Skin Skin Exam: Dry Results - Vital Signs Recent Vital Signs: Last Vital Signs Temp 97.5 F L 12/10/18 11:52 Pulse 78 12/10/18 12:24 Resp 18 12/10/18 11:52 BP 157/76 H 12/10/18 11:52 Pulse Ox 98 12/10/18 11:52 - Labs Result Diagrams: 12/10/18 04:39 12/10/18 04:39 Labs: Laboratory Results - last 24 hr 12/10/18 12/10/18 12/10/18 03:59 04:39 04:39 WBC 5.6 RBC 2.81 L Hgb 7.3 L D Hct 22.0 L MCV 78.4 L MCH 25.9 L MCHC 33.1 RDW 20.7 H Plt Count 226 D MPV 7.1 L Neut % (Auto) 90.7 H Lymph % (Auto) 6.3 L [place] % (Auto) 2.4 Eos % (Auto) 0.2 Baso % (Auto) 0.4 Neut # (Auto) 5.1 Lymph # (Auto) 0.4 L [place] # (Auto) 0.1 Eos # (Auto) 0.0 Baso # (Auto) 0.0 Neutrophils % (Manual) 91 H Lymphocytes % (Manual) 6 L Monocytes % (Manual) 3 Platelet Estimate Normal Large Platelets Present Poikilocytosis (manual Slight Anisocytosis (manual) Slight Rouleaux Slight pO2 VBG pH VBG pCO2 VBG HCO3 VBG Total CO2 VBG O2 Sat (Calc) VBG Base Excess VBG Potassium Glucose Lactate Sodium 135 Potassium 3.4 L Chloride 104 Carbon Dioxide 25 Anion Gap 10 BUN 16 Creatinine 1.1 Est GFR ( Amer) > 60 Est GFR (Non-Af Amer) 53 Random Glucose 133 H D Calcium 8.7 Total Bilirubin 0.4 AST 20 ALT < 6 L Alkaline Phosphatase 101 Total Protein 7.7 Albumin 3.5 Globulin 4.1 H Albumin/Globulin Ratio 0.9 L Venous Blood Potassium Urine Color Yellow Urine Clarity Hazy Urine pH 6.0 Ur Specific [place] 1.011 Urine Protein 2+ H Urine Glucose (UA) Normal Urine Ketones Negative Urine Blood 3+ H Urine Nitrate Negative Urine Bilirubin Negative Urine Urobilinogen Normal Ur Leukocyte Esterase Trace Urine WBC (Auto) 28 H Urine RBC (Auto) 628 H Ur Squamous Epith Cells 1 Urine Bacteria Rare Hyaline Casts 3-5 H Urine Yeast (Budding) Mod H Urine HCG, Qual Negative Blood Type Antibody Screen 12/10/18 12/10/18 04:50 12:00 WBC RBC Hgb Hct MCV MCH MCHC RDW Plt Count MPV Neut % (Auto) Lymph % (Auto) [place] % (Auto) Eos % (Auto) Baso % (Auto) Neut # (Auto) Lymph # (Auto) [place] # (Auto) Eos # (Auto) Baso # (Auto) Neutrophils % (Manual) Lymphocytes % (Manual) Monocytes % (Manual) Platelet Estimate Large Platelets Poikilocytosis (manual Anisocytosis (manual) Rouleaux pO2 52 VBG pH 7.41 VBG pCO2 37 L VBG HCO3 24.0 VBG Total CO2 24.6 VBG O2 Sat (Calc) 91.9 H VBG Base Excess -0.8 L VBG Potassium 3.3 L Glucose 127 H Lactate 1.7 Sodium 135.0 Potassium Chloride 104.0 Carbon Dioxide Anion Gap BUN Creatinine Est GFR ( Amer) Est GFR (Non-Af Amer) Random Glucose Calcium Total Bilirubin AST ALT Alkaline Phosphatase Total Protein Albumin Globulin Albumin/Globulin Ratio Venous Blood Potassium 3.3 L Urine Color Urine Clarity Urine pH Ur Specific [place] Urine Protein Urine Glucose (UA) Urine Ketones Urine Blood Urine Nitrate Urine Bilirubin Urine Urobilinogen Ur Leukocyte Esterase Urine WBC (Auto) Urine RBC (Auto) Ur Squamous Epith Cells Urine Bacteria Hyaline Casts Urine Yeast (Budding) Urine HCG, Qual Blood Type A NEGATIVE Antibody Screen Negative Assessment & Plan (1) Cellulitis of left lower leg Status: Acute (2) Urinary tract infection Status: Acute (3) Anemia Status: Acute (4) Substance abuse Status: Acute - Assessment and Plan (Free Text) Assessment: cont IV rx await cultures consider Pulm eval
[2018-12-10 16:17] LABS: BARBITURATES, UR NEGATIVE (NEGATIVE); BENZODIAZEPINES, UR NEGATIVE (NEGATIVE); PHENCYCLIDINE, UR NEGATIVE (NEGATIVE)
[2018-12-10 16:31] LABS: OPIATES, UR POSITIVE (NEGATIVE)
--- NOTE | 2018-12-10 20:09 | CP.PCM.HP ---
Past Patient History - Infectious Disease Hx of Infectious Diseases: None - Past Medical History & Family History Past Medical History?: Yes - Past Social History Smoking Status: Current Some Days Smoker - CARDIAC Hx Hypertension: Yes Hx Pacemaker: No - PULMONARY Hx Asthma: Yes Hx Chronic Obstructive Pulmonary Disease (COPD): Yes (ASTHMA) - NEUROLOGICAL Hx Seizures: No - HEENT Hx HEENT Problems: No - RENAL Hx Chronic Kidney Disease: No - ENDOCRINE/METABOLIC Hx Endocrine Disorders: Yes Hx Diabetes Mellitus Type 2: Yes - HEMATOLOGICAL/ONCOLOGICAL Hx Human Immunodeficiency Virus (HIV): No - INTEGUMENTARY Hx Dermatological Problems: No - MUSCULOSKELETAL/RHEUMATOLOGICAL Hx Falls: Yes - GASTROINTESTINAL Hx Gastrointestinal Disorders: No - GENITOURINARY/GYNECOLOGICAL Hx Sexually Transmitted Disorders: No - PSYCHIATRIC Hx Substance Use: Yes - SURGICAL HISTORY Hx Appendectomy: Yes - ANESTHESIA Hx Anesthesia: Yes Hx Anesthesia Reactions: No Hx Malignant Hyperthermia: No Meds Allergies/Adverse Reactions: Allergies Allergy/AdvReac Type Severity Reaction Status Date / Time No Known Allergies Allergy Verified 12/10/18 03:34 Physical Exam - Constitutional Appears: Well - Head Exam Head Exam: ATRAUMATIC, NORMAL INSPECTION, NORMOCEPHALIC - Eye Exam Eye Exam: EOMI, Normal appearance, PERRL Pupil Exam: NORMAL ACCOMODATION, PERRL - ENT Exam ENT Exam: Mucous Membranes Moist, Normal Exam - Neck Exam Neck exam: Positive for: Normal Inspection - Respiratory Exam Respiratory Exam: Decreased Breath Sounds - Cardiovascular Exam Cardiovascular Exam: REGULAR RHYTHM, +S1, +S2 - GI/Abdominal Exam GI & Abdominal Exam: Diminished Bowel Sounds, Soft - Rectal Exam Rectal Exam: Deferred - Neurological Exam Neurological exam: Oriented x3 Results - Vital Signs Recent Vital Signs: Last Vital Signs Temp 97.2 F L 12/10/18 15:00 Pulse 73 12/10/18 15:00 Resp 20 12/10/18 15:00 BP 156/78 H 12/10/18 15:00 Pulse Ox 100 12/10/18 15:00 - Labs Result Diagrams: 12/10/18 04:39 12/10/18 04:39 Labs: Laboratory Results - last 24 hr 12/10/18 12/10/18 12/10/18 03:59 04:39 04:39 WBC 5.6 RBC 2.81 L Hgb 7.3 L D Hct 22.0 L MCV 78.4 L MCH 25.9 L MCHC 33.1 RDW 20.7 H Plt Count 226 D MPV 7.1 L Neut % (Auto) 90.7 H Lymph % (Auto) 6.3 L [place] % (Auto) 2.4 Eos % (Auto) 0.2 Baso % (Auto) 0.4 Neut # (Auto) 5.1 Lymph # (Auto) 0.4 L [place] # (Auto) 0.1 Eos # (Auto) 0.0 Baso # (Auto) 0.0 Neutrophils % (Manual) 91 H Lymphocytes % (Manual) 6 L Monocytes % (Manual) 3 Platelet Estimate Normal Large Platelets Present Poikilocytosis (manual Slight Anisocytosis (manual) Slight Rouleaux Slight pO2 VBG pH VBG pCO2 VBG HCO3 VBG Total CO2 VBG O2 Sat (Calc) VBG Base Excess VBG Potassium Glucose Lactate Sodium 135 Potassium 3.4 L Chloride 104 Carbon Dioxide 25 Anion Gap 10 BUN 16 Creatinine 1.1 Est GFR ( Amer) > 60 Est GFR (Non-Af Amer) 53 Random Glucose 133 H D Calcium 8.7 Total Bilirubin 0.4 AST 20 ALT < 6 L Alkaline Phosphatase 101 Total Protein 7.7 Albumin 3.5 Globulin 4.1 H Albumin/Globulin Ratio 0.9 L Venous Blood Potassium Urine Color Yellow Urine Clarity Hazy Urine pH 6.0 Ur Specific [place] 1.011 Urine Protein 2+ H Urine Glucose (UA) Normal Urine Ketones Negative Urine Blood 3+ H Urine Nitrate Negative Urine Bilirubin Negative Urine Urobilinogen Normal Ur Leukocyte Esterase Trace Urine WBC (Auto) 28 H Urine RBC (Auto) 628 H Ur Squamous Epith Cells 1 Urine Bacteria Rare Hyaline Casts 3-5 H Urine Yeast (Budding) Mod H Urine HCG, Qual Negative Urine Opiates Screen Urine Methadone Screen Ur Barbiturates Screen Ur Phencyclidine Scrn Ur Amphetamines Screen U Benzodiazepines Scrn U Oth Cocaine Metabols U Cannabinoids Screen Blood Type Antibody Screen 12/10/18 12/10/18 12/10/18 04:50 12:00 15:21 WBC RBC Hgb Hct MCV MCH MCHC RDW Plt Count MPV Neut % (Auto) Lymph % (Auto) [place] % (Auto) Eos % (Auto) Baso % (Auto) Neut # (Auto) Lymph # (Auto) [place] # (Auto) Eos # (Auto) Baso # (Auto) Neutrophils % (Manual) Lymphocytes % (Manual) Monocytes % (Manual) Platelet Estimate Large Platelets Poikilocytosis (manual Anisocytosis (manual) Rouleaux pO2 52 VBG pH 7.41 VBG pCO2 37 L VBG HCO3 24.0 VBG Total CO2 24.6 VBG O2 Sat (Calc) 91.9 H VBG Base Excess -0.8 L VBG Potassium 3.3 L Glucose 127 H Lactate 1.7 Sodium 135.0 Potassium Chloride 104.0 Carbon Dioxide Anion Gap BUN Creatinine Est GFR ( Amer) Est GFR (Non-Af Amer) Random Glucose Calcium Total Bilirubin AST ALT Alkaline Phosphatase Total Protein Albumin Globulin Albumin/Globulin Ratio Venous Blood Potassium 3.3 L Urine Color Urine Clarity Urine pH Ur Specific [place] Urine Protein Urine Glucose (UA) Urine Ketones Urine Blood Urine Nitrate Urine Bilirubin Urine Urobilinogen Ur Leukocyte Esterase Urine WBC (Auto) Urine RBC (Auto) Ur Squamous Epith Cells Urine Bacteria Hyaline Casts Urine Yeast (Budding) Urine HCG, Qual Urine Opiates Screen Positive H Urine Methadone Screen Negative Ur Barbiturates Screen Negative Ur Phencyclidine Scrn Negative Ur Amphetamines Screen Negative U Benzodiazepines Scrn Negative U Oth Cocaine Metabols Positive H U Cannabinoids Screen Positive H Blood Type A NEGATIVE Antibody Screen Negative
[2018-12-11] MEDS: Cefepime IV 1 gm in Dextrose 1 GM/50 ML BAG IVPB SCH ×2 (02:35→13:58)
[2018-12-11 07:04] LABS: BASO % 0.2 % (0.0-2.0); EOS % 0.1 % (0.0-4.0); HEMOGLOBIN 8.9 g/dL (11.0-16.0); LYMPH # 0.7 K/uL (1.0-4.3); LYMPH % 10.5 % (20.0-40.0); MEAN CELL VOLUME 77.4 fL (81.0-99.0); MEAN CORPUSCULAR HEMOGLOBIN 25.7 pg (27.0-31.0); MEAN CORPUSCULAR HGB CONC 33.3 g/dL (33.0-37.0); MEAN PLATELET VOLUME 7.4 fL (7.2-11.7); MONO # 0.3 K/uL (0.0-0.8); MONO % 4.6 % (0.0-10.0); NEUT # 5.7 K/uL (1.8-7.0); NEUT % 84.6 % (50.0-75.0); NRBC % 0.1 % (0.0-2.0); RBC 3.47 Mil/uL (3.80-5.20); RED CELL DISTRIBUTION WIDTH 20.1 % (11.5-14.5); WHITE BLOOD COUNT 6.7 K/uL (4.8-10.8)
[2018-12-11] MEDS: Enoxaparin 40 mg Syringe SC SCH (11:21)
--- NOTE | 2018-12-11 19:48 | CP.PCM.PN ---
Subjective - Date & Time of Evaluation Date of Evaluation: 12/11/18 Time of Evaluation: 15:45 - Subjective Subjective: Patient has left leg erythema with possible may be an abscess patient's lying in the bed no nausea no vomiting no constipations Objective - Vital Signs/Intake and Output Vital Signs (last 24 hours): Temp Pulse Resp BP Pulse Ox 97.2 F L 69 20 195/94 H 100 12/11/18 09:52 12/11/18 16:00 12/11/18 09:52 12/11/18 09:52 12/11/18 09:52 Intake and Output: 12/11/18 12/12/18 18:59 06:59 Intake Total 300 Balance 300 - Medications Medications: Current Medications Acetaminophen (Tylenol 325mg Tab) 650 mg PO Q6 PRN PRN Reason: Pain, moderate (4-7) Last Admin: 12/10/18 20:46 Dose: 650 mg Clonidine HCl (Catapres) 0.1 mg PO Q8 PRN PRN Reason: Heroine withdrawal Last Admin: 12/11/18 08:15 Dose: 0.1 mg Enoxaparin Sodium (Lovenox) 40 mg SC DAILY [facility] Last Admin: 12/11/18 11:21 Dose: 40 mg Cefepime HCl (Maxipime Iv 1 Gm Premix) 1 gm in 50 mls @ 100 mls/hr IVPB Q12H [facility]; Protocol Last Admin: 12/11/18 13:58 Dose: 100 mls/hr - Labs Labs: 12/11/18 06:53 12/10/18 04:39 - Constitutional Appears: Well - Head Exam Head Exam: ATRAUMATIC, NORMAL INSPECTION, NORMOCEPHALIC - Eye Exam Eye Exam: EOMI, Normal appearance, PERRL Pupil Exam: NORMAL ACCOMODATION, PERRL - ENT Exam ENT Exam: Mucous Membranes Moist, Normal Exam - Neck Exam Neck Exam: Full ROM, Normal Inspection. absent: Lymphadenopathy - Respiratory Exam Respiratory Exam: Decreased Breath Sounds - Cardiovascular Exam Cardiovascular Exam: REGULAR RHYTHM, +S1, +S2 - GI/Abdominal Exam GI & Abdominal Exam: Soft, Diminished Bowel Sounds - Rectal Exam Rectal Exam: Deferred - Neurological Exam Neurological Exam: Oriented x3 Assessment and Plan - Assessment and Plan (Free Text) Plan: medications reviewed catapress lovenox maxipime iv tylenol 325mg Continue IV antibiotic septic workup ID consult will add surgical follow-up with Dr. Capone Continue IV cefepime I am putting pain medicine Status post KCl supplementation Potassium anemia 7.3 Ferrlecit 125 mg IV Procrit 10,000 x 1 dose IV As ordered
[2018-12-12] MEDS: Cefepime IV 1 gm in Dextrose 1 GM/50 ML BAG IVPB SCH ×2 (02:43→13:05)
[2018-12-12] MEDS: Enoxaparin 40 mg Syringe SC SCH (09:10)
--- NOTE | 2018-12-12 10:13 | CP.PCM.PN ---
Subjective - Date & Time of Evaluation Date of Evaluation: 12/12/18 - Subjective Subjective: Patient seen and examined today No nausea No vomiting No fever No diarrhea No dizziness No shortness of breath Objective - Vital Signs/Intake and Output Vital Signs (last 24 hours): Temp Pulse Resp BP Pulse Ox 97.7 F 63 18 181/57 H 99 12/12/18 07:15 12/12/18 07:15 12/12/18 07:15 12/12/18 07:15 12/12/18 07:15 Intake and Output: 12/12/18 12/12/18 06:59 18:59 Intake Total 250 Balance 250 - Medications Medications: Current Medications Acetaminophen (Tylenol 325mg Tab) 650 mg PO Q6 PRN PRN Reason: Pain, moderate (4-7) Last Admin: 12/10/18 20:46 Dose: 650 mg Clonidine HCl (Catapres) 0.1 mg PO Q8 PRN PRN Reason: Heroine withdrawal Last Admin: 12/12/18 05:55 Dose: 0.1 mg Enoxaparin Sodium (Lovenox) 40 mg SC DAILY [facility] Last Admin: 12/12/18 09:10 Dose: 40 mg Cefepime HCl (Maxipime Iv 1 Gm Premix) 1 gm in 50 mls @ 100 mls/hr IVPB Q12H [facility]; Protocol Last Admin: 12/12/18 02:43 Dose: 100 mls/hr - Labs Labs: 12/11/18 06:53 12/10/18 04:39 - Constitutional Appears: Well - Head Exam Head Exam: ATRAUMATIC, NORMAL INSPECTION, NORMOCEPHALIC - Eye Exam Eye Exam: EOMI, Normal appearance, PERRL Pupil Exam: NORMAL ACCOMODATION, PERRL - ENT Exam ENT Exam: Mucous Membranes Moist, Normal Exam - Neck Exam Neck Exam: Full ROM, Normal Inspection. absent: Lymphadenopathy - Respiratory Exam Respiratory Exam: Decreased Breath Sounds - Cardiovascular Exam Cardiovascular Exam: REGULAR RHYTHM, +S1, +S2 - GI/Abdominal Exam GI & Abdominal Exam: Soft, Diminished Bowel Sounds - Rectal Exam Rectal Exam: Deferred - Neurological Exam Neurological Exam: Oriented x3 Assessment and Plan - Assessment and Plan (Free Text) Plan: catapress lovenox maxipime tylenol vancomycin labs reviewed vitals reviewed medications reviewed
--- NOTE | 2018-12-12 10:33 | US ---
Date of service: 12/12/2018 PROCEDURE: Ultrasound examination of left lower extremity HISTORY: Evaulation for Abscess COMPARISON: Comparison is made with the previous CT dated 11/18/2018 TECHNIQUE: Limited ultrasound examination of the distal left leg was performed. FINDINGS: There is a focal subcutaneous soft tissue swelling. There is hypoechoic subcutaneous area measures 2.1 x 1.6 x 1.2 centimeter likely represent abscess formation surrounding with increased vascularity. IMPRESSION: Suspicious for subcutaneous abscess measures 2.1 centimeter surrounding with soft tissue swelling and hyperemia.
--- NOTE | 2018-12-12 15:02 | CP.PCM.CON ---
History of Present Illness - History of Present Illness History of Present Illness: Surgery Consult Note- Dr. Capone 48F pmhx significant for IVDA, CVA, multiple I&Ds presents with LLE pain. surgery was consulted for LLE abscess. Patient has had I&D in the past at the similar area. Denies current fevers, chills, chest pain, shortness of breath PMH: Asthma, CVA, IVDA, MSSA bacteremia, multiple abscesses PSH: I&D abscesses, Appendectomy ALL: NKDA Review of Systems - Review of Systems All systems: reviewed and no additional remarkable complaints except - Constitutional Constitutional: As Per HPI Past Patient History - Infectious Disease Hx of Infectious Diseases: None - Past Medical History & Family History Past Medical History?: Yes - Past Social History Smoking Status: Current Some Days Smoker - CARDIAC Hx Hypertension: Yes Hx Pacemaker: No - PULMONARY Hx Asthma: Yes Hx Chronic Obstructive Pulmonary Disease (COPD): Yes (ASTHMA) - NEUROLOGICAL Hx Seizures: No - HEENT Hx HEENT Problems: No - RENAL Hx Chronic Kidney Disease: No - ENDOCRINE/METABOLIC Hx Endocrine Disorders: Yes Hx Diabetes Mellitus Type 2: Yes - HEMATOLOGICAL/ONCOLOGICAL Hx Human Immunodeficiency Virus (HIV): No - INTEGUMENTARY Hx Dermatological Problems: No - MUSCULOSKELETAL/RHEUMATOLOGICAL Hx Falls: Yes - GASTROINTESTINAL Hx Gastrointestinal Disorders: No - GENITOURINARY/GYNECOLOGICAL Hx Sexually Transmitted Disorders: No - PSYCHIATRIC Hx Substance Use: Yes - SURGICAL HISTORY Hx Appendectomy: Yes - ANESTHESIA Hx Anesthesia: Yes Hx Anesthesia Reactions: No Hx Malignant Hyperthermia: No Meds Allergies/Adverse Reactions: Allergies Allergy/AdvReac Type Severity Reaction Status Date / Time No Known Allergies Allergy Verified 12/10/18 03:34 - Medications Medications: Current Medications Acetaminophen (Tylenol 325mg Tab) 650 mg PO Q6 PRN PRN Reason: Pain, moderate (4-7) Last Admin: 12/10/18 20:46 Dose: 650 mg Clonidine HCl (Catapres) 0.1 mg PO Q8 PRN PRN Reason: Heroine withdrawal Last Admin: 12/12/18 05:55 Dose: 0.1 mg Enoxaparin Sodium (Lovenox) 40 mg SC DAILY [facility] Last Admin: 12/12/18 09:10 Dose: 40 mg Cefepime HCl (Maxipime Iv 1 Gm Premix) 1 gm in 50 mls @ 100 mls/hr IVPB Q12H [facility]; Protocol Last Admin: 12/12/18 13:05 Dose: 100 mls/hr Physical Exam - Constitutional Appears: Non-toxic, No Acute Distress - Head Exam Head Exam: ATRAUMATIC - Eye Exam Eye Exam: EOMI. absent: Scleral icterus - ENT Exam ENT Exam: Mucous Membranes Moist - Respiratory Exam Respiratory Exam: NORMAL BREATHING PATTERN. absent: Accessory Muscle Use, Respiratory Distress - Cardiovascular Exam Cardiovascular Exam: REGULAR RHYTHM. absent: Bradycardia, Tachycardia - GI/Abdominal Exam GI & Abdominal Exam: Soft. absent: Bruit, Diminished Bowel Sounds - Extremities Exam Extremities exam: Negative for: calf tenderness - Back Exam Back exam: absent: CVA tenderness (L), CVA tenderness (R) - Neurological Exam Neurological exam: Alert, Oriented x3 - Psychiatric Exam Psychiatric exam: Normal Affect - Skin Skin Exam: Intact, Warm Results - Vital Signs Recent Vital Signs: Last Vital Signs Temp 97.7 F 12/12/18 07:15 Pulse 64 12/12/18 10:00 Resp 18 12/12/18 07:15 BP 181/57 H 12/12/18 07:15 Pulse Ox 99 12/12/18 07:15 - Labs Result Diagrams: 12/11/18 06:53 12/10/18 04:39 Assessment & Plan - Assessment and Plan (Free Text) Assessment: 48F w/ LLE abscess Plan: - warm compresses - abx - plan for bedside I&D - discussed w/ Dr. Capone surgical attending PGY2
[2018-12-12] MEDS ORDERED: Lidocaine 1%/Epinephrine 1:100000 30 ml vial IJ ONE (15:45)
--- NOTE | 2018-12-12 15:52 | CP.PCM.PN ---
Subjective - Date & Time of Evaluation Date of Evaluation: 12/12/18 Time of Evaluation: 08:00 - Subjective Subjective: 48 y/o F p/w back pain and leg erythema. admitted with infected wounf LLE Cutures pending IV antibiotics ordered - Medical History PMH: Asthma, COPD (ASTHMA), Deep Vein Thrombosis, HTN Hep C + ( treated ?) Denies: Diabetes, Hepatitis, HIV, Chronic Kidney Disease, Seizures, Sexually Transmitted Disease Surgical History: Appendectomy Denies: Pacemaker Objective - Vital Signs/Intake and Output Vital Signs (last 24 hours): Temp Pulse Resp BP Pulse Ox 97.7 F 64 18 181/57 H 99 12/12/18 07:15 12/12/18 10:00 12/12/18 07:15 12/12/18 07:15 12/12/18 07:15 Intake and Output: 12/12/18 12/12/18 06:59 18:59 Intake Total 250 Balance 250 - Medications Medications: Current Medications Acetaminophen (Tylenol 325mg Tab) 650 mg PO Q6 PRN PRN Reason: Pain, moderate (4-7) Last Admin: 12/10/18 20:46 Dose: 650 mg Clonidine HCl (Catapres) 0.1 mg PO Q8 PRN PRN Reason: Heroine withdrawal Last Admin: 12/12/18 05:55 Dose: 0.1 mg Enoxaparin Sodium (Lovenox) 40 mg SC DAILY [facility] Last Admin: 12/12/18 09:10 Dose: 40 mg Cefepime HCl (Maxipime Iv 1 Gm Premix) 1 gm in 50 mls @ 100 mls/hr IVPB Q12H [facility]; Protocol Last Admin: 12/12/18 13:05 Dose: 100 mls/hr Lidocaine/Epinephrine (Lidocaine 1%/Epinephrine 1:[id number] 30 Ml) 30 ml IJ ONCE ONE Stop: 12/12/18 15:46 - Labs Labs: 12/11/18 06:53 12/10/18 04:39 - Constitutional Appears: Non-toxic, No Acute Distress, Chronically Ill - Head Exam Head Exam: ATRAUMATIC, NORMAL INSPECTION, NORMOCEPHALIC - Eye Exam Eye Exam: EOMI, Normal appearance, PERRL Pupil Exam: NORMAL ACCOMODATION, PERRL - ENT Exam ENT Exam: Mucous Membranes Moist, Normal Exam - Neck Exam Neck Exam: Full ROM, Normal Inspection. absent: Lymphadenopathy - Respiratory Exam Respiratory Exam: Clear to Ausculation Bilateral, NORMAL BREATHING PATTERN - Cardiovascular Exam Cardiovascular Exam: REGULAR RHYTHM, +S1, +S2. absent: Murmur - GI/Abdominal Exam GI & Abdominal Exam: Soft, Normal Bowel Sounds. absent: Tenderness - Rectal Exam Rectal Exam: Deferred - Exam Exam: NORMAL INSPECTION - Extremities Exam Extremities Exam: Full ROM, Normal Capillary Refill, Normal Inspection. absent: Joint Swelling, Pedal Edema - Back Exam Back Exam: NORMAL INSPECTION - Neurological Exam Neurological Exam: Alert, Awake, CN II-XII Intact, Normal Gait, Oriented x3 - Psychiatric Exam Psychiatric exam: Normal Affect, Normal Mood - Skin Skin Exam: Dry, Erythema, Intact. absent: Normal Color, Warm Assessment and Plan (1) Cellulitis of left lower leg Status: Acute (2) Urinary tract infection Status: Acute (3) Anemia Status: Acute (4) Substance abuse Status: Acute - Assessment and Plan (Free Text) Assessment: cont iv antibiotics wound care
[2018-12-12] MEDS: Vancomycin Hydrochloride 250 mg Capsule (Oral) PO SCH (18:16)
[2018-12-13] MEDS: Vancomycin Hydrochloride 250 mg Capsule (Oral) PO SCH ×3 (00:53→11:49)
[2018-12-13] MEDS: Cefepime IV 1 gm in Dextrose 1 GM/50 ML BAG IVPB SCH ×2 (00:53→14:47)
[2018-12-13 01:18] VITALS: RESP 20
--- NOTE | 2018-12-13 05:08 | CP.PCM.PN ---
Subjective - Date & Time of Evaluation Date of Evaluation: 12/13/18 Time of Evaluation: 05:03 - Subjective Subjective: Surgery Progress note- Dr. Capone Patient seen and examined at bedside. No new complaints. LLE abscess remains, no active draining, pain to palpation. Tolerating regular diet. + flatus. denies fevers, chills, chest pain, shortness of breath. Objective - Vital Signs/Intake and Output Vital Signs (last 24 hours): Temp Pulse Resp BP Pulse Ox 98 F 67 20 170/87 H 95 12/13/18 00:00 12/13/18 01:00 12/13/18 00:00 12/13/18 00:00 12/13/18 00:00 - Medications Medications: Current Medications Acetaminophen (Tylenol 325mg Tab) 650 mg PO Q6 PRN PRN Reason: Pain, moderate (4-7) Last Admin: 12/13/18 02:11 Dose: 650 mg Clonidine HCl (Catapres) 0.1 mg PO Q8 PRN PRN Reason: Heroine withdrawal Last Admin: 12/13/18 00:53 Dose: 0.1 mg Enoxaparin Sodium (Lovenox) 40 mg SC DAILY [facility] Last Admin: 12/12/18 09:10 Dose: 40 mg Cefepime HCl (Maxipime Iv 1 Gm Premix) 1 gm in 50 mls @ 100 mls/hr IVPB Q12H [facility]; Protocol Last Admin: 12/13/18 00:53 Dose: 100 mls/hr Vancomycin HCl (Vancocin 250mg Capsule) 250 mg PO Q6 [facility] Last Admin: 12/13/18 00:53 Dose: 250 mg - Labs Labs: 12/11/18 06:53 12/10/18 04:39 - Constitutional Appears: Non-toxic, No Acute Distress, Younger Than Stated Age - Head Exam Head Exam: ATRAUMATIC - Eye Exam Eye Exam: EOMI. absent: Scleral icterus - ENT Exam ENT Exam: Mucous Membranes Moist - Respiratory Exam Respiratory Exam: Clear to Ausculation Bilateral. absent: Accessory Muscle Use, Respiratory Distress - Cardiovascular Exam Cardiovascular Exam: REGULAR RHYTHM. absent: Bradycardia, Tachycardia - GI/Abdominal Exam GI & Abdominal Exam: Soft. absent: Firm, Tenderness - Extremities Exam Extremities Exam: absent: Calf Tenderness Additional comments: left lower extremity: pulses intact 3x4cm abscess w/ minimal induration noted. - Neurological Exam Neurological Exam: Alert, Awake, Oriented x3 - Psychiatric Exam Psychiatric exam: Normal Affect - Skin Skin Exam: Intact, Warm Assessment and Plan - Assessment and Plan (Free Text) Assessment: 48F w/ LLE abscess Plan: beside I&D pain control prn; avoid narcotics due to pt hx of substance abuse oob and ambulate c/w abx further recs per Dr. Capone surgical attending PGY2
--- NOTE | 2018-12-13 05:12 | PCM.PROC ---
Incision and Drainage - Time Time Performed: 05:10 - Time Out Time Out: Side verified, Site verified, Patient ID confirmed, Sterile procedures obs. - Procedure Procedure-Incision & Drainage: Incision and drainage of left lower extremity abscess - Consent obtained Consent obtained: Written - Performed by Performed by: Mid-level Provider - Indications Indications: Cutaneous abscess - Contraindications Contraindications: None - Location Location: Left, Ankle, Skin abscess - Dimensions Dimensions Length cm: 3cm Dimensions width cm: 4cm - Anesthetic Technique Anesthetic Technique: Local - Anesthetic Anesthetic: Lidocaine 1% w/epi - Systemic Analgesia Systemic Analgesia: Ketorolac - Procedure Procedure: Usual prep and drape, Overlying area fluctuance, # scalpel used (11), Explored for loculations, Irrigated, Packed with sterile gauze - Drained Drained: ml pus (4) - Complications Complications: None - Patient tolerated procedure Patient tolerated procedure: Well
--- NOTE | 2018-12-13 11:41 | CP.PCM.CON ---
<Mukesh Murcia - Last Filed: 12/13/18 11:45> History of Present Illness - History of Present Illness History of Present Illness: GI Fellow PGY4, consult note. Nila Mijares is a 48F presenting with leg pain, abdominal pain and diarrhea. She is homeless and used IV drugs and has had several I&Ds in the past. Again, she has abscess of left leg. Her abdominal pain been present since admission and is mostly LUQ. The pain is mild-moderate, non radiating and worse when she coughs. She had watery diarrhea yesterday. She last used heroin prior to admission, ~4-5 days ago. Her diarrhea is somewhat better today. She does admit significant weight loss over the last year, more than 50lbs. She was also anemic on admission. She denies any obvious bleeding, and no menses in 5 years. She denies every having upper or lower endoscopy. PMHx - as above + previous HCV esposure, CVA PSHx - as above + appendectomy FMHx - unknown SocHx - homeless, +tobacco, denies alcohol. Uses cocaine, THC, heroin. 12pt ROS negative except for above. Past Patient History - Infectious Disease Hx of Infectious Diseases: None - Past Medical History & Family History Past Medical History?: Yes - Past Social History Smoking Status: Current Some Days Smoker - CARDIAC Hx Hypertension: Yes Hx Pacemaker: No - PULMONARY Hx Asthma: Yes Hx Chronic Obstructive Pulmonary Disease (COPD): Yes (ASTHMA) - NEUROLOGICAL Hx Seizures: No - HEENT Hx HEENT Problems: No - RENAL Hx Chronic Kidney Disease: No - ENDOCRINE/METABOLIC Hx Endocrine Disorders: Yes Hx Diabetes Mellitus Type 2: Yes - HEMATOLOGICAL/ONCOLOGICAL Hx Human Immunodeficiency Virus (HIV): No - INTEGUMENTARY Hx Dermatological Problems: No - MUSCULOSKELETAL/RHEUMATOLOGICAL Hx Falls: Yes - GASTROINTESTINAL Hx Gastrointestinal Disorders: No - GENITOURINARY/GYNECOLOGICAL Hx Sexually Transmitted Disorders: No - PSYCHIATRIC Hx Substance Use: Yes - SURGICAL HISTORY Hx Appendectomy: Yes - ANESTHESIA Hx Anesthesia: Yes Hx Anesthesia Reactions: No Hx Malignant Hyperthermia: No Meds Allergies/Adverse Reactions: Allergies Allergy/AdvReac Type Severity Reaction Status Date / Time No Known Allergies Allergy Verified 12/10/18 03:34 - Medications Medications: Current Medications Acetaminophen (Tylenol 325mg Tab) 650 mg PO Q6 PRN PRN Reason: Pain, moderate (4-7) Last Admin: 12/12/18 17:05 Dose: 650 mg Clonidine HCl (Catapres) 0.1 mg PO Q8 PRN PRN Reason: Heroine withdrawal Last Admin: 12/13/18 00:53 Dose: 0.1 mg Enoxaparin Sodium (Lovenox) 40 mg SC DAILY [facility] Last Admin: 12/12/18 09:10 Dose: 40 mg Cefepime HCl (Maxipime Iv 1 Gm Premix) 1 gm in 50 mls @ 100 mls/hr IVPB Q12H [facility]; Protocol Last Admin: 12/13/18 00:53 Dose: 100 mls/hr Vancomycin HCl (Vancocin 250mg Capsule) 250 mg PO Q6 [facility] Last Admin: 12/13/18 05:49 Dose: 250 mg Physical Exam - Constitutional Appears: Non-toxic, No Acute Distress, Older Than Stated Age, Chronically Ill - Eye Exam Eye Exam: EOMI, Normal appearance - Respiratory Exam Respiratory Exam: Clear to Auscultation Bilateral, NORMAL BREATHING PATTERN - Cardiovascular Exam Cardiovascular Exam: REGULAR RHYTHM, +S1, +S2 - GI/Abdominal Exam GI & Abdominal Exam: Normal Bowel Sounds, Soft, Tenderness. absent: Organomegaly Additional comments: mild tenderness to the LUQ with deep palpation - Psychiatric Exam Psychiatric exam: Anxious, Depressed - Skin Skin Exam: Dry, Warm Results - Vital Signs Recent Vital Signs: Last Vital Signs Temp 97.8 F 12/13/18 07:00 Pulse 87 12/13/18 07:59 Resp 20 12/13/18 07:00 BP 179/87 H 12/13/18 07:00 Pulse Ox 99 12/13/18 07:00 - Labs Result Diagrams: 12/11/18 06:53 12/10/18 04:39 Labs: Laboratory Results - last 24 hr 12/13/18 01:12 Stool Occult Blood Negative Assessment & Plan - Assessment and Plan (Free Text) Assessment: #Abdominal pain #Diarrhea #Weight loss #Chronic anemia #Left leg abscess s/p I&D #HCV #Polysubstance abuse #Homeless PLAN: -Abdominal pain appears to be minimal at this time and diarrhea is improving. Possible heroin w/d. -Follow up C. diff, stool studies -Of concern is her worsening anemia and microcytosis along with reportedly significant weight loss; however, the chart history does not exactly support her claim. -We will obtain iron studies -Patient needs an EGD and colonoscopy as an outpatient, however, she is homeless and this would be unlikely to happen. Case discussed with Dr. Zhou, see attestation. - Date & Time Date: 12/13/18 Time: 11:42 <AbelardoJustin Jessica - Last Filed: 12/13/18 15:25> Meds - Medications Medications: Current Medications Acetaminophen (Tylenol 325mg Tab) 650 mg PO Q6 PRN PRN Reason: Pain, moderate (4-7) Last Admin: 12/12/18 17:05 Dose: 650 mg Clonidine HCl (Catapres) 0.1 mg PO Q8 PRN PRN Reason: Heroine withdrawal Last Admin: 12/13/18 00:53 Dose: 0.1 mg Enoxaparin Sodium (Lovenox) 40 mg SC DAILY [facility] Last Admin: 12/13/18 11:49 Dose: 40 mg Cefepime HCl (Maxipime Iv 1 Gm Premix) 1 gm in 50 mls @ 100 mls/hr IVPB Q12H [facility]; Protocol Last Admin: 12/13/18 14:47 Dose: 100 mls/hr Potassium Chloride (K-Dur 20 Meq Er Tab) 40 meq PO ONCE ONE Stop: 12/13/18 15:16 Vancomycin HCl (Vancocin 250mg Capsule) 250 mg PO Q6 [facility] Last Admin: 12/13/18 11:49 Dose: 250 mg Results - Vital Signs Recent Vital Signs: Last Vital Signs Temp 97.8 F 12/13/18 07:00 Pulse 87 12/13/18 07:59 Resp 20 12/13/18 07:00 BP 179/87 H 12/13/18 07:00 Pulse Ox 99 12/13/18 07:00 - Labs Result Diagrams: 12/13/18 13:40 12/13/18 13:40 Labs: Laboratory Results - last 24 hr 12/13/18 12/13/18 12/13/18 01:12 01:12 13:40 WBC RBC Hgb Hct MCV MCH MCHC RDW Plt Count MPV Neut % (Auto) Lymph % (Auto) [place] % (Auto) Eos % (Auto) Baso % (Auto) Neut # (Auto) Lymph # (Auto) [place] # (Auto) Eos # (Auto) Baso # (Auto) Sodium Potassium Chloride Carbon Dioxide Anion Gap BUN Creatinine Est GFR ( Amer) Est GFR (Non-Af Amer) Random Glucose Calcium Iron 107 TIBC 318 % Saturation 34 Ferritin Total Bilirubin AST ALT Alkaline Phosphatase Total Protein Albumin Globulin Albumin/Globulin Ratio Stool Occult Blood Negative C. difficile Ag & Toxin Negative 12/13/18 12/13/18 13:40 13:40 WBC 8.3 RBC 3.88 Hgb 10.3 L Hct 30.0 L MCV 77.5 L MCH 26.5 L MCHC 34.2 RDW 19.5 H Plt Count 413 H D MPV 6.7 L Neut % (Auto) 67.9 Lymph % (Auto) 23.5 [place] % (Auto) 7.8 Eos % (Auto) 0.3 Baso % (Auto) 0.5 Neut # (Auto) 5.6 Lymph # (Auto) 1.9 [place] # (Auto) 0.6 Eos # (Auto) 0.0 Baso # (Auto) 0.0 Sodium 137 Potassium 3.3 L Chloride 104 Carbon Dioxide 22 Anion Gap 15 BUN 32 H Creatinine 0.9 Est GFR ( Amer) > 60 Est GFR (Non-Af Amer) > 60 Random Glucose 138 H Calcium 9.1 Iron TIBC % Saturation Ferritin 143.0 Total Bilirubin 0.5 AST 41 H D ALT 18 Alkaline Phosphatase 93 Total Protein 8.8 H Albumin 4.0 Globulin 4.8 H Albumin/Globulin Ratio 0.8 L Stool Occult Blood C. difficile Ag & Toxin Attending/Attestation - Attestation I have personally seen and examined this patient.: Yes I have fully participated in the care of the patient.: Yes I have reviewed all pertinent clinical information: Yes Notes (Text): 12/13/18 15:17 I have seen and examined patient with GI fellow. Agree with above documentation with the following additions. In brief, this is a 48 year old female with history of polysubstance abuse, HCV, who presents to hospital with complaint of progressive abdominal pain and diarrhea which began 4 days ago. She is homeless and admits to ongoing heroin use, last used day prior to admission. She describes dull LUQ abdominal pain associated with loose non-bloody bowel movements. She denies nausea, vomiting, fever/chills, rectal bleeding, sick contacts, travel, or unusual food consumption. She reports a significant weight loss over the past one year but is not able to quantify amount. No prior endoscopic evaluation. Additional physical examination: Neuro: AAO x3, CN 3-12 intact Abdomen: no palpable hepato/splenomegaly Polysubstance abuse HCV LE abscess, s/p I&D Abdominal pain, diarrhea - improved, possibly secondary to opioid withdrawal - Diet as tolerated - Obtain stool studies (culture, c-difficile) - H/H stable, continue to monitor - Obtain iron studies - CT imaging from June 2018 did not reveal any GI abnormalities, however given microcytic anemia and weight loss may warrant additional workup. Will con tinue to monitor patient clinical course.
[2018-12-13] MEDS: Enoxaparin 40 mg Syringe SC SCH (11:49)
--- NOTE | 2018-12-13 12:30 | CP.PCM.PN ---
Subjective - Date & Time of Evaluation Date of Evaluation: 12/13/18 Time of Evaluation: 09:00 Objective - Vital Signs/Intake and Output Vital Signs (last 24 hours): Temp Pulse Resp BP Pulse Ox 97.8 F 87 20 179/87 H 99 12/13/18 07:00 12/13/18 07:59 12/13/18 07:00 12/13/18 07:00 12/13/18 07:00 - Medications Medications: Current Medications Acetaminophen (Tylenol 325mg Tab) 650 mg PO Q6 PRN PRN Reason: Pain, moderate (4-7) Last Admin: 12/12/18 17:05 Dose: 650 mg Clonidine HCl (Catapres) 0.1 mg PO Q8 PRN PRN Reason: Heroine withdrawal Last Admin: 12/13/18 00:53 Dose: 0.1 mg Enoxaparin Sodium (Lovenox) 40 mg SC DAILY [facility] Last Admin: 12/13/18 11:49 Dose: 40 mg Cefepime HCl (Maxipime Iv 1 Gm Premix) 1 gm in 50 mls @ 100 mls/hr IVPB Q12H [facility]; Protocol Last Admin: 12/13/18 00:53 Dose: 100 mls/hr Vancomycin HCl (Vancocin 250mg Capsule) 250 mg PO Q6 [facility] Last Admin: 12/13/18 11:49 Dose: 250 mg - Labs Labs: 12/11/18 06:53 12/10/18 04:39 Assessment and Plan (1) Cellulitis of left lower leg Status: Acute (2) Urinary tract infection Status: Acute (3) Anemia Status: Acute (4) Substance abuse Status: Acute
--- NOTE | 2018-12-13 13:54 | CP.PCM.PN ---
Subjective - Date & Time of Evaluation Date of Evaluation: 12/13/18 - Subjective Subjective: patient seen today no nausea no vomitng no diarrhea no fever no sob Objective - Vital Signs/Intake and Output Vital Signs (last 24 hours): Temp Pulse Resp BP Pulse Ox 97.8 F 87 20 179/87 H 99 12/13/18 07:00 12/13/18 07:59 12/13/18 07:00 12/13/18 07:00 12/13/18 07:00 - Medications Medications: Current Medications Acetaminophen (Tylenol 325mg Tab) 650 mg PO Q6 PRN PRN Reason: Pain, moderate (4-7) Last Admin: 12/12/18 17:05 Dose: 650 mg Clonidine HCl (Catapres) 0.1 mg PO Q8 PRN PRN Reason: Heroine withdrawal Last Admin: 12/13/18 00:53 Dose: 0.1 mg Enoxaparin Sodium (Lovenox) 40 mg SC DAILY [facility] Last Admin: 12/13/18 11:49 Dose: 40 mg Cefepime HCl (Maxipime Iv 1 Gm Premix) 1 gm in 50 mls @ 100 mls/hr IVPB Q12H SELENA; Protocol Last Admin: 12/13/18 00:53 Dose: 100 mls/hr Vancomycin HCl (Vancocin 250mg Capsule) 250 mg PO Q6 SELENA Last Admin: 12/13/18 11:49 Dose: 250 mg - Labs Labs: 12/11/18 06:53 12/10/18 04:39 - Constitutional Appears: Well - Head Exam Head Exam: ATRAUMATIC, NORMAL INSPECTION, NORMOCEPHALIC - Eye Exam Eye Exam: EOMI, Normal appearance, PERRL Pupil Exam: NORMAL ACCOMODATION, PERRL - ENT Exam ENT Exam: Mucous Membranes Moist, Normal Exam - Neck Exam Neck Exam: Full ROM, Normal Inspection. absent: Lymphadenopathy - Respiratory Exam Respiratory Exam: Decreased Breath Sounds - Cardiovascular Exam Cardiovascular Exam: REGULAR RHYTHM, +S1, +S2 - GI/Abdominal Exam GI & Abdominal Exam: Soft, Diminished Bowel Sounds - Rectal Exam Rectal Exam: Deferred - Neurological Exam Neurological Exam: Oriented x3 Assessment and Plan - Assessment and Plan (Free Text) Plan: medications reivewed labs reviewed vitals reviewed
[2018-12-13 13:55] LABS: BASO % 0.5 % (0.0-2.0); EOS % 0.3 % (0.0-4.0); HEMOGLOBIN 10.3 g/dL (11.0-16.0); LYMPH # 1.9 K/uL (1.0-4.3); LYMPH % 23.5 % (20.0-40.0); MEAN CELL VOLUME 77.5 fL (81.0-99.0); MEAN CORPUSCULAR HEMOGLOBIN 26.5 pg (27.0-31.0); MEAN CORPUSCULAR HGB CONC 34.2 g/dL (33.0-37.0); MEAN PLATELET VOLUME 6.7 fL (7.2-11.7); MONO # 0.6 K/uL (0.0-0.8); MONO % 7.8 % (0.0-10.0); NEUT # 5.6 K/uL (1.8-7.0); NEUT % 67.9 % (50.0-75.0); RBC 3.88 Mil/uL (3.80-5.20); RED CELL DISTRIBUTION WIDTH 19.5 % (11.5-14.5); WHITE BLOOD COUNT 8.3 K/uL (4.8-10.8)
[2018-12-13 14:09] LABS: IRON 107 ug/dL (37-170)
[2018-12-13 14:15] LABS: ALB/GLOB RATIO 0.8 (1.0-2.1); ALT/SGPT 18 U/L (9-52); AST/SGOT 41 U/L (14-36); BLOOD UREA NITROGEN 32 mg/dL (7-17); CALCIUM 9.1 mg/dl (8.6-10.4); GFR NON-AFRICAN AMERICAN > 60
[2018-12-13 14:19] LABS: % IRON SATURATION 34 (20-55); TOTAL IRON BINDING CAPACITY 318 ug/dL (250-450)
[2018-12-13] MEDS ORDERED: Potassium Chloride 20 mEq ER Tab PO ONE (15:45)
[2018-12-13 17:16] VITALS: PULSE 67; TEMP 98.4; O2SAT 100
[2018-12-14 02:08] VITALS: BP 176/88
== END 2018-12-13 17:56 | disposition left against medical advice (07) | DRG 901 ==
LOC: C.ER 03:22 → C.9E 05:49 → C.6T 11:46
PROVIDERS: ADMIT Internal Medicine Nephrology; ATTEND Internal Medicine Nephrology
DX: A41.9 Sepsis, unspecified organism (principal); L03.116 Cellulitis of left lower limb; N39.0 Urinary tract infection, site not specified; J44.9 Chronic obstructive pulmonary disease, unspecified; F14.90 Cocaine use, unspecified, uncomplicated; L02.416 Cutaneous abscess of left lower limb; I10 Essential (primary) hypertension; Z86.73 Personal history of transient ischemic attack (TIA), and cerebral infarction without residual deficits; F17.210 Nicotine dependence, cigarettes, uncomplicated; E11.9 Type 2 diabetes mellitus without complications; D64.9 Anemia, unspecified; Z59.0 Homelessness

== ENCOUNTER 2019-01-16 11:51 | Emergency (ER) | payer MEDICAID ==
[2019-01-16 11:51] VITALS: BMI 18.6
[2019-01-16 12:05] VITALS: RESP 18
--- NOTE | 2019-01-16 13:52 | C.PDOC ---
History Of Present Illness 48 year old female presents to the ED BIBA for public intoxication. Pt has a hx of persistent heroin abuse. Admits to using heroin today. Denies any SI/HI, visual or auditory hallucinations. Time Seen by Provider: 01/16/19 12:00 Chief Complaint (Nursing): Substance Abuse History Per: Patient History/Exam Limitations: no limitations Onset/Duration Of Symptoms: Days Current Symptoms Are (Timing): Still Present Suicide/Self Injury Attempted (Context): None Modifying Factor(s): Narcotics (heroin ) Associated Symptoms: denies: Suicidal Thoughts, Suicidal Plan Past Medical History Reviewed: Historical Data, Nursing Documentation, Vital Signs Vital Signs: Last Vital Signs Temp 98.1 F 01/16/19 12:02 Pulse 81 01/16/19 12:02 Resp 18 01/16/19 12:02 BP 126/85 01/16/19 12:02 Pulse Ox 100 01/16/19 12:02 Primary Care Provider: FAMILY PROVIDER,NO - Medical History PMH: Asthma, COPD (ASTHMA), Deep Vein Thrombosis, HTN Denies: Diabetes, Hepatitis, HIV, Chronic Kidney Disease, Seizures, Sexually Transmitted Disease Surgical History: Appendectomy Denies: Pacemaker - [facility] Procedures CHANGE OTHER DEVICE ON CHEST WALL (02/26/16) CHANGE OTHER DEVICE ON NECK (02/26/16) DETOXIFICATION SERVICES FOR SUBSTANCE ABUSE TREATMENT (10/07/17) DRAINAGE OF CHEST WALL WITH DRAINAGE DEVICE, OPEN APPROACH (02/26/16) DRAINAGE OF L LOW LEG SUBCU/FASCIA, OPEN APPROACH (11/07/18) DRAINAGE OF NECK SKIN WITH DRAINAGE DEVICE, MUSHROOM FARMER APPROACH (02/26/16) DRAINAGE OF NECK WITH DRAINAGE DEVICE, OPEN APPROACH (02/26/16) DRAINAGE OF RIGHT FINGER PHALANGEAL JOINT, OPEN APPROACH (01/31/16) DRAINAGE OF RIGHT HAND TENDON, OPEN APPROACH (01/31/16) EXCISION OF ANT NECK SUBCU/FASCIA, OPEN APPROACH (02/26/16) EXCISION OF CHEST SUBCU/FASCIA, OPEN APPROACH (02/26/16) GROUP PHYSICIST NUCLEAR FOR SUBSTANCE ABUSE TREATMENT, PSYCHOEDUCATION (10/07/17) INDIV PSYCHOTHERAPY FOR SUBSTANCE ABUSE TREATMENT, SUPPORT (10/07/17) INSERTION OF INFUSION DEV INTO SUP VENA CAVA, PERC APPROACH (02/26/16) INSPECTION OF LOWER MUSCLE, PERCUTANEOUS APPROACH (06/28/18) RESECTION OF APPENDIX, PERCUTANEOUS ENDOSCOPIC APPROACH (06/28/18) SKIN & SUBQ INCISION NEC (09/09/14) ULTRASONOGRAPHY OF HEART WITH AORTA, TRANSESOPHAGEAL (06/28/18) Family History: States: [place] (Father) - Social History Hx Tobacco Use: Yes Hx Alcohol Use: No Hx Substance Use: Yes - Immunization History Hx Tetanus Toxoid Vaccination: No Hx Influenza Vaccination: No Hx Pneumococcal Vaccination: No Review Of Systems Except As Marked, All Systems Reviewed And Found Negative. Constitutional: Negative for: Fever, Chills Cardiovascular: Negative for: Chest Pain Respiratory: Negative for: Shortness of Breath Gastrointestinal: Negative for: Nausea, Vomiting, Diarrhea Psych: Negative for: Suicidal ideation Physical Exam - Physical Exam Appears: Non-toxic, No Acute Distress, Other (think black female, disheveled, foul-smelling, appears older than actual age) Skin: Warm, Dry, No Rash, No Other (track villasenor ) Head: Normacephalic Eye(s): bilateral: Other (pinpoint pupils ) Nose: Normal Oral Mucosa: Moist Neck: Supple Chest: Symmetrical Cardiovascular: Rhythm Regular Respiratory: No Rales, No Rhonchi, No Wheezing Gastrointestinal/Abdominal: Soft, No Tenderness Extremity: Bilateral: Atraumatic Neurological/Psych: Oriented x3, Normal Speech Gait: Steady ED Course And Treatment O2 Sat by Pulse Oximetry: 100 Pulse Ox Interpretation: Normal Reevaluation Time: 13:52 Reassessment Condition: Improved (clinically sober, stable gait, wants d/c) Medical Decision Making Medical Decision Making: narcotics abuse, persistent Disposition Doctor Will See Patient In The: Office Counseled Patient/Family Regarding: Studies Performed, Diagnosis - Disposition Referrals: Alcoholics Anonymous [Outside] [facility] [Outside] [facility] [Outside] [facility] [Outside] [facility] [Outside] Disposition: HOME/ ROUTINE Disposition Time: 13:53 Condition: GOOD Instructions: Drug Abuse and Drug Addiction (DC), Opioid Use Disorder Forms: [facility] ([place]) - Clinical Impression Clinical Impression: Narcotic abuse - Scribe Statement The provider has reviewed the documentation as recorded by the Scribe Lo Isbell All medical record entries made by the Scribe were at my direction and personally dictated by me. I have reviewed the chart and agree that the record accurately reflects my personal performance of the history, physical exam, medical decision making, and the department course for this patient. I have also personally directed, reviewed, and agree with the discharge instructions and disposition.
[2019-01-16 13:59] VITALS: BP 120/68; PULSE 70; TEMP 97.9
[2019-01-16 14:49] VITALS: O2SAT 100
== END 2019-01-16 14:20 | disposition home or self-care (01) ==
LOC: C.ER 11:51
DX: F11.10 Opioid abuse, uncomplicated (principal)